=== PATIENT | female | born 1970 | race Caucasian/White ===

== ENCOUNTER → 2016-10-23 | Outpatient (CLI) | payer OTHER ==
[~2016-10-23] MED LIST: CALC-354 PO; EST5 PO; MELO15TA4 PO; METH-307 PO; MULT-506 PO
--- NOTE | 2016-10-23 08:08 | DIAGNOSTIC IMAGING REPORT ---
MRI OF THE CERVICAL SPINE WITHOUT CONTRAST CLINICAL HISTORY: Cervical radiculopathy. Neck pain radiating into right upper extremity. COMPARISON: None. TECHNIQUE: Utilizing a 1.5 Stephanie magnet and dedicated coil, multiplanar, multiecho imaging of the cervical spine was performed without IV contrast. FINDINGS: Alignment of the cervical spine is anatomic. Vertebral body heights are maintained. There is no marrow replacement. There is no intracanalicular mass or fluid collection. Cervical cord signal and caliber are normal. Visualized portions of the posterior fossa are unremarkable. Paravertebral soft tissues are unremarkable. C2-C3: The central canal and neural foramen are patent. C3-C4: There is minimal disc bulge. Central canal and left neural foramen are patent. There is mild narrowing of the right neural foramen due to facet arthrosis and uncovertebral hypertrophy. C4-C5: There is mild disc bulge with a tiny central disc protrusion. There is no significant central canal stenosis. The left neural foramen is patent. Severe right neural foraminal stenosis is noted due to uncovertebral hypertrophy and facet arthrosis. C5-C6: There is minimal disc bulge. Central canal is patent as is the left neural foramen. There is minimal narrowing of the right neural foramen. C6-C7: There is disc space narrowing with disc bulge and right paracentral disc protrusion. This contacts the ventral aspect of the cord. There is mild to moderate narrowing of the central canal. Left neural foramen is patent. Moderate narrowing of the right neural foramen is noted predominantly due to uncovertebral hypertrophy. C7-T1: Central canal and neural foramen are patent. IMPRESSION: 1. Moderate multilevel degenerative disc disease and facet arthrosis of the cervical spine. Disc bulge with right paracentral disc protrusion at C6-C7 that results in mild to moderate narrowing of the central canal. Normal cervical cord signal and caliber. 2. Multilevel neural foraminal narrowing, including severe narrowing of the right C4-C5 neural foramen and moderate narrowing of the right C6-C7 neural foramen. Electronically signed by: Lazaro Joyce M.D. 10/23/2016 8:07 AM Dictated Date/Time: 10/23/2016 7:58 AM
== END | disposition home or self-care (01) ==
LOC: C.MRI 06:18
PROVIDERS: ATTEND Family Medicine
DX: M50.122 Cervical disc disorder at C5-C6 level with radiculopathy (principal); M50.123 Cervical disc disorder at C6-C7 level with radiculopathy

== ENCOUNTER 2022-12-23 06:57 | Observation (INO) ==
--- NOTE | 2022-11-26 10:32 | PAT Medication Instructions ---
Medication Instructions Date of Service November 26, 2022 Home Medications Medication Instructions Recorded estradiol 0.5 mg tablet 0.5 mg PO DAILY #90 tabs 01/08/22 apixaban 5 mg (74 tabs) tablets in See Rx Instructions .Route 07/09/22 a dose pack (Eliquis) .COMPLEX #74 ea calcium carbonate 600 mg-vitamin D3 5 mcg (200 unit) capsule (Calcium 600 + D(3)) 2 cap PO QAM calcium polycarbophil 625 mg tablet (FiberCon) 1,250 mg PO QAM famotidine 20 mg tablet (Pepcid) 20 mg PO HS PRN reflux methocarbamol 750 mg tablet (Robaxin-750) 750 mg PO BID PRN Pain pediatric multivitamin no.76 (Flintstones Complete chewable tablet) 1 tab PO QAM estradiol 0.5 mg tablet 0.5 mg PO DAILY apixaban 5 mg (74 tabs) tablets in a dose pack (Eliquis) See Rx Instructions .Route .COMPLEX acetaminophen 650 mg tablet,extended release 1,300 mg PO Q12H ASK your prescriber and surgeon estradiol 0.5 mg tablet 0.5 mg PO DAILY apixaban 5 mg (74 tabs) tablets in a dose pack (Eliquis) See Rx Instructions .Route .COMPLEX (From anesthesia perspective, Apixaban/Eliquis needs to be stopped 72 hours before surgery. Please check if okay with doctor that prescribes this to you) DO NOT take the morning of surgery calcium carbonate 600 mg-vitamin D3 5 mcg (200 unit) capsule (Calcium 600 + D(3)) 2 cap PO QAM calcium polycarbophil 625 mg tablet (FiberCon) 1,250 mg PO QAM pediatric multivitamin no.76 (Flintstones Complete chewable tablet) 1 tab PO QAM Take morning of surgery With a small sip of water, OTHERWISE NOTHING TO EAT OR DRINK AFTER MIDNIGHT: methocarbamol 750 mg tablet (Robaxin-750) 750 mg PO BID PRN Pain (if needed) acetaminophen 650 mg tablet,extended release 1,300 mg PO Q12H Take evening before surgery famotidine 20 mg tablet (Pepcid) 20 mg PO HS PRN reflux (if needed) methocarbamol 750 mg tablet (Robaxin-750) 750 mg PO BID PRN Pain (if needed) acetaminophen 650 mg tablet,extended release 1,300 mg PO Q12H Other Notes If you have any questions please call us at [phone] or [phone] or [phone] or [phone]
--- NOTE | 2022-11-28 15:43 | Anesthesiology Consultation ---
Date of Service November 28, 2022 Assessment & Plan (1) Encounter for pre-operative examination: - Infectious disease screening: Per assessment on 11/28/22: No known infectious disease contacts or current infectious disease symptoms. No noted Covid positive test result in past 90 days. - Outpatient joint assessment: Pt currently scheduled for inpatient pathway. If surgeon requests review for outpatient joint pathway, patient is not recommended candidate for outpatient joint program from anesthesia standpoint. - DVT 06/2022: DVT 07/09/22 ([facility] Right knee felt r/t related to estradiol or Covid infection per pt > recent scan "still shows is present" per pt. * Surgeon aware. Per ortho/surgeon office visit note (11/20/22): "Of note, the patient does have a history of DVT this year in June while on COVID. No PEs. She has had several ultrasounds. She actually has an ultrasound scheduled for tomorrow at [facility]." * LE venous duplex performed 11/21/22 showed Chronic DVT in RLE in the segments as noted above due to the chronic changes visualized by duplex. * PCP note 11/21/22: "Please inform patient chronic clot noted in the right.. no acute DVT noted." * PCP note 11/28/22: PCP made aware of upcoming TKA/recent ultrasound findings. "Yes" ok to proceed with surgery. PCP noted surgeon likely wanting patient to hold Eliquis 2 days before surgery. * Patient subsequently seen at [facility] and advised that in order for neuraxial anesthesia, Eliquis would need to be stopped 72 hours prior to surgery (Chronic DVT noted in RLE on recent duplex- if per upcoming discussion between PCP + patient, decision for patient not to hold Eliquis 72 hours prior to surgery, patient made aware that plan would be for general anesthesia). Patient has arranged visit with PCP to discuss doppler findings + Eliquis instructions- Awaiting PCP office visit ([facility], appt 12/09). Chart Review Chart Review: Patient seen in Pre Admission Testing Teaching & Discussion Pre-Anesthesia Teaching/Discussion Notes: Instructed NPO after midnight before surgery,except medications with 15 cc of water. Medication instructions provided according to the [facility] guidelines. History Surgery Operation Date: 12/23/22 08:50 Proposed Procedures p Left Total Knee Arthroplasty - Ming Ceballos MD Height/Weight Height: 5 ft 6.5 in Weight: 76.2 kg Allergies Allergy/AdvReac Type Severity Reaction Status Date / Time nickel Allergy Mild Skin Verified 11/28/22 14:43 redness oxycodone AdvReac Unknown N/V Verified 11/28/22 14:43 Medications Home Medications Medication Instructions Recorded Confirmed Last Taken calcium carbonate 600 mg-vitamin 2 cap PO QAM 10/12/18 11/24/22 03/08/19 03:45 D3 5 mcg (200 unit) capsule (Calcium 600 + D(3)) calcium polycarbophil 625 mg 1,250 mg PO QAM 10/12/18 11/24/22 03/08/19 03:45 tablet (FiberCon) famotidine 20 mg tablet (Pepcid) 20 mg PO HS PRN reflux 10/12/18 11/24/22 03/08/19 03:45 methocarbamol 750 mg tablet 750 mg PO BID PRN Pain 10/12/18 11/24/22 03/08/19 20:00 (Robaxin-750) pediatric multivitamin no.76 1 tab PO QAM 10/12/18 11/24/22 03/08/19 03:45 (Flintstones Complete chewable tablet) estradiol 0.5 mg tablet 0.5 mg PO DAILY #90 tabs 01/08/22 11/24/22 Unknown apixaban 5 mg (74 tabs) tablets in See Rx Instructions .Route 07/09/22 11/24/22 Unknown a dose pack (EliquSlide) .COMPLEX #74 ea acetaminophen 650 mg 1,300 mg PO Q12H 11/24/22 11/24/22 Unknown tablet,extended release Past Medical History Medical History Anemia Hx Degenerative disc disease DVT (deep venous thrombosis) 07/09/22 ([facility]), Right knee felt r/t related to estradiol or Covid infection per pt > recent scan "still shows is present" per pt GERD (gastroesophageal reflux disease) History of asthma Exercise induced, no inhaler History of COVID-19 03/2022- cough, chest congestion, fatigue > resolved Hx of irritable bowel syndrome Hx of phlebitis LLE, felt r/t Covid, "resolved"- Xarelto x 6 weeks Left knee DJD Osteoarthritis Temporomandibular joint disorder Left side, rare locking Exercise / Class Metabolic Activity II 4-5 Yardwork/Stairs/Walk up hill (one FS (no CP, no SOB)) Past Family History Family History Mother Family history of diabetes mellitus Father Family hx of colon cancer Breast cancer Brother Family hx of colon cancer Denies family history of Ovarian cancer Prostate cancer Myocardial infarction Past Surgical History Surgical History H/O hand surgery Right index finger fracture repair 5th metacarpal fracture repair H/O total hysterectomy History of arthroplasty of left knee History of arthroscopy of left knee 02/2019 [facility] History of arthroscopy of right knee 10/2018 [facility] History of colonoscopy History of esophagogastroduodenoscopy (EGD) History of laparoscopy Exploratory History of tooth extraction Nausea and vomiting after administration of anesthetic agent Past Anesthesia History No Hx of Anesthesia Complications and No Family Hx of Anesthesia Complications History of PONV No Hx of Motion Sickness and History of PONV Social History Smoking Status: Never smoker Do You Dip or Chew Tobacco: No Hx Alcohol Use: Yes Alcohol type: wine alcohol intake frequency: holidays/special occasions only Hx Substance Use: No substance use type: does not use Review of Systems Patient denies chest pain, shortness of breath, dyspnea on exertion, fever, chills, cough, wheezing, palpitations. Physical Exam PHYSICAL Full cervical extension range of motion. Full TMJ range of motion. TMD 3 finger breaths Mallampati Score 1 Dentition: lower front right "partial cap" (has "popped off" in the past) Lungs: clear throughout to auscultation Cardiac: regular rate and rhythm, no murmurs noted Spine: normal Carotid arteries: negative bruit Extremities: no LE edema Lab Results Anesthesia Preop Results Results Anesthesia Widget: WBC 7.71 K/ul (4.8-10.8) 11/28/22 Hgb 12.8 g/dl (12.0-16.0) 11/28/22 Hct 38.0 % (37.0-47.0) 11/28/22 Plt 255 K/uL (130-400) 11/28/22 Na 137 mmol/L (136-145) 11/28/22 K 3.8 mmol/L (3.5-5.1) 11/28/22 Cl 102 mmol/L (98-107) 11/28/22 CO2 27 mmol/L (21-32) 11/28/22 BUN 24 mg/dl (6-23) H 11/28/22 Creat 0.75 mg/dl (0.6-1.2) 11/28/22 Glucose Level 82 mg/dl (70-99(Fasting)) 11/28/22 PT 10.8 Seconds (9.0-12.0) 11/28/22 PTT 28.0 Seconds (21.0-31.0) 11/28/22 INR 1.0 (0.9-1.1) 11/28/22 Blood Type A Positive 11/28/22 Antibody Screen NEGATIVE 11/28/22 Testing Electrocardiogram Date: 11/28/22 Findings: + NSR @ (70) Chest X-Ray Date: 12/01/22 FINDINGS: Cardiomediastinal and hilar silhouettes are within normal limits. No pneumothorax, pleural effusion or airspace consolidation. Bones appear grossly intact. IMPRESSION: No acute process. Other Testing LE venous duplex Date: 11/21/22 RIGHT LOWER EXTREMITY On duplex examination the right common femoral vein, the sapheno-femoral junction and the femoral vein in the thigh are all free of internal echoes and demonstrate normal transducer compressibility during acrdenas scale imaging and normal respiratory and augmentation response during Doppler interrogation. The posterior tibial veins demonstrate no evidence of thrombosis. Right popliteal vein has phasic flow, is partly compressible and echogenic. LEFT LOWER EXTREMITY On duplex examination the left common femoral vein, the sapheno-femoral junction, the femoral vein in the thigh and popliteal vein are all free of internal echoes and demonstrate normal transducer compressibility during cardenas scale imaging and normal respiratory and augmentation response during Doppler interrogation. The posterior tibial veins and peroneal veins demonstrate no evidence of thrombosis. CONCLUSIONS: Chronic deep venous thrombosis in the right lower extremity in the segments as noted above due to the chronic changes visualized by duplex. Left lower extremity with no evidence of acute deep venous thrombosis.
--- NOTE | 2022-12-19 07:35 | History & Physical Report ---
Date of Service December 19, 2022 Assessment & Plan (1) Left knee DJD: 52-year-old female with history of bilateral knee DJD for many years and history of knee arthroscopy done 3 and half to 4 years ago both knees with increasing pain and discomfort and progressive arthritic changes left knee worse than the right. She has failed conservative measures. She like to have her knees fixed. Does have a history of a DVT while having COVID. She is on Eliquis. Plan: We will going to take her to the operating do left total knee replacement for the risks Mente this procedure explained the patient clued but not limited to DVT PE infection neurological and vascular bleeding palm pain limb range of motion test is fairly her symptoms incomplete relief of symptoms need for further surgery in future exceptor. The patient understands and desires to proceed. Informed consent is obtained. She is on Eliquis unsure if to stop that 3 days preop. We will start her on a 24 hours postoperative prophylactic dose and then a full dose 2 days postop. He is planned to be discharged home using home health. She plan on stay in the hospital overnight and hopefully discharge postop day 1 if doing okay. (2) Right knee DJD: History of Present Illness Chief Complaint: . Pain discomfort left side greater than right. Primary Care Provider: Paulie Santoyo MD . Patient is a 52-year-old female who has been a long-term patient of mine who presents for continued management of her knees. Got a long history of bilateral knee pain discomfort is gradually gotten worse over time. She did undergo a left knee arthroscopy 3 and half years ago and the right one about 4 years ago. She did pretty well until about 6 months ago when she started increasing pain discomfort swelling. She has been through extensive conservative treatment including injections and oral medicines which have become less successful over time. She is got pain in both knees. The left knee is worse than the right. Slight swelling. More she is up and out the more it hurts. She really like to have her left knee fixed. Of note, patient does have history of a DVT in June while having COVID. No PEs. She is on Eliquis. Allergies Allergy/AdvReac Type Severity Reaction Status Date / Time nickel Allergy Mild Skin Verified 11/28/22 14:43 redness oxycodone AdvReac Unknown N/V Verified 11/28/22 14:43 Home Medications Medication Instructions Recorded Confirmed Type calcium carbonate 600 mg-vitamin 2 cap PO QAM 10/12/18 11/24/22 History D3 5 mcg (200 unit) capsule (Calcium 600 + D(3)) calcium polycarbophil 625 mg 1,250 mg PO QAM 10/12/18 11/24/22 History tablet (FiberCon) famotidine 20 mg tablet (Pepcid) 20 mg PO HS PRN reflux 10/12/18 11/24/22 History methocarbamol 750 mg tablet 750 mg PO BID PRN Pain 10/12/18 11/24/22 History (Robaxin-750) pediatric multivitamin no.76 1 tab PO QAM 10/12/18 11/24/22 History (Flintstones Complete chewable tablet) estradiol 0.5 mg tablet 0.5 mg PO DAILY #90 tabs 01/08/22 11/24/22 Rx apixaban 5 mg (74 tabs) tablets in See Rx Instructions .Route 07/09/22 11/24/22 Rx a dose pack (Eliquis) .COMPLEX #74 ea acetaminophen 650 mg 1,300 mg PO Q12H 11/24/22 11/24/22 History tablet,extended release Past Med/Surg History Medical History Hx of irritable bowel syndrome History of COVID-19 03/2022- cough, chest congestion, fatigue > resolved Hx of phlebitis LLE, felt r/t Covid, "resolved"- Xarelto x 6 weeks DVT (deep venous thrombosis) 07/09/22 ([facility]), Right knee felt r/t related to estradiol or Covid infection per pt > recent scan "still shows is present" per pt Left knee DJD Degenerative disc disease Osteoarthritis GERD (gastroesophageal reflux disease) Anemia Hx Temporomandibular joint disorder Left side, rare locking History of asthma Exercise induced, no inhaler Surgical History History of arthroscopy of left knee 02/2019 [facility] [place] History of arthroplasty of left knee History of arthroscopy of right knee 10/2018 [facility] [place] Nausea and vomiting after administration of anesthetic agent H/O hand surgery Right index finger fracture repair 5th metacarpal fracture repair History of esophagogastroduodenoscopy (EGD) History of colonoscopy H/O total hysterectomy History of laparoscopy Exploratory History of tooth extraction Family History Mother Family history of diabetes mellitus Father Family hx of colon cancer Breast cancer Brother Family hx of colon cancer Denies family history of Ovarian cancer Prostate cancer Myocardial infarction Social History Smoking Status: Never smoker Second Hand Exposure: Yes (father smoked); Do You Dip or Chew Tobacco: No; Hx Alcohol Use: Yes Alcohol type: wine Hx Substance Use: No Preferred Language: Yi Communication Ability: Effective Sports Management Intern Required: No Beliefs That Will Affect Care: None Current Living Situation: Spouse Feels Safe at Home: Yes Assistive Devices: Glasses Review of Systems All systems reviewed & are unremarkable except as noted in HPI & below. Physical Exam . Physical examination of both knees reveal patient ambulates independently. She clearly limps on the left side. Is got slight varus alignment to her knee. Small knee effusion. She is tender over the medial joint line. Range of motion is 5-1 25. No instability. No pain with hip motion. Constitutional WD/WN, vitals as above ENMT external ear and nose normal, oropharynx normal Neck trachea midline, no thyromegaly Respiratory normal respiratory effort, lungs clear to auscultation Cardiovascular RRR, no murmur, no edema Gastrointestinal (Abdomen) normal bowel sounds, soft, nontender, no hepatosplenomegaly Results & Data Results & Data Laboratory Results . Diagnostic Findings . X-rays of both knees were reviewed. Shows advanced medial compartment arthritis in both knees. She is got complete loss of the medial joint space. She got some patellofemoral disease. This has progressed markedly over the past several years. MRI of the left knee was reviewed. Shows advanced medial compartment arthritis. Got bone marrow edema in the medial femoral condyle medial tibial plateau. PG Care Time/CCT Total # of Minutes Spent Total Time Spent with Patient: Total time spent is greater than 50% in coordination of care (as documented) at patient's floor/unit and/or counseling patient: Coding Level of Care Code None Diagnoses Left knee DJD M17.12 Right knee DJD M17.11
[~2022-12-23 06:57] MED LIST changes: +ACETAMINOPHEN 500 MG TAB PO SCH; +BUPIVACAINE LIPOSOME/PF 266 MG, BUPIVACAINE/EPINEPHRINE 50 ML, SODIUM CHLORIDE 0.9% PF ... INFIL SCH; -CALC-354 PO; +CeleBREX 200 MG CAP PO SCH; -EST5 PO; +FAMOTIDINE 20 MG TAB PO SCH; +LR 500ML BOLUS, THEN 15ML/HR IV SCH; +LR 60ML/HR IV SCH; -MELO15TA4 PO; -METH-307 PO; +METOCLOPRAMIDE HCL 10 MG TABLET PO SCH; -MULT-506 PO; +ROPIVACAINE 0.5% 5 MG/ML 30 ML VIAL ONE; +Scopolamine 1 MG TDSY TD SCH; +TRANEXAMIC ACID 1,000 MG **IV Intra-op IV SCH; +ceFAZolin 2000MG 2,000 MG/15 ML SYR IV SCH; +dexAMETHasone**PF** 10 MG/ML VIAL IV SCH
[2022-12-23] MEDS ORDERED: ePHEDrine sulfate 50 MG/ML AMP IV PRN (08:04)
[2022-12-23] MEDS ORDERED: ATROPINE SULFATE 0.1 MG/ML 10ML SYR IV PRN (08:04)
[2022-12-23] MEDS ORDERED: HYDROmorphone INJ 1 MG/ML SYRINGE IV PRN (08:04)
[2022-12-23] MEDS ORDERED: MIDAZOLAM HCL 1 MG/ML 2ML VIAL ONE ×2 (08:04→08:29)
[2022-12-23] MEDS ORDERED: KETOROLAC 30 MG/ML VIAL IV PRN (08:04)
[2022-12-23] MEDS ORDERED: ONDANSETRON INJ 2 MG/ML 2 ML VIAL IV PRN ×2 (08:04→12:29)
--- NOTE | 2022-12-23 08:41 | History & Physical Bridge Note ---
Date of Service December 23, 2022 History & Physical Bridge Note I have examined the patient, reviewed the History & Physical and in the interval since the performance of the History & Physical I have noted the following changes of clinical significance: no changes noted
[2022-12-23] MEDS ORDERED: SODIUM CHLORIDE 0.9% PF 50 ML VIAL ONE (08:48)
[2022-12-23] MEDS ORDERED: BUPIVACAINE/EPINEPHRINE 0.25% 1:200,000 30 ML VIAL ONE (08:48)
[2022-12-23] MEDS ORDERED: BUPIVACAINE LIPOSOME 1.3% 266 MG/20 ML VIAL ONE (08:48)
[2022-12-23] MEDS ORDERED: PROPOFOL IV EMULSION 10 MG/ML 20 ML VIAL IV ONE ×2 (09:35→10:36)
[2022-12-23] MEDS ORDERED: GLYCOPYRROLATE 0.2 MG/ML VIAL ONE (09:35)
[2022-12-23] MEDS ORDERED: ONDANSETRON INJ 2 MG/ML 2 ML VIAL ONE (10:17)
[2022-12-23] MEDS ORDERED: KETOROLAC 30 MG/ML VIAL ONE (10:18)
--- NOTE | 2022-12-23 11:08 | Operative Report ---
PG Post Operative Report Pre & Post Diagnosis Operation Date: 12/23/22 08:50 Pre-Op Diagnosis: Left Knee Advanced Degenerative Joint Disease Post-Op Diagnosis: Left Knee Advanced Degenerative Joint Disease I identified the patient and participated in the time-out.: Yes Procedure Operation Date: 12/23/22 08:50 Actual Procedures p Left Total Knee Arthroplasty(Left) - Ming Ceballos MD Surgeon Ming Ceballos MD Spinner Box Tomas Carranza PA-C Estimated Blood Loss 50 Findings Consistent with Post-Op Diagnosis Operative findings were advanced left knee medial compartment DJD. She had full-thickness cartilage loss within the medial femoral condyle as well as the proximal medial tibial plateau. Slight varus alignment to her knee. Moderate- sized joint effusion. Specimens Left knee sent for pathology. Anesthesia Type Spinal MAC Complications none Disposition Accompanied Patient To Recovery: No Indications Patient is a 52-year-old female who said a long history of bilateral knee pain discomfort is gradually gotten worse over time. She has been through extensive conservative treatment the past. She underwent bilateral knee arthroscopies about 4 years ago. She did pretty well for about 3 years but over the past year she has felt increased pain discomfort in both knees to the left knee is a bit worse than the right. X-rays show progressive left knee arthritis. She elected proceed with total knee arthroplasty. 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 Description of Procedure Operative implants consist of: 1 Rdidle [employer] Nephew journey 2 size 4 left posterior stabilized femoral component. 2. Riddle [employer] Nephew journey 2 size 4 left tibial tray. 3. 11 mm posterior stabilized polyethylene insert. 4. 29 x 9 all poly patella. The patient was taken the operating, identified, placed on the operating table supine position. All contact areas were appropriately padded. IV antibiotics tried by anesthesia team. Spinal anesthetic and abductor canal block had provided in the holding area. A left thigh turn was then placed. Left lower extremity was then prepped and draped in usual sterile fashion. The left leg was elevated exsanguinated with use of an Esmarch and the tourniquet was placed at 300 mmHg. An anterior approach the left knee was then performed to longitudinal incision centered over the patella. Sharp dissection scalp through subcutaneous tissue down the extensor mechanism. Medial parapatellar arthrotomy incision was made. Some subperiosteal dissection was carried out medially. The fat pad was resected from Neath patella tendon. Lateral patellofemoral ligament was released. Patella subluxated laterally and the knee was flexed. The osteophytes taken on distal femur. The ACL and PCL were then released from the distal femur and the tibia subluxated anteriorly. The external tibial alignment jig was then placed the anterior face of the tibia and adjusted 8 mm medially. Proximal tibial cut was made remove about 2 to 3 mm of bone from the medial side. Tibia was then sized to a size 4. Attention drawn the femur. The distal femur then with a sharp drill. Intramedullary canal was suction. A left 5 degree valgus cutting guide was placed. This femoral cutting block was pinned in place. Distal femoral cutting block was then adjusted to take an additional 2 mm bone off distal femur. The femur was then sized to a size 4. The AP cutting block was pinned parallel to the epicondylar axis which was 4 degrees of external rotation. The anterior cut, anterior cord, and cheered chamfer, posterior cut, posterior chamfer cuts were made. The knee was then flexed. The remnants of the medial lateral menisci were excised. The os teophytes taken off the posterior aspect of the femur. The femoral component was then placed. The notch cutting guide device was then placed in the distal femoral notch was then milled and punched. The trochlear component was placed. The tibia subluxated anteriorly. The tibial tray was then pinned in place. The drill and stem punch were used to create defect in proximal tibia for the tibial tray. The knee was then trialed and the leg millimeter insert fit most appropriately. Attention drawn the patella. The patella was cleaned of all soft tissues. Patella thickness measured 21 mm in thickness was cut down to 13. Was sized to a size 29 patella. The locals were drilled for the 29 patella. Lateral osteophytes removed. Patella button was placed. Knee was taken through range of motion patella tracked nicely with no thumbs test. Attention drawn to placing permanent components. All trial components were removed. Bone plug was placed in the distal femur limit blood loss. A double batch Palacos G cement was mixed. Riddle [employer] Nephew journey 2 size of the 4 left Po stabilized femoral component, a size 4 tibial tray, 11 mm pro stabilized polyethylene insert, and a 29 x 9 all Paller patella then cemented in place. Knee was brought out into full extension till cement hardened. Final cement check was then performed. Pericapsular tissues were injected with total of 100 cc combination of choice of Exparel, 30 cc normal saline, 50 cc of quarter percent Marcaine with epinephrine. Patient did receive 1 g tranexamic acid. The tourniquet was then let down for final tourniquet time of 65 minutes. Hemostasis surgeries electrocautery. Extensor mechanism then closed with combination 1 PDS suture #1 Vicryl suture in [id number] fashion. Extensor mechanism checked found to be intact with subcutaneous tissues then closed with 2 Dexon suture in a buried interrupted fashion skin was closed skin allen. Leg was then cleaned and dried and sterile dressing was Xeroform, 4 fours, sterile cast padding, Yuri bandage were applied. Patient then transferred to the recovery room in stable condition. Patient tolerated procedure well and there were no complications. Tomas Carranza, my physician certified registered dental assistant, was present for the entire procedure. His assistance was essential and required for appropriate patient positioning, prepping and draping, surgical exposure, performing the technical details of the operation, placement the implants, closure of the wound, and placement of the sterile bandage. I attest to the content of the Intraoperative Record and any orders documented therein. Any exceptions are noted below.
--- NOTE | 2022-12-23 12:07 | XRay Report ---
XR knee LT 1 or 2V routine CLINICAL HISTORY: Postoperative evaluation. COMPARISON: Left knee radiographs September 15, 2022. FINDINGS: Alignment of the total left knee arthroplasty is anatomic. There is no periprosthetic frac ture or unexpected radiopaque foreign body. There are skin allen. IMPRESSION: Expected findings following total left knee arthroplasty. ACT 112: Negative or not required by law. Electronically signed by: Lazaro Joyce M.D. 12/23/2022 12:06 PM
[2022-12-23] MEDS ORDERED: ALUMINUM/MAGNESIUM SUSP 30 ML UDC PO PRN (12:29)
[2022-12-23] MEDS ORDERED: METOCLOPRAMIDE HCL INJ 5 MG/ML 2 ML VIAL IV PRN (12:29)
[2022-12-23] MEDS ORDERED: diphenhydrAMINE Capsule 25 MG CAP PO PRN (12:29)
[2022-12-23] MEDS ORDERED: bisacodyL 10 MG SUPP PR PRN (12:29)
[2022-12-23] MEDS ORDERED: MAGNESIUM HYDROXIDE SUSP 30 ML UDC PO PRN (12:29)
[2022-12-23] MEDS ORDERED: FAMOTIDINE 20 MG TAB PO PRN (12:29)
[2022-12-23] MEDS ORDERED: NALOXONE HCL 0.4 MG/1 ML VIAL/CARP IV PRN (12:29)
[2022-12-23] MEDS ORDERED: HYDROmorphone INJ 0.5 MG/0.5 ML SYR IV PRN (12:29)
[2022-12-23] MEDS ORDERED: METHOCARBAMOL 750 MG TABLET PO PRN (12:29)
--- NOTE | 2022-12-23 12:37 | Anesthesiology Progress Note ---
Date of Service December 23, 2022 Anesthesia Post Procedure Vital Signs Vital Signs: Temp Pulse Pulse Resp BP Pulse Ox O2 Del Method 12/23/22 12:31 36.5 C 75 16 118/72 98 Room Air 12/23/22 12:10 36.4 C L 69 19 123/72 98 Room Air 12/23/22 12:00 73 18 129/67 99 Room Air 12/23/22 11:50 71 18 114/68 98 Room Air 12/23/22 11:40 36.5 C 69 18 129/72 99 Room Air 12/23/22 11:30 76 16 129/79 99 Room Air 12/23/22 11:20 70 16 125/67 100 Room Air 12/23/22 11:10 73 16 127/63 95 Room Air 12/23/22 11:03 36.7 C 85 18 144/67 H 97 Room Air 12/23/22 07:15 36.5 C 64 18 119/68 100 Room Air Transfer of Care Handoff Completed per policy Notes Mental Status: alert / awake / arousable Patient Amnestic to Procedure: Yes Nausea / Vomiting: adequately controlled Pain: adequately controlled Airway Patency, RR, SpO2: stable & adequate BP & HR: stable & adequate Hydration State: stable & adequate Neuraxial Anesthesia: was administered and sensory block is resolving Anesthetic Complications: no major complications apparent
[2022-12-23] MEDS: SODIUM CHLORIDE 0.9% 1,000 ML IV SCH ×2 (13:11→22:42)
[2022-12-23] MEDS: KETOROLAC 30 MG/ML VIAL IV SCH ×2 (13:55→20:42)
[2022-12-23] MEDS: ACETAMINOPHEN 500 MG TAB PO SCH ×2 (13:55→20:43)
[2022-12-23] MEDS: traMADol HCL 50 MG TABLET PO PRN ×2 (14:42→22:14)
[2022-12-23] MEDS: ceFAZolin 1000MG 1,000 MG/7.5 ML SYR IV SCH (16:15)
[2022-12-23] MEDS: Scopolamine CHECK PATCH PLACEMENT SCH (16:19)
[2022-12-23] MEDS: ASCORBIC ACID 500 MG TAB PO SCH (16:20)
[2022-12-23] MEDS ORDERED: TRANEXAMIC ACID / 0.7% NACL 1,000 MG/100 ML BAG IV SCH (17:15)
[2022-12-23] MEDS: DOCUSATE SODIUM 100 MG CAP PO SCH (20:42)
[2022-12-23] MEDS ORDERED: SENNA 8.6 MG TAB PO SCH ×2 (21:00)
[2022-12-24] MEDS: ceFAZolin 1000MG 1,000 MG/7.5 ML SYR IV SCH (00:52)
[2022-12-24] MEDS: Scopolamine CHECK PATCH PLACEMENT SCH ×2 (00:52→08:24)
[2022-12-24] MEDS: KETOROLAC 30 MG/ML VIAL IV SCH ×2 (00:52→08:23)
[2022-12-24 07:08] LABS: Hematocrit (blood only) 35.1 % (37.0-47.0); Hemoglobin 11.5 g/dl (12.0-16.0); Mean Corpuscular Hemoglobin 29.9 pg (25.0-34.0); Mean Corpuscular Hgb Conc 32.8 g/dL (32.0-36.0); Mean Corpuscular Volume 91.4 fL (80.0-100.0); Mean Platelet Volume 9.1 fL (9.4-12.4); Platelet Count 239 K/uL (130-400); RDW Coefficient of Variation 12.7 % (11.5-14.5); RDW Standard Deviation 42.2 fL (36.4-46.3); Red Blood Count 3.84 M/uL (4.20-5.40); White Blood Count 15.59 K/ul (4.8-10.8)
[2022-12-24] MEDS: traMADol HCL 50 MG TABLET PO PRN (07:54)
[2022-12-24] MEDS ORDERED: dexAMETHasone 10 MG in SYRINGE 0 ML IV SCH (08:00)
[2022-12-24] MEDS: ACETAMINOPHEN 500 MG TAB PO SCH (08:23)
[2022-12-24] MEDS: ASCORBIC ACID 500 MG TAB PO SCH (08:23)
[2022-12-24] MEDS: DOCUSATE SODIUM 100 MG CAP PO SCH (08:23)
--- NOTE | 2022-12-24 08:23 | Orthopedic Progress Note ---
Date of Service December 24, 2022 Assessment & Plan (1) Status post left knee replacement: Overall she is doing very well. She is not having much pain to the left knee. She will be seen by physical therapy today for ambulation and range of motion exercises. She was restarted back on her Eliquis for DVT prophylaxis. She can be discharged home later today. She will follow-up with Dr. Ceballos in 2 weeks for postoperative care. Francisco Abdullahi was seen and evaluated at bedside this morning. She is resting comfortably in her chair in no apparent distress. Overall she is doing very well with slight discomfort to the left knee but manageable. She has been up and ambulating to the bathroom overnight. She has no complaints today. Review of Systems All systems reviewed & are unremarkable except as noted in HPI & below. Physical Exam . On physical exam of the left knee, the dressings are clean, dry, intact. Her leg is out in full extension. She has active dorsiflexion and plantarflexion of her left ankle. Results & Data Results & Data Laboratory Results . Diagnostic Findings . Postoperative x-rays of the left knee show the prosthesis to be in anatomical alignment without any evidence of fracture complication or loosening. PG Care Time/CCT Total # of Minutes Spent Total Time Spent with Patient: Total time spent is greater than 50% in coordination of care (as documented) at patient's floor/unit and/or counseling patient: Coding Level of Care Code 16200 Post Operative Follow-Up Diagnoses Status post left knee replacement Z96.652
--- NOTE | 2022-12-24 08:34 | Discharge Summary ---
Date of Service December 24, 2022 Admission HPI Per Admitting Provider Patient is a 52-year-old female who has been a long-term patient of mine who presents for continued management of her knees. Got a long history of bilateral knee pain discomfort is gradually gotten worse over time. She did undergo a left knee arthroscopy 3 and half years ago and the right one about 4 years ago. She did pretty well until about 6 months ago when she started increasing pain discomfort swelling. She has been through extensive conservative treatment including injections and oral medicines which have become less successful over time. She is got pain in both knees. The left knee is worse than the right. Slight swelling. More she is up and out the more it hurts. She really like to have her left knee fixed. Of note, patient does have history of a DVT in June while having COVID. No PEs. She is on Eliquis. Admission Exam (Per Admitting) Musculoskeletal Physical examination of both knees reveal patient ambulates independently. She clearly limps on the left side. Is got slight varus alignment to her knee. Small knee effusion. She is tender over the medial joint line. Range of motion is 5-1 25. No instability. No pain with hip motion. Musculoskeletal On physical examination of the left knee, the dressings are clean, dry, and in place. Her leg is held in full extension. She has active dorsiflexion and plantarflexion of her left ankle. Discharge Data Procedures Performed Operation Date: 12/23/22 08:50 Actual Procedures p Left Total Knee Arthroplasty(Left) - Ming Ceballos MD Hospital Course (1) Status post left knee replacement: On December 23, 2022 Kaylen arrived at [facility] and underwent a left knee replacement without complications. She had a spinal anesthetic. Postoperatively she was started back on her Eliquis for DVT prophylaxis and transferred to the general orthopedic floors. Her hospital course was uneventful. On postoperative day #1, her vital signs were stable and her pain was well controlled. She was able to participate well with physical therapy doing ambulation and range of motion exercises. She was then discharged home she will follow-up with Dr. Ceballos in 2 weeks for postoperative care. Coding Level of Care Code 92350 IN/OBS DISCH 30 MIN/LESS Diagnoses Status post left knee replacement Z96.652 Principal Diagnosis Same as discharge diagnosis noted under discharge instructions.
[2022-12-24] MEDS ORDERED: MULTIVITAMIN TAB PO SCH (09:00)
[2022-12-24] MEDS ORDERED: CALCIUM POLYCARBOPHIL 625MG TAB PO SCH (09:00)
[2022-12-24] MEDS ORDERED: NON-FORMULARY MEDICATION (Amino Acids Powder) PO SCH (09:00)
[2022-12-24] MEDS ORDERED: MULTIVITAMIN CHEWABLE TAB PO SCH (09:00)
[2022-12-24] MEDS ORDERED: CALCIUM 600MG + VIT D 400 IU TAB PO SCH (09:00)
[2022-12-24 09:03] LABS: BUN Creatinine Ratio 20.9 (10-20); Calcium 9.1 mg/dl (8.6-10.3); Creatinine Clr Calc Pharmacy 73.9 ml/min; Est GFR (African American) 82.9 ml/min; Est GFR (Non-African American) 71.5 ml/min; Potassium 3.9 mmol/L (3.5-5.1)
[2022-12-24] MEDS ORDERED: APIXABAN 2.5 MG TAB PO SCH (12:00)
--- OUTSIDE RECORDS SUMMARY | 2022-12-25 01:23 | External Medical Summary | Summary of Care ---
Author Name Unknown Organization [facility] Address [address] [place] [address] Phone [phone] Care Team Providers Care Light Adjuster Name Role Phone Natanael GARDNER MD, Paulie Browne Primary Care Provider [phone] Reason for Visit * Reason Comments Acute Neck pain Encounter Details Date Type Department Care Team Description 10/27/2022 Office Visit Family Practice [facility] [place] [address] [facility] [place] [address] Wendy Iqbal PA-C [address] [facility] [place] [address] Viral URI*; Lymphadenopathy Allergies Active Allergy Reactions Severity Noted Date Comments Nickel Rash 10/04/2015 Oxycodone-Acetaminophen 08/13/2010 Nausea/vomiting documented as of this encounter (statuses as of 10/27/2022) Medications Medication Sig Dispensed Refills Start Date End Date Status MULTIVITAMIN PO CHEW None Entered 0 Ac tive CALCIUM + D 600-200 MG-UNIT PO TABS 0 Active Famotidine 20 MG Oral Tablet Take 1 Tablet by mouth in the morning and 1 Tablet before bedtime. 0 Active Methocarbamol 750 MG Oral TabletIndications:Degen eration of lumbosacral intervertebral disc Take 1 Tablet by mouth in the morning and 1 Tablet before bedtime. As needed for back pain. 60 Tablet 3 06/03/2022 Active Apixaban 5 MG Oral Tablet (Eliquis) Take 1 Tablet by mouth in the morning and 1 Tablet before bedtime. 60 Tablet 5 07/21/2022 Active documented as of this encounter (statuses as of 10/27/2022) Active Problems Problem Noted Date Acute deep vein thrombosis ( DVT) of popliteal vein of right lower extremity 07/12/2022 Arthritis of knee, degenerative 05/28/19 15 Family history of GI malignancy 08/14/19 11 Dermatitis due to plant 08/05/2010 ADVANCE DIRECTIVE INFORMATION 03/10/2006 Overview: Pt declines booklet. LUMB-LUMBOSAC DISC DEGEN 09/29/2002 Endometriosis of other specified sites 0 09/29/2002 documented as of this encounter (statuses as of 10/27/2022) Resolved Problems Problem Noted Date Resolved Date Irritable bowel syndrome 09/29/2002 015 documented as of this encounter (statuses as of 10/27/2022) Immunizations Name Administration Dates Next Due COVID-19 mRNA, LNP-s, No Pre serve, 2-Dose Series (Pfizer) 11/22/2020,02/17/2020,01/27/2020 Seasonal Influenza, Quadriva lent, No Preserve, IM 11/23/2020,11/14/2019,02/12/2017 Seasonal Influenza, Split, I IV3, With Preserve, Inj 11/10/2015,02/20/2012,01/23/2010 TDAP (age 11 and older)(Adacel) 08/09/2016,08/14 Zoster Vaccine Recombinant (Shingrix) 08/10/2020 ,05/09/2020 documented as of this encounter Social History Tobacco Use Types Packs/Day Years Used Date Smoking Tobacco: Never Smokeless Tobacco: Never Alcohol Use Standard Drinks/Week Comments Yes 0 (1 standard drink = 0.6 oz pur e alcohol) rare Food Insecurity Answer Date Recorded Within the past 12 months, y ou worried that your food would run out before you got money to buy more. Never true 08/10/2018 Within the past 12 months, t he food you bought just didn't last and you didn't have money to get more. Never true 08/10/2018 Sex Assigned at Date Recorded Not on file Job Start Date Occupation Industry Not on file Not on file Not on file documented as of this encounter Last Filed Vital Signs Vital Sign Reading Time Taken Comments Blood Pressure 104/68 10/27/2022 3:21 PM EDT Pulse 71 10/27/2022 3:21 PM EDT Temperature 36.2 C (97.1 F) 10/27/2022 3:21 PM ED T Respiratory Rate 16 10/27/2022 3:21 PM EDT Oxygen Saturation 98% 10/27/2022 3:21 PM EDT Inhaled Oxygen Concentration - - Weight 76.2 kg (168 lb 0.6 oz) 10/27/2022 3:21 P M EDT Height 168.9 cm (5' 6.5") 10/27/2022 3:21 PM EDT Body Mass Index 26.72 10/27/2022 3:21 PM EDT documented in this encounter Progress Notes * Wendy Iqbal PA-C - 10/27/2022 3:46 PM EDT Subjective Kaylen Arcos is a 52 year old female that presents for Acute (Neck pain ) 52 y/o female presents c/o pain with swallowing and pain on the right side of her neck. Pt states she has allergies and PND at baseline, has seemed ot be a little worse the last week. She is supposedto see the dentist tomorrow, and wants to make sure she is OK to get her teeth cleaned. No dental pain, no ear pain, no fevers, chills, chest pain, SOB, nausea, vomiting, diarrhea. Allergies and medications reviewed. Objective BP 104/68 (BP Site: Left Arm, BP Position: Sitting, BP Cuff Size: Regular) | Pulse 71 | Temp 36.2 C (97.1 F) (Tympanic) | Resp 16 | Ht 1.689 m (5' 6.5") | Wt 76.2 kg (168 lb 0.6 oz) | SpO2 98% | BMI 26.72 kg/m | BSA 1.89 m Body mass index is 26.72 kg/m. BP Readings from Last 3 Encounters: 10/27/22 104/68 10/01/22 124/70 07/12/22 128/78 Wt Readings from Last 3 Encounters: 10/27/22 76.2 kg (168 lb 0.6 oz) 10/01/22 75.6 kg (166 lb 12 oz) 07/12/22 76.5 kg (168 lb 11.2 oz) Physical Exam Vitals and nursing note reviewed. Constitutional: General: She is not in acute distress. Appearance: Normal appearance. HENT: Head: Normocephalic and atraumatic. Right Ear: Tympanic membrane, ear canal and external ear normal. Left Ear: Tympanic membrane, ear canal and external ear normal. Nose: Nose normal. Mouth/Throat: Mouth: Mucous membranes are moist. Pharynx: Posterior oropharyngeal erythema present. No oropharyngeal exudate. Eyes: General: No scleral icterus. Extraocular Movements: Extraocular movements intact. Conjunctiva/sclera: Conjunctivae normal. Pupils: Pupils are equal, round, and reactive to light. Cardiovascular: Rate and Rhythm: Normal rate and regular rhythm. Heart sounds: No murmur heard. No friction rub. No gallop. Pulmonary: Effort: Pulmonary effort is normal. Breath sounds: Normal breath sounds. No stridor. No wheezing, rhonchi or rales. Musculoskeletal: Cervical back: Neck supple. Tenderness present. Lymphadenopathy: Cervical: Cervical adenopathy (equal bilaterally) present. Skin: General: Skin is warm and dry. Findings: No rash. Neurological: General: No focal deficit present. Mental Status: She is alert and oriented to person, place, and time. Psychiatric: Mood and Affect: Mood normal. Behavior: Behavior normal. Assessment and plan 1. Viral URI 2. Lymphadenopathy -reactive lymphadenopathy, likely viral in nature -has been going on for 7 days -likely last for 7-10 days -pt would like to give it the rest of the week to see if it improves -if persistent can plan to do US of neck, CBC to make sure nothing else is going on -to ER with acute worsening symptoms Follow up Follow Up: Return if symptoms worsen or fail to improve. Total time today including reviewing chart before the visit, pertinent labs, imaging reports, face to face time, and documentation time was 20 minutes. The above was discussed and understanding was expressed. Wendy Iqbal PA-C documented in this encounter Nursing Notes * Deann Jasmine, MED ASSIST - 10/27/2022 3:21 PM EDT Kaylen Tate Troyan 52 year old female is here for right sided neck pain when swallowing. She describes it as a sharp pain that she rates at a 5 or 6 out of ten. Symptoms have been present for 7 days. No other symptoms. documented in this encounter Plan of Treatment Scheduled Procedures Name Priority Associated Diagnoses Date/Ti me COLONOSCOPY FLEXIBLE PROXIMA L DIAGNOSTIC Recall Family history of colon cancer Health Maintenance Due Date Last Done Comments Hepatitis B (1 of 3 - 3-dose series) 1970 Depression Screening 10/11/2020 10/12/2019 COVID-19 Vaccine (4 - Pfizer series) 01/17/2021 11/22/2020, 02/17/2020, 01/27/2020 Influenza Vaccine (FLU shot) (#1) 2022 11/23/2020, 11/14/2019, 02/12/2017, Additional history exists Mammogram 06/10/2023 06/09/2022, 05/11, 06/04/2020, Additional history exists Diabetes Screening 05/10/2024 05/10/2021, 1 02/25/2017, 06/03/2014, Additional history exists COLONOSCOPY-EVERY 5 YRS AGES 18-100 10/12/2025 10/12/2020, 10/12/2020, 10/19/2015, Additional history exists Lipid Panel 05/10/2026 05/10/2021, 12/10, 06/03/2014, Additional history exists DTaP,Tdap,and Td Vaccines (3 - Td or Tdap) 08/09/2026 08/09/2016, 08/14/2009 Zoster Vaccines Completed 08/10/2020, 05/09/2020 Hepatitis C Screening Completed 09/24/2021 , 09/24/2021, 09/24/2021 GARDASIL-HPV IMMUNIZATION SERIES Aged Out No longer eligible based on patient's age to complete this topic MENINGOCOCCAL (MENACTRA/MENVEO) Aged Out No longer eligible based on patient's age to complete this topic Pneumococcal Vaccine: Pediatrics (0 to 5 Years) and At-Risk Patients (6 to 64 Years) Aged Out No longer eligible based on patient's age to complete this topic documented as of this encounter Medical Devices Not on filedocumented as of this encounter Visit Diagnoses Diagnosis Viral URI- Primary Acute upper respiratory infections of unspecified site Lymphadenopathy Enlargement of lymph nodes documented in this encounter Care Teams Light Adjuster Relationship Specialty Start Date End Date Paulie Santoyo III, MD [address] [place] [address] PCP - General Family Medicine 09/13/21 documented as of this encounter
--- OUTSIDE RECORDS SUMMARY | 2022-12-25 01:23 | External Medical Summary | Summary of Care ---
Author Name Unknown Organization [facility] Address [address] [place] [address] Phone [phone] Care Team Providers Care Roll Tension Tester Name Role Phone Natanael GARDNER MD, Paulie Browne Primary Care Provider [phone] Encounter Details Date Type Department Care Team Description 10/01/2022 Office Visit Family Practice [facility] [place] [address] [facility] [place] [address] Pilar Mcneal PA-C [address] [facility] [place] [address] LUMB-LUMBOSAC DISC DEGEN*; Osteoarthritis of left knee, unspecified osteoarthritis type; Acute deep vein thrombosis (DVT) of popliteal vein of right lower extremity (HCC) Allergies Active Allergy Reactions Severity Noted Date Comments Nickel Rash 10/04/2015 Oxycodone-Acetaminophen 08/13/2010 Nausea/vomiting documented as of this encounter (statuses as of 10/01/2022) Medications Medication Sig Dispensed Refills Start Date End Date Status MULTIVITAMIN PO CHEW None Entered 0 Ac tive CALCIUM + D 600-200 MG-UNIT PO TABS 0 Active Famotidine 20 MG Oral Tablet Take 1 Tablet by mouth in the morning and 1 Tablet before bedtime. 0 Active Methocarbamol 750 MG Oral TabletIndications:De generation of lumbosacral intervertebral disc Take 1 Tablet by mouth in the morning and 1 Tablet before bedtime. As needed for back pain. 60 Tablet 3 06/03/2022 Active Apixaban 5 MG Oral Tablet (Eliquis) Take 1 Tablet by mouth in the morning and 1 Tablet before bedtime. 60 Tablet 5 07/21/2022 Active estradiol (ESTRACE) 0.5 MG Tablet 0 12/30/2018 10/01/2022 Discontinue d(Medicatio n List Clean Up) methylPREDNISolone 4 MG Oral Tablet Therapy Pack (Medrol Dosepack) 0 07/10/2022 10/01/2022 Discontinue d(Medicatio n List Clean Up) documented as of this encounter (statuses as of 10/01/2022) Active Problems Problem Noted Date Acute deep [...] as of this encounter (statuses as of 10/01/2022) Resolved Problems Problem Noted Date Resolved Date Irritable bowel syndrome 09/29/2002 015 documented as of this encounter (statuses as of 10/01/2022) Immunizations Name Administration Dates Next Due COVID-19 mRNA, LNP-s, No Pre serve, 2-Dose Series ([employer]) 11/22/2020,02/17/2020,01/27/2020 Seasonal Influenza, Quadriva lent, No Preserve, IM 11/23/2020,11/14/2019,02/12/2017 Seasonal Influenza, Split, I IV3, With Preserve, Inj 11/10/2015,02/20/2012,01/23/2010 TDAP (age 11 and older)(Adacel) 08/09/2016,08/14 Zoster Vaccine Recombinant (Shingrix) 08/10/2020 ,05/09/2020 documented as of this encounter Social History Tobacco Use Types Packs/Day Years Used Date Smoking Tobacco: Never Smokeless Tobacco: Never Tobacco Cessation:Counseling Given: Not Answered Alcohol Use Standard Drinks/Week Comments Yes 0 [...] Sign Reading Time Taken Comments Blood Pressure 124/70 10/01/2022 2:50 PM EDT Pulse 72 10/01/2022 2:50 PM EDT Temperature 37.1 C (98.7 F) 10/01/2022 2:50 PM ED T Respiratory Rate - - Oxygen Saturation - - Inhaled Oxygen Concentration - - Weight 75.6 kg (166 lb 12 oz) 10/01/2022 2:50 PM EDT Height - - Body Mass Index 26.51 05/24/2022 9:03 AM EDT documented in this encounter Progress Notes * Pilar Mcneal PA-C - 10/01/2022 2:54 PM EDT Images from the original note were not included. History of Present Illness Kaylen Arcos is a 52 year old female that presents for No chief complaint on file. Patient is a 52 year old female who presents for her annual renewal of her fmla for her back. No changes with her back. Seeing chiropracter monthly. Has also been having some problems with arthritis in the left knee. Is scheduled to have a surgicalconsult in November. Physical Exam Vitals: 10/01/22 1450 Temp: 37.1 C (98.7 F) Pulse: 72 BP: 124/70 BP Readings from Last 3 Encounters: 10/01/22 124/70 07/12/22 128/78 05/24/22 126/74 Wt Readings from Last 3 Encounters: 10/01/22 75.6 kg (166 lb 12 oz) 07/12/22 76.5 kg (168 lb 11.2 oz) 05/24/22 80.3 kg (177 lb 1.6 oz) General: alert, healthy, no distress, well nourished, well developed, comfortable, and cooperative Head: Normocephalic, No masses, lesions, tenderness or abnormalities Eye Exam: PERRLA, extraocular movements intact, conjunctiva are pink and non- injected, sclera clear Neck: supple, no adenopathy, no bruits, thyroid normal size, non-tender, without nodularity Back: back symmetric, no curvature, no costovertebral angle tenderness, range of motion is normal, no skin lesions, erythema or scars, no tenderness to percussion or palpation, Normal heel walk and toe walk, without evidence of muscle weakness Extremities: less than 2 second capillary refill, no joint deformities, effusion, or inflammation, no edema, no skin discoloration, no clubbing, no cyanosis I have reviewed the following results: None Assessment and Plan LUMB-LUMBOSAC DISC DEGEN (Primary) Osteoarthritis of left knee, unspecified osteoarthritis type Acute deep vein thrombosis (DVT) of popliteal vein of right lower extremity (HCC) - VASC DUPLEX VENOUS LE UNILAT; Future; Expected date: 11/01/2022 - VASC DUPLEX VENOUS LE UNILAT; Future; Expected date: 11/01/2022 Wrap-Up Time: I spent a total of 20-29 minutes (exact time 26 mins) on the date of service in preparation, delivery, and documentation of the care provided to Kaylen Arcos excluding any time spent in the performance of separately billed services. documented in this encounter Plan of Treatment Scheduled Orders Name Type Priority Associated Diagnoses Orde r Schedule VASC DUPLEX VENOUS LE UNILAT Medical Imaging Routine Acute deep vein thrombosis (DVT) of popliteal vein of right lower extremity (HCC) Expected: 11/01/2022, Expires: 11/02/2023 VASC DUPLEX VENOUS LE UNILAT Medical Imaging Routine Acute deep vein thrombosis (DVT) of popliteal vein of right lower extremity (HCC) Expected: 11/01/2022, Expires: 11/02/2023 Scheduled Procedures Name Priority Associated Diagnoses Date/Ti me COLONOSCOPY FLEXIBLE PROXIMA L DIAGNOSTIC Recall Family history of colon cancer Health Maintenance Due Date Last Done Comments Hepatitis B (1 of 3 - 3-dose series) 1970 Depression Screening, Annual for Pts 12 and Over 10/11/2020 10/12/2019 COVID-19 Vaccine (4 - Pfizer [...] as of this encounter Visit Diagnoses Diagnosis LUMB-LUMBOSAC DISC DEGEN- Primary Degeneration of lumbar or lumbosacral intervertebral disc Osteoarthritis of left knee, unspecified osteoarthritis type Acute deep vein thrombosis (DVT) of popliteal vein of right lower extremity (HCC) documented in this encounter Care Teams Roll Tension Tester Relationship Specialty Start Date End Date Paulie Santoyo III, MD [address] [place], [place] [address] PCP - General Family Medicine 09/13/21 documented as of this encounter
--- OUTSIDE RECORDS SUMMARY | 2022-12-25 01:23 | External Medical Summary | Summary of Care ---
Author Name Unknown Organization [facility] Address [address] [place] [address] Phone [phone] Care Team Providers Care Caramel Candy Maker Name Role Phone Natanael GARDNER MD, John E Primary Care Provider [phone] Reason for Visit * Reason Onset Date Comments Medication Refill 12/10/2022 Encounter Details Date Type Department Care Team (Late st Contact Info) Description 12/10/2022 Refill Family Practice [facility] [address] [facility] [place] [address] Talisha Bhat III, MD [address] [facility] [address] LUMB-LUMBOSAC DISC DEGEN Allergies Active Allergy Reactions Criticality Noted Date Comments Nickel Rash 10/04/2015 Oxycodone-Acetaminophen 08/13/2010 Nausea/vomiting documented as of this encounter (statuses as of 12/10/2022) Medications Medication Sig Dispensed Refills Start Date End Date Status MULTIVITAMIN PO CHEW None Entered 0 Ac tive CALCIUM + D 600-200 MG-UNIT PO TABS 0 Active Famotidine 20 MG Oral Tablet Take 1 Tablet by mouth in the morning and 1 Tablet before bedtime. 0 Active Apixaban 5 MG Oral Tablet (Eliquis) Take 1 Tablet by mouth in the morning and 1 Tablet before bedtime. 60 Tablet 5 07/21/2022 Active Methocarbamol 750 MG Oral TabletIndications:De generation of lumbosacral intervertebral disc Take 1 Tablet by mouth in the morning and 1 Tablet before bedtime. As needed for back pain. 60 Tablet 3 12/10/2022 Active Methocarbamol 750 MG Oral TabletIndications:De generation of lumbosacral intervertebral disc Take 1 Tablet by mouth in the morning and 1 Tablet before bedtime. As needed for back pain. 60 Tablet 3 06/03/2022 12/10/2022 Discontinue d(Refill) documented as of this encounter (statuses as of 12/10/2022) Active Problems Problem Noted Date Diagnosed Date Acute deep vein thrombosis ( DVT) of popliteal vein of right lower extremity 07/12/2022 Arthritis of knee, degenerative 05/27/2014 Family history of GI malignancy 08/13/2010 Dermatitis due to plant 08/05/2010 ADVANCE DIRECTIVE INFORMATION 03/10/2006 Overview: Pt declines booklet. LUMB-LUMBOSAC DISC DEGEN 09/29/2002 Endometriosis of other specified sites 3 documented as of this encounter (statuses as of 12/10/2022) Resolved Problems Problem Noted Date Diagnosed Date Resolved Date Irritable bowel syndrome 09/29/2002 documented as of this encounter (statuses as of 12/10/2022) Immunizations Name Administration Dates Next Due COVID-19 mRNA, LNP-s, No Pre serve, 2-Dose Series ([employer]) 11/22/2020,02/17/2020,01/27/2020 Seasonal Influenza, Quadriva lent, No Preserve, [...] = 0.6 oz pur e alcohol) rare PHQ-2 Answer Date Recorded PHQ Adult Total Score 0 10/27/2022 Hunger Vital Sign Answer Date Recorded Worried About Running Out of Food in the Last Ye ar Never true 08/10/2018 Ran Out of Food in the Last Year Never true 08/10/2018 Sex and Gender Information Value Date Recorded Sex Assigned at Not on file Gender Identity Not on file Sexual Orientation Not on file Job Start Date Occupation Industry Not on file Not on file Not on file documented as of this encounter Miscellaneous Notes * Telephone Encounter - Talisha Bhat III, MD - 12/10/2022 5:50 PM EDTSigned Prescriptions: Disp Refills Methocarbamol 750 MG Oral Tablet 60 Tab*3 Sig: Take 1 Tablet by mouth in the morning and 1 Tablet before bedtime. As needed for back pain.Authorizing Provider: TALISHA BHAT III * Telephone Encounter - Giovanna Cruz LPN - 12/10/2022 5:40 PM EDT Pending Prescriptions: Disp Refills Methocarbamol 750 MG Oral Tablet 60 Tab*3 Sig: Take 1 Tablet by mouth in the morning and 1 Tablet before bedtime. As needed for back pain. * Telephone Encounter - Tee Lorenz, yarn carrier - 12/10/2022 4:46 PM EDT Did you pend patient's preferred pharmacy and medication before forwarding?yes Pharmacy: [facility] [place] Pending Prescriptions: Disp Refills Methocarbamol 750 MG Oral Tablet 60 Tab*3 Sig: Take 1 Tablet by mouth in the morning and 1 Tablet before bedtime. As needed for back pain. Last Visit: 10/27/2022 (in office), 12/09/2022 (telemedicine) Next Visit: Visit date not found If no future appointments scheduled, and last appointment is greater than a year ago, please schedule patient for a follow-up appointment Last date the medication was ordered: 06/03/2022 Is this request for a controlled substance?No Urine Drug Screen:No results found for this or any previous visit. Patient Phone Numbers Labs: Lab Results Component Value Date/Time CREAT 0.9 06/03/2014 08:27 AM POTASSIUM 4.2 06/03/2014 08:27 AM LDLCALC 81 05/10/2021 07:07 AM LDLCALC 84 12/26/2017 08:19 AM ALT 16 06/03/2014 08:27 AM documented in this encounter Plan of Treatment Scheduled Procedures Name Priority Associated Diagnoses Date/Ti me COLONOSCOPY FLEXIBLE PROXIMA L DIAGNOSTIC Recall Family history of colon cancer Health Maintenance Due Date Last Done Comments Hepatitis B (1 of 3 - 3-dose series) 1970 COVID-19 Vaccine ( season) 2022 11/22/2020, 02/17/2020, 01/27/2020 Influenza Vaccine (FLU shot) (#1) 2022 11/23/2020, 11/14/2019, 02/12/2017, Additional history exists Mammogram 06/10/2023 06/09/2022, 05/11, 06/04/2020, Additional history exists Depression Screening 10/28/2023 10/27/2022 Diabetes Screening 05/10/2024 05/10/2021, 1 02/25/2017, 06/03/2014, Additional history exists COLONOSCOPY-EVERY 5 YRS AGES 18-100 10/12/2025 10/12/2020, 10/12/2020, 10/19/2015, Additional history exists Lipid Panel 05/10/2026 05/10/2021, 12/10, 06/03/2014, Additional history exists DTaP,Tdap,and Td Vaccines (3 - Td or Tdap) 08/09/2026 08/09/2016, 08/14/2009 Zoster Vaccines Completed 08/10/2020, 05/09/2020 GARDASIL-HPV IMMUNIZATION SERIES Aged Out No longer [...] this encounter Visit Diagnoses Diagnosis LUMB-LUMBOSAC DISC DEGEN Degeneration of lumbar or lumbosacral intervertebral disc documented in this encounter Care Teams Caramel Candy Maker Relationship Specialty Start Date End Date Talisha Bhat III, MD [address] [place] [address] PCP - General Family Medicine 09/13/21 documented as of this encounter
--- OUTSIDE RECORDS SUMMARY | 2022-12-25 01:23 | External Medical Summary | Summary of Care ---
Author Name Unknown Organization [facility] Address [address] [place] [address] Phone [phone] Care Team Providers Care Pillowcase Cleaner Name Role Phone Natanael GARDNER MD, Paulie Browne Primary Care Provider [phone] Encounter Details Date Type Department Care Team Description 07/24/2022 Result Scan Unspecified Department <No scans attached> Allergies Active Allergy Reactions Severity Noted Date Comments Nickel Rash 10/04/2015 Oxycodone-Acetaminophen 08/13/2010 Nausea/vomiting documented as of this encounter (statuses as of 10/03/2022) Medications Medication Sig Dispensed Refills Start Date [...] as of this encounter (statuses as of 10/03/2022) Active Problems Problem Noted Date Acute deep [...] as of this encounter (statuses as of 10/03/2022) Resolved Problems Problem Noted Date Resolved Date Irritable bowel syndrome 09/29/2002 015 documented as of this encounter (statuses as of 10/03/2022) Immunizations Name Administration Dates Next Due COVID-19 mRNA, LNP-s, No Pre serve, 2-Dose Series ([employer]) 11/22/2020,02/17/2020,01/27/2020 Seasonal Influenza, Quadriva lent, No Preserve, [...] on file documented as of this encounter Plan of Treatment Scheduled Procedures [...] Not on filedocumented as of this encounter Procedures Procedure Name Priority Date/Time Associated Diagnosis Comments RADIOLOGY SCANNED RESULT 07/24/2022 documented in this encounter Results * RADIOLOGY SCANNED RESULT (07/24/2022) 07/24/2022 No Physician Data Unknown DIAGNOSTIC RAD IOLOGY SERVICES documented in this encounter Care Teams Pillowcase Cleaner Relationship Specialty Start Date End Date Paulie Santoyo III, MD [address] [place] [address] PCP - General Family Medicine 09/13/21 documented as of this encounter
--- OUTSIDE RECORDS SUMMARY | 2022-12-25 01:23 | External Medical Summary | Summary of Care ---
Author Name Unknown Organization [facility] Address [address] [place] [address] Phone [phone] Care Team Providers Care Cement Sprayer Helper Name Role Phone Natanael GARDNER MD, Paulie Browne Primary Care Provider [phone] Reason for Visit * Reason Comments Follow Up Eliquis Question Encounter Details Date Type Department Care Team (Late st Contact Info) Description 12/09/2022 2:20 PM EDT Telemedicine Family Practice [facility] [address] [place] [address] Missy Hampton MD [address] [place] [address] Chronic deep vein thrombosis (DVT) of popliteal vein of right lower extremity (HCC)* Allergies Active Allergy Reactions Criticality Noted Date Comments Nickel Rash 10/04/2015 Oxycodone-Acetaminophen 08/13/2010 Nausea/vomiting documented as of this encounter (statuses as of 12/09/2022) Medications Medication Sig Dispensed Refills Start Date [...] as of this encounter (statuses as of 12/09/2022) Active Problems Problem Noted Date Diagnosed Date Acute deep vein thrombosis ( DVT) of popliteal vein of right lower extremity 07/12/2022 Arthritis of knee, degenerative 05/27/2014 Family history of GI malignancy 08/13/2010 Dermatitis due to plant 08/05/2010 ADVANCE DIRECTIVE INFORMATION 03/10/2006 Overview: Pt declines booklet. LUMB-LUMBOSAC DISC DEGEN 09/29/2002 Endometriosis of other specified sites 3 documented as of this encounter (statuses as of 12/09/2022) Resolved Problems Problem Noted Date Diagnosed Date Resolved Date Irritable bowel syndrome 09/29/2002 documented as of this encounter (statuses as of 12/09/2022) Immunizations Name Administration Dates Next Due COVID-19 mRNA, LNP-s, No Pre serve, 2-Dose Series ([employer]) 11/22/2020,02/17/2020,01/27/2020 Seasonal Influenza, Quadriva lent, No Preserve, [...] on file documented as of this encounter Progress Notes * Missy Hampton MD - 12/09/2022 2:29 PM EDT Appointment was initially scheduled as video visit. Patient was unable to connect to video. We completed visit via telephone. After connecting to the patient via telephone, the patient was identified by name and date of . Patient was then informed that this was a telephone call only visit. The patient agreed to participate. Total call duration was 9 minutes. Subjective Chief Complaint Patient presents with Follow Up Eliquis Question HPI: Kaylen Arcos is a 52 year old female. The following issues were addressed today: Developed phlebitis in left lower extremity in March after COVID infection. In June, experienced swelling in the right lower leg and went to the ER where she was diagnosed with acute DVT. Has been on Eliquis since then. Has total knee replacement scheduled with Dr. Ceballos on December 23. Was told by Dr. Santoyo that sheshould stop Eliquis 2 days before surgery, but she states on pre-admission testing they advised hershe would only be able to have spinal and nerve block if she stops Eliquis 3 days prior. Otherwise would need to have general anesthesia. Review of Systems: See HPI Objective There were no vitals taken for this visit. Wt Readings from Last 3 Encounters: 10/27/22 76.2 kg (168 lb 0.6 oz) 10/01/22 75.6 kg (166 lb 12 oz) 07/12/22 76.5 kg (168 lb 11.2 oz) BP Readings from Last 3 Encounters: 10/27/22 104/68 10/01/22 124/70 07/12/22 128/78 No physical examination performed. Assessment & Plan 1. Chronic deep vein thrombosis (DVT) of popliteal vein of right lower extremity (HCC) Okay to stop Eliquis 72 hours before surgery. Follow Up: Return if symptoms worsen or fail to improve. This note was electronically signed by Missy Hampton MD documented in this encounter Plan of Treatment Scheduled Procedures Name Priority Associated Diagnoses Date/Ti me COLONOSCOPY FLEXIBLE PROXIMA L DIAGNOSTIC Recall Family history of colon cancer Health Maintenance Due Date Last Done Comments Hepatitis B (1 of 3 - 3-dose series) 1970 COVID-19 Vaccine ( - 2022- season) 2022 11/22/2020, 02/17/2020, 01/27/2020 Influenza Vaccine [...] as of this encounter Visit Diagnoses Diagnosis Chronic deep vein thrombosis (DVT) of popliteal vein of right lower extremity (HCC)- Primary documented in this encounter Care Teams Cement Sprayer Helper Relationship Specialty Start Date End Date Paulie Santoyo III, MD [address] [place] [address] PCP - General Family Medicine 09/13/21 documented as of this encounter
--- OUTSIDE RECORDS SUMMARY | 2022-12-25 01:24 | External Medical Summary | Summary of Care ---
Author Name Unknown Organization [facility] Address [address] [place] [address] Phone [phone] Care Team Providers Care Electrotyper Name Role Phone Natanael GARDNER MD, Paulie Browne Primary Care Provider [phone] Encounter Details Date Type Department Care Team Description 07/09/2022 Result Scan Unspecified Department <No scans attached> Allergies Active Allergy Reactions Severity Noted Date Comments Nickel Rash 10/04/2015 Oxycodone-Acetaminophen 08/13/2010 Nausea/vomiting documented as of this encounter (statuses as of 08/27/2022) Medications Medication Sig Dispensed Refills Start Date End Date Status MULTIVITAMIN PO CHEW None Entered 0 Ac tive CALCIUM + D 600-200 MG-UNIT PO TABS 0 Active Famotidine 20 MG Oral Tablet Take 1 Tablet by mouth in the morning and 1 Tablet before bedtime. 0 Active estradiol (ESTRACE) 0.5 MG Tablet 0 12/30/2018 Active Methocarbamol 750 MG Oral TabletIndications:Degen eration of lumbosacral intervertebral disc Take 1 Tablet by mouth in the morning and 1 Tablet before bedtime. As needed for back pain. 60 Tablet 3 06/03/2022 Active documented as of this encounter (statuses as of 08/27/2022) Active Problems Problem Noted Date Acute deep [...] as of this encounter (statuses as of 08/27/2022) Resolved Problems Problem Noted Date Resolved Date Irritable bowel syndrome 09/29/2002 015 documented as of this encounter (statuses as of 08/27/2022) Immunizations Name Administration Dates Next Due COVID-19 [...] Date/Time Associated Diagnosis Comments RADIOLOGY SCANNED RESULT 07/09/2022 documented in this encounter Results * RADIOLOGY SCANNED RESULT (07/09/2022) 07/09/2022 No Physician Data Unknown DIAGNOSTIC RAD IOLOGY SERVICES documented in this encounter Care Teams Electrotyper Relationship Specialty Start Date End Date Natanael GARDNER, Paulie Brow[place] MD [address] [place] [address], [place] [address] PCP - General Family Medicine 09/13/21 documented as of this encounter
--- OUTSIDE RECORDS SUMMARY | 2022-12-25 01:24 | External Medical Summary | Summary of Care ---
Author Name Unknown Organization [facility] Address [address] [place] [address] Phone [phone] Care Team Providers Care Thumb Sewer Name Role Phone Natanael GARDNER MD, Paulie Browne Primary Care Provider [phone] Reason for Visit * Reason Onset Date Comments Order Request 07/15/2022 MUKUND Venous study order needed Encounter Details Date Type Department Care Team Description 07/15/2022 Telephone Access Center, Central Region [address] [facility] *DO NOT REMOVE THIS DEPARTMENT* [place] [address] Services, Scheduling [address] [place] [address] Order Request (MUKUND Venous study order needed) Allergies Active Allergy Reactions Severity Noted Date Comments Nickel Rash 10/04/2015 Oxycodone-Acetaminophen 08/13/2010 Nausea/vomiting documented as of this encounter (statuses as of 07/22/2022) Medications Medication Sig Dispensed Refills Start Date End Date Status MULTIVITAMIN PO CHEW None Entered 0 Ac tive CALCIUM + D 600-200 MG-UNIT PO TABS 0 Active Famotidine 20 MG Oral Tablet Take 1 Tablet by mouth in the morning and 1 Tablet before bedtime. 0 Active estradiol (ESTRACE) 0.5 MG Tablet 0 12/30/2018 Active Methocarbamol 750 MG Oral TabletIndications:De generation of lumbosacral intervertebral disc Take 1 Tablet by mouth in the morning and 1 Tablet before bedtime. As needed for back pain. 60 Tablet 3 06/03/2022 Active methylPREDNISolone 4 MG Oral Tablet Therapy Pack (Medrol Dosepack) 0 07/10/2022 Active Ibuprofen 200 MG Oral Tablet Take 1 Tablet by mouth every 4 hours as needed. 0 07/21/2022 Discontinue d(Medicatio n List Clean Up) documented as of this encounter (statuses as of 07/22/2022) Active Problems Problem Noted Date Acute deep [...] as of this encounter (statuses as of 07/22/2022) Resolved Problems Problem Noted Date Resolved Date Irritable bowel syndrome 09/29/2002 015 documented as of this encounter (statuses as of 07/22/2022) Immunizations Name Administration Dates Next Due COVID-19 mRNA, LNP-s, No Pre serve, 2-Dose Series ([employer]) 11/22/2020,02/17/2020,01/27/2020 Seasonal Influenza, Quadriva lent, No Preserve, [...] encounter Miscellaneous Notes * Telephone Encounter - Pilar Mcneal PA-C - 07/21/2022 7:17 PM EDT Order placed. Was out of office. * Telephone Encounter - BRANDON Remy - 07/15/2022 11:19 AM EDT Good afternoon, We have scheduled the patient for her DVT study, but the order you placed was only for one leg. Please place a corrected order for a Venous US MUKUND lower extremity so we may scan the patient when she comes in. documented in this encounter Plan of Treatment Upcoming Encounters Date Type Specialty Care Team Description 08/11/2022 Imaging Radiology Scheduled Orders Name Type Priority Associated Diagnoses Orde r Schedule VASC DUPLEX VENOUS LE BILAT Medical Imaging Routine Localized edema Expected: 07/21/2022, Expires: 08/21/2023 Scheduled Procedures Name Priority Associated Diagnoses Date/Ti me COLONOSCOPY FLEXIBLE PROXIMA L DIAGNOSTIC Recall Family history of colon cancer Health Maintenance Due Date Last Done Comments Hepatitis B (1 of 3 - 3-dose series) 1970 Depression Screening, Annual for Pts 12 and Over 10/11/2020 10/12/2019 COVID-19 Vaccine (4 - Pfizer series) 01/17/2021 11/22/2020, 02/17/2020, 01/27/2020 Influenza Vaccine (FLU shot) (Season Ended) 2022 11/23/2020, 11/14/2019, 02/12/2017, Additional history exists [...] as of this encounter Visit Diagnoses Diagnosis Localized edema- Primary Edema documented in this encounter Care Teams Thumb Sewer Relationship Specialty Start Date End Date Paulie Santoyo III, MD [address] [place] [address] PCP - General Family Medicine 09/13/21 documented as of this encounter
--- OUTSIDE RECORDS SUMMARY | 2022-12-25 01:24 | External Medical Summary | Summary of Care ---
Author Name Unknown Organization [facility] Address [address] [place] [address] Phone [phone] Care Team Providers Care Outer Diameter Grinder Tool Name Role Phone Natanael GARDNER MD, Paulie Browne Primary Care Provider [phone] Reason for Visit * Reason Onset Date Comments Hospital Follow-Up 07/09/2022 Encounter Details Date Type Department Care Team Description 07/09/2022 Telephone Family Practice [facility] [place] [address] [facility] [place] [address] Paulie Santoyo III, MD [address] [facility] [place] [address] Hospital Follow-Up Allergies Active Allergy Reactions Severity Noted Date Comments Nickel Rash 10/04/2015 Oxycodone-Acetaminophen 08/13/2010 Nausea/vomiting documented as of this encounter (statuses as of 07/09/2022) Medications Medication Sig Dispensed Refills Start Date End Date Status MULTIVITAMIN PO CHEW None Entered 0 Ac tive CALCIUM + D 600-200 MG-UNIT PO TABS 0 Active Famotidine 20 MG Oral Tablet Take 1 Tablet by mouth in the morning and 1 Tablet before bedtime. 0 Active estradiol (ESTRACE) 0.5 MG Tablet 0 12/30/2018 Active Ibuprofen 200 MG Oral Tablet Take 1 Tablet by mouth every 4 hours as needed. 0 Active Methocarbamol 750 MG Oral TabletIndications:Degen eration of lumbosacral intervertebral disc Take 1 Tablet by mouth in the morning and 1 Tablet before bedtime. As needed for back pain. 60 Tablet 3 06/03/2022 Active documented as of this encounter (statuses as of 07/09/2022) Active Problems Problem Noted Date Arthritis of knee, degenerative 05/28/19 15 Family history of GI malignancy 08/14/19 11 Dermatitis due to plant 08/05/2010 ADVANCE DIRECTIVE INFORMATION 03/10/2006 Overview: Pt declines booklet. LUMB-LUMBOSAC DISC DEGEN 09/29/2002 Endometriosis of other specified sites 0 09/29/2002 documented as of this encounter (statuses as of 07/09/2022) Resolved Problems Problem Noted Date Resolved Date Irritable bowel syndrome 09/29/2002 015 documented as of this encounter (statuses as of 07/09/2022) Immunizations Name Administration Dates Next Due COVID-19 mRNA, LNP-s, No Pre serve, 2-Dose Series ([employer]) 11/22/2020,02/17/2020,01/27/2020 Seasonal Influenza, Quadriva lent, No Preserve, [...] encounter Miscellaneous Notes * Telephone Encounter - BRANDON Haq - 07/09/2022 2:57 PM EDT Pt is scheduled and aware * Telephone Encounter - Aide Bojorquez LPN - 07/09/2022 1:[address] Santoyo is out of the office until Thursday. Patient can schedule next available ED follow up. Can be video if she refuses to come in to the office. * Telephone Encounter - BRANDON Swanson - 07/09/2022 9:42 AM EDT Patient called in, she was seen at [facility] ER today. She has a DVT in her right leg. They puther on a blood thinner. She is requesting to speak to Dr. Santoyo. Declined scheduling a ER follow up. They will be faxing over the report to the office. documented in this encounter Plan of Treatment Upcoming Encounters Date Type Specialty Care Team Description 07/12/2022 Office Visit Family Medicine Pilar Mcneal, PAMarthaC [address] [place] [address] Scheduled Procedures Name Priority Associated Diagnoses Date/Ti me COLONOSCOPY FLEXIBLE PROXIMA L DIAGNOSTIC Recall Family history of colon cancer Health Maintenance Due Date Last Done Comments Hepatitis B (1 of 3 - 3-dose series) 1970 Depression Screening, Annual for Pts 12 and Over 10/11/2020 10/12/2019 COVID-19 Vaccine (4 - Booster for Pfizer series) 01/17/2021 11/22/2020, 02/17/2020, 01/27/2020 Influenza [...] Not on filedocumented as of this encounter Care Teams Outer Diameter Grinder Tool Relationship Specialty Start Date End Date Paulie Santoyo III, MD [address] [place] [address], [place] [address] PCP - General Family Medicine 09/13/21 documented as of this encounter
--- OUTSIDE RECORDS SUMMARY | 2022-12-25 01:24 | External Medical Summary | Summary of Care ---
Author Name Unknown Organization [facility] Address [address] [place] [address] Phone [phone] Care Team Providers Care Director Of Corporate Real Estate Name Role Phone Natanael GARDNER MD, John E Primary Care Provider [phone] Reason for Visit * Reason Onset Date Comments Advice 09/01/2022 FYI 09/01/2022 Encounter Details Date Type Department Care Team Description 09/01/2022 Telephone Family Practice [facility] [place] [address] [facility] [place] [address] Paulie Santoyo III, MD [address] [facility] [place] [address] Advice; Allergies Active Allergy Reactions Severity Noted Date Comments Nickel Rash 10/04/2015 Oxycodone-Acetaminophen 08/13/2010 Nausea/vomiting documented as of this encounter (statuses as of 09/03/2022) Medications Medication Sig Dispensed Refills Start Date [...] Tablet Therapy Pack (Medrol Dosepack) 0 07/10/2022 Ac tive Apixaban 5 MG Oral Tablet (Eliquis) Take 1 Tablet by mouth in the morning and 1 Tablet before bedtime. 60 Tablet 5 07/21/2022 Active documented as of this encounter (statuses as of 09/03/2022) Active Problems Problem Noted Date Acute deep [...] as of this encounter (statuses as of 09/03/2022) Resolved Problems Problem Noted Date Resolved Date Irritable bowel syndrome 09/29/2002 015 documented as of this encounter (statuses as of 09/03/2022) Immunizations Name Administration Dates Next Due COVID-19 mRNA, LNP-s, No Pre serve, 2-Dose Series ([employer]) 11/22/2020,02/17/2020,01/27/2020 Seasonal Influenza, Quadriva lent, No Preserve, [...] Miscellaneous Notes * Telephone Encounter - BRANDON John - 09/03/2022 2:26 PM EDT Patient called and scheduled with Pilar Mcneal on 10-01-2022. * Telephone Encounter - BRANDON Haq - 09/02/2022 11:45 AM EDT My g sent 09/02 * Telephone Encounter - Aide Bojorquez LPN - 09/02/2022 11:36 AM EDT Provider to address: schedule next available return with Pilar Correa Reason for Call: Advice Contact: Telephone Call Contact Type: Other: appointment Outcome: forwarded to scheduling Total Time including non face to face (minutes): 5 * Telephone Encounter - Lavonne Jean CMA - 09/01/2022 1:09 PM EDT No Appointments Available Patient declined appointments?: No What Visit Type is needed? Return If Acute Visit Type is needed, were surrounding clinics offered to patient (Yes/No)? No, explain pcp provider Was patient offered appointments with other available providers (Yes/No)? No, explain only pcp See Call Details? (Yes or No): No documented in this encounter Plan of Treatment Upcoming Encounters Date Type Specialty Care Team Description 10/01/2022 Office Visit Family Medicine Pilar Mcneal PA-C [address] [place] [address] Scheduled Procedures Name Priority Associated Diagnoses Date/Ti [...] filedocumented as of this encounter Care Teams Director Of Corporate Real Estate Relationship Specialty Start Date End Date Paulie Santoyo III, MD [address] [place] [address], [place] [address] PCP - General Family Medicine 09/13/21 documented as of this encounter
--- OUTSIDE RECORDS SUMMARY | 2022-12-25 01:24 | External Medical Summary | Summary of Care ---
Author Name Unknown Organization [facility] Address [address] [place] [address] Phone [phone] Care Team Providers Care Janitor Supervisor Name Role Phone Natanael GARDNER MD, Paulie Browne Primary Care Provider [phone] Reason for Visit * Reason Comments Emergency Department Follow-Up [facility] ER Encounter Details Date Type Department Care Team Description 07/12/2022 Office Visit Family Medicine [facility] [address] [facility] [place] [address] Pilar Mcneal PA-C [address] [place] [address] Acute deep vein thrombosis (DVT) of popliteal vein of right lower extremity (HCC)* Allergies Active Allergy Reactions Severity Noted Date Comments Nickel Rash 10/04/2015 Oxycodone-Acetaminophen 08/13/2010 Nausea/vomiting documented as of this encounter (statuses as of 07/12/2022) Medications Medication Sig Dispensed Refills Start Date [...] Pack (Medrol Dosepack) 0 07/10/2022 Ac tive documented as of this encounter (statuses as of 07/12/2022) Active Problems Problem Noted Date Acute deep [...] as of this encounter (statuses as of 07/12/2022) Resolved Problems Problem Noted Date Resolved Date Irritable bowel syndrome 09/29/2002 015 documented as of this encounter (statuses as of 07/12/2022) Immunizations Name Administration Dates Next Due COVID-19 mRNA, LNP-s, No Pre serve, 2-Dose Series ([employer]) 11/22/2020,02/17/2020,01/27/2020 Seasonal Influenza, Quadriva lent, No Preserve, [...] Sign Reading Time Taken Comments Blood Pressure 128/78 07/12/2022 12:51 PM EDT Pulse 91 07/12/2022 12:51 PM EDT Temperature 36.6 C (97.9 F) 07/12/2022 1 2:51 PM EDT Respiratory Rate - - Oxygen Saturation 99% 07/12/2022 12: 51 PM EDT Inhaled Oxygen Concentration - - Weight 76.5 kg (168 lb 11.2 oz) 023 12:51 PM EDT Height - - Body Mass Index 26.82 05/24/2022 9:03 AM EDT documented in this encounter Progress Notes * Pilar Mcneal PA-C - 07/12/2022 1:06 PM EDT Images from the original note were not included. History of Present Illness Kaylen Arcos is a 52 year old female that presents for Emergency Department Follow-Up ([facility] ER 07/09/22) Patient is a 52 year old female who presents for a follow up after an ER visit on 07/09. Was diagnosed with a dvt in right politeal vein. Wearing support hosiery.using moist heat, using stretches Denies chest pain, sob, pain in other limbs. Doing activity as tolerated. No previous dvt. Physical Exam Vitals: 07/12/22 1251 Temp: 36.6 C (97.9 F) Pulse: 91 SpO2: 99% BP: 128/78 BP Readings from Last 3 Encounters: 07/12/22 128/78 05/24/22 126/74 04/01/22 124/70 Wt Readings from Last 3 Encounters: 07/12/22 76.5 kg (168 lb 11.2 oz) 05/24/22 80.3 kg (177 lb 1.6 oz) 04/01/22 80.7 kg (178 lb) General: alert, healthy, no distress, well nourished, well developed, comfortable and cooperative Head: Normocephalic, No masses, lesions, tenderness or abnormalities Eye Exam: PERRLA, extraocular movements intact, conjunctiva are pink and non- injected, sclera clear Neck: supple, no adenopathy, no bruits, thyroid normal size, non-tender, without nodularity Heart: regular rate & rhythm, no murmur and no gallops Lungs: chest symmetric with normal AP diameter, no chest deformities noted, normal respiratory rateand rhythm, no chest wall tenderness, diaphragmatic excursion normal, lungs clear to auscultation Extremities: less than 2 second capillary refill, no joint deformities, effusion, or inflammation, no edema, no skin discoloration, no clubbing, no cyanosis I have reviewed the following results: None Assessment and Plan Acute deep vein thrombosis (DVT) of popliteal vein of right lower extremity (HCC) (Primary) - VASC DUPLEX VENOUS LE UNILAT; Future; Expected date: 08/11/2022 Check-out note: Schedule US in 6-8 weeks Wrap-Up Time: I spent a total of 30-39 minutes (exact time 33 mins) on the date of service in preparation, delivery, and documentation of the care provided to Kaylen Arcos excluding any time spent in the performance of separately billed services. documented in this encounter Nursing Notes * Duyen Ferraro LPN - 07/12/2022 12:51 PM EDT Chief Complaint Patient presents with Emergency Department Follow-Up [facility] ER 07/09/22 documented in this encounter Plan of Treatment Scheduled Orders Name Type Priority Associated Diagnoses Orde r Schedule VASC DUPLEX VENOUS LE UNILAT Medical Imaging Routine Acute deep vein thrombosis (DVT) of popliteal vein of right lower extremity (HCC) Expected: 08/11/2022, Expires: 08/12/2023 Scheduled Procedures Name Priority Associated Diagnoses Date/Ti [...] as of this encounter Visit Diagnoses Diagnosis Acute deep vein thrombosis (DVT) of popliteal vein of right lower extremity (HCC)- Primary documented in this encounter Care Teams Janitor Supervisor Relationship Specialty Start Date End Date Paulie Santoyo III, MD [address] [place] [address], [place] [address] PCP - General Family Medicine 09/13/21 documented as of this encounter
--- OUTSIDE RECORDS SUMMARY | 2022-12-25 01:24 | External Medical Summary | Summary of Care ---
Author Name Unknown Organization [facility] Address [address] [place] [address] Phone [phone] Care Team Providers Care Solar Sales Rep Name Role Phone Natanael GARDNER MD, Paulie Browne Primary Care Provider [phone] Reason for Visit * Reason Onset Date Comments Med Request 07/21/2022 Encounter Details Date Type Department Care Team Description 07/21/2022 Telephone Family Practice [facility] [place] [address] [place] [address] Pilar Mcneal PA-C [address] [place] [address] Med Request (/) Allergies Active Allergy Reactions Severity Noted Date Comments Nickel Rash 10/04/2015 Oxycodone-Acetaminophen 08/13/2010 Nausea/vomiting documented as of this encounter (statuses as of 07/21/2022) Medications Medication Sig Dispensed Refills Start Date [...] Therapy Pack (Medrol Dosepack) 0 07/10/2022 Active Apixaban 5 MG Oral Tablet (Eliquis) Take 1 Tablet by mouth in the morning and 1 Tablet before bedtime. 60 Tablet 5 07/21/2022 Active Ibuprofen 200 MG Oral Tablet Take 1 Tablet by mouth every 4 hours as needed. 0 07/21/2022 Discontinue d(Medicatio n List Clean Up) documented as of this encounter (statuses as of 07/21/2022) Active Problems Problem Noted Date Acute deep [...] as of this encounter (statuses as of 07/21/2022) Resolved Problems Problem Noted Date Resolved Date Irritable bowel syndrome 09/29/2002 015 documented as of this encounter (statuses as of 07/21/2022) Immunizations Name Administration Dates Next Due COVID-19 mRNA, LNP-s, No Pre serve, 2-Dose Series ([employer]) 11/22/2020,02/17/2020,01/27/2020 Seasonal Influenza, Quadriva lent, No Preserve, [...] Encounter - Pilar Mcneal PA-C - 07/21/2022 7:37 PM EDT Script sent. * Telephone Encounter - Aide Bojorquez LPN - 07/21/2022 3:56 PM EDT Med pending for refill if appropriate. * Telephone Encounter - Karla Blake CPhT - 07/21/2022 2:55 PM EDT Patient calling requesting the following medication below that is listed as "Historical". The following information was provided: Medication Name: Eliquis Strength: 5 mg Directions: Twice a day Preferred Quantity:60 Previous Prescriber: Preferred Pharmacy: [facility] Please review and approve if appropriate. Thank you, Karla Blake CPhT [facility]formerly telepharmacy) 07/21/2022,2:55 PM documented in this encounter Plan of Treatment Upcoming Encounters Date Type Specialty Care Team Description 08/11/2022 Imaging Radiology Scheduled Procedures Name Priority Associated Diagnoses Date/Ti [...] filedocumented as of this encounter Care Teams Solar Sales Rep Relationship Specialty Start Date End Date Paulie Santoyo III, MD [address] [facility] [address] PCP - General Family Medicine 09/13/21 documented as of this encounter
--- OUTSIDE RECORDS SUMMARY | 2022-12-25 01:24 | External Medical Summary | Summary of Care ---
Author Name Unknown Organization [facility] Address [address] [place] [address] Phone [phone] Care Team Providers Care Language And Literature Division Chair Name Role Phone Natanael GARDNER MD, John E Primary Care Provider [phone] Reason for Visit * Reason Onset Date Comments Advice 09/01/2022 Encounter Details Date Type Department Care Team Description 09/01/2022 Telephone Family Practice [facility] [address] [place] [address] Paulie Santoyo III, MD [address] [place] [address] Advice Allergies Active Allergy Reactions Severity Noted Date Comments Nickel Rash 10/04/2015 Oxycodone-Acetaminophen 08/13/2010 Nausea/vomiting documented as of this encounter (statuses as of 09/02/2022) Medications Medication Sig Dispensed Refills Start Date [...] as of this encounter (statuses as of 09/02/2022) Active Problems Problem Noted Date Acute deep [...] as of this encounter (statuses as of 09/02/2022) Resolved Problems Problem Noted Date Resolved Date Irritable bowel syndrome 09/29/2002 015 documented as of this encounter (statuses as of 09/02/2022) Immunizations Name Administration Dates Next Due COVID-19 mRNA, LNP-s, No Pre serve, 2-Dose Series ([employer]) 11/22/2020,02/17/2020,01/27/2020 Seasonal Influenza, Quadriva lent, No Preserve, [...] schedule next available return with Pilar Correa or Wendy Reason for Call: Advice Contact: Telephone Call [...] filedocumented as of this encounter Care Teams Language And Literature Division Chair Relationship Specialty Start Date End Date Paulie Santoyo III, MD [address] [place] [address], [place] [address] PCP - General Family Medicine 09/13/21 documented as of this encounter
== END 2022-12-24 12:25 | disposition home health service (06) ==
LOC: 3E 06:57 → ASU 06:57

== ENCOUNTER 2022-12-27 20:20 | Inpatient (IN) ==
[2022-12-27] MEDS ORDERED: KETOROLAC 30 MG/ML VIAL ONE (20:25)
[2022-12-27] MEDS ORDERED: ONDANSETRON INJ 2 MG/ML 2 ML VIAL ONE (20:25)
[2022-12-27] MEDS ORDERED: SODIUM CHLORIDE 0.9% 1,000 ML IV ONE (20:33)
[2022-12-27] MEDS ORDERED: ONDANSETRON INJ 2 MG/ML 2 ML VIAL IV STA (20:33)
[2022-12-27] MEDS ORDERED: MoRPHine SULFATE 4 MG/ML 1 ML CARP\\VIAL IV STA ×2 (20:33→22:00)
--- NOTE | 2022-12-27 20:35 | Emergency Department Note ---
Impression & Plan SBO (small bowel obstruction), Abdominal pain ED Provider Note NAME: LOUIS ANN AGE: 52 SEX: F : 1970 ARRIVES VIA: Ambulance INFORMANT: Patient ED PROVIDER(S): Clive Kimbrough DO CHIEF COMPLAINT: abdominal pain HPI: Patient is a 52-year-old female status post left knee replacement performed this past Thursday and was discharged home Thursday. She has not had a bowel movement since Thursday. She notes that she is having severe pain periumbilically rating to the left lower quadrant and a lot of pressure in her rectum. She admits to nausea and vomiting. Previous history of a hysterectomy. Denies any dysuria, urgency, or frequency. No headache or change in vision. No chest pain or shortness of breath. No other exacerbating or remitting factors. ADDITIONAL HISTORY OBTAINED: Per HPI Chronic Medical/Social Conditions Affecting Care: Per HPI PAST MEDICAL HISTORY:See Below PAST SURGICAL HISTORY:See Below FAMILY HISTORY:See Below SOCIAL HISTORY:See Below HOME MEDICATIONS:See Below ALLERGIES:See Below VITALS:See Below PHYSICAL EXAMINATION: GENERAL: Sitting up in bed, alert, moderate distress holding her left mid abdomen EYE EXAM: normal conjunctiva. OROPHARYNX: no exudate, no erythema, lips, buccal mucosa, and tongue normal and mucous membranes are moist NECK: supple, no nuchal rigidity, no adenopathy, non-tender LUNGS: Clear to auscultation. Normal chest wall mechanics HEART: no murmurs, S1 normal and S2 normal ABDOMEN: abdomen soft, tender to palpation periumbilically, normo-active bowel sounds, no masses, no rebound or guarding. UPPER EXTREMITIES: upper extremities are grossly normal. LOWER EXTREMITIES: No pitting edema. NEURO EXAM: Normal sensorium, cranial nerves II-XII grossly intact, normal speech, no gross weakness of arms, no gross weakness of legs. MEDICAL DECISION MAKING: Patient is a 52-year-old female who presents ER for severe abdominal pain. Recently diagnosed with DVT on Eliquis. IV was established blood work was obtained. Labs showed mild leukocytosis of 12,000. No significant anemia. VBG with a pH of 7.42. BMP with mild hypokalemia 2.8. Creatinine was appropriate at 0.7. Magnesium was mildly low at 1.6. LFTs bilirubin was unremarkable. Pro-Steven and lipase were unremarkable. UA was clean. CT abdomen pelvis shows small bowel obstruction with concern for ischemia. Lactate was added on. Patient was already given IV fluids. I did discuss the case with Dr. Staton who recommended admission to the hospitalist. Discussed with Dr. Rubin. Dr. Staton to evaluate at bedside. Please see their notes for further evaluation. She was ordered IV morphine. She did drop her pulse ox initially upon arrival and consequently CT was obtained which was unremarkable. Patient was updated at bedside. She remained on nasal cannula 2 L while in the ER as she dropped her pulse ox to 80 just after arrival. The drop in pulse ox was not secondary to any narcotics that she did not receive any then. External Records Reviewed: 12/23 left knee surgery performed by Dr. Ceballos Consults/Care Managements Discussions: Per [facility] Triage Nursing notes reviewed. Limited review of prior medical records performed Vital Signs: reviewed and remarkable for no significant abnormalities Differential diagnosis: Differential diagnoses includes but is not limited to gastritis, peptic ulcer disease, GERD, gallbladder disease, pancreatitis, small bowel obstruction, appendicitis, diverticulitis, hernia, urinary tract infection, torsion, perforation, trauma, infectious. ER treatment provided: See below Diagnostics interpreted by me include EKG and cardiac monitoring as listed below: -Cardiac Monitoring: An order was placed for continuous cardiac monitoring. The monitor shows a rate of 110 with sinus rhythm. -ECG: none -Laboratory studies:Interpreted by me as stated above in MDM and shown below. Imaging studies: Xrays: As interpreted by me:none CTs show: CT of the head per my interpretation shows no obvious large mass CT head, chest, abdomen pelvis shows no PE and a small bowel obstruction with concern for internal hernia Procedures:none Critical Care: I have personally spent 32 minutes of critical care time in the direct management of this patient. This includes bedside care, interpretation of diagnostic studies, and testing, discussion with consultants, patient, and family members, and other required patient management activities. This 32 minutes is in excess of all separately billable procedures. Past Med/Surg History Medical History (Updated 12/28/22 @ 00:18 by Clive Kimbrough DO) Hx of irritable bowel syndrome History of COVID-19 03/2022- cough, chest congestion, fatigue > resolved Hx of phlebitis LLE, felt r/t Covid, "resolved"- Xarelto x 6 weeks DVT (deep venous thrombosis) 07/09/22 ([facility]), Right knee felt r/t related to estradiol or Covid infection per pt > recent scan "still shows is present" per pt Left knee DJD Degenerative disc disease SI joint dysfunction Osteoarthritis GERD (gastroesophageal reflux disease) Anemia Hx Temporomandibular joint disorder Left side, rare locking History of asthma Exercise induced, no inhaler Surgical History (Updated 12/24/22 @ 08:22 by Fidencio Marquez PA-C) [place] of [place] of [place] [facility] [place] of arthroplasty of left knee History of arthroscopy of right knee 10[place] [facility] [place]ausea and vomiting after administration of anesthetic agent H/O hand surgery Right index finger fracture repair 5th metacarpal fracture repair History of esophagogastroduodenoscopy (EGD) History of colonoscopy H/O total hysterectomy History of laparoscopy Exploratory History of tooth extraction Family History Mother Family history of diabetes mellitus Father Family hx of colon cancer Breast cancer Brother Family hx of colon cancer Denies family history of Ovarian cancer Prostate cancer Myocardial infarction Social History Smoking Status: Never smoker Second Hand Exposure: Yes (father smoked); Do You Dip or Chew Tobacco: No; Hx Alcohol Use: Yes Alcohol type: wine Hx Substance Use: No Preferred Language: Czech Communication Ability: Effective Sticker Operator Required: No Beliefs That Will Affect Care: None Current Living Situation: Spouse Feels Safe at Home: Yes Assistive Devices: Walker Allergies Allergies Allergy/AdvReac Type Severity Reaction Status Date / Time nickel Allergy Mild Skin Verified 12/27/22 22:18 redness oxycodone AdvReac Unknown N/V Verified 12/27/22 22:18 Home Meds Home Medications Medication Instructions Recorded Confirmed calcium carbonate 600 mg-vitamin 2 cap PO QAM 10/12/18 12/27/22 D3 5 mcg (200 unit) capsule (Calcium 600 + D(3)) famotidine 20 mg tablet (Pepcid) 20 mg PO AMHS reflux 10/12/18 12/27/22 pediatric multivitamin no.76 1 tab PO QAM 10/12/18 12/27/22 (Flintstones Complete chewable tablet) amino acids 1 ea PO DAILY 12/23/22 12/27/22 apixaban 5 mg tablet (Eliquis) 5 mg PO AMHS 12/27/22 12/27/22 methocarbamol 750 mg tablet 750 mg PO BID PRN Back Pain 12/27/22 12/27/22 Previous Rx's Medication Instructions Recorded acetaminophen 500 mg tablet 1,000 mg (2 x 500 mg) PO TID pain 12/21/22 (Tylenol Extra Strength) 30 days #180 tabs ondansetron 4 mg disintegrating 4 mg PO Q8 PRN nausea #20 tabs 12/21/22 tablet sennosides 8.6 mg tablet (Senokot) 8.6 mg PO BID prevent constipation 12/21/22 14 days #28 tabs tramadol 50 mg tablet 50 - 100 mg (1 - 2 x 50 mg) PO Q6 12/21/22 PRN pain #40 tabs Results & Data (ED) Vital Signs Vital Signs - 24 hr 12/27/22 20:27 12/27/22 20:27 12/27/22 20:28 Temperature 36.6 C Temperature Source Oral Pulse Rate 108 H 105 H Pulse Rate from SpO2 Sensor Respiratory Rate 24 Respiratory Depth Normal Respiratory Pattern Regular Blood Pressure 136/84 136/84 Blood Pressure Mean 101 120 Pulse Oximetry 97 Oxygen Delivery Method Room Air Oxygen Flow Rate Sepsis Recent Fever Within 48 Hours No Sepsis New/Unexplained Change in Mental Status N/A Sepsis Action Taken by Nursing Physician Notified 12/27/22 20:28 12/27/22 20:30 12/27/22 20:30 Temperature Temperature Source Pulse Rate 105 H 96 H Pulse Rate from SpO2 Sensor 96 H Respiratory Rate 29 H 33 H Respiratory Depth Respiratory Pattern Blood Pressure 137/76 Blood Pressure Mean 92 Pulse Oximetry 98 Oxygen Delivery Method Room Air Oxygen Flow Rate Sepsis Recent Fever Within 48 Hours Sepsis New/Unexplained Change in Mental Status Sepsis Action Taken by Nursing 12/27/22 20:38 12/27/22 20:40 12/27/22 20:50 Temperature Temperature Source Pulse Rate 99 H 78 Pulse Rate from SpO2 Sensor 99 H 78 Respiratory Rate 26 H 18 Respiratory Depth Respiratory Pattern Blood Pressure Blood Pressure Mean Pulse Oximetry 97 62 L 99 Oxygen Delivery Method Room Air Room Air Nasal Cannula Oxygen Flow Rate 3 Sepsis Recent Fever Within 48 Hours Sepsis New/Unexplained Change in Mental Status Sepsis Action Taken by Nursing 12/27/22 21:00 12/27/22 21:00 12/27/22 21:20 Temperature Temperature Source Pulse Rate 77 82 Pulse Rate from SpO2 Sensor 76 82 Respiratory Rate 19 18 Respiratory Depth Respiratory Pattern Blood Pressure 133/76 Blood Pressure Mean 104 Pulse Oximetry 98 99 Oxygen Delivery Method Oxygen Flow Rate Sepsis Recent Fever Within 48 Hours Sepsis New/Unexplained Change in Mental Status Sepsis Action Taken by Nursing 12/27/22 21:20 12/27/22 21:30 12/27/22 21:30 Temperature Temperature Source Pulse Rate 78 Pulse Rate from SpO2 Sensor 77 Respiratory Rate 18 Respiratory Depth Respiratory Pattern Blood Pressure 135/76 136/78 Blood Pressure Mean 109 108 Pulse Oximetry 99 Oxygen Delivery Method Oxygen Flow Rate Sepsis Recent Fever Within 48 Hours Sepsis New/Unexplained Change in Mental Status Sepsis Action Taken by Nursing 12/27/22 21:40 12/27/22 21:50 12/27/22 22:00 Temperature Temperature Source Pulse Rate 78 84 Pulse Rate from SpO2 Sensor 78 84 Respiratory Rate 18 18 Respiratory Depth Respiratory Pattern Blood Pressure 138/72 Blood Pressure Mean 103 Pulse Oximetry 99 100 Oxygen Delivery Method Oxygen Flow Rate Sepsis Recent Fever Within 48 Hours Sepsis New/Unexplained Change in Mental Status Sepsis Action Taken by Nursing 12/27/22 22:00 12/27/22 22:10 12/27/22 22:20 Temperature Temperature Source Pulse Rate 81 87 81 Pulse Rate from SpO2 Sensor 81 85 80 Respiratory Rate 17 17 23 Respiratory Depth Respiratory Pattern Blood Pressure Blood Pressure Mean Pulse Oximetry 99 99 99 Oxygen Delivery Method Oxygen Flow Rate Sepsis Recent Fever Within 48 Hours Sepsis New/Unexplained Change in Mental Status Sepsis Action Taken by Nursing 12/27/22 22:30 12/27/22 22:30 12/27/22 22:40 Temperature Temperature Source Pulse Rate 79 82 Pulse Rate from SpO2 Sensor 79 82 Respiratory Rate 20 18 Respiratory Depth Respiratory Pattern Blood Pressure 138/74 Blood Pressure Mean 111 Pulse Oximetry 94 94 Oxygen Delivery Method Oxygen Flow Rate Sepsis Recent Fever Within 48 Hours Sepsis New/Unexplained Change in Mental Status Sepsis Action Taken by Nursing 12/27/22 22:50 12/27/22 23:00 12/27/22 23:01 Temperature Temperature Source Pulse Rate 82 87 Pulse Rate from SpO2 Sensor 83 87 Respiratory Rate 17 22 Respiratory Depth Respiratory Pattern Blood Pressure 128/82 Blood Pressure Mean 94 Pulse Oximetry 96 93 Oxygen Delivery Method Room Air Oxygen Flow Rate Sepsis Recent Fever Within 48 Hours Sepsis New/Unexplained Change in Mental Status Sepsis Action Taken by Nursing 12/27/22 23:01 12/27/22 23:10 12/27/22 23:20 Temperature Temperature Source Pulse Rate 91 H 84 82 Pulse Rate from SpO2 Sensor 91 H 84 83 Respiratory Rate 18 17 24 Respiratory Depth Respiratory Pattern Blood Pressure Blood Pressure Mean Pulse Oximetry 94 93 90 Oxygen Delivery Method Oxygen Flow Rate Sepsis Recent Fever Within 48 Hours Sepsis New/Unexplained Change in Mental Status Sepsis Action Taken by Nursing 12/27/22 23:30 12/27/22 23:30 12/27/22 23:40 Temperature Temperature Source Pulse Rate 87 80 Pulse Rate from SpO2 Sensor 85 82 Respiratory Rate 16 16 Respiratory Depth Respiratory Pattern Blood Pressure 141/73 H Blood Pressure Mean 93 Pulse Oximetry 92 94 Oxygen Delivery Method Oxygen Flow Rate Sepsis Recent Fever Within 48 Hours Sepsis New/Unexplained Change in Mental Status Sepsis Action Taken by Nursing Laboratory Data 12/27/22 20:33 12/27/22 20:33 Lab Results 12/27/22 12/27/22 12/27/22 Range/Units 20:33 20:53 21:24 WBC 12.43 H (4.8-10.8) K/ul RBC 3.99 L (4.20-5.40) M/uL Hgb 12.0 (12.0-16.0) g/dl POC Hgb 10.9 L (12.0-16.0) g/dl Hct 34.9 L (37.0-47.0) % POC Hct 32 L (37-47) % MCV 87.5 (80.0-100.0) fL MCH 30.1 (25.0-34.0) pg MCHC 34.4 (32.0-36.0) g/dL RDW Std Deviation 39.5 (36.4-46.3) fL RDW Coeff of Yenni 12.2 (11.5-14.5) % Plt Count 312 (130-400) K/uL MPV 9.7 (9.4-12.4) fL Immature Gran % (Auto) 0.6 % Neut % (Auto) 67.9 % Lymph % (Auto) 23.0 % [place] % (Auto) 8.1 % Eos % (Auto) 0.1 % Baso % (Auto) 0.3 % Neut # (Auto) 8.44 H (1.40-6.50) K/uL Lymph # (Auto) 2.86 (1.20-3.40) K/uL [place] # (Auto) 1.01 H (0.11-0.59) K/uL Eos # (Auto) 0.01 (0.00-0.50) K/uL Baso # (Auto) 0.04 (0.00-0.20) K/uL Immature Gran # (Auto) 0.07 (0.01-0.20) K/uL APTT 26.1 (21.0-31.0) Seconds PTT Ratio 0.9 VBG pH 7.42 H (7.36-7.41) VBG pCO2 41 (38-50) mmHg VBG pO2 72 mmHg VBG HCO3 27 mmol/L VBG O2 Saturation 95.9 % VBG Base Excess 1.9 mEq/L POC Sodium 138 (135-144) mmol/L Sodium 138 (136-145) mmol/L POC Potassium 3.2 L (3.3-5.0) mmol/L Potassium 2.8 L (3.5-5.1) mmol/L POC Chloride 102 (101-112) mmol/L Chloride 101 (98-107) mmol/L Carbon Dioxide 20 L (21-32) mmol/L POC Total CO2 22 L (24-31) mmol/L Anion Gap 17 H (3-11) POC Anion Gap 18.0 (16-25) mmol/L POC BUN 18 (7-18) mg/dl BUN 17 (6-23) mg/dl Creatinine 0.77 (0.6-1.2) mg/dl POC Creatinine 0.7 (0.6-1.3) mg/dl Est Cr Clr Drug Dosing 88.6 ml/min Est GFR ( Amer) 101.5 ml/min Est GFR (Non-Af Amer) 87.5 ml/min BUN/Creatinine Ratio 22.1 H (10-20) Glucose 148 H (70-99(Fasting)) mg/dl POC Glucose (other) 168 H (70-99) mg/dl Lactate (0.4-2.0) mmol/L Calcium 9.4 (8.6-10.3) mg/dl POC Ioniz Calcium Jabier 1.05 L (1.12-1.32) mmol/l Magnesium 1.6 L (1.7-2.4) mg/dl Total Bilirubin 0.7 (0.2-1.0) mg/dl AST 21 (13-39) U/L ALT 23 (7-52) U/L Alkaline Phosphatase 62 (34-104) U/L Total Protein 6.9 (6.0-8.3) gm/dl Albumin 3.9 (3.4-5.0) gm/dl Globulin 3.0 (2.5-4.0) gm/dl Albumin/Globulin Ratio 1.3 (0.9-2) Lipase 20 (11-82) U/L Procalcitonin < 0.05 (0-0.5) ng/ml Urine Color Urine Appearance (Clear) Urine pH (4.5-7.5) Ur Specific Ozan (1.000-1.030) Urine Protein (Negative) Urine Glucose (UA) (Negative) Urine Ketones (Negative) Urine Blood (Negative) Urine Nitrite (Negative) Urine Bilirubin (Negative) Urine Urobilinogen (Negative) Ur Leukocyte Esterase (Negative) 12/27/22 12/27/22 Range/Units 22:20 22:58 WBC (4.8-10.8) K/ul RBC (4.20-5.40) M/uL Hgb (12.0-16.0) g/dl POC Hgb (12.0-16.0) g/dl Hct (37.0-47.0) % POC Hct (37-47) % MCV (80.0-100.0) fL MCH (25.0-34.0) pg MCHC (32.0-36.0) g/dL RDW Std Deviation (36.4-46.3) fL RDW Coeff of Yenni (11.5-14.5) % Plt Count (130-400) K/uL MPV (9.4-12.4) fL Immature Gran % (Auto) % Neut % (Auto) % Lymph % (Auto) % [place] % (Auto) % Eos % (Auto) % Baso % (Auto) % Neut # (Auto) (1.40-6.50) K/uL Lymph # (Auto) (1.20-3.40) K/uL [place] # (Auto) (0.11-0.59) K/uL Eos # (Auto) (0.00-0.50) K/uL Baso # (Auto) (0.00-0.20) K/uL Immature Gran # (Auto) (0.01-0.20) K/uL APTT (21.0-31.0) Seconds PTT Ratio VBG pH (7.36-7.41) VBG pCO2 (38-50) mmHg VBG pO2 mmHg VBG HCO3 mmol/L VBG O2 Saturation % VBG Base Excess mEq/L POC Sodium (135-144) mmol/L Sodium (136-145) mmol/L POC Potassium (3.3-5.0) mmol/L Potassium (3.5-5.1) mmol/L POC Chloride (101-112) mmol/L Chloride (98-107) mmol/L Carbon Dioxide (21-32) mmol/L POC Total CO2 (24-31) mmol/L Anion Gap (3-11) POC Anion Gap (16-25) mmol/L POC BUN (7-18) mg/dl BUN (6-23) mg/dl Creatinine (0.6-1.2) mg/dl POC Creatinine (0.6-1.3) mg/dl Est Cr Clr Drug Dosing ml/min Est GFR ( Amer) ml/min Est GFR (Non-Af Amer) ml/min BUN/Creatinine Ratio (10-20) Glucose (70-99(Fasting)) mg/dl POC Glucose (other) (70-99) mg/dl Lactate 0.9 (0.4-2.0) mmol/L Calcium (8.6-10.3) mg/dl POC Ioniz Calcium Jabier (1.12-1.32) mmol/l Magnesium (1.7-2.4) mg/dl Total Bilirubin (0.2-1.0) mg/dl AST (13-39) U/L ALT (7-52) U/L Alkaline Phosphatase (34-104) U/L Total Protein (6.0-8.3) gm/dl Albumin (3.4-5.0) gm/dl Globulin (2.5-4.0) gm/dl Albumin/Globulin Ratio (0.9-2) Lipase (11-82) U/L Procalcitonin (0-0.5) ng/ml Urine Color Yellow Urine Appearance Clear (Clear) Urine pH 8.5 H (4.5-7.5) Ur Specific Ozan > 1.045 H (1.000-1.030) Urine Protein Negative (Negative) Urine Glucose (UA) Negative (Negative) Urine Ketones 2+ H (Negative) Urine Blood Negative (Negative) Urine Nitrite Negative (Negative) Urine Bilirubin Negative (Negative) Urine Urobilinogen Negative (Negative) Ur Leukocyte Esterase Negative (Negative) Administered Medications Potassium Chloride (K Fabian / Wtr) 10 meq in 100 mls @ 100 mls/hr IV Q1H MARCOS Stop: 12/28/22 02:14 Last Admin: 12/27/22 23:10 Dose: 100 mls/hr Documented By: MARKO Lactated Ringer's (Lr) 1,000 mls @ 200 mls/hr IV .Q5H STA Stop: 12/28/22 03:05 Last Admin: 12/27/22 23:06 Dose: 200 mls/hr Documented By: MARKO Magnesium Sulfate/Dextrose (Magnesium Sulfate / D5w) 1 gm in 100 mls @ 50 mls/hr IV Q2H MARCOS Stop: 12/28/22 02:59 Last Admin: 12/27/22 23:12 Dose: 50 mls/hr Documented By: MARKO Discontinued Medications Bisacodyl (Bisacodyl 10 Mg Supp) 10 mg AK NOW STA Stop: 12/27/22 23:09 Last Admin: 12/28/22 00:12 Dose: 10 mg Documented By: MARKO Sodium Chloride (Nss) 1,000 mls @ 999 mls/hr IV .Q1H1M ONE Stop: 12/27/22 21:33 Last Infusion: 12/27/22 22:46 Dose: Infused Documented By: Admin: 12/27/22 21:28 Dose: 999 mls/hr Documented By: MARKO Ioversol (Optiray 320 125ml) 115 ml IV ONCE ONE Stop: 12/27/22 21:13 Last Admin: 12/27/22 21:12 Dose: 115 ml Documented By: LUIS Morphine Sulfate (Morphine Sulfate 4 Mg/Ml 1 Ml Carp\\Vial) 4 mg IV NOW STA Stop: 12/27/22 20:34 Last Admin: 12/27/22 21:28 Dose: Not Given Documented By: MARKO Morphine Sulfate (Morphine Sulfate 4 Mg/Ml 1 Ml Carp\\Vial) 4 mg IV NOW STA Stop: 12/27/22 22:01 Last Admin: 12/27/22 23:08 Dose: 4 mg Documented By: MARKO Ondansetron HCl (Ondansetron Inj 2 Mg/Ml 2 Ml Vial) 4 mg IV NOW STA Stop: 12/27/22 20:34 Last Admin: 12/27/22 21:28 Dose: 4 mg Documented By: MARKO Imaging Data Radiologist's Impression: Abdomen/Pelvis CT 12/27/22 20:33 CT ANGIOGRAM OF THE CHEST; CT SCAN OF THE ABDOMEN AND PELVIS WITH IV CONTRAST CLINICAL HISTORY: Change in mental status. Left-sided abdominal pain. COMPARISON STUDY: Chest x-ray dated 11/28/2022. Abdominal CT dated 05/27/2007. Lumbar spine radiographs dated 05/03/2010. TECHNIQUE: Following the IV administration of 115 of Optiray 320, CT angiogram of the chest is performed from the upper abdomen to the thoracic inlet utilizing the pulmonary embolus protocol. Images are reviewed in the axial, sagittal, coronal planes. 3-D MIPS images are created and assessed. Subsequently, CT scan of the abdomen and pelvis was performed from the lung bases to the proximal femora. Images are reviewed in the axial, sagittal, and coronal planes. IV contrast was administered without complication. A dose lowering technique was utilized adhering to the principles of ALARA. CT DOSE: 2178.98 mGy.cm FINDINGS: CHEST: Thyroid: Imaged portions of the thyroid gland are normal in size and attenuation. Thoracic aorta: The thoracic aorta is normal in caliber and demonstrates bovine variant arch anatomy. No dissection is seen. Pulmonary vasculature: The pulmonary trunk is normal in caliber. There are no filling defects identified in the main, lobar, or segmental pulmonary arteries to indicate pulmonary embolus. Heart: The heart is normal in size and without pericardial effusion. Lungs and pleural spaces: There is no airspace consolidation or pleural effusion. Dependent atelectasis is seen bilaterally. There are scattered calcified granulomas. The trachea and central airways are clear. Mediastinum: There is no mediastinal lymphadenopathy. Lora: Clear. Axillae: There is no axillary lymphadenopathy. Bony thorax: No lytic or blastic lesions are identified. ABDOMEN AND PELVIS: Liver: The contrast-enhanced liver is normal in size, contour, and attenuation. There is no intrahepatic biliary ductal dilatation. The hepatic veins and portal veins are patent. Gallbladder: Unremarkable. Spleen: Normal in size and attenuation. Pancreas: Unremarkable. Adrenal glands: Unremarkable. Kidneys: The contrast enhanced kidneys are normal in size and without hydronephrosis. The kidneys enhance symmetrically. Abdominal vasculature: The abdominal aorta is normal in course and caliber. Stomach and bowel: There is a small hiatal hernia. The proximal small bowel loops in the left abdomen are dilated and fluid-filled, measuring up to 3.2 cm in diameter. There is a focal transition point identified in the left lower quadrant on image #20 and 65. The distal small bowel loops are decompressed, and findings consistent with a small bowel obstruction. There are mildly thick- walled loops of small bowel in the pelvis with associated mesenteric venous engorgement. Venous engorgement is best seen on image #279. The distal small bowel is completely decompressed. There is trace interloop fluid. No pneumatosis intestinalis or portal venous gas is seen. There is mild to moderate colonic fecal retention. The appendix is well-visualized and normal. Peritoneum: There is no intraperitoneal free air or abdominal ascites. There is a fat-containing umbilical hernia. Lymphadenopathy: None. Pelvic viscera: The bladder is normal as visualized. The uterus is surgically absent. No adnexal lesion is seen. There is a small volume of free fluid in the cul-de-sac. Skeletal structures: No lytic or blastic lesions are seen. IMPRESSION: 1. There is no evidence of pulmonary embolus in the main, lobar, or segmental pulmonary arteries. 2. There is no airspace consolidation or pleural effusion. 3. There is evidence of a small bowel obstruction, with a transition point seen in the left lower quadrant. This is likely on the basis of adhesions. 4. Mildly thick-walled loops of small bowel are seen in the deep pelvis with associated venous engorgement. These loops may be at risk for ischemia. Surgical assessment is advised. 5. There is no intraperitoneal free air. No pneumatosis intestinalis or portal venous gas is seen. 6. Small volume of free fluid in the pelvis. 7. Additional findings as above. ACT 112: Negative or not required by law. Electronically signed by: Kel Ferreira M.D. 12/27/2022 9:49 PM Chest CTA 12/27/22 20:47 CT ANGIOGRAM OF THE CHEST; CT SCAN OF THE ABDOMEN AND PELVIS WITH IV CONTRAST CLINICAL HISTORY: Change in mental status. Left-sided abdominal pain. COMPARISON STUDY: Chest x-ray dated 11/28/2022. Abdominal CT dated 05/27/2007. Lumbar spine radiographs dated 05/03/2010. TECHNIQUE: Following the IV administration of 115 of Optiray 320, CT angiogram of the chest is performed from the upper abdomen to the thoracic inlet utilizing the pulmonary embolus protocol. Images are reviewed in the axial, sagittal, coronal planes. 3-D MIPS images are created and assessed. Subsequently, CT scan of the abdomen and pelvis was performed from the lung bases to the proximal femora. Images are reviewed in the axial, sagittal, and coronal planes. IV contrast was administered without complication. A dose lowering technique was utilized adhering to the principles of ALARA. CT DOSE: 2178.98 mGy.cm FINDINGS: CHEST: Thyroid: Imaged portions of the thyroid gland are normal in size and attenuation. Thoracic aorta: The thoracic aorta is normal in caliber and demonstrates bovine variant arch anatomy. No dissection is seen. Pulmonary vasculature: The pulmonary trunk is normal in caliber. There are no filling defects identified in the main, lobar, or segmental pulmonary arteries to indicate pulmonary embolus. Heart: The heart is normal in size and without pericardial effusion. Lungs and pleural spaces: There is no airspace consolidation or pleural effusion. Dependent atelectasis is seen bilaterally. There are scattered calcified granulomas. The trachea and central airways are clear. Mediastinum: There is no mediastinal lymphadenopathy. Lora: Clear. Axillae: There is no axillary lymphadenopathy. Bony thorax: No lytic or blastic lesions are identified. ABDOMEN AND PELVIS: Liver: The contrast-enhanced liver is normal in size, contour, and attenuation. There is no intrahepatic biliary ductal dilatation. The hepatic veins and portal veins are patent. Gallbladder: Unremarkable. Spleen: Normal in size and attenuation. Pancreas: Unremarkable. Adrenal glands: Unremarkable. Kidneys: The contrast enhanced kidneys are normal in size and without hydronephrosis. The kidneys enhance symmetrically. Abdominal vasculature: The abdominal aorta is normal in course and caliber. Stomach and bowel: There is a small hiatal hernia. The proximal small bowel loops in the left abdomen are dilated and fluid-filled, measuring up to 3.2 cm in diameter. There is a focal transition point identified in the left lower quadrant on image #20 and 65. The distal small bowel loops are decompressed, and findings consistent with a small bowel obstruction. There are mildly thick- walled loops of small bowel in the pelvis with associated mesenteric venous engorgement. Venous engorgement is best seen on image #279. The distal small bowel is completely decompressed. There is trace interloop fluid. No pneumatosis intestinalis or portal venous gas is seen. There is mild to moderate colonic fecal retention. The appendix is well-visualized and normal. Peritoneum: There is no intraperitoneal free air or abdominal ascites. There is a fat-containing umbilical hernia. Lymphadenopathy: None. Pelvic viscera: The bladder is normal as visualized. The uterus is surgically absent. No adnexal lesion is seen. There is a small volume of free fluid in the cul-de-sac. Skeletal structures: No lytic or blastic lesions are seen. IMPRESSION: 1. There is no evidence of pulmonary embolus in the main, lobar, or segmental pulmonary arteries. 2. There is no airspace consolidation or pleural effusion. 3. There is evidence of a small bowel obstruction, with a transition point seen in the left lower quadrant. This is likely on the basis of adhesions. 4. Mildly thick-walled loops of small bowel are seen in the deep pelvis with associated venous engorgement. These loops may be at risk for ischemia. Surgical assessment is advised. 5. There is no intraperitoneal free air. No pneumatosis intestinalis or portal venous gas is seen. 6. Small volume of free fluid in the pelvis. 7. Additional findings as above. ACT 112: Negative or not required by law. Electronically signed by: Kel Ferreira M.D. 12/27/2022 9:[address] 12/27/22 20:47 CT SCAN OF THE BRAIN WITHOUT IV CONTRAST CLINICAL HISTORY: Change in mental status. COMPARISON STUDY: No priors. TECHNIQUE: Unenhanced axial CT scan of the brain is performed from the vertex to the skull base. A dose lowering technique was utilized adhering to the principles of ALARA. FINDINGS: Brain parenchyma: The brain parenchyma is normal in appearance. There is no hemorrhage, mass effect, or evidence of acute territorial ischemia by CT criteria. Salmeron-white matter differentiation is preserved. No extra-axial fluid collection is seen. Ventricles, sulci, cisterns: Normal in configuration. Intracranial vasculature: The visualized intracranial vasculature at the skull base is normal in appearance. Calvarium: Unremarkable. Sinuses and mastoids: The visualized paranasal sinuses are clear. The mastoid air cells are well pneumatized. Orbits: The bony orbits are grossly intact. IMPRESSION: There is no hemorrhage, mass effect, or evidence of acute territorial ischemia by CT criteria. ACT 112: Negative or not required by law. Electronically signed by: Kel Ferreira M.D. 12/27/2022 9:35 PM Discharge Plan Visit Data Chief Complaint: Abdominal Pain Stated Complaint: Abdominal Pain, Constipation ED Provider: Clive Kimbrough Discharge Problem: SBO (small bowel obstruction), Abdominal pain Forms Stand Alone Forms: [facility] [place] [employer] Prescriptions Prescriptions: No Action tramadol 50 mg tablet 50 - 100 mg PO Q6 PRN (Reason: pain) Qty: 40 0RF Rx Instructions: Take as needed for pain ondansetron 4 mg tablet,disintegrating 4 mg PO Q8 PRN (Reason: nausea) Qty: 20 1RF Rx Instructions: Take as needed for nausea sennosides [Senokot] 8.6 mg tablet 8.6 mg PO BID 14 Days Qty: 28 0RF Rx Instructions: Take two times a day to prevent/treat constipation acetaminophen [Tylenol Extra Strength] 500 mg tablet 1,000 mg PO TID 30 Days Qty: 180 0RF Rx Instructions: Take 3 times per day to lessen pain. Calcium 600 + D(3) 600 mg calcium- 200 unit Capsule 2 cap PO QAM Flintstones Complete Tablet,Chewable 1 tab PO QAM famotidine [Pepcid] 20 mg Tablet 20 mg PO AMHS amino acids Powder 1 ea PO DAILY Rx Instructions: 1 scoop daily methocarbamol 750 mg tablet 750 mg PO BID PRN (Reason: Back Pain) Eliquis 5 mg tablet 5 mg PO AMHS Referrals Referrals: Paulie Santoyo MD [Primary Care Provider] - Discharge Problem: Abdominal pain Qualifiers: Abdominal location: unspecified location Qualified Code(s): R10.9 - Unspecified abdominal pain
[2022-12-27 21:07] LABS: Albumin Globulin Ratio 1.3 (0.9-2); Albumin Level 3.9 gm/dl (3.4-5.0); BUN Creatinine Ratio 22.1 (10-20); Bilirubin,Total 0.7 mg/dl (0.2-1.0); Calcium 9.4 mg/dl (8.6-10.3); Creatinine Clr Calc Pharmacy 88.6 ml/min; Est GFR (African American) 101.5 ml/min; Est GFR (Non-African American) 87.5 ml/min; Potassium 2.8 mmol/L (3.5-5.1); Total Protein 6.9 gm/dl (6.0-8.3)
[2022-12-27 21:07] LABS: iSTAT Creatinine 0.7 mg/dl (0.6-1.3); iSTAT Hemoglobin 10.9 g/dl (12.0-16.0); iSTAT Ionized Calcium 1.05 mmol/l (1.12-1.32); iSTAT Potassium 3.2 mmol/L (3.3-5.0)
[2022-12-27] MEDS ORDERED: OPTIRAY 320 125ml IV ONE (21:12)
[2022-12-27 21:36] LABS: Basophils # (auto) 0.04 K/uL (0.00-0.20); Basophils % (auto) 0.3 %; Eosinophils # (auto) 0.01 K/uL (0.00-0.50); Eosinophils % (auto) 0.1 %; Hematocrit (blood only) 34.9 % (37.0-47.0); Immature Granulocytes # (auto) 0.07 K/uL (0.01-0.20); Immature Granulocytes % (auto) 0.6 %; Lymphocytes # (auto) 2.86 K/uL (1.20-3.40); Mean Corpuscular Hemoglobin 30.1 pg (25.0-34.0); Mean Corpuscular Hgb Conc 34.4 g/dL (32.0-36.0); Mean Corpuscular Volume 87.5 fL (80.0-100.0); Mean Platelet Volume 9.7 fL (9.4-12.4); Monocytes # (auto) 1.01 K/uL (0.11-0.59); Monocytes % (auto) 8.1 %; Neutrophils # (auto) 8.44 K/uL (1.40-6.50); Neutrophils % (auto) 67.9 %; Platelet Count 312 K/uL (130-400); RDW Coefficient of Variation 12.2 % (11.5-14.5); RDW Standard Deviation 39.5 fL (36.4-46.3); Red Blood Count 3.99 M/uL (4.20-5.40); White Blood Count 12.43 K/ul (4.8-10.8)
--- NOTE | 2022-12-27 21:36 | CT Scan Report ---
CT SCAN OF THE BRAIN WITHOUT IV CONTRAST CLINICAL HISTORY: Change in mental status. COMPARISON STUDY: No priors. TECHNIQUE: Unenhanced axial CT scan of the brain is performed from the vertex to the skull base. A d ose lowering technique was utilized adhering to the principles of ALARA. FINDINGS: Brain parenchyma: The brain parenchyma is normal in appearance. There is no hemorrhage, mass effect, or evidence of acute territorial ischemia by CT criteria. Salmeron-white matter differentiation is preser leilani. No extra-axial fluid collection is seen. Ventricles, sulci, cisterns: Normal in configuration. Intracranial vasculature: The visualized intracranial vasculature at the skull base is normal in appe arance. Calvarium: Unremarkable. Sinuses and mastoids: The visualized paranasal sinuses are clear. The mastoid air cells are well pneu matized. Orbits: The bony orbits are grossly intact. IMPRESSION: There is no hemorrhage, mass effect, or evidence of acute territorial ischemia by CT bibi sanford. ACT 112: Negative or not required by law. Electronically signed by: Kel Ferreira M.D. 12/27/2022 9:35 PM
[2022-12-27 21:37] LABS: Base Excess VBG 1.9 mEq/L; HCO3 VBG 27 mmol/L; Oxygen Saturation VBG 95.9 %; PCO2 VBG 41 mmHg (38-50); PO2 VBG 72 mmHg; pH VBG 7.42 (7.36-7.41)
--- NOTE | 2022-12-27 21:51 | CT Scan Report ---
CT ANGIOGRAM OF THE CHEST; CT SCAN OF THE ABDOMEN AND PELVIS WITH IV CONTRAST CLINICAL HISTORY: Change in mental status. Left-sided abdominal pain. COMPARISON STUDY: Chest x-ray dated 11/28/2022. Abdominal CT dated 05/27/2007. Lumbar spine radiograp hs dated 05/03/2010. TECHNIQUE: Following the IV administration of 115 of Optiray 320, CT angiogram of the chest is perfor med from the upper abdomen to the thoracic inlet utilizing the pulmonary embolus protocol. Images are reviewed in the axial, sagittal, coronal planes. 3-D MIPS images are created and assessed. Subsequen tly, CT scan of the abdomen and pelvis was performed from the lung bases to the proximal femora. Imag es are reviewed in the axial, sagittal, and coronal planes. IV contrast was administered without comp lication. A dose lowering technique was utilized adhering to the principles of ALARA. CT DOSE: 2178.98 mGy.cm FINDINGS: CHEST: Thyroid: Imaged portions of the thyroid gland are normal in size and attenuation. Thoracic aorta: The thoracic aorta is normal in caliber and demonstrates bovine variant arch anatomy. No dissection is seen. Pulmonary vasculature: The pulmonary trunk is normal in caliber. There are no filling defects identif ied in the main, lobar, or segmental pulmonary arteries to indicate pulmonary embolus. Heart: The heart is normal in size and without pericardial effusion. Lungs and pleural spaces: There is no airspace consolidation or pleural effusion. Dependent atelectas is is seen bilaterally. There are scattered calcified granulomas. The trachea and central airways are clear. Mediastinum: There is no mediastinal lymphadenopathy. Lora: Clear. Axillae: There is no axillary lymphadenopathy. Bony thorax: No lytic or blastic lesions are identified. ABDOMEN AND PELVIS: Liver: The contrast-enhanced liver is normal in size, contour, and attenuation. There is no intrahepa tic biliary ductal dilatation. The hepatic veins and portal veins are patent. Gallbladder: Unremarkable. Spleen: Normal in size and attenuation. Pancreas: Unremarkable. Adrenal glands: Unremarkable. Kidneys: The contrast enhanced kidneys are normal in size and without hydronephrosis. The kidneys enh ance symmetrically. Abdominal vasculature: The abdominal aorta is normal in course and caliber. Stomach and bowel: There is a small hiatal hernia. The proximal small bowel loops in the left abdomen are dilated and fluid-filled, measuring up to 3.2 cm in diameter. There is a focal transition point identified in the left lower quadrant on image #20 and 65. The distal small bowel loops are decompres sed, and findings consistent with a small bowel obstruction. There are mildly thick-walled loops of s mall bowel in the pelvis with associated mesenteric venous engorgement. Venous engorgement is best se en on image #279. The distal small bowel is completely decompressed. There is trace interloop fluid. No pneumatosis intestinalis or portal venous gas is seen. There is mild to moderate colonic fecal ret ention. The appendix is well-visualized and normal. Peritoneum: There is no intraperitoneal free air or abdominal ascites. There is a fat-containing umbi lical hernia. Lymphadenopathy: None. Pelvic viscera: The bladder is normal as visualized. The uterus is surgically absent. No adnexal lesi on is seen. There is a small volume of free fluid in the cul-de-sac. Skeletal structures: No lytic or blastic lesions are seen. IMPRESSION: 1. There is no evidence of pulmonary embolus in the main, lobar, or segmental pulmonary arteries. 2. There is no airspace consolidation or pleural effusion. 3. There is evidence of a small bowel obstruction, with a transition point seen in the left lower derrick drant. This is likely on the basis of adhesions. 4. Mildly thick-walled loops of small bowel are seen in the deep pelvis with associated venous engorg ement. These loops may be at risk for ischemia. Surgical assessment is advised. 5. There is no intraperitoneal free air. No pneumatosis intestinalis or portal venous gas is seen. 6. Small volume of free fluid in the pelvis. 7. Additional findings as above. ACT 112: Negative or not required by law. Electronically signed by: Kel Ferreira M.D. 12/27/2022 9:49 PM
[2022-12-27] MEDS ORDERED: LACTATED RINGER'S 1,000 ML IV STA (22:06)
[2022-12-27 22:19] LABS: Magnesium 1.6 mg/dl (1.7-2.4)
--- NOTE | 2022-12-27 22:21 | Surgery Consultation ---
Date of Consultation December 27, 2022 Assessment & Plan (1) SBO (small bowel obstruction): Patient is a 52 years old female who presented to ED with a 1 day history of periumbilical pain with some nausea and vomiting. Patient is a status post left knee replacement 4 days ago. Patient had a CT scan diagnosis small bowel obstruction. Plan: Hospitalist will admit the patient to hospital. Conservative treatment. N.p.o., IV flow, IV antibiotic, control pain, repeat the lab in the morning, KUB in the morning, fleet the enema. May need a NG tube insertion if patient has a vomiting again. I also discussed dripped patient was submitted to exploratory laparotomy bowel resection if patient condition getting worse, patient understood. she agreed with the plan. I answered all questions. We will follow- up.D/W ER attending. History of Present Illness Reason for Consultation: SBO Requesting Physician: Clive Kimbrough MD History of Present Illness CC: abdominal pain HPI: Patient is a 52 years old female with a past medical history of DVT, patient on Eliquis, patient is a status post left knee replacement 4 days ago. Patient presented to ED with 1 day history of periumbilical pain with some nausea and vomiting. Last bowel movement about 4 days ago. Patient denies fever, no chills, no chest pain. 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 Patient had a CT scan diagnosis of small bowel obstruction. Allergies Allergy/AdvReac Type Severity Reaction Status Date / Time nickel Allergy Mild Skin Verified 12/27/22 22:18 redness oxycodone AdvReac Unknown N/V Verified 12/27/22 22:18 Home Medications Medication Instructions Recorded Confirmed Type calcium carbonate 600 mg-vitamin 2 cap PO QAM 10/12/18 12/27/22 History D3 5 mcg (200 unit) capsule (Calcium 600 + D(3)) famotidine 20 mg tablet (Pepcid) 20 mg PO AMHS reflux 10/12/18 12/27/22 History pediatric multivitamin no.76 1 tab PO QAM 10/12/18 12/27/22 History (Flintstones Complete chewable tablet) acetaminophen 500 mg tablet 1,000 mg (2 x 500 mg) PO TID pain 12/21/22 12/27/22 Rx (Tylenol Extra Strength) 30 days #180 tabs ondansetron 4 mg disintegrating 4 mg PO Q8 PRN nausea #20 tabs 12/21/22 12/27/22 Rx tablet sennosides 8.6 mg tablet (Senokot) 8.6 mg PO BID prevent constipation 12/21/22 12/27/22 Rx 14 days #28 tabs tramadol 50 mg tablet 50 - 100 mg (1 - 2 x 50 mg) PO Q6 12/21/22 12/27/22 Rx PRN pain #40 tabs amino acids 1 ea PO DAILY 12/23/22 12/27/22 History apixaban 5 mg tablet (Eliquis) 5 mg PO AMHS 12/27/22 12/27/22 History methocarbamol 750 mg tablet 750 mg PO BID PRN Back Pain 12/27/22 12/27/22 History Patient History Medical History (Updated 12/27/22 @ 22:32 by Larry Staton MD) Hx of irritable bowel syndrome History of COVID-19 03/2022- cough, chest congestion, fatigue > resolved Hx of phlebitis LLE, felt r/t Covid, "resolved"- Xarelto x 6 weeks DVT (deep venous thrombosis) 07/09/22 ([facility]), Right knee felt r/t related to estradiol or Covid infection per pt > recent scan "still shows is present" per pt Left knee DJD Degenerative disc disease SI joint dysfunction Osteoarthritis GERD (gastroesophageal reflux disease) Anemia Hx Temporomandibular joint disorder Left side, rare locking History of asthma Exercise induced, no inhaler Surgical History (Updated 12/24/22 @ 08:22 by iFdencio Marquez PA-C) History of arthroscopy of left knee [place] [facility] [place] of arthroplasty of left knee History of arthroscopy of right knee 10/2018 [facility] [place]ausea and vomiting after administration of anesthetic agent H/O hand surgery Right index finger fracture repair 5th metacarpal fracture repair History of esophagogastroduodenoscopy (EGD) History of colonoscopy H/O total hysterectomy History of laparoscopy Exploratory History of tooth extraction Family History Mother Family history of diabetes mellitus Father Family hx of colon cancer Breast cancer Brother Family hx of colon cancer Denies family history of Ovarian cancer Prostate cancer Myocardial infarction Social History Smoking Status: Never smoker Second Hand Exposure: Yes (father smoked); Do You Dip or Chew Tobacco: No; Hx Alcohol Use: Yes Alcohol type: wine Hx Substance Use: No Preferred Language: Turkmen Communication Ability: Effective Machine Heel Sprayer Required: No Beliefs That Will Affect Care: None Current Living Situation: Spouse Feels Safe at Home: Yes Assistive Devices: Walker Review of Systems Constitutional: as per Subjective / HPI Eyes: as per Subjective / HPI Respiratory: as per Subjective / HPI Cardiovascular: as per Subjective / HPI Gastrointestinal: as per Subjective / HPI Genitourinary: Hysterectomy, 2 laparoscopy for [employer]IOR 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 Musculoskeletal: Status post left knee replacement. Incision is intact, no redness. Neurologic: patellar DTR's 2+ bilat, sensation intact Psychiatric: A+Ox3, euthymic affect Results & Data Vital Signs (Past 12 Hours) Vital Signs Temp Pulse Resp BP Pulse Ox O2 Del Method 12/27/22 20:38 97 Room Air 12/27/22 20:27 105 H 12/27/22 20:27 36.6 C 108 H 24 136/84 97 Room Air Laboratory Results Lab Results 12/27/22 12/27/22 12/27/22 Range/Units 20:33 20:53 21:24 WBC 12.43 H (4.8-10.8) K/ul RBC 3.99 L (4.20-5.40) M/uL Hgb 12.0 (12.0-16.0) g/dl POC Hgb 10.9 L (12.0-16.0) g/dl Hct 34.9 L (37.0-47.0) % POC Hct 32 L (37-47) % MCV 87.5 (80.0-100.0) fL MCH 30.1 (25.0-34.0) pg MCHC 34.4 (32.0-36.0) g/dL RDW Std Deviation 39.5 (36.4-46.3) fL RDW Coeff of Yenni 12.2 (11.5-14.5) % Plt Count 312 (130-400) K/uL MPV 9.7 (9.4-12.4) fL Immature Gran % (Auto) 0.6 % Neut % (Auto) 67.9 % Lymph % (Auto) 23.0 % Emmons % (Auto) 8.1 % Eos % (Auto) 0.1 % Baso % (Auto) 0.3 % Neut # (Auto) 8.44 H (1.40-6.50) K/uL Lymph # (Auto) 2.86 (1.20-3.40) K/uL Emmons # (Auto) 1.01 H (0.11-0.59) K/uL Eos # (Auto) 0.01 (0.00-0.50) K/uL Baso # (Auto) 0.04 (0.00-0.20) K/uL Immature Gran # (Auto) 0.07 (0.01-0.20) K/uL APTT 26.1 (21.0-31.0) Seconds PTT Ratio 0.9 VBG pH 7.42 H (7.36-7.41) VBG pCO2 41 (38-50) mmHg VBG pO2 72 mmHg VBG HCO3 27 mmol/L VBG O2 Saturation 95.9 % VBG Base Excess 1.9 mEq/L POC Sodium 138 (135-144) mmol/L Sodium 138 (136-145) mmol/L POC Potassium 3.2 L (3.3-5.0) mmol/L Potassium 2.8 L (3.5-5.1) mmol/L POC Chloride 102 (101-112) mmol/L Chloride 101 (98-107) mmol/L Carbon Dioxide 20 L (21-32) mmol/L POC Total CO2 22 L (24-31) mmol/L Anion Gap 17 H (3-11) POC Anion Gap 18.0 (16-25) mmol/L POC BUN 18 (7-18) mg/dl BUN 17 (6-23) mg/dl Creatinine 0.77 (0.6-1.2) mg/dl POC Creatinine 0.7 (0.6-1.3) mg/dl Est Cr Clr Drug Dosing 88.6 ml/min Est GFR ( Amer) 101.5 ml/min Est GFR (Non-Af Amer) 87.5 ml/min BUN/Creatinine Ratio 22.1 H (10-20) Glucose 148 H (70-99(Fasting)) mg/dl POC Glucose (other) 168 H (70-99) mg/dl Calcium 9.4 (8.6-10.3) mg/dl POC Ioniz Calcium Jabier 1.05 L (1.12-1.32) mmol/l Magnesium 1.6 L (1.7-2.4) mg/dl Total Bilirubin 0.7 (0.2-1.0) mg/dl AST 21 (13-39) U/L ALT 23 (7-52) U/L Alkaline Phosphatase 62 (34-104) U/L Total Protein 6.9 (6.0-8.3) gm/dl Albumin 3.9 (3.4-5.0) gm/dl Globulin 3.0 (2.5-4.0) gm/dl Albumin/Globulin Ratio 1.3 (0.9-2) Lipase 20 (11-82) U/L Diagnostic Findings CT ANGIOGRAM OF THE CHEST; CT SCAN OF THE ABDOMEN AND PELVIS WITH IV CONTRAST CLINICAL HISTORY: Change in mental status. Left-sided abdominal pain. COMPARISON STUDY: Chest x-ray dated 11/28/2022. Abdominal CT dated 05/27/2007. Lumbar spine radiographs dated 05/03/2010. TECHNIQUE: Following the IV administration of 115 of Optiray 320, CT angiogram of the chest is performed from the upper abdomen to the thoracic inlet utilizing the pulmonary embolus protocol. Images are reviewed in the axial, sagittal, coronal planes. 3-D MIPS images are created and assessed. Subsequently, CT scan of the abdomen and pelvis was performed from the lung bases to the proximal femora. Images are reviewed in the axial, sagittal, and coronal planes. IV contrast was administered without complication. A dose lowering technique was utilized adhering to the principles of ALARA. CT DOSE: 2178.98 mGy.cm FINDINGS: CHEST: Thyroid: Imaged portions of the thyroid gland are normal in size and attenuation. Thoracic aorta: The thoracic aorta is normal in caliber and demonstrates bovine variant arch anatomy. No dissection is seen. Pulmonary vasculature: The pulmonary trunk is normal in caliber. There are no filling defects identified in the main, lobar, or segmental pulmonary arteries to indicate pulmonary embolus. Heart: The heart is normal in size and without pericardial effusion. Lungs and pleural spaces: There is no airspace consolidation or pleural effusion. Dependent atelectasis is seen bilaterally. There are scattered calcified granulomas. The trachea and central airways are clear. Mediastinum: There is no mediastinal lymphadenopathy. Lora: Clear. Axillae: There is no axillary lymphadenopathy. Bony thorax: No lytic or blastic lesions are identified. ABDOMEN AND PELVIS: Liver: The contrast-enhanced liver is normal in size, contour, and attenuation. There is no intrahepatic biliary ductal dilatation. The hepatic veins and portal veins are patent. Gallbladder: Unremarkable. Spleen: Normal in size and attenuation. Pancreas: Unremarkable. Adrenal glands: Unremarkable. Kidneys: The contrast enhanced kidneys are normal in size and without hydronephrosis. The kidneys enhance symmetrically. Abdominal vasculature: The abdominal aorta is normal in course and caliber. Stomach and bowel: There is a small hiatal hernia. The proximal small bowel loops in the left abdomen are dilated and fluid-filled, measuring up to 3.2 cm in diameter. There is a focal transition point identified in the left lower quadrant on image #20 and 65. The distal small bowel loops are decompressed, and findings consistent with a small bowel obstruction. There are mildly thick- walled loops of small bowel in the pelvis with associated mesenteric venous engorgement. Venous engorgement is best seen on image #279. The distal small bowel is completely decompressed. There is trace interloop fluid. No pneumatosis intestinalis or portal venous gas is seen. There is mild to moderate colonic fecal retention. The appendix is well-visualized and normal. Peritoneum: There is no intraperitoneal free air or abdominal ascites. There is a fat-containing umbilical hernia. Lymphadenopathy: None. Pelvic viscera: The bladder is normal as visualized. The uterus is surgically absent. No adnexal lesion is seen. There is a small volume of free fluid in the cul-de-sac. Skeletal structures: No lytic or blastic lesions are seen. IMPRESSION: 1. There is no evidence of pulmonary embolus in the main, lobar, or segmental pulmonary arteries. 2. There is no airspace consolidation or pleural effusion. 3. There is evidence of a small bowel obstruction, with a transition point seen in the left lower quadrant. This is likely on the basis of adhesions. 4. Mildly thick-walled loops of small bowel are seen in the deep pelvis with associated venous engorgement. These loops may be at risk for ischemia. Surgical assessment is advised. 5. There is no intraperitoneal free air. No pneumatosis intestinalis or portal venous gas is seen. 6. Small volume of free fluid in the pelvis. 7. Additional findings as above. ACT 112: Negative or not required by law. Electronically signed by: Kel Ferreira M.D. 12/27/2022 9:49 PM
[2022-12-27 22:22] LABS: Partial Thromboplastin Ratio 0.9; Partial Thromboplastin Time 26.1 Seconds (21.0-31.0)
[2022-12-27 22:32] LABS: Appearance Urine Clear (Clear); Bilirubin Urine Negative (Negative); Blood Urine Negative (Negative); Color Urine Yellow; Glucose Urine UA Negative (Negative); Ketones Urine 2+ (Negative); Leukocyte Esterase Urine Negative (Negative); Nitrite Urine Negative (Negative); Protein Urine Negative (Negative); Specific Gravity Urine > 1.045 (1.000-1.030); Urobilinogen Urine Negative (Negative); pH Urine 8.5 (4.5-7.5)
[2022-12-27] MEDS ORDERED: bisacodyL 10 MG SUPP PR STA (23:08)
--- NOTE | 2022-12-27 23:08 | History & Physical Report ---
Date of Service December 27, 2022 Assessment & Plan (1) Hypokalemia: Plan: Secondary to bowel obstruction likely secondary to adhesions from previous abdominal surgery History IBS constipation predominant LE thrombophlebitis followed by acute DVT on Eliquis Hyperglycemia rule out DM Medical telemetry Replace electrolytes Bowel rest NGT insertion to facilitate decompression if with further emesis General Surgery consult Re: SBO (Patient already evaluated by Dr. Staton at the ER.) Appropriate to hold Eliquis for now given potential need for surgery. Low-dose IV heparin 12 hours after last dose of Eliquis for thromboembolic prophylaxis while Eliquis on hold. (Dr. Staton agreeable.) Check hemoglobin A1c DVT prophylaxis. IV heparin while Eliquis on hold Full code Text document was generated using [employer] voice recognition software. It may contain grammatical or spelling errors. Kindly contact undersigned for clarification of any documentation item in question. History of Present Illness Chief Complaint: Abdominal pain, emesis Primary Care Provider: Paulie Santoyo MD History obtained from patient, family, and records. Medical history significant for history of LE thrombophlebitis followed by acute DVT on Eliquis, IBS constipation predominant. Overnight confinement December 23 to 2022 under orthopedic service for elective left total knee arthroplasty. Unremarkable postop course. Patient Eliquis resumed on discharge. Patient has not had bowel movement in the last 3 days. Not unusual for her given history of constipation predominant IBS as per patient. Today she noted achy periumbilical pain going to the left side followed by nausea, emesis. No headache, no hematemesis. No fever, no chills. Patient brought to the ER for evaluation by . 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 Allergy/AdvReac Type Severity Reaction Status Date / Time nickel Allergy Mild Skin Verified 12/27/22 22:18 redness oxycodone AdvReac Unknown N/V Verified 12/27/22 22:18 Home Medications Medication Instructions Recorded Confirmed Type calcium carbonate 600 mg-vitamin 2 cap PO QAM 10/12/18 12/27/22 History D3 5 mcg (200 unit) capsule (Calcium 600 + D(3)) famotidine 20 mg tablet (Pepcid) 20 mg PO AMHS reflux 10/12/18 12/27/22 History pediatric multivitamin no.76 1 tab PO QAM 10/12/18 12/27/22 History (Flintstones Complete chewable tablet) acetaminophen 500 mg tablet 1,000 mg (2 x 500 mg) PO TID pain 12/21/22 12/27/22 Rx (Tylenol Extra Strength) 30 days #180 tabs ondansetron 4 mg disintegrating 4 mg PO Q8 PRN nausea #20 tabs 12/21/22 12/27/22 Rx tablet sennosides 8.6 mg tablet (Senokot) 8.6 mg PO BID prevent constipation 12/21/22 12/27/22 Rx 14 days #28 tabs tramadol 50 mg tablet 50 - 100 mg (1 - 2 x 50 mg) PO Q6 12/21/22 12/27/22 Rx PRN pain #40 tabs amino acids 1 ea PO DAILY 12/23/22 12/27/22 History apixaban 5 mg tablet (Eliquis) 5 mg PO AMHS 12/27/22 12/27/22 History methocarbamol 750 mg tablet 750 mg PO BID PRN Back Pain 12/27/22 12/27/22 History Past Med/Surg History Medical History (Updated 12/28/22 @ 03:25 by Jassi Evans MD) Hx of irritable bowel syndrome History of COVID-19 03/2022- cough, chest congestion, fatigue > resolved Hx of phlebitis LLE, felt r/t Covid, "resolved"- Xarelto x 6 weeks DVT (deep venous thrombosis) 07/09/22 ([facility]), Right knee felt r/t related to estradiol or Covid infection per pt > recent scan "still shows is present" per pt Left knee DJD Degenerative disc disease SI joint dysfunction Osteoarthritis GERD (gastroesophageal reflux disease) Anemia Hx Temporomandibular joint disorder Left side, rare locking History of asthma Exercise induced, no inhaler Surgical History (Updated 12/24/22 @ 08:22 by Fidencio Marquez PA-C) History of arthroscopy of left knee 02/2019 [facility] [place] History of arthroplasty of left knee History of arthroscopy of right knee 10/2018 [facility] Nausea and vomiting after administration of anesthetic agent H/O hand surgery Right index finger fracture repair 5th metacarpal fracture repair History of esophagogastroduodenoscopy (EGD) History of colonoscopy H/O total hysterectomy History of laparoscopy Exploratory History of tooth extraction Family History Mother Family history of diabetes mellitus Father Family hx of colon cancer Breast cancer Brother Family hx of colon cancer Denies family history of Ovarian cancer Prostate cancer Myocardial infarction Social History Smoking Status: Never smoker Second Hand Exposure: Yes (father smoked); Do You Dip or Chew Tobacco: No; Hx Alcohol Use: Yes Alcohol type: wine Hx Substance Use: No Preferred Language: Malawian Communication Ability: Effective Passenger Screener Required: No Beliefs That Will Affect Care: None Current Living Situation: Spouse Feels Safe at Home: Yes Assistive Devices: Walker Review of Systems Review of Systems: As per HPI, all other systems reviewed and negative Physical Exam Physical Exam: GENERAL: Comfortable, pleasant, no respiratory distress SKIN: Normal color, warm HEENT: Bespectacled, [place] palpebral conjunctivae, no ptosis, dry buccal mucosa NECK : Supple, no tenderness CHEST : CTA, no tenderness HEART : Tachycardic, no obvious murmurs ABDOMEN: Some distention, central abdominal tenderness EXTREMITIES : Minimal LE swelling, no LE tenderness, no other conspicuous deformities noted NEUROLOGIC : Coherent, no facial asymmetry, no other gross focality Results & Data Results & Data Vital Signs (Past 12 Hours) Vital Signs Temp Pulse Resp BP Pulse Ox O2 Del Method 12/27/22 20:38 97 Room Air 12/27/22 20:27 105 H 12/27/22 20:27 36.6 C 108 H 24 136/84 97 Room Air Laboratory Results Laboratory Results WBC 12.43 K/ul (4.8-10.8) H 12/27/22 20:33 RBC 3.99 M/uL (4.20-5.40) L 12/27/22 20:33 Hgb 12.0 g/dl (12.0-16.0) 12/27/22 20:33 POC Hgb 10.9 g/dl (12.0-16.0) L 12/27/22 20:53 Hct 34.9 % (37.0-47.0) L 12/27/22 20:33 POC Hct 32 % (37-47) L 12/27/22 20:53 MCV 87.5 fL (80.0-100.0) 12/27/22 20: MCH 30.1 pg (25.0-34.0) 12/27/22 20: MCHC 34.4 g/dL (32.0-36.0) 12/27/22 20: RDW Std Deviation 39.5 fL (36.4-46.3) 12/27/22 20: RDW Coeff of Yenni 12.2 % (11.5-14.5) 12/27/22 20: Plt Count 312 K/uL (130-400) 12/27/22 20: MPV 9.7 fL (9.4-12.4) 12/27/22 20: Immature Gran % (Auto) 0.6 % 12/27/22 20: Neut % (Auto) 67.9 % 12/27/22 20: Lymph % (Auto) 23.0 % 12/27/22 20: [place] % (Auto) 8.1 % 12/27/22 20: Eos % (Auto) 0.1 % 12/27/22 20: Baso % (Auto) 0.3 % 12/27/22 20: Neut # (Auto) 8.44 K/uL (1.40-6.50) H 12/27/22 20: Lymph # (Auto) 2.86 K/uL (1.20-3.40) 12/27/22 20: [place] # (Auto) 1.01 K/uL (0.11-0.59) H 12/27/22 20: Eos # (Auto) 0.01 K/uL (0.00-0.50) 12/27/22 20: Baso # (Auto) 0.04 K/uL (0.00-0.20) 12/27/22 20: Immature Gran # (Auto) 0.07 K/uL (0.01-0.20) 12/27/22 20: APTT 26.1 Seconds (21.0-31.0) 12/27/22 20:33 PTT Ratio 0.9 12/27/22 20:33 VBG pH 7.42 (7.36-7.41) H 12/27/22 21:24 VBG pCO2 41 mmHg (38-50) 12/27/22 21:24 VBG pO2 72 mmHg 12/27/22 21:24 VBG HCO3 27 mmol/L 12/27/22 21:24 VBG O2 Saturation 95.9 % 12/27/22 21:24 VBG Base Excess 1.9 mEq/L 12/27/22 21:24 POC Sodium 138 mmol/L (135-144) 12/27/22 20:53 Sodium 138 mmol/L (136-145) 12/27/22 20:33 POC Potassium 3.2 mmol/L (3.3-5.0) L 12/27/22 20:53 Potassium 2.8 mmol/L (3.5-5.1) L 12/27/22 20:33 POC Chloride 102 mmol/L (101-112) 12/27/22 20:53 Chloride 101 mmol/L (98-107) 12/27/22 20:33 Carbon Dioxide 20 mmol/L (21-32) L 12/27/22 20:33 POC Total CO2 22 mmol/L (24-31) L 12/27/22 20:53 Anion Gap 17 (3-11) H 12/27/22 20:33 POC Anion Gap 18.0 mmol/L (16-25) 12/27/22 20:53 POC BUN 18 mg/dl (7-18) 12/27/22 20:53 BUN 17 mg/dl (6-23) 12/27/22 20:33 Creatinine 0.77 mg/dl (0.6-1.2) 12/27/22 20:33 POC Creatinine 0.7 mg/dl (0.6-1.3) 12/27/22 20:53 Est Cr Clr Drug Dosing 88.6 ml/min 12/27/22 20:33 Est GFR ( Amer) 101.5 ml/min 12/27/22 20:33 Est GFR (Non-Af Amer) 87.5 ml/min 12/27/22 20:33 BUN/Creatinine Ratio 22.1 (10-20) H 12/27/22 20:33 Glucose 148 mg/dl (70-99(Fasting)) H 12/27/22 20:33 POC Glucose (other) 168 mg/dl (70-99) H 12/27/22 20:53 Calcium 9.4 mg/dl (8.6-10.3) 12/27/22 20:33 POC Ioniz Calcium Jabier 1.05 mmol/l (1.12-1.32) L 12/27/22 20:53 Magnesium 1.6 mg/dl (1.7-2.4) L 12/27/22 20:33 Total Bilirubin 0.7 mg/dl (0.2-1.0) 12/27/22 20:33 AST 21 U/L (13-39) 12/27/22 20:33 ALT 23 U/L (7-52) 12/27/22 20:33 Alkaline Phosphatase 62 U/L (34-104) 12/27/22 20:33 Total Protein 6.9 gm/dl (6.0-8.3) 12/27/22 20:33 Albumin 3.9 gm/dl (3.4-5.0) 12/27/22 20:33 Globulin 3.0 gm/dl (2.5-4.0) 12/27/22 20:33 Albumin/Globulin Ratio 1.3 (0.9-2) 12/27/22 20:33 Lipase 20 U/L (11-82) 12/27/22 20:33 Procalcitonin < 0.05 ng/ml (0-0.5) 12/27/22 20:33 Urine Color Yellow 12/27/22 22:20 Urine Appearance Clear (Clear) 12/27/22 22:20 Urine pH 8.5 (4.5-7.5) H 12/27/22 22:20 Ur Specific Wheeler > 1.045 (1.000-1.030) H 12/27/22 22:20 Urine Protein Negative (Negative) 12/27/22 22:20 Urine Glucose (UA) Negative (Negative) 12/27/22 22:20 Urine Ketones 2+ (Negative) H 12/27/22 22:20 Urine Blood Negative (Negative) 12/27/22 22:20 Urine Nitrite Negative (Negative) 12/27/22 22:20 Urine Bilirubin Negative (Negative) 12/27/22 22:20 Urine Urobilinogen Negative (Negative) 12/27/22 22:20 Ur Leukocyte Esterase Negative (Negative) 12/27/22 22:20 Impressions Abdomen/Pelvis CT 12/27/22 20:33 CT ANGIOGRAM OF THE CHEST; CT SCAN OF THE ABDOMEN AND PELVIS WITH IV CONTRAST CLINICAL HISTORY: Change in mental status. Left-sided abdominal pain. COMPARISON STUDY: Chest x-ray dated 11/28/2022. Abdominal CT dated 05/27/2007. Lumbar spine radiographs dated 05/03/2010. TECHNIQUE: Following the IV administration of 115 of Optiray 320, CT angiogram of the chest is performed from the upper abdomen to the thoracic inlet utilizing the pulmonary embolus protocol. Images are reviewed in the axial, sagittal, coronal planes. 3-D MIPS images are created and assessed. Subsequently, CT scan of the abdomen and pelvis was performed from the lung bases to the proximal femora. Images are reviewed in the axial, sagittal, and coronal planes. IV contrast was administered without complication. A dose lowering technique was utilized adhering to the principles of ALARA. CT DOSE: 2178.98 mGy.cm FINDINGS: CHEST: Thyroid: Imaged portions of the thyroid gland are normal in size and attenuation. Thoracic aorta: The thoracic aorta is normal in caliber and demonstrates bovine variant arch anatomy. No dissection is seen. Pulmonary vasculature: The pulmonary trunk is normal in caliber. There are no filling defects identified in the main, lobar, or segmental pulmonary arteries to indicate pulmonary embolus. Heart: The heart is normal in size and without pericardial effusion. Lungs and pleural spaces: There is no airspace consolidation or pleural effusion. Dependent atelectasis is seen bilaterally. There are scattered calcified granulomas. The trachea and central airways are clear. Mediastinum: There is no mediastinal lymphadenopathy. Lora: Clear. Axillae: There is no axillary lymphadenopathy. Bony thorax: No lytic or blastic lesions are identified. ABDOMEN AND PELVIS: Liver: The contrast-enhanced liver is normal in size, contour, and attenuation. There is no intrahepatic biliary ductal dilatation. The hepatic veins and portal veins are patent. Gallbladder: Unremarkable. Spleen: Normal in size and attenuation. Pancreas: Unremarkable. Adrenal glands: Unremarkable. Kidneys: The contrast enhanced kidneys are normal in size and without hydronephrosis. The kidneys enhance symmetrically. Abdominal vasculature: The abdominal aorta is normal in course and caliber. Stomach and bowel: There is a small hiatal hernia. The proximal small bowel loops in the left abdomen are dilated and fluid-filled, measuring up to 3.2 cm in diameter. There is a focal transition point identified in the left lower quadrant on image #20 and 65. The distal small bowel loops are decompressed, and findings consistent with a small bowel obstruction. There are mildly thick- walled loops of small bowel in the pelvis with associated mesenteric venous engorgement. Venous engorgement is best seen on image #279. The distal small bowel is completely decompressed. There is trace interloop fluid. No pneumatosis intestinalis or portal venous gas is seen. There is mild to moderate colonic fecal retention. The appendix is well-visualized and normal. Peritoneum: There is no intraperitoneal free air or abdominal ascites. There is a fat-containing umbilical hernia. Lymphadenopathy: None. Pelvic viscera: The bladder is normal as visualized. The uterus is surgically absent. No adnexal lesion is seen. There is a small volume of free fluid in the cul-de-sac. Skeletal structures: No lytic or blastic lesions are seen. IMPRESSION: 1. There is no evidence of pulmonary embolus in the main, lobar, or segmental pulmonary arteries. 2. There is no airspace consolidation or pleural effusion. 3. There is evidence of a small bowel obstruction, with a transition point seen in the left lower quadrant. This is likely on the basis of adhesions. 4. Mildly thick-walled loops of small bowel are seen in the deep pelvis with associated venous engorgement. These loops may be at risk for ischemia. Surgical assessment is advised. 5. There is no intraperitoneal free air. No pneumatosis intestinalis or portal venous gas is seen. 6. Small volume of free fluid in the pelvis. 7. Additional findings as above. ACT 112: Negative or not required by law. Electronically signed by: Kel Ferreira M.D. 12/27/2022 9:49 PM Chest CTA 12/27/22 20:47 CT ANGIOGRAM OF THE CHEST; CT SCAN OF THE ABDOMEN AND PELVIS WITH IV CONTRAST CLINICAL HISTORY: Change in mental status. Left-sided abdominal pain. COMPARISON STUDY: Chest x-ray dated 11/28/2022. Abdominal CT dated 05/27/2007. Lumbar spine radiographs dated 05/03/2010. TECHNIQUE: Following the IV administration of 115 of Optiray 320, CT angiogram of the chest is performed from the upper abdomen to the thoracic inlet utilizing the pulmonary embolus protocol. Images are reviewed in the axial, sagittal, c oronal planes. 3-D MIPS images are created and assessed. Subsequently, CT scan of the abdomen and pelvis was performed from the lung bases to the proximal femora. Images are reviewed in the axial, sagittal, and coronal planes. IV contrast was administered without complication. A dose lowering technique was utilized adhering to the principles of ALARA. CT DOSE: 2178.98 mGy.cm FINDINGS: CHEST: Thyroid: Imaged portions of the thyroid gland are normal in size and attenuation. Thoracic aorta: The thoracic aorta is normal in caliber and demonstrates bovine variant arch anatomy. No dissection is seen. Pulmonary vasculature: The pulmonary trunk is normal in caliber. There are no filling defects identified in the main, lobar, or segmental pulmonary arteries to indicate pulmonary embolus. Heart: The heart is normal in size and without pericardial effusion. Lungs and pleural spaces: There is no airspace consolidation or pleural effusion. Dependent atelectasis is seen bilaterally. There are scattered calcified granulomas. The trachea and central airways are clear. Mediastinum: There is no mediastinal lymphadenopathy. Lora: Clear. Axillae: There is no axillary lymphadenopathy. Bony thorax: No lytic or blastic lesions are identified. ABDOMEN AND PELVIS: Liver: The contrast-enhanced liver is normal in size, contour, and attenuation. There is no intrahepatic biliary ductal dilatation. The hepatic veins and portal veins are patent. Gallbladder: Unremarkable. Spleen: Normal in size and attenuation. Pancreas: Unremarkable. Adrenal glands: Unremarkable. Kidneys: The contrast enhanced kidneys are normal in size and without hydronephrosis. The kidneys enhance symmetrically. Abdominal vasculature: The abdominal aorta is normal in course and caliber. Stomach and bowel: There is a small hiatal hernia. The proximal small bowel loops in the left abdomen are dilated and fluid-filled, measuring up to 3.2 cm in diameter. There is a focal transition point identified in the left lower quadrant on image #20 and 65. The distal small bowel loops are decompressed, and findings consistent with a small bowel obstruction. There are mildly thick- walled loops of small bowel in the pelvis with associated mesenteric venous engorgement. Venous engorgement is best seen on image #279. The distal small bowel is completely decompressed. There is trace interloop fluid. No pneumatosis intestinalis or portal venous gas is seen. There is mild to moderate colonic fecal retention. The appendix is well-visualized and normal. Peritoneum: There is no intraperitoneal free air or abdominal ascites. There is a fat-containing umbilical hernia. Lymphadenopathy: None. Pelvic viscera: The bladder is normal as visualized. The uterus is surgically absent. No adnexal lesion is seen. There is a small volume of free fluid in the cul-de-sac. Skeletal structures: No lytic or blastic lesions are seen. IMPRESSION: 1. There is no evidence of pulmonary embolus in the main, lobar, or segmental pulmonary arteries. 2. There is no airspace consolidation or pleural effusion. 3. There is evidence of a small bowel obstruction, with a transition point seen in the left lower quadrant. This is likely on the basis of adhesions. 4. Mildly thick-walled loops of small bowel are seen in the deep pelvis with associated venous engorgement. These loops may be at risk for ischemia. Surgical assessment is advised. 5. There is no intraperitoneal free air. No pneumatosis intestinalis or portal venous gas is seen. 6. Small volume of free fluid in the pelvis. 7. Additional findings as above. ACT 112: Negative or not required by law. Electronically signed by: Kel Ferreira M.D. 12/27/2022 9:[address] 12/27/22 20:47 CT SCAN OF THE BRAIN WITHOUT IV CONTRAST CLINICAL HISTORY: Change in mental status. COMPARISON STUDY: No priors. TECHNIQUE: Unenhanced axial CT scan of the brain is performed from the vertex to the skull base. A dose lowering technique was utilized adhering to the principles of ALARA. FINDINGS: Brain parenchyma: The brain parenchyma is normal in appearance. There is no hemorrhage, mass effect, or evidence of acute territorial ischemia by CT criteria. [place]-white matter differentiation is preserved. No extra-axial fluid collection is seen. Ventricles, sulci, cisterns: Normal in configuration. Intracranial vasculature: The visualized intracranial vasculature at the skull base is normal in appearance. Calvarium: Unremarkable. Sinuses and mastoids: The visualized paranasal sinuses are clear. The mastoid air cells are well pneumatized. Orbits: The bony orbits are grossly intact. IMPRESSION: There is no hemorrhage, mass effect, or evidence of acute territorial ischemia by CT criteria. ACT 112: Negative or not required by law. Electronically signed by: Kel Ferreira M.D. 12/27/2022 9:35 PM
[2022-12-27] MEDS: POTASSIUM CHLORIDE / WTR 10 MEQ/100 ML PLCT IV SCH (23:10)
[2022-12-27] MEDS ORDERED: LORazepam 0.5 MG TAB PO PRN (23:11)
[2022-12-27] MEDS: MAGNESIUM SULFATE / D5W 1 GM/100 ML BAG IV SCH (23:12)
[2022-12-28] MEDS: POTASSIUM CHLORIDE / WTR 10 MEQ/100 ML PLCT IV SCH ×3 (00:20→02:26)
[2022-12-28] MEDS: MAGNESIUM SULFATE / D5W 1 GM/100 ML BAG IV SCH (01:13)
[2022-12-28] MEDS: PROMETHAZINE HCL 12.5 MG in SODIUM CHLORIDE 0.9% 50 ML IV PRN ×3 (02:39→20:34)
[2022-12-28 04:08] LABS: Basophils # (auto) 0.04 K/uL (0.00-0.20); Basophils % (auto) 0.4 %; Eosinophils # (auto) 0.02 K/uL (0.00-0.50); Eosinophils % (auto) 0.2 %; Hematocrit (blood only) 32.6 % (37.0-47.0); Hemoglobin 10.9 g/dl (12.0-16.0); Immature Granulocytes # (auto) 0.06 K/uL (0.01-0.20); Immature Granulocytes % (auto) 0.5 %; Lymphocytes # (auto) 2.04 K/uL (1.20-3.40); Lymphocytes % (auto) 18.3 %; Mean Corpuscular Hemoglobin 29.9 pg (25.0-34.0); Mean Corpuscular Hgb Conc 33.4 g/dL (32.0-36.0); Mean Corpuscular Volume 89.6 fL (80.0-100.0); Mean Platelet Volume 9.1 fL (9.4-12.4); Monocytes # (auto) 1.17 K/uL (0.11-0.59); Monocytes % (auto) 10.5 %; Neutrophils # (auto) 7.84 K/uL (1.40-6.50); Neutrophils % (auto) 70.1 %; Platelet Count 272 K/uL (130-400); RDW Coefficient of Variation 12.5 % (11.5-14.5); RDW Standard Deviation 41.2 fL (36.4-46.3); Red Blood Count 3.64 M/uL (4.20-5.40); White Blood Count 11.17 K/ul (4.8-10.8)
[2022-12-28] MEDS: LACTATED RINGER'S 1,000 ML IV SCH ×2 (04:09→22:49)
[2022-12-28 04:23] LABS: BUN Creatinine Ratio 17.9 (10-20); Calcium 8.6 mg/dl (8.6-10.3); Creatinine Clr Calc Pharmacy 101.8 ml/min; Est GFR (African American) 115.5 ml/min; Est GFR (Non-African American) 99.7 ml/min
[2022-12-28 04:50] LABS: Partial Thromboplastin Time 27.6 Seconds (21.0-31.0)
[2022-12-28] MEDS ORDERED: Heparin IV Adult Wt-Based Low-Dose *NO* Bolus Protocol IV ONE (05:00)
[2022-12-28] MEDS ORDERED: HEPARIN SODIUM/DEXTROSE 25,000 UNITS/500 ML BAG IV SCH (05:00)
[2022-12-28 07:54] LABS: Estimated Average Glucose 117 mg/dl; Hemoglobin A1C 5.7 % (4.5-5.6)
[2022-12-28] MEDS ORDERED: ONDANSETRON INJ 2 MG/ML 2 ML VIAL IV ONE (08:02)
[2022-12-28] MEDS ORDERED: ONDANSETRON INJ 2 MG/ML 2 ML VIAL ONE (08:03)
[2022-12-28] MEDS ORDERED: MULTIVITAMIN CHEWABLE TAB PO SCH (09:00)
[2022-12-28] MEDS ORDERED: FAMOTIDINE 20 MG TAB PO SCH (09:00)
[2022-12-28] MEDS ORDERED: PROMETHAZINE 12.5 MG/50.5 ML NSS IV ONE (09:07)
--- OUTSIDE RECORDS SUMMARY | 2022-12-28 09:35 | External Medical Summary | Summary of Care ---
Author Name Unknown Organization [facility] Address [address] [place] [address] Phone [phone] Care Team Providers Care Block Breaker Name Role Phone Natanael GARDNER MD, Paulie Browne Primary Care Provider [phone] Reason for Visit * Reason Onset Date Comments Hospital Follow-Up 12/25/2022 No IMANI needed Encounter Details Date Type Department Care Team (Late st Contact Info) Description 12/25/2022 Telephone Ancillary [facility] [address] [place] [address] Shaunna Larson, RN Hospital Follow-Up (No IMANI needed) Allergies Active Allergy Reactions Criticality Noted Date Comments Nickel Rash 10/04/2015 Oxycodone-Acetaminophen 08/13/2010 Nausea/vomiting documented as of this encounter (statuses as of 12/25/2022) Medications Medication Sig Dispensed Refills Start Date [...] 5 07/21/2022 Active Methocarbamol 750 MG Oral TabletIndications:Degen eration of lumbosacral intervertebral disc Take 1 Tablet by mouth in the morning and 1 Tablet before bedtime. As needed for back pain. 60 Tablet 3 12/10/2022 Active documented as of this encounter (statuses as of 12/25/2022) Active Problems Problem Noted Date Diagnosed Date Acute deep vein thrombosis ( DVT) of popliteal vein of right lower extremity 07/12/2022 Arthritis of knee, degenerative 05/27/2014 Family history of GI malignancy 08/13/2010 Dermatitis due to plant 08/05/2010 ADVANCE DIRECTIVE INFORMATION 03/10/2006 Overview: Pt declines booklet. LUMB-LUMBOSAC DISC DEGEN 09/29/2002 Endometriosis of other specified sites 3 documented as of this encounter (statuses as of 12/25/2022) Resolved Problems Problem Noted Date Diagnosed Date Resolved Date Irritable bowel syndrome 09/29/2002 documented as of this encounter (statuses as of 12/25/2022) Immunizations Name Administration Dates Next Due COVID-19 [...] encounter Miscellaneous Notes * Telephone Encounter - Shaunna Larson RN - 12/25/2022 8:22 AM EST Transitions of Care Note Reason for Referral:Recent Admission Phone visit for follow up: Inpatient Hospitalization Admitted to: [facility], Date: 12/23 Discharged to: home, Date: 12/24 IMANI call not indicated due to planned surgery. Shaunna Larson RN documented in this encounter Plan of Treatment [...] filedocumented as of this encounter Care Teams Block Breaker Relationship Specialty Start Date End Date Paulie Santoyo III, MD [address] [facility] [place] [address] PCP - General Family Medicine 09/13/21 documented as of this encounter
[2022-12-28 11:54] LABS: Partial Thromboplastin Ratio 1.1; Partial Thromboplastin Time 31.7 Seconds (21.0-31.0)
[2022-12-28] MEDS ORDERED: HEPARIN SOD (PORCINE) 1000 UNIT/ML ONE (14:30)
[2022-12-28] MEDS ORDERED: HEPARIN SOD (PORCINE) 1000 UNIT/ML IV ONE (14:32)
--- NOTE | 2022-12-28 15:21 | Surgery Progress Note ---
Date of Service December 28, 2022 Assessment & Plan (1) SBO (small bowel obstruction): Plan: Patient is a 52 years old female who presented to ED with a 1 day history of periumbilical pain with some nausea and vomiting. Patient is a status post left knee replacement 4 days ago. Patient had a CT scan diagnosis small bowel obstruction. Plan: Hospitalist will admit the patient to hospital. Conservative treatment. N.p.o., IV flow, IV antibiotic, control pain, repeat the lab in the morning, KUB in the morning, fleet the enema. May need a NG tube insertion if patient has a vomiting again. I also discussed dripped patient was submitted to exploratory laparotomy bowel resection if patient condition getting worse, patient understood. she agreed with the plan. I answered all questions. We will follow- up.D/W ER attending. 12/28/2022 3:22 PM F/U SBO, lactate normal. will F/U still have some epigastric pain with nausea, and vomiting, NG tube insertion KUB, continue treatment, control pain, Admission and Anticipated Discharge Date Admission Date: December 27, 2022 Subjective F/u SBO, passed some flatus, but some epigastric pain with nausea and vomiting, no vomiting blood. pt denies fever, Physical Exam Constitutional: WD/WN, vitals as above Eyes: PERRL, conjunctivae normal, anicteric sclerae Neck: trachea midline, no thyromegaly Respiratory: normal respiratory effort, lungs clear to auscultation Cardiovascular: RRR, no murmur, no edema Gastrointestinal (Abdomen): soft, tenderness at epigastric area, no rebound pain, no distend, BS +. Musculoskeletal: left knee incision intact, no redness, Neurologic: patellar DTR's 2+ bilat, sensation intact Psychiatric: A+Ox3, euthymic affect Results & Data Vital Signs (Past 12 Hours) Vital Signs Pulse Pulse Resp BP BP Pulse Ox O2 Del Method 12/28/22 14:00 81 18 12/28/22 12:00 90 21 93 12/28/22 12:00 157/92 H 12/28/22 10:00 88 20 97 12/28/22 10:00 148/87 H 12/28/22 09:29 92 H 18 143/87 H 95 Room Air 12/28/22 08:00 96 H 20 93 12/28/22 08:00 143/87 H 12/28/22 07:18 90 18 134/85 94 Room Air 12/28/22 06:59 89 14 97 12/28/22 06:59 134/85 12/28/22 06:00 89 20 95 12/28/22 04:00 104 H 24 97 12/28/22 03:26 100 H 17 96 12/28/22 03:26 134/95 12/28/22 03:26 91 H 17 134/95 97 Room Air Laboratory Results Lab Results 12/27/22 12/27/22 12/27/22 Range/Units 20:33 20:53 21:24 WBC 12.43 H (4.8-10.8) K/ul RBC 3.99 L (4.20-5.40) M/uL Hgb 12.0 (12.0-16.0) g/dl POC Hgb 10.9 L (12.0-16.0) g/dl Hct 34.9 L (37.0-47.0) % POC Hct 32 L (37-47) % MCV 87.5 (80.0-100.0) fL MCH 30.1 (25.0-34.0) pg MCHC 34.4 (32.0-36.0) g/dL RDW Std Deviation 39.5 (36.4-46.3) fL RDW Coeff of Yenni 12.2 (11.5-14.5) % Plt Count 312 (130-400) K/uL MPV 9.7 (9.4-12.4) fL Immature Gran % (Auto) 0.6 % Neut % (Auto) 67.9 % Lymph % (Auto) 23.0 % [place] % (Auto) 8.1 % Eos % (Auto) 0.1 % Baso % (Auto) 0.3 % Neut # (Auto) 8.44 H (1.40-6.50) K/uL Lymph # (Auto) 2.86 (1.20-3.40) K/uL [place] # (Auto) 1.01 H (0.11-0.59) K/uL Eos # (Auto) 0.01 (0.00-0.50) K/uL Baso # (Auto) 0.04 (0.00-0.20) K/uL Immature Gran # (Auto) 0.07 (0.01-0.20) K/uL APTT 26.1 (21.0-31.0) Seconds PTT Ratio 0.9 VBG pH 7.42 H (7.36-7.41) VBG pCO2 41 (38-50) mmHg VBG pO2 72 mmHg VBG HCO3 27 mmol/L VBG O2 Saturation 95.9 % VBG Base Excess 1.9 mEq/L POC Sodium 138 (135-144) mmol/L Sodium 138 (136-145) mmol/L POC Potassium 3.2 L (3.3-5.0) mmol/L Potassium 2.8 L (3.5-5.1) mmol/L POC Chloride 102 (101-112) mmol/L Chloride 101 (98-107) mmol/L Carbon Dioxide 20 L (21-32) mmol/L POC Total CO2 22 L (24-31) mmol/L Anion Gap 17 H (3-11) POC Anion Gap 18.0 (16-25) mmol/L POC BUN 18 (7-18) mg/dl BUN 17 (6-23) mg/dl Creatinine 0.77 (0.6-1.2) mg/dl POC Creatinine 0.7 (0.6-1.3) mg/dl Est Cr Clr Drug Dosing 88.6 ml/min Est GFR ( Amer) 101.5 ml/min Est GFR (Non-Af Amer) 87.5 ml/min BUN/Creatinine Ratio 22.1 H (10-20) Glucose 148 H (70-99(Fasting)) mg/dl POC Glucose (other) 168 H (70-99) mg/dl Estimat Average Glucose mg/dl Hemoglobin A1c (4.5-5.6) % Lactate (0.4-2.0) mmol/L Calcium 9.4 (8.6-10.3) mg/dl POC Ioniz Calcium Jabier 1.05 L (1.12-1.32) mmol/l Magnesium 1.6 L (1.7-2.4) mg/dl Total Bilirubin 0.7 (0.2-1.0) mg/dl AST 21 (13-39) U/L ALT 23 (7-52) U/L Alkaline Phosphatase 62 (34-104) U/L Total Protein 6.9 (6.0-8.3) gm/dl Albumin 3.9 (3.4-5.0) gm/dl Globulin 3.0 (2.5-4.0) gm/dl Albumin/Globulin Ratio 1.3 (0.9-2) Lipase 20 (11-82) U/L Procalcitonin < 0.05 (0-0.5) ng/ml Urine Color Urine Appearance (Clear) Urine pH (4.5-7.5) Ur Specific [place] (1.000-1.030) Urine Protein (Negative) Urine Glucose (UA) (Negative) Urine Ketones (Negative) Urine Blood (Negative) Urine Nitrite (Negative) Urine Bilirubin (Negative) Urine Urobilinogen (Negative) Ur Leukocyte Esterase (Negative) 12/27/22 12/27/22 12/27/22 Range/Units 22:20 22:47 22:58 WBC (4.8-10.8) K/ul RBC (4.20-5.40) M/uL Hgb (12.0-16.0) g/dl POC Hgb (12.0-16.0) g/dl Hct (37.0-47.0) % POC Hct (37-47) % MCV (80.0-100.0) fL MCH (25.0-34.0) pg MCHC (32.0-36.0) g/dL RDW Std Deviation (36.4-46.3) fL RDW Coeff of Yenni (11.5-14.5) % Plt Count (130-400) K/uL MPV (9.4-12.4) fL Immature Gran % (Auto) % Neut % (Auto) % Lymph % (Auto) % [place] % (Auto) % Eos % (Auto) % Baso % (Auto) % Neut # (Auto) (1.40-6.50) K/uL Lymph # (Auto) (1.20-3.40) K/uL [place] # (Auto) (0.11-0.59) K/uL Eos # (Auto) (0.00-0.50) K/uL Baso # (Auto) (0.00-0.20) K/uL Immature Gran # (Auto) (0.01-0.20) K/uL APTT (21.0-31.0) Seconds PTT Ratio VBG pH (7.36-7.41) VBG pCO2 (38-50) mmHg VBG pO2 mmHg VBG HCO3 mmol/L VBG O2 Saturation % VBG Base Excess mEq/L POC Sodium (135-144) mmol/L Sodium (136-145) mmol/L POC Potassium (3.3-5.0) mmol/L Potassium (3.5-5.1) mmol/L POC Chloride (101-112) mmol/L Chloride (98-107) mmol/L Carbon Dioxide (21-32) mmol/L POC Total CO2 (24-31) mmol/L Anion Gap (3-11) POC Anion Gap (16-25) mmol/L POC BUN (7-18) mg/dl BUN (6-23) mg/dl Creatinine (0.6-1.2) mg/dl POC Creatinine (0.6-1.3) mg/dl Est Cr Clr Drug Dosing ml/min Est GFR ( Amer) ml/min Est GFR (Non-Af Amer) ml/min BUN/Creatinine Ratio (10-20) Glucose (70-99(Fasting)) mg/dl POC Glucose (other) (70-99) mg/dl Estimat Average Glucose 117 mg/dl Hemoglobin A1c 5.7 H (4.5-5.6) % Lactate 0.9 (0.4-2.0) mmol/L Calcium (8.6-10.3) mg/dl POC Ioniz Calcium Jabier (1.12-1.32) mmol/l Magnesium (1.7-2.4) mg/dl Total Bilirubin (0.2-1.0) mg/dl AST (13-39) U/L ALT (7-52) U/L Alkaline Phosphatase (34-104) U/L Total Protein (6.0-8.3) gm/dl Albumin (3.4-5.0) gm/dl Globulin (2.5-4.0) gm/dl Albumin/Globulin Ratio (0.9-2) Lipase (11-82) U/L Procalcitonin (0-0.5) ng/ml Urine Color Yellow Urine Appearance Clear (Clear) Urine pH 8.5 H (4.5-7.5) Ur Specific [place] > 1.045 H (1.000-1.030) Urine Protein Negative (Negative) Urine Glucose (UA) Negative (Negative) Urine Ketones 2+ H (Negative) Urine Blood Negative (Negative) Urine Nitrite Negative (Negative) Urine Bilirubin Negative (Negative) Urine Urobilinogen Negative (Negative) Ur Leukocyte Esterase Negative (Negative) 12/28/22 12/28/22 Range/Units 03:46 11:02 WBC 11.17 H (4.8-10.8) K/ul RBC 3.64 L (4.20-5.40) M/uL Hgb 10.9 L (12.0-16.0) g/dl POC Hgb (12.0-16.0) g/dl Hct 32.6 L (37.0-47.0) % POC Hct (37-47) % MCV 89.6 (80.0-100.0) fL MCH 29.9 (25.0-34.0) pg MCHC 33.4 (32.0-36.0) g/dL RDW Std Deviation 41.2 (36.4-46.3) fL RDW Coeff of Yenni 12.5 (11.5-14.5) % Plt Count 272 (130-400) K/uL MPV 9.1 L (9.4-12.4) fL Immature Gran % (Auto) 0.5 % Neut % (Auto) 70.1 % Lymph % (Auto) 18.3 % [place] % (Auto) 10.5 % Eos % (Auto) 0.2 % Baso % (Auto) 0.4 % Neut # (Auto) 7.84 H (1.40-6.50) K/uL Lymph # (Auto) 2.04 (1.20-3.40) K/uL [place] # (Auto) 1.17 H (0.11-0.59) K/uL Eos # (Auto) 0.02 (0.00-0.50) K/uL Baso # (Auto) 0.04 (0.00-0.20) K/uL Immature Gran # (Auto) 0.06 (0.01-0.20) K/uL APTT 27.6 31.7 H (21.0-31.0) Seconds PTT Ratio 1.0 1.1 VBG pH (7.36-7.41) VBG pCO2 (38-50) mmHg VBG pO2 mmHg VBG HCO3 mmol/L VBG O2 Saturation % VBG Base Excess mEq/L POC Sodium (135-144) mmol/L Sodium 139 (136-145) mmol/L POC Potassium (3.3-5.0) mmol/L Potassium 4.0 D (3.5-5.1) mmol/L POC Chloride (101-112) mmol/L Chloride 105 (98-107) mmol/L Carbon Dioxide 28 (21-32) mmol/L POC Total CO2 (24-31) mmol/L Anion Gap 6 (3-11) POC Anion Gap (16-25) mmol/L POC BUN (7-18) mg/dl BUN 12 (6-23) mg/dl Creatinine 0.67 (0.6-1.2) mg/dl POC Creatinine (0.6-1.3) mg/dl Est Cr Clr Drug Dosing 101.8 ml/min Est GFR ( Amer) 115.5 ml/min Est GFR (Non-Af Amer) 99.7 ml/min BUN/Creatinine Ratio 17.9 (10-20) Glucose 120 H (70-99(Fasting)) mg/dl POC Glucose (other) (70-99) mg/dl Estimat Average Glucose mg/dl Hemoglobin A1c (4.5-5.6) % Lactate (0.4-2.0) mmol/L Calcium 8.6 (8.6-10.3) mg/dl POC Ioniz Calcium Jabier (1.12-1.32) mmol/l Magnesium (1.7-2.4) mg/dl Total Bilirubin (0.2-1.0) mg/dl AST (13-39) U/L ALT (7-52) U/L Alkaline Phosphatase (34-104) U/L Total Protein (6.0-8.3) gm/dl Albumin (3.4-5.0) gm/dl Globulin (2.5-4.0) gm/dl Albumin/Globulin Ratio (0.9-2) Lipase (11-82) U/L Procalcitonin (0-0.5) ng/ml Urine Color Urine Appearance (Clear) Urine pH (4.5-7.5) Ur Specific [place] (1.000-1.030) Urine Protein (Negative) Urine Glucose (UA) (Negative) Urine Ketones (Negative) Urine Blood (Negative) Urine Nitrite (Negative) Urine Bilirubin (Negative) Urine Urobilinogen (Negative) Ur Leukocyte Esterase (Negative)
--- NOTE | 2022-12-28 15:37 | Hospitalist Progress Note ---
Date of Service December 28, 2022 Assessment & Plan (1) Hypokalemia: Plan: Small bowel obstruction Likely due to adhesions H/O hysterectomy, laparoscopy for endometriosis H/O IBS constipation predominant --CT ABD:There is no evidence of pulmonary embolus in the main, lobar, or segmental pulmonary arteries. There is no airspace consolidation or pleural effusion. There is evidence of a small bowel obstruction, with a transition point seen in the left lower quadrant. This is likely on the basis of adhesions. Mildly thick-walled loops of small bowel are seen in the deep pelvis with associated venous engorgement. These loops may be at risk for ischemia. Surgical assessment is advised. There is no intraperitoneal free air. No pneumatosis intestinalis or portal venous gas is seen. Small volume of free fluid in the pelvis. -- KUB pending --Continue NG tube, bowel rest, IV fluids Minimize IV pain medications as able Appreciate surgery input Leukocytosis Likely reactive No obvious source of infection Blood cultures pending Monitor Hypokalemia Hypomagnesemia Replete electrolytes as needed Monitor Prediabetes HbA1c 5.7 H/O LE thrombophlebitis/DVT Hold Eliquis for now Continue IV heparin for now GERD continue Pepcid DVT Px: IV heparin Code Status Full code Admission and Anticipated Discharge Date Admission Date: December 27, 2022 Subjective Patient is seen and examined at bedside States having nausea, vomiting, abdominal pain Had some flatus, small BM this morning per patient Denies any chest pain, dyspnea No other complaints Review of Systems Review of Systems: All systems reviewed & are unremarkable except as noted in Subjective Physical Exam Physical Exam: Physical Exam: Vitals signs as noted above General Appearance:Moderately built and nourished, no apparent distress Head: normocephalic, Atraumatic Eyes: normal inspection, EOMI Neck: supple, Trachea midline Respiratory/Chest: Normal breath sounds, CTA, No accessory muscle use Cardiovascular: S1, S2, No murmur Abdomen/GI:Soft, Epigastric/Umbilical tender, Bowel sounds decreased Extremities/Musculoskeletal:normal inspection, Trace pedal edema Neurologic/Psych:AAOX3, grossly no focal neurological deficits Skin: normal color, warm Results & Data Results & Data Vital Signs (Past 12 Hours) Vital Signs Pulse Pulse Resp BP BP Pulse Ox O2 Del Method 12/28/22 14:00 81 18 12/28/22 12:00 90 21 93 12/28/22 12:00 157/92 H 12/28/22 10:00 88 20 97 12/28/22 10:00 148/87 H 12/28/22 09:29 92 H 18 143/87 H 95 Room Air 12/28/22 08:00 96 H 20 93 12/28/22 08:00 143/87 H 12/28/22 07:18 90 18 134/85 94 Room Air 12/28/22 06:59 89 14 97 12/28/22 06:59 134/85 12/28/22 06:00 89 20 95 12/28/22 04:00 104 H 24 97 Laboratory Results Short CBC 12/27/22 12/28/22 Range/Units 20:33 03:46 WBC 12.43 H 11.17 H (4.8-10.8) K/ul Hgb 12.0 10.9 L (12.0-16.0) g/dl Hct 34.9 L 32.6 L (37.0-47.0) % Plt Count 312 272 (130-400) K/uL BMP 12/27/22 12/28/22 20:33 03:46 Sodium 138 139 Potassium 2.8 L 4.0 D Chloride 101 105 Carbon Dioxide 20 L 28 BUN 17 12 Creatinine 0.77 0.67 Glucose 148 H 120 H Calcium 9.4 8.6 Liver Function 12/27/22 Range/Units 20:33 Total Bilirubin 0.7 (0.2-1.0) mg/dl AST 21 (13-39) U/L ALT 23 (7-52) U/L Alkaline Phosphatase 62 (34-104) U/L Albumin 3.9 (3.4-5.0) gm/dl Urine 12/27/22 Range/Units 22:20 Urine Color Yellow Urine Appearance Clear (Clear) Urine pH 8.5 H (4.5-7.5) Ur Specific [place] > 1.045 H (1.000-1.030) Urine Protein Negative (Negative) Urine Glucose (UA) Negative (Negative)
--- NOTE | 2022-12-28 16:08 | XRay Report ---
KUB CLINICAL HISTORY: Small bowel obstruction. COMPARISON STUDY: CT of the abdomen and pelvis December 27, 2022. FINDINGS: Several loops of mildly dilated small bowel are again noted. The findings suggest a persist ent small bowel obstruction. No radiographic evidence for free air on supine exam. Amount of stool is within normal limits. IMPRESSION: Findings suggestive of a persistent small bowel obstruction. ACT 112: Negative or not required by law. Electronically signed by: Lazaro Joyce M.D. 12/28/2022 4:07 PM
[2022-12-28] MEDS: ACETAMINOPHEN 1,000 MG/100 ML VIAL IV PRN (20:09)
[2022-12-28] MEDS ORDERED: MoRPHine SULFATE 2 MG/ML CARP IV PRN (20:25)
--- NOTE | 2022-12-28 20:33 | Surgery Progress Note ---
Date of Service December 28, 2022 Assessment & Plan (1) SBO (small bowel obstruction): Plan: Patient is a 52 years old female who presented to ED with a 1 day history of periumbilical pain with some nausea and vomiting. Patient is a status post left knee replacement 4 days ago. Patient had a CT scan diagnosis small bowel obstruction. Plan: Hospitalist will admit the patient to hospital. Conservative treatment. N.p.o., IV flow, IV antibiotic, control pain, repeat the lab in the morning, KUB in the morning, fleet the enema. May need a NG tube insertion if patient has a vomiting again. I also discussed dripped patient was submitted to exploratory laparotomy bowel resection if patient condition getting worse, patient understood. she agreed with the plan. I answered all questions. We will follow- up.D/W ER attending. 12/28/2022 3:22 PM F/U SBO, lactate normal. will F/U still have some epigastric pain with nausea, and vomiting, NG tube insertion KUB, continue treatment, control pain, 12/28/2022 8:29 PM still have abdominal pain. only iv tylenol for pain. order dilaudid 1 mg IV q4 h prn for pain, morphine 2 mg IV q3 h prn for pain, repeat labs and KUB tomorrow. NG tube insertion after hold heparin for 6 hours. I also indicated , pt may need surgery in pt develops severe abdominal pain, fever, high WBC, pt and her understood, she agreed with the plan. will F/U. Admission and Anticipated Discharge Date Admission Date: December 27, 2022 Subjective pt is still have periumbilical pain, with nausea and vomiting, no fever, I reviewed KUB- SBO. Physical Exam Constitutional: WD/WN, vitals as above Eyes: PERRL, conjunctivae normal, anicteric sclerae Neck: trachea midline, no thyromegaly Respiratory: normal respiratory effort, lungs clear to auscultation Cardiovascular: RRR, no murmur, no edema Gastrointestinal (Abdomen): tenderness at periumbilical area, no rebound pain, no distend, BS+. Musculoskeletal: no cyanosis or clubbing, extremities motor strength 5/5 Neurologic: patellar DTR's 2+ bilat, sensation intact Psychiatric: A+Ox3, euthymic affect Results & Data Vital Signs (Past 12 Hours) Vital Signs Pulse Pulse Resp BP BP Pulse Ox O2 Del Method 12/28/22 19:00 86 18 100 Room Air 12/28/22 18:44 92 H 26 H 99 12/28/22 18:44 151/80 H 12/28/22 18:00 90 19 12/28/22 17:00 94 H 17 12/28/22 16:00 88 23 12/28/22 15:00 87 22 12/28/22 14:00 81 18 12/28/22 12:00 90 21 93 12/28/22 12:00 157/92 H 12/28/22 10:00 88 20 97 12/28/22 10:00 148/87 H 12/28/22 09:29 92 H 18 143/87 H 95 Room Air Laboratory Results Lab Results 12/27/22 12/27/22 12/27/22 Range/Units 20:33 20:53 21:24 WBC 12.43 H (4.8-10.8) K/ul RBC 3.99 L (4.20-5.40) M/uL Hgb 12.0 (12.0-16.0) g/dl POC Hgb 10.9 L (12.0-16.0) g/dl Hct 34.9 L (37.0-47.0) % POC Hct 32 L (37-47) % MCV 87.5 (80.0-100.0) fL MCH 30.1 (25.0-34.0) pg MCHC 34.4 (32.0-36.0) g/dL RDW Std Deviation 39.5 (36.4-46.3) fL RDW Coeff of Yenni 12.2 (11.5-14.5) % Plt Count 312 (130-400) K/uL MPV 9.7 (9.4-12.4) fL Immature Gran % (Auto) 0.6 % Neut % (Auto) 67.9 % Lymph % (Auto) 23.0 % [place] % (Auto) 8.1 % Eos % (Auto) 0.1 % Baso % (Auto) 0.3 % Neut # (Auto) 8.44 H (1.40-6.50) K/uL Lymph # (Auto) 2.86 (1.20-3.40) K/uL [place] # (Auto) 1.01 H (0.11-0.59) K/uL Eos # (Auto) 0.01 (0.00-0.50) K/uL Baso # (Auto) 0.04 (0.00-0.20) K/uL Immature Gran # (Auto) 0.07 (0.01-0.20) K/uL APTT 26.1 (21.0-31.0) Seconds PTT Ratio 0.9 VBG pH 7.42 H (7.36-7.41) VBG pCO2 41 (38-50) mmHg VBG pO2 72 mmHg VBG HCO3 27 mmol/L VBG O2 Saturation 95.9 % VBG Base Excess 1.9 mEq/L POC Sodium 138 (135-144) mmol/L Sodium 138 (136-145) mmol/L POC Potassium 3.2 L (3.3-5.0) mmol/L Potassium 2.8 L (3.5-5.1) mmol/L POC Chloride 102 (101-112) mmol/L Chloride 101 (98-107) mmol/L Carbon Dioxide 20 L (21-32) mmol/L POC Total CO2 22 L (24-31) mmol/L Anion Gap 17 H (3-11) POC Anion Gap 18.0 (16-25) mmol/L POC BUN 18 (7-18) mg/dl BUN 17 (6-23) mg/dl Creatinine 0.77 (0.6-1.2) mg/dl POC Creatinine 0.7 (0.6-1.3) mg/dl Est Cr Clr Drug Dosing 88.6 ml/min Est GFR ( Amer) 101.5 ml/min Est GFR (Non-Af Amer) 87.5 ml/min BUN/Creatinine Ratio 22.1 H (10-20) Glucose 148 H (70-99(Fasting)) mg/dl POC Glucose (other) 168 H (70-99) mg/dl Estimat Average Glucose mg/dl Hemoglobin A1c (4.5-5.6) % Lactate (0.4-2.0) mmol/L Calcium 9.4 (8.6-10.3) mg/dl POC Ioniz Calcium Jabier 1.05 L (1.12-1.32) mmol/l Magnesium 1.6 L (1.7-2.4) mg/dl Total Bilirubin 0.7 (0.2-1.0) mg/dl AST 21 (13-39) U/L ALT 23 (7-52) U/L Alkaline Phosphatase 62 (34-104) U/L Total Protein 6.9 (6.0-8.3) gm/dl Albumin 3.9 (3.4-5.0) gm/dl Globulin 3.0 (2.5-4.0) gm/dl Albumin/Globulin Ratio 1.3 (0.9-2) Lipase 20 (11-82) U/L Procalcitonin < 0.05 (0-0.5) ng/ml Urine Color Urine Appearance (Clear) Urine pH (4.5-7.5) Ur Specific [place] (1.000-1.030) Urine Protein (Negative) Urine Glucose (UA) (Negative) Urine Ketones (Negative) Urine Blood (Negative) Urine Nitrite (Negative) Urine Bilirubin (Negative) Urine Urobilinogen (Negative) Ur Leukocyte Esterase (Negative) 12/27/22 12/27/22 12/27/22 Range/Units 22:20 22:47 22:58 WBC (4.8-10.8) K/ul RBC (4.20-5.40) M/uL Hgb (12.0-16.0) g/dl POC Hgb (12.0-16.0) g/dl Hct (37.0-47.0) % POC Hct (37-47) % MCV (80.0-100.0) fL MCH (25.0-34.0) pg MCHC (32.0-36.0) g/dL RDW Std Deviation (36.4-46.3) fL RDW Coeff of Yenni (11.5-14.5) % Plt Count (130-400) K/uL MPV (9.4-12.4) fL Immature Gran % (Auto) % Neut % (Auto) % Lymph % (Auto) % [place] % (Auto) % Eos % (Auto) % Baso % (Auto) % Neut # (Auto) (1.40-6.50) K/uL Lymph # (Auto) (1.20-3.40) K/uL [place] # (Auto) (0.11-0.59) K/uL Eos # (Auto) (0.00-0.50) K/uL Baso # (Auto) (0.00-0.20) K/uL Immature Gran # (Auto) (0.01-0.20) K/uL APTT (21.0-31.0) Seconds PTT Ratio VBG pH (7.36-7.41) VBG pCO2 (38-50) mmHg VBG pO2 mmHg VBG HCO3 mmol/L VBG O2 Saturation % VBG Base Excess mEq/L POC Sodium (135-144) mmol/L Sodium (136-145) mmol/L POC Potassium (3.3-5.0) mmol/L Potassium (3.5-5.1) mmol/L POC Chloride (101-112) mmol/L Chloride (98-107) mmol/L Carbon Dioxide (21-32) mmol/L POC Total CO2 (24-31) mmol/L Anion Gap (3-11) POC Anion Gap (16-25) mmol/L POC BUN (7-18) mg/dl BUN (6-23) mg/dl Creatinine (0.6-1.2) mg/dl POC Creatinine (0.6-1.3) mg/dl Est Cr Clr Drug Dosing ml/min Est GFR ( Amer) ml/min Est GFR (Non-Af Amer) ml/min BUN/Creatinine Ratio (10-20) Glucose (70-99(Fasting)) mg/dl POC Glucose (other) (70-99) mg/dl Estimat Average Glucose 117 mg/dl Hemoglobin A1c 5.7 H (4.5-5.6) % Lactate 0.9 (0.4-2.0) mmol/L Calcium (8.6-10.3) mg/dl POC Ioniz Calcium Jabier (1.12-1.32) mmol/l Magnesium (1.7-2.4) mg/dl Total Bilirubin (0.2-1.0) mg/dl AST (13-39) U/L ALT (7-52) U/L Alkaline Phosphatase (34-104) U/L Total Protein (6.0-8.3) gm/dl Albumin (3.4-5.0) gm/dl Globulin (2.5-4.0) gm/dl Albumin/Globulin Ratio (0.9-2) Lipase (11-82) U/L Procalcitonin (0-0.5) ng/ml Urine Color Yellow Urine Appearance Clear (Clear) Urine pH 8.5 H (4.5-7.5) Ur Specific [place] > 1.045 H (1.000-1.030) Urine Protein Negative (Negative) Urine Glucose (UA) Negative (Negative) Urine Ketones 2+ H (Negative) Urine Blood Negative (Negative) Urine Nitrite Negative (Negative) Urine Bilirubin Negative (Negative) Urine Urobilinogen Negative (Negative) Ur Leukocyte Esterase Negative (Negative) 12/28/22 12/28/22 Range/Units 03:46 11:02 WBC 11.17 H (4.8-10.8) K/ul RBC 3.64 L (4.20-5.40) M/uL Hgb 10.9 L (12.0-16.0) g/dl POC Hgb (12.0-16.0) g/dl Hct 32.6 L (37.0-47.0) % POC Hct (37-47) % MCV 89.6 (80.0-100.0) fL MCH 29.9 (25.0-34.0) pg MCHC 33.4 (32.0-36.0) g/dL RDW Std Deviation 41.2 (36.4-46.3) fL RDW Coeff of Yenni 12.5 (11.5-14.5) % Plt Count 272 (130-400) K/uL MPV 9.1 L (9.4-12.4) fL Immature Gran % (Auto) 0.5 % Neut % (Auto) 70.1 % Lymph % (Auto) 18.3 % Grady % (Auto) 10.5 % Eos % (Auto) 0.2 % Baso % (Auto) 0.4 % Neut # (Auto) 7.84 H (1.40-6.50) K/uL Lymph # (Auto) 2.04 (1.20-3.40) K/uL Grady # (Auto) 1.17 H (0.11-0.59) K/uL Eos # (Auto) 0.02 (0.00-0.50) K/uL Baso # (Auto) 0.04 (0.00-0.20) K/uL Immature Gran # (Auto) 0.06 (0.01-0.20) K/uL APTT 27.6 31.7 H (21.0-31.0) Seconds PTT Ratio 1.0 1.1 VBG pH (7.36-7.41) VBG pCO2 (38-50) mmHg VBG pO2 mmHg VBG HCO3 mmol/L VBG O2 Saturation % VBG Base Excess mEq/L POC Sodium (135-144) mmol/L Sodium 139 (136-145) mmol/L POC Potassium (3.3-5.0) mmol/L Potassium 4.0 D (3.5-5.1) mmol/L POC Chloride (101-112) mmol/L Chloride 105 (98-107) mmol/L Carbon Dioxide 28 (21-32) mmol/L POC Total CO2 (24-31) mmol/L Anion Gap 6 (3-11) POC Anion Gap (16-25) mmol/L POC BUN (7-18) mg/dl BUN 12 (6-23) mg/dl Creatinine 0.67 (0.6-1.2) mg/dl POC Creatinine (0.6-1.3) mg/dl Est Cr Clr Drug Dosing 101.8 ml/min Est GFR ( Amer) 115.5 ml/min Est GFR (Non-Af Amer) 99.7 ml/min BUN/Creatinine Ratio 17.9 (10-20) Glucose 120 H (70-99(Fasting)) mg/dl POC Glucose (other) (70-99) mg/dl Estimat Average Glucose mg/dl Hemoglobin A1c (4.5-5.6) % Lactate (0.4-2.0) mmol/L Calcium 8.6 (8.6-10.3) mg/dl POC Ioniz Calcium Jabier (1.12-1.32) mmol/l Magnesium (1.7-2.4) mg/dl Total Bilirubin (0.2-1.0) mg/dl AST (13-39) U/L ALT (7-52) U/L Alkaline Phosphatase (34-104) U/L Total Protein (6.0-8.3) gm/dl Albumin (3.4-5.0) gm/dl Globulin (2.5-4.0) gm/dl Albumin/Globulin Ratio (0.9-2) Lipase (11-82) U/L Procalcitonin (0-0.5) ng/ml Urine Color Urine Appearance (Clear) Urine pH (4.5-7.5) Ur Specific [place] (1.000-1.030) Urine Protein (Negative) Urine Glucose (UA) (Negative) Urine Ketones (Negative) Urine Blood (Negative) Urine Nitrite (Negative) Urine Bilirubin (Negative) Urine Urobilinogen (Negative) Ur Leukocyte Esterase (Negative)
[2022-12-28] MEDS: HYDROmorphone INJ 1 MG/ML SYRINGE IV PRN (20:36)
[2022-12-28] MEDS: FAMOTIDINE 20 MG in SYRINGE 3 ML IV SCH (22:49)
--- NOTE | 2022-12-28 23:44 | Surgery Progress Note ---
Date of Service December 28, 2022 Assessment & Plan (1) SBO (small bowel obstruction): Plan: Patient is a 52 years old female who presented to ED with a 1 day history of periumbilical pain with some nausea and vomiting. Patient is a status post left knee replacement 4 days ago. Patient had a CT scan diagnosis small bowel obstruction. Plan: Hospitalist will admit the patient to hospital. Conservative treatment. N.p.o., IV flow, IV antibiotic, control pain, repeat the lab in the morning, KUB in the morning, fleet the enema. May need a NG tube insertion if patient has a vomiting again. I also discussed dripped patient was submitted to exploratory laparotomy bowel resection if patient condition getting worse, patient understood. she agreed with the plan. I answered all questions. We will follow- up.D/W ER attending. 12/28/2022 3:22 PM F/U SBO, lactate normal. will F/U still have some epigastric pain with nausea, and vomiting, NG tube insertion KUB, continue treatment, control pain, 12/28/2022 8:29 PM still have abdominal pain. only iv tylenol for pain. order dilaudid 1 mg IV q4 h prn for pain, morphine 2 mg IV q3 h prn for pain, repeat labs and KUB tomorrow. NG tube insertion after hold heparin for 6 hours. I also indicated , pt may need surgery in pt develops severe abdominal pain, fever, high WBC, pt and her understood, she agreed with the plan. will F/U. 12/28/2022 11:40PM recheck pt, pt feels better, less abdominal pain, NG tube in I reviewed CXR tip of NG tube in stomach. low intermittent suction stop iv heparin drip, incase pt needs emergent surgery, pt agreed with stop heparin, change to lovenex 40 mg SQ once a day, will F/U. Admission and Anticipated Discharge Date Admission Date: December 27, 2022 Subjective pt is still have periumbilical pain, with nausea and vomiting, no fever, I reviewed KUB- SBO. 12/28/2022 11:[address] Staton recheck pt, pt feels better, less abdominal pain, no nausea, no vomiting, NG tube inserted. Physical Exam Constitutional: WD/WN, vitals as above Eyes: PERRL, conjunctivae normal, anicteric sclerae Neck: trachea midline, no thyromegaly Respiratory: normal respiratory effort, lungs clear to auscultation Cardiovascular: RRR, no murmur, no edema Gastrointestinal (Abdomen): soft. mild tenderness at periumbilical area, no rebound pain, no distend, BS +. Musculoskeletal: no cyanosis or clubbing, extremities motor strength 5/5 Neurologic: patellar DTR's 2+ bilat, sensation intact Psychiatric: A+Ox3, euthymic affect Results & Data Vital Signs (Past 12 Hours) Vital Signs Pulse Resp BP Pulse Ox O2 Del Method 12/28/22 19:00 86 18 100 Room Air 12/28/22 18:44 92 H 26 H 99 12/28/22 18:44 151/80 H 12/28/22 18:00 90 19 12/28/22 17:00 94 H 17 12/28/22 16:00 88 23 12/28/22 15:00 87 22 12/28/22 14:00 81 18 12/28/22 12:00 90 21 93 12/28/22 12:00 157/92 H
[2022-12-29] MEDS: HYDROmorphone INJ 1 MG/ML SYRINGE IV PRN ×3 (00:53→12:18)
[2022-12-29] MEDS: PROMETHAZINE HCL 12.5 MG in SODIUM CHLORIDE 0.9% 50 ML IV PRN ×4 (01:11→20:52)
--- NOTE | 2022-12-29 07:26 | XRay Report ---
KUB HISTORY: Small bowel obstruction. NG tube placement. COMPARISON: Abdomen and pelvis CT 12/27/2022. FINDINGS: Nasogastric tube terminates in the mid stomach with the fenestrated line at the proximal st omach. The lung bases are clear. Mildly dilated gas-filled loops of small bowel have improved. No re nal calculi. No ureteral calculi. No pneumoperitoneum or pneumatosis. IMPRESSION: Nasogastric tube terminates in the stomach. ACT 112: Negative or not required by law. Electronically signed by: Helio Shore M.D. 12/29/2022 7:25 AM
--- NOTE | 2022-12-29 07:27 | XRay Report ---
KUB HISTORY: Small bowel obstruction. Follow-up. COMPARISON: KUB 12/28/2022. FINDINGS: Nasogastric tube terminates in the stomach. Mildly dilated gas-filled loops of small bowel again noted consistent with the patient's known small bowel obstruction. These measure up to 3.3 cm i n diameter. Adbf-xy-tifewanz fecal retention. No renal calculi. No ureteral calculi. No pneumoperito neum or pneumatosis. IMPRESSION: 1. Persistent small bowel obstruction pattern. 2. Nasogastric tube terminates in the stomach. ACT 112: Negative or not required by law. Electronically signed by: Helio Shore M.D. 12/29/2022 7:26 AM
[2022-12-29 07:36] LABS: Hematocrit (blood only) 36.6 % (37.0-47.0); Hemoglobin 12.7 g/dl (12.0-16.0); Mean Corpuscular Hgb Conc 34.7 g/dL (32.0-36.0); Mean Corpuscular Volume 86.3 fL (80.0-100.0); Mean Platelet Volume 8.8 fL (9.4-12.4); Platelet Count 369 K/uL (130-400); RDW Coefficient of Variation 12.4 % (11.5-14.5); RDW Standard Deviation 39.4 fL (36.4-46.3); Red Blood Count 4.24 M/uL (4.20-5.40); White Blood Count 16.84 K/ul (4.8-10.8)
[2022-12-29] MEDS: ENOXAPARIN INJ 40 MG/0.4 ML SYR SQ SCH (08:16)
[2022-12-29 08:18] LABS: Calcium 8.9 mg/dl (8.6-10.3); Potassium 3.9 mmol/L (3.5-5.1)
[2022-12-29] MEDS: FAMOTIDINE 20 MG in SYRINGE 3 ML IV SCH ×2 (08:20→21:20)
[2022-12-29 08:24] LABS: Creatinine Clr Calc Pharmacy 127.1 ml/min
[2022-12-29] MEDS: LACTATED RINGER'S 1,000 ML IV SCH (10:23)
--- NOTE | 2022-12-29 12:09 | Surgery Progress Note ---
Date of Service December 29, 2022 Assessment & Plan (1) SBO (small bowel obstruction): Plan: Patient is a 52 years old female who presented to ED with a 1 day history of periumbilical pain with some nausea and vomiting. Patient is a status post left knee replacement 4 days ago. Patient had a CT scan diagnosis small bowel obstruction. avss KUB with persistent SBO , moderate fecal retention in right colon with gas in colon minimal NGT output since placement but objectively feeling better no return of bowel function yet Plan: Continue NGT to LIS Miralax via NGT one time Encourage ambulating to increase GI motility follow cbc continue medical management Dr. Staton has seen and examined patient, agrees with above. Admission and Anticipated Discharge Date Admission Date: December 27, 2022 Subjective feeling better since NGT placed not having as sharp severe pains nausea being controlled no flatus has not ambulated hallway urinating without difficulty no vomiting Physical Exam Constitutional: WD/WN, vitals as above cooperative and comfortable; no acute distress and not ill appearing Respiratory: normal respiratory effort; no respiratory distress Gastrointestinal (Abdomen): Inspection/Auscultation: abdomen normal to inspection and + hypoactive bowel sounds; abdomen not distended and + abnormal bowel sounds Percussion/Palpation: + abdomen tender (mid abdomen, LLQ) and abdomen soft; no guarding, abdomen not rigid and abdomen not firm Skin: no rashes, warm and dry Psychiatric: Orientation: alert and oriented x 3 Results & Data Vital Signs (Past 12 Hours) Vital Signs Temp Pulse Pulse Pulse Resp BP Pulse Ox 12/29/22 11:25 37.1 C 98 H 20 117/87 96 12/29/22 07:36 37.0 C 94 H 18 155/88 H 96 12/29/22 07:22 88 12/29/22 07:01 12/29/22 05:12 12/29/22 04:42 37.2 C 97 H 18 152/87 H 96 O2 Del Method 12/29/22 11:25 Room Air 12/29/22 07:36 Room Air 12/29/22 07:22 12/29/22 07:01 Room Air 12/29/22 05:12 Room Air 12/29/22 04:42 Room Air Laboratory Results 12/29/22 Range/Units 07:17 WBC 16.84 H (4.8-10.8) K/ul RBC 4.24 (4.20-5.40) M/uL Hgb 12.7 (12.0-16.0) g/dl Hct 36.6 L (37.0-47.0) % MCV 86.3 (80.0-100.0) fL MCH 30.0 (25.0-34.0) pg MCHC 34.7 (32.0-36.0) g/dL RDW Std Deviation 39.4 (36.4-46.3) fL RDW Coeff of Yenni 12.4 (11.5-14.5) % Plt Count 369 (130-400) K/uL MPV 8.8 L (9.4-12.4) fL Sodium 137 (136-145) mmol/L Potassium 3.9 (3.5-5.1) mmol/L Chloride 102 (98-107) mmol/L Carbon Dioxide 27 (21-32) mmol/L Anion Gap 8 (3-11) BUN 20 (6-23) mg/dl Creatinine 0.54 L (0.6-1.2) mg/dl Est Cr Clr Drug Dosing 127.1 ml/min Est GFR ( Amer) 124.0 ml/min Est GFR (Non-Af Amer) 107.0 ml/min BUN/Creatinine Ratio 37.0 H (10-20) Glucose 123 H (70-99(Fasting)) mg/dl Calcium 8.9 (8.6-10.3) mg/dl Magnesium 2.0 (1.7-2.4) mg/dl Diagnostic Findings KUB HISTORY: Small bowel obstruction. Follow-up. COMPARISON: KUB 12/28/2022. FINDINGS: Nasogastric tube terminates in the stomach. Mildly dilated gas-filled loops of small bowel again noted consistent with the patient's known small bowel obstruction. These measure up to 3.3 cm in diameter. Nduc-fo-jsohnzzd fecal retention. No renal calculi. No ureteral calculi. No pneumoperitoneum or pneumatosis. IMPRESSION: 1. Persistent small bowel obstruction pattern. 2. Nasogastric tube terminates in the stomach
[2022-12-29] MEDS ORDERED: PIPER/TAZO 4.5g in D5W MINI-B 100 ML IV ONE (14:30)
[2022-12-29] MEDS ORDERED: POLYETHYLENE (MIRALAX) 17 GM PACK NG ONE (14:39)
[2022-12-29] MEDS ORDERED: POLYETHYLENE (MIRALAX) 17 GM PACK ONE (14:49)
--- NOTE | 2022-12-29 15:17 | Hospitalist Progress Note ---
Date of Service December 29, 2022 Assessment & Plan (1) Hypokalemia: Plan: Small bowel obstruction Likely due to adhesions H/O hysterectomy, laparoscopy for endometriosis H/O IBS constipation predominant --CT ABD:There is no evidence of pulmonary embolus in the main, lobar, or segmental pulmonary arteries. There is no airspace consolidation or pleural effusion. There is evidence of a small bowel obstruction, with a transition point seen in the left lower quadrant. This is likely on the basis of adhesions. Mildly thick-walled loops of small bowel are seen in the deep pelvis with associated venous engorgement. These loops may be at risk for ischemia. Surgical assessment is advised. There is no intraperitoneal free air. No pneumatosis intestinalis or portal venous gas is seen. Small volume of free fluid in the pelvis. --Continue NG tube, bowel rest, IV fluids Minimize IV pain medications as able Appreciate surgery input KUB today showed persistent small bowel obstruction Conservative management as per surgery Encouraged to ambulate Leukocytosis Likely reactive No obvious source of infection Blood cultures: No growth to date Monitor Hypokalemia Hypomagnesemia Replete electrolytes as needed Monitor Prediabetes HbA1c 5.7 H/O LE thrombophlebitis/DVT Chronic DVT Lower extremity Hold Eliquis for now Was started on IV heparin--Surgery help as patient may need surgery Currently on Lovenox SQ for phylaxis GERD continue Pepcid DVT Px: Lovenox SQ Code Status Full code Admission and Anticipated Discharge Date Admission Date: December 27, 2022 Subjective Patient is seen and examined at bedside Nausea, vomiting improved with NG tube placement Intermittent abdominal pain No flatus, bowel movement today Denies any chest pain, dyspnea, dizziness Family at bedside No other complaints Review of Systems Review of Systems: All systems reviewed & are unremarkable except as noted in Subjective Physical Exam Physical Exam: Physical Exam: Vitals signs as noted above General Appearance:Moderately built and nourished, no apparent distress Head: normocephalic, Atraumatic Eyes: normal inspection, EOMI Neck: supple, Trachea midline Respiratory/Chest: Normal breath sounds, CTA, No accessory muscle use Cardiovascular: S1, S2, No murmur Abdomen/GI:Soft, Epigastric/Umbilical tender, no audible Bowel sounds Extremities/Musculoskeletal:normal inspection, Trace pedal edema Neurologic/Psych:AAOX3, grossly no focal neurological deficits Skin: normal color, warm Results & Data Results & Data Vital Signs (Past 12 Hours) Vital Signs Temp Pulse Pulse Pulse Resp BP Pulse Ox 12/29/22 11:25 37.1 C 98 H 20 117/87 96 12/29/22 07:36 37.0 C 94 H 18 155/88 H 96 12/29/22 07:22 88 12/29/22 07:01 12/29/22 05:12 12/29/22 04:42 37.2 C 97 H 18 152/87 H 96 O2 Del Method 12/29/22 11:25 Room Air 12/29/22 07:36 Room Air 12/29/22 07:22 12/29/22 07:01 Room Air 12/29/22 05:12 Room Air 12/29/22 04:42 Room Air Laboratory Results Short CBC 12/29/22 Range/Units 07:17 WBC 16.84 H (4.8-10.8) K/ul Hgb 12.7 (12.0-16.0) g/dl Hct 36.6 L (37.0-47.0) % Plt Count 369 (130-400) K/uL BMP 12/29/22 07:17 Sodium 137 Potassium 3.9 Chloride 102 Carbon Dioxide 27 BUN 20 Creatinine 0.54 L Glucose 123 H Calcium 8.9
[2022-12-29] MEDS: PIPERACILLIN/TAZOBACTAM 4.5 GM in DEXTROSE 5% MINI-B 100 ML IV SCH (21:21)
[2022-12-29] MEDS: ACETAMINOPHEN 1,000 MG/100 ML VIAL IV PRN (21:32)
[2022-12-30] MEDS: LACTATED RINGER'S 1,000 ML IV SCH ×2 (01:43→15:21)
[2022-12-30] MEDS: HYDROmorphone INJ 1 MG/ML SYRINGE IV PRN (01:45)
[2022-12-30] MEDS: PIPERACILLIN/TAZOBACTAM 4.5 GM in DEXTROSE 5% MINI-B 100 ML IV SCH ×3 (05:24→21:50)
[2022-12-30 06:42] LABS: Hematocrit (blood only) 36.8 % (37.0-47.0); Hemoglobin 12.2 g/dl (12.0-16.0); Mean Corpuscular Hemoglobin 29.5 pg (25.0-34.0); Mean Corpuscular Hgb Conc 33.2 g/dL (32.0-36.0); Mean Corpuscular Volume 89.1 fL (80.0-100.0); Mean Platelet Volume 8.6 fL (9.4-12.4); Platelet Count 395 K/uL (130-400); RDW Coefficient of Variation 12.3 % (11.5-14.5); RDW Standard Deviation 39.8 fL (36.4-46.3); Red Blood Count 4.13 M/uL (4.20-5.40); White Blood Count 14.49 K/ul (4.8-10.8)
[2022-12-30 07:20] LABS: Calcium 8.7 mg/dl (8.6-10.3); Magnesium 2.1 mg/dl (1.7-2.4); Potassium 3.7 mmol/L (3.5-5.1)
[2022-12-30 07:25] LABS: BUN Creatinine Ratio 31.1 (10-20); Creatinine Clr Calc Pharmacy 112.5 ml/min; Est GFR (African American) 119.1 ml/min; Est GFR (Non-African American) 102.8 ml/min
[2022-12-30] MEDS: PROMETHAZINE HCL 12.5 MG in SODIUM CHLORIDE 0.9% 50 ML IV PRN ×2 (07:55→15:57)
[2022-12-30] MEDS: FAMOTIDINE 20 MG in SYRINGE 3 ML IV SCH ×2 (07:56→21:50)
[2022-12-30] MEDS: ENOXAPARIN INJ 40 MG/0.4 ML SYR SQ SCH (07:57)
--- NOTE | 2022-12-30 11:27 | Surgery Progress Note ---
Date of Service December 30, 2022 Assessment & Plan (1) SBO (small bowel obstruction): Plan: Patient is a 52 years old female who presented to ED with a 1 day history of periumbilical pain with some nausea and vomiting. Patient is a status post left knee replacement 7 days ago Patient had a CT scan diagnosis small bowel obstruction. avss KUB 12/29/2022 with persistent SBO , moderate fecal retention in right colon with gas in colon NGT with 150 cc last shift no return of bowel function yet Plan: Continue NGT to LIS Encourage ambulating to increase GI motility follow cbc continue medical management may need SBFT if no improvement by tomorrow Dr. Carranza has seen and examined pt, agrees with above. Admission and Anticipated Discharge Date Admission Date: December 27, 2022 Subjective feeling slightly better today, nausea and pain better today, not as frequent or severe no flatus yet did not ambulate hallway yesterday, slept a lot yesterday urinating without difficulty Physical Exam Constitutional: WD/WN, vitals as above cooperative and comfortable; no acute distress and not ill appearing Gastrointestinal (Abdomen): Inspection/Auscultation: abdomen normal to inspection and + hypoactive bowel sounds; abdomen not distended and + abnormal bowel sounds Percussion/Palpation: + abdomen tender (mid low abdomen) and abdomen soft; no guarding, abdomen not rigid and abdomen not firm Skin: no rashes, warm and dry Psychiatric: Orientation: alert and oriented x 3 Results & Data Vital Signs (Past 12 Hours) Vital Signs Temp Pulse Pulse Resp BP Pulse Ox O2 Del Method 12/30/22 07:56 36.6 C 87 20 136/81 94 Room Air 12/30/22 05:58 79 12/30/22 03:44 36.8 C 81 20 134/85 96 Room Air 12/30/22 03:09 Room Air 12/29/22 23:34 37.2 C 77 20 150/88 H 96 Room Air Laboratory Results 12/30/22 Range/Units 05:39 WBC 14.49 H (4.8-10.8) K/ul RBC 4.13 L (4.20-5.40) M/uL Hgb 12.2 (12.0-16.0) g/dl Hct 36.8 L (37.0-47.0) % MCV 89.1 (80.0-100.0) fL MCH 29.5 (25.0-34.0) pg MCHC 33.2 (32.0-36.0) g/dL RDW Std Deviation 39.8 (36.4-46.3) fL RDW Coeff of Yenni 12.3 (11.5-14.5) % Plt Count 395 (130-400) K/uL MPV 8.6 L (9.4-12.4) fL Sodium 137 (136-145) mmol/L Potassium 3.7 (3.5-5.1) mmol/L Chloride 100 (98-107) mmol/L Carbon Dioxide 30 (21-32) mmol/L Anion Gap 7 (3-11) BUN 19 (6-23) mg/dl Creatinine 0.61 (0.6-1.2) mg/dl Est Cr Clr Drug Dosing 112.5 ml/min Est GFR ( Amer) 119.1 ml/min Est GFR (Non-Af Amer) 102.8 ml/min BUN/Creatinine Ratio 31.1 H (10-20) Glucose 109 H (70-99(Fasting)) mg/dl Calcium 8.7 (8.6-10.3) mg/dl Magnesium 2.1 (1.7-2.4) mg/dl
[2022-12-30] MEDS: ACETAMINOPHEN 1,000 MG/100 ML VIAL IV PRN ×2 (11:36→21:10)
--- NOTE | 2022-12-30 13:01 | Hospitalist Progress Note ---
Date of Service December 30, 2022 Assessment & Plan (1) Hypokalemia: Plan: Small bowel obstruction Likely due to adhesions H/O hysterectomy, laparoscopy for endometriosis H/O IBS constipation predominant Patient presented with abdominal pain, nausea and vomiting. --CT ABD on admission:There is no evidence of pulmonary embolus in the main, lobar, or segmental pulmonary arteries. There is no airspace consolidation or pleural effusion. There is evidence of a small bowel obstruction, with a transition point seen in the left lower quadrant. This is likely on the basis of adhesions. Mildly thick-walled loops of small bowel are seen in the deep pelvis with associated venous engorgement. These loops may be at risk for ischemia. Surgical assessment is advised. There is no intraperitoneal free air. No pneumatosis intestinalis or portal venous gas is seen. Small volume of free fluid in the pelvis. --Continue NG tube, bowel rest, IV fluids Minimize IV pain medications as able. On IV Tylenol every 8 as needed Appreciate surgery input KUB today showed persistent small bowel obstruction Conservative management as per surgery Encouraged to ambulate Leukocytosis Likely reactive No obvious source of infection Blood cultures: No growth to date Monitor CBC daily Hypokalemia Hypomagnesemia Replete electrolytes as needed Monitor Prediabetes HbA1c 5.7 H/O LE thrombophlebitis/DVT Chronic DVT Lower extremity Hold Eliquis for now Was started on IV heparin--Surgery help as patient may need surgery Currently on Lovenox SQ for phylaxis GERD continue Pepcid DVT Px: Lovenox SQ Code Status Full code Disposition; continues to be hospitalized due to small bowel obstruction needing NG tube placement with low intermittent suction. Please note the above document was generated using voice recognition software. It may contain grammatical, syntax or spelling errors. Any formal questions or concerns about the content, text or information contained within the body of this dictation should be directly addressed to the provider for clarification Admission and Anticipated Discharge Date Admission Date: December 27, 2022 Subjective Patient seen and examined at bedside. She reports that her nausea and abdominal discomfort is better. However, she has not passed flatus yet. NG tube continues to be at low intermittent suction Review of Systems Review of Systems: All systems reviewed & are unremarkable except as noted in Subjective Physical Exam Physical Exam: Physical Exam: General Appearance:Moderately built and nourished, no apparent distress Head: normocephalic, Atraumatic Eyes: normal inspection, EOMI Neck: supple, Trachea midline Respiratory/Chest: Normal breath sounds, CTA, No accessory muscle use Cardiovascular: S1, S2, No murmur Abdomen/GI: Soft, nondistended. Bowel sound present Extremities/Musculoskeletal:normal inspection, Trace pedal edema Neurologic/Psych:AAOX3, grossly no focal neurological deficits Skin: normal color, warm Results & Data Results & Data Vital Signs (Past 12 Hours) Vital Signs Temp Pulse Pulse Resp BP Pulse Ox O2 Del Method 12/30/22 11:46 36.7 C 94 H 20 139/77 96 Room Air 12/30/22 07:56 36.6 C 87 20 136/81 94 Room Air 12/30/22 05:58 79 12/30/22 03:44 36.8 C 81 20 134/85 96 Room Air 12/30/22 03:09 Room Air Laboratory Results Laboratory Results WBC 14.49 K/ul (4.8-10.8) H 12/30/22 05:39 RBC 4.13 M/uL (4.20-5.40) L 12/30/22 05:39 Hgb 12.2 g/dl (12.0-16.0) 12/30/22 05:39 POC Hgb 10.9 g/dl (12.0-16.0) L 12/27/22 20:53 Hct 36.8 % (37.0-47.0) L 12/30/22 05:39 POC Hct 32 % (37-47) L 12/27/22 20:53 MCV 89.1 fL (80.0-100.0) 12/30/22 05:39 MCH 29.5 pg (25.0-34.0) 12/30/22 05:39 MCHC 33.2 g/dL (32.0-36.0) 12/30/22 05:39 RDW Std Deviation 39.8 fL (36.4-46.3) 12/30/22 05:39 RDW Coeff of Yenni 12.3 % (11.5-14.5) 12/30/22 05:39 Plt Count 395 K/uL (130-400) 12/30/22 05:39 MPV 8.6 fL (9.4-12.4) L 12/30/22 05:39 Immature Gran % (Auto) 0.5 % 12/28/22 03:46 Neut % (Auto) 70.1 % 12/28/22 03:46 Lymph % (Auto) 18.3 % 12/28/22 03:46 [place] % (Auto) 10.5 % 12/28/22 03:46 Eos % (Auto) 0.2 % 12/28/22 03:46 Baso % (Auto) 0.4 % 12/28/22 03:46 Neut # (Auto) 7.84 K/uL (1.40-6.50) H 12/28/22 03:46 Lymph # (Auto) 2.04 K/uL (1.20-3.40) 12/28/22 03:46 [place] # (Auto) 1.17 K/uL (0.11-0.59) H 12/28/22 03:46 Eos # (Auto) 0.02 K/uL (0.00-0.50) 12/28/22 03:46 Baso # (Auto) 0.04 K/uL (0.00-0.20) 12/28/22 03:46 Immature Gran # (Auto) 0.06 K/uL (0.01-0.20) 12/28/22 03:46 APTT 31.7 Seconds (21.0-31.0) H 12/28/22 11:02 PTT Ratio 1.1 12/28/22 11:02 VBG pH 7.42 (7.36-7.41) H 12/27/22 21:24 VBG pCO2 41 mmHg (38-50) 12/27/22 21:24 VBG pO2 72 mmHg 12/27/22 21:24 VBG HCO3 27 mmol/L 12/27/22 21:24 VBG O2 Saturation 95.9 % 12/27/22 21:24 VBG Base Excess 1.9 mEq/L 12/27/22 21:24 POC Sodium 138 mmol/L (135-144) 12/27/22 20:53 Sodium 137 mmol/L (136-145) 12/30/22 05:39 POC Potassium 3.2 mmol/L (3.3-5.0) L 12/27/22 20:53 Potassium 3.7 mmol/L (3.5-5.1) 12/30/22 05:39 POC Chloride 102 mmol/L (101-112) 12/27/22 20:53 Chloride 100 mmol/L (98-107) 12/30/22 05:39 Carbon Dioxide 30 mmol/L (21-32) 12/30/22 05:39 POC Total CO2 22 mmol/L (24-31) L 12/27/22 20:53 Anion Gap 7 (3-11) 12/30/22 05:39 POC Anion Gap 18.0 mmol/L (16-25) 12/27/22 20:53 POC BUN 18 mg/dl (7-18) 12/27/22 20:53 BUN 19 mg/dl (6-23) 12/30/22 05:39 Creatinine 0.61 mg/dl (0.6-1.2) 12/30/22 05:39 POC Creatinine 0.7 mg/dl (0.6-1.3) 12/27/22 20:53 Est Cr Clr Drug Dosing 112.5 ml/min 12/30/22 05:39 Est GFR ( Amer) 119.1 ml/min 12/30/22 05:39 Est GFR (Non-Af Amer) 102.8 ml/min 12/30/22 05:39 BUN/Creatinine Ratio 31.1 (10-20) H 12/30/22 05:39 Glucose 109 mg/dl (70-99(Fasting)) H 12/30/22 05:39 POC Glucose (other) 168 mg/dl (70-99) H 12/27/22 20:53 Estimat Average Glucose 117 mg/dl 12/27/22 22:47 Hemoglobin A1c 5.7 % (4.5-5.6) H 12/27/22 22:47 Lactate 0.9 mmol/L (0.4-2.0) 12/27/22 22:58 Calcium 8.7 mg/dl (8.6-10.3) 12/30/22 05:39 POC Ioniz Calcium Jabier 1.05 mmol/l (1.12-1.32) L 12/27/22 20:53 Magnesium 2.1 mg/dl (1.7-2.4) 12/30/22 05:39 Total Bilirubin 0.7 mg/dl (0.2-1.0) 12/27/22 20:33 AST 21 U/L (13-39) 12/27/22 20:33 ALT 23 U/L (7-52) 12/27/22 20:33 Alkaline Phosphatase 62 U/L (34-104) 12/27/22 20:33 Total Protein 6.9 gm/dl (6.0-8.3) 12/27/22 20:33 Albumin 3.9 gm/dl (3.4-5.0) 12/27/22 20:33 Globulin 3.0 gm/dl (2.5-4.0) 12/27/22 20:33 Albumin/Globulin Ratio 1.3 (0.9-2) 12/27/22 20:33 Lipase 20 U/L (11-82) 12/27/22 20:33 Procalcitonin < 0.05 ng/ml (0-0.5) 12/27/22 20:33 Urine Color Yellow 12/27/22 22:20 Urine Appearance Clear (Clear) 12/27/22 22:20 Urine pH 8.5 (4.5-7.5) H 12/27/22 22:20 Ur Specific [place] > 1.045 (1.000-1.030) H 12/27/22 22:20 Urine Protein Negative (Negative) 12/27/22 22:20 Urine Glucose (UA) Negative (Negative) 12/27/22 22:20 Urine Ketones 2+ (Negative) H 12/27/22 22:20 Urine Blood Negative (Negative) 12/27/22 22:20 Urine Nitrite Negative (Negative) 12/27/22 22:20 Urine Bilirubin Negative (Negative) 12/27/22 22:20 Urine Urobilinogen Negative (Negative) 12/27/22 22:20 Ur Leukocyte Esterase Negative (Negative) 12/27/22 22:20 Impressions Abdomen/Pelvis CT 12/27/22 20:33 CT ANGIOGRAM OF THE CHEST; CT SCAN OF THE ABDOMEN AND PELVIS WITH IV CONTRAST CLINICAL HISTORY: Change in mental status. Left-sided abdominal pain. COMPARISON STUDY: Chest x-ray dated 11/28/2022. Abdominal CT dated 05/27/2007. Lumbar spine radiographs dated 05/03/2010. TECHNIQUE: Following the IV administration of 115 of Optiray 320, CT angiogram of the chest is performed from the upper abdomen to the thoracic inlet utilizing the pulmonary embolus protocol. Images are reviewed in the axial, sagittal, coronal planes. 3-D MIPS images are created and assessed. Subsequently, CT scan of the abdomen and pelvis was performed from the lung bases to the proximal femora. Images are reviewed in the axial, sagittal, and coronal planes. IV contrast was administered without complication. A dose lowering technique was utilized adhering to the principles of ALARA. CT DOSE: 2178.98 mGy.cm FINDINGS: CHEST: Thyroid: Imaged portions of the thyroid gland are normal in size and atte nuation. Thoracic aorta: The thoracic aorta is normal in caliber and demonstrates bovine variant arch anatomy. No dissection is seen. Pulmonary vasculature: The pulmonary trunk is normal in caliber. There are no filling defects identified in the main, lobar, or segmental pulmonary arteries to indicate pulmonary embolus. Heart: The heart is normal in size and without pericardial effusion. Lungs and pleural spaces: There is no airspace consolidation or pleural effusion. Dependent atelectasis is seen bilaterally. There are scattered calcified granulomas. The trachea and central airways are clear. Mediastinum: There is no mediastinal lymphadenopathy. Lora: Clear. Axillae: There is no axillary lymphadenopathy. Bony thorax: No lytic or blastic lesions are identified. ABDOMEN AND PELVIS: Liver: The contrast-enhanced liver is normal in size, contour, and attenuation. There is no intrahepatic biliary ductal dilatation. The hepatic veins and portal veins are patent. Gallbladder: Unremarkable. Spleen: Normal in size and attenuation. Pancreas: Unremarkable. Adrenal glands: Unremarkable. Kidneys: The contrast enhanced kidneys are normal in size and without hydron ephrosis. The kidneys enhance symmetrically. Abdominal vasculature: The abdominal aorta is normal in course and caliber. Stomach and bowel: There is a small hiatal hernia. The proximal small bowel loops in the left abdomen are dilated and fluid-filled, measuring up to 3.2 cm in diameter. There is a focal transition point identified in the left lower quadrant on image #20 and 65. The distal small bowel loops are decompressed, and findings consistent with a small bowel obstruction. There are mildly thick- walled loops of small bowel in the pelvis with associated mesenteric venous engorgement. Venous engorgement is best seen on image #279. The distal small bowel is completely decompressed. There is trace interloop fluid. No pneumatosis intestinalis or portal venous gas is seen. There is mild to moderate colonic fecal retention. The appendix is well-visualized and normal. Peritoneum: There is no intraperitoneal free air or abdominal ascites. There is a fat-containing umbilical hernia. Lymphadenopathy: None. Pelvic viscera: The bladder is normal as visualized. The uterus is surgically absent. No adnexal lesion is seen. There is a small volume of free fluid in the cul-de-sac. Skeletal structures: No lytic or blastic lesions are seen. IMPRESSION: 1. There is no evidence of pulmonary embolus in the main, lobar, or segmental pulmonary arteries. 2. There is no airspace consolidation or pleural effusion. 3. There is evidence of a small bowel obstruction, with a transition point seen in the left lower quadrant. This is likely on the basis of adhesions. 4. Mildly thick-walled loops of small bowel are seen in the deep pelvis with associated venous engorgement. These loops may be at risk for ischemia. Surgical assessment is advised. 5. There is no intraperitoneal free air. No pneumatosis intestinalis or portal venous gas is seen. 6. Small volume of free fluid in the pelvis. 7. Additional findings as above. ACT 112: Negative or not required by law. Electronically signed by: Kle Ferreira M.D. 12/27/2022 9:49 PM Chest CTA 12/27/22 20:47 CT ANGIOGRAM OF THE CHEST; CT SCAN OF THE ABDOMEN AND PELVIS WITH IV CONTRAST CLINICAL HISTORY: Change in mental status. Left-sided abdominal pain. COMPARISON STUDY: Chest x-ray dated 11/28/2022. Abdominal CT dated 05/27/2007. Lumbar spine radiographs dated 05/03/2010. TECHNIQUE: Following the IV administration of 115 of Optiray 320, CT angiogram of the chest is performed from the upper abdomen to the thoracic inlet utilizing the pulmonary embolus protocol. Images are reviewed in the axial, sagittal, coronal planes. 3-D MIPS images are created and assessed. Subsequently, CT scan of the abdomen and pelvis was performed from the lung bases to the proximal femo ra. Images are reviewed in the axial, sagittal, and coronal planes. IV contrast was administered without complication. A dose lowering technique was utilized adhering to the principles of ALARA. CT DOSE: 2178.98 mGy.cm FINDINGS: CHEST: Thyroid: Imaged portions of the thyroid gland are normal in size and attenuation. Thoracic aorta: The thoracic aorta is normal in caliber and demonstrates bovine variant arch anatomy. No dissection is seen. Pulmonary vasculature: The pulmonary trunk is normal in caliber. There are no filling defects identified in the main, lobar, or segmental pulmonary arteries to indicate pulmonary embolus. Heart: The heart is normal in size and without pericardial effusion. Lungs and pleural spaces: There is no airspace consolidation or pleural effusion. Dependent atelectasis is seen bilaterally. There are scattered calcified granulomas. The trachea and central airways are clear. Mediastinum: There is no mediastinal lymphadenopathy. Lora: Clear. Axillae: There is no axillary lymphadenopathy. Bony thorax: No lytic or blastic lesions are identified. ABDOMEN AND PELVIS: Liver: The contrast-enhanced liver is normal in size, contour, and attenuation. There is no intrahepatic biliary ductal dilatation. The hepatic veins and portal veins are patent. Gallbladder: Unremarkable. Spleen: Normal in size and attenuation. Pancreas: Unremarkable. Adrenal glands: Unremarkable. Kidneys: The contrast enhanced kidneys are normal in size and without hydronephrosis. The kidneys enhance symmetrically. Abdominal vasculature: The abdominal aorta is normal in course and caliber. Stomach and bowel: There is a small hiatal hernia. The proximal small bowel loops in the left abdomen are dilated and fluid-filled, measuring up to 3.2 cm in diameter. There is a focal transition point identified in the left lower quadrant on image #20 and 65. The distal small bowel loops are decompressed, and findings consistent with a small bowel obstruction. There are mildly thick- walled loops of small bowel in the pelvis with associated mesenteric venous engorgement. Venous engorgement is best seen on image #279. The distal small bowel is completely decompressed. There is trace interloop fluid. No pneumatosis intestinalis or portal venous gas is seen. There is mild to moderate colonic fecal retention. The appendix is well-visualized and normal. Peritoneum: There is no intraperitoneal free air or abdominal ascites. There is a fat-containing umbilical hernia. Lymphadenopathy: None. Pelvic viscera: The bladder is normal as visualized. The uterus is surgically absent. No adnexal lesion is seen. There is a small volume of free fluid in the cul-de-sac. Skeletal structures: No lytic or blastic lesions are seen. IMPRESSION: 1. There is no evidence of pulmonary embolus in the main, lobar, or segmental pulmonary arteries. 2. There is no airspace consolidation or pleural effusion. 3. There is evidence of a small bowel obstruction, with a transition point seen in the left lower quadrant. This is likely on the basis of adhesions. 4. Mildly thick-walled loops of small bowel are seen in the deep pelvis with associated venous engorgement. These loops may be at risk for ischemia. Surgical assessment is advised. 5. There is no intraperitoneal free air. No pneumatosis intestinalis or portal venous gas is seen. 6. Small volume of free fluid in the pelvis. 7. Additional findings as above. ACT 112: Negative or not required by law. Electronically signed by: Kel Ferreira M.D. 12/27/2022 9:[address] 12/27/22 20:47 CT SCAN OF THE BRAIN WITHOUT IV CONTRAST CLINICAL HISTORY: Change in mental status. COMPARISON STUDY: No priors. TECHNIQUE: Unenhanced axial CT scan of the brain is performed from the vertex to the skull base. A dose lowering technique was utilized adhering to the principles of ALARA. FINDINGS: Brain parenchyma: The brain parenchyma is normal in appearance. There is no hemorrhage, mass effect, or evidence of acute territorial ischemia by CT criteria. [place]-white matter differentiation is preserved. No extra-axial fluid collection is seen. Ventricles, sulci, cisterns: Normal in configuration. Intracranial vasculature: The visualized intracranial vasculature at the skull base is normal in appearance. Calvarium: Unremarkable. Sinuses and mastoids: The visualized paranasal sinuses are clear. The mastoid air cells are well pneumatized. Orbits: The bony orbits are grossly intact. IMPRESSION: There is no hemorrhage, mass effect, or evidence of acute territorial ischemia by CT criteria. ACT 112: Negative or not required by law. Electronically signed by: Kel Ferreira M.D. 12/27/2022 9:35 PM KUB X-Ray 12/29/22 07:00 KUB HISTORY: Small bowel obstruction. Follow-up. COMPARISON: KUB 12/28/2022. FINDINGS: Nasogastric tube terminates in the stomach. Mildly dilated gas-filled loops of small bowel again noted consistent with the patient's known small bowel obstruction. These measure up to 3.3 cm in diameter. [id number] fecal retention. No renal calculi. No ureteral calculi. No pneumoperitoneum or pneumatosis. IMPRESSION: 1. Persistent small bowel obstruction pattern. 2. Nasogastric tube terminates in the stomach. ACT 112: Negative or not required by law. Electronically signed by: Helio Shore M.D. 12/29/2022 7:26 AM
[2022-12-30] MEDS: HYDROmorphone INJ 0.5 MG/0.5 ML SYR IV PRN (15:20)
[2022-12-30] MEDS ORDERED: CHLORASEPTIC 1.4% SOLN 180 ML BTL MT PRN (21:20)
[2022-12-30] MEDS ORDERED: KETOROLAC TROMETHAMINE 15 MG/ML VIAL IV ONE (21:20)
[2022-12-31] MEDS: PIPERACILLIN/TAZOBACTAM 4.5 GM in DEXTROSE 5% MINI-B 100 ML IV SCH (04:19)
[2022-12-31 08:05] LABS: Calcium 8.6 mg/dl (8.6-10.3); Creatinine Clr Calc Pharmacy 104.7 ml/min; Est GFR (African American) 117.9 ml/min; Est GFR (Non-African American) 101.7 ml/min; Potassium 3.2 mmol/L (3.5-5.1)
[2022-12-31 08:09] LABS: Basophils # (auto) 0.06 K/uL (0.00-0.20); Basophils % (auto) 0.5 %; Eosinophils # (auto) 0.16 K/uL (0.00-0.50); Eosinophils % (auto) 1.4 %; Hematocrit (blood only) 34.4 % (37.0-47.0); Hemoglobin 11.6 g/dl (12.0-16.0); Immature Granulocytes # (auto) 0.22 K/uL (0.01-0.20); Immature Granulocytes % (auto) 1.9 %; Lymphocytes # (auto) 1.87 K/uL (1.20-3.40); Lymphocytes % (auto) 16.5 %; Mean Corpuscular Hemoglobin 29.3 pg (25.0-34.0); Mean Corpuscular Hgb Conc 33.7 g/dL (32.0-36.0); Mean Corpuscular Volume 86.9 fL (80.0-100.0); Mean Platelet Volume 8.4 fL (9.4-12.4); Monocytes # (auto) 1.12 K/uL (0.11-0.59); Monocytes % (auto) 9.9 %; Neutrophils # (auto) 7.88 K/uL (1.40-6.50); Neutrophils % (auto) 69.8 %; Platelet Count 371 K/uL (130-400); RDW Coefficient of Variation 12.1 % (11.5-14.5); RDW Standard Deviation 38.9 fL (36.4-46.3); Red Blood Count 3.96 M/uL (4.20-5.40); White Blood Count 11.31 K/ul (4.8-10.8)
[2022-12-31] MEDS: LACTATED RINGER'S 1,000 ML IV SCH (08:43)
[2022-12-31] MEDS: FAMOTIDINE 20 MG in SYRINGE 3 ML IV SCH ×2 (08:43→21:12)
[2022-12-31] MEDS: ENOXAPARIN INJ 40 MG/0.4 ML SYR SQ SCH (08:43)
[2022-12-31] MEDS ORDERED: POLYETHYLENE (MIRALAX) 17 GM PACK NG STA (12:40)
--- NOTE | 2022-12-31 12:51 | Surgery Progress Note ---
Date of Service December 31, 2022 Assessment & Plan (1) SBO (small bowel obstruction): Plan: Patient is a 52 years old female who presented to ED with a 1 day history of periumbilical pain with some nausea and vomiting. Patient is a status post left knee replacement 8 days ago Patient had a CT scan diagnosis small bowel obstruction. avss KUB 12/29/2022 with persistent SBO , moderate fecal retention in right colon with gas in colon NGT with 50 cc last shift + flatus this am Plan: will clamp NGT but keep for today likely remove tomorrow Miralax via NGT again today Encourage ambulating to increase GI motility POtassium replacement per medicine continue medical management Dr. Staton has seen patient and agrees with above. Admission and Anticipated Discharge Date Admission Date: December 27, 2022 Subjective passed gas 6 times this morning, no bowel movement pain/abdominal cramping stable no distention no nausea or vomiting worked with PT yesterday Physical Exam Constitutional: WD/WN, vitals as above cooperative and comfortable; no acute distress, not ill appearing and not in distress Respiratory: normal respiratory effort; no respiratory distress, no labored breathing and no retractions Gastrointestinal (Abdomen): Inspection/Auscultation: abdomen normal to inspection and + hypoactive bowel sounds; abdomen not distended and + abnormal bowel sounds Percussion/Palpation: + abdomen tender (mild in lower abdomen) and abdomen soft; no guarding, abdomen not rigid and abdomen not firm Skin: no rashes, warm and dry Results & Data Vital Signs (Past 12 Hours) Vital Signs Temp Pulse Pulse Resp BP Pulse Ox O2 Del Method 12/31/22 11:25 36.9 C 81 18 123/71 96 Room Air 12/31/22 10:04 75 12/31/22 08:01 36.9 C 94 H 18 149/81 H 93 Room Air 12/31/22 04:40 36.9 C 83 20 135/75 95 Room Air 12/31/22 02:57 Room Air Laboratory Results 12/31/22 Range/Units 07:26 WBC 11.31 H (4.8-10.8) K/ul RBC 3.96 L (4.20-5.40) M/uL Hgb 11.6 L (12.0-16.0) g/dl Hct 34.4 L (37.0-47.0) % MCV 86.9 (80.0-100.0) fL MCH 29.3 (25.0-34.0) pg MCHC 33.7 (32.0-36.0) g/dL RDW Std Deviation 38.9 (36.4-46.3) fL RDW Coeff of Yenni 12.1 (11.5-14.5) % Plt Count 371 (130-400) K/uL MPV 8.4 L (9.4-12.4) fL Immature Gran % (Auto) 1.9 % Neut % (Auto) 69.8 % Lymph % (Auto) 16.5 % [place] % (Auto) 9.9 % Eos % (Auto) 1.4 % Baso % (Auto) 0.5 % Neut # (Auto) 7.88 H (1.40-6.50) K/uL Lymph # (Auto) 1.87 (1.20-3.40) K/uL [place] # (Auto) 1.12 H (0.11-0.59) K/uL Eos # (Auto) 0.16 (0.00-0.50) K/uL Baso # (Auto) 0.06 (0.00-0.20) K/uL Immature Gran # (Auto) 0.22 H (0.01-0.20) K/uL Sodium 138 (136-145) mmol/L Potassium 3.2 L (3.5-5.1) mmol/L Chloride 102 (98-107) mmol/L Carbon Dioxide 28 (21-32) mmol/L Anion Gap 8 (3-11) BUN 17 (6-23) mg/dl Creatinine 0.63 (0.6-1.2) mg/dl Est Cr Clr Drug Dosing 104.7 ml/min Est GFR ( Amer) 117.9 ml/min Est GFR (Non-Af Amer) 101.7 ml/min BUN/Creatinine Ratio 27.0 H (10-20) Glucose 95 (70-99(Fasting)) mg/dl Calcium 8.6 (8.6-10.3) mg/dl
[2022-12-31] MEDS ORDERED: ENOXAPARIN 1 MG/KG SQ SCH (14:00)
--- NOTE | 2022-12-31 14:02 | Hospitalist Progress Note ---
Date of Service December 31, 2022 Assessment & Plan (1) Hypokalemia: Plan: Small bowel obstruction Likely due to adhesions H/O hysterectomy, laparoscopy for endometriosis H/O IBS constipation predominant Patient presented with abdominal pain, nausea and vomiting. --CT ABD on admission:There is no evidence of pulmonary embolus in the main, lobar, or segmental pulmonary arteries. There is no airspace consolidation or pleural effusion. There is evidence of a small bowel obstruction, with a transition point seen in the left lower quadrant. This is likely on the basis of adhesions. Mildly thick-walled loops of small bowel are seen in the deep pelvis with associated venous engorgement. These loops may be at risk for ischemia. Surgical assessment is advised. There is no intraperitoneal free air. No pneumatosis intestinalis or portal venous gas is seen. Small volume of free fluid in the pelvis. For NG tube clamp trial today. Continue IV fluids. Minimize IV pain medications as able. On IV Tylenol every 8 as needed Appreciate surgery input Conservative management as per surgery Encouraged to ambulate Leukocytosis Likely reactive No obvious source of infection Blood cultures: No growth to date Monitor CBC daily Discontinue IV antibiotics. Hypokalemia Hypomagnesemia Replete electrolytes as needed Monitor 40 mEq ordered Prediabetes HbA1c 5.7 H/O LE thrombophlebitis/DVT Chronic DVT Lower extremity Hold Eliquis for now Was started on IV heparin--Surgery help as patient may need surgery Started on Lovenox therapeutic dose GERD continue Pepcid DVT Px: Lovenox SQ Code Status Full code Disposition; continues to be hospitalized due to small bowel obstruction needing NG tube placement. Patient to undergo NG tube clamp trial today. Please note the above document was generated using voice recognition software. It may contain grammatical, syntax or spelling errors. Any formal questions or concerns about the content, text or information contained within the body of this dictation should be directly addressed to the provider for clarification Admission and Anticipated Discharge Date Admission Date: December 27, 2022 Subjective Patient is passing gas today. No longer feeling nauseous. Reports some abdominal discomfort; no significant pain. Review of Systems Review of Systems: All systems reviewed & are unremarkable except as noted in Subjective Physical Exam Physical Exam: Physical Exam: General Appearance:Moderately built and nourished, no apparent distress Head: normocephalic, Atraumatic Eyes: normal inspection, EOMI Neck: supple, Trachea midline Respiratory/Chest: Normal breath sounds, CTA, No accessory muscle use Cardiovascular: S1, S2, No murmur Abdomen/GI: Soft, nondistended. Bowel sound present Extremities/Musculoskeletal:normal inspection, Trace pedal edema Neurologic/Psych:AAOX3, grossly no focal neurological deficits Skin: normal color, warm Results & Data Results & Data Vital Signs (Past 12 Hours) Vital Signs Temp Pulse Pulse Resp BP Pulse Ox O2 Del Method 12/31/22 11:25 36.9 C 81 18 123/71 96 Room Air 12/31/22 10:04 75 12/31/22 08:01 36.9 C 94 H 18 149/81 H 93 Room Air 12/31/22 04:40 36.9 C 83 20 135/75 95 Room Air 12/31/22 02:57 Room Air Laboratory Results Laboratory Results WBC 11.31 K/ul (4.8-10.8) H 12/31/22 07:26 RBC 3.96 M/uL (4.20-5.40) L 12/31/22 07:26 Hgb 11.6 g/dl (12.0-16.0) L 12/31/22 07:26 POC Hgb 10.9 g/dl (12.0-16.0) L 12/27/22 20:53 Hct 34.4 % (37.0-47.0) L 12/31/22 07:26 POC Hct 32 % (37-47) L 12/27/22 20:53 MCV 86.9 fL (80.0-100.0) 12/31/22 07:26 MCH 29.3 pg (25.0-34.0) 12/31/22 07:26 MCHC 33.7 g/dL (32.0-36.0) 12/31/22 07:26 RDW Std Deviation 38.9 fL (36.4-46.3) 12/31/22 07:26 RDW Coeff of Yenni 12.1 % (11.5-14.5) 12/31/22 07:26 Plt Count 371 K/uL (130-400) 12/31/22 07:26 MPV 8.4 fL (9.4-12.4) L 12/31/22 07:26 Immature Gran % (Auto) 1.9 % 12/31/22 07:26 Neut % (Auto) 69.8 % 12/31/22 07:26 Lymph % (Auto) 16.5 % 12/31/22 07:26 [place] % (Auto) 9.9 % 12/31/22 07:26 Eos % (Auto) 1.4 % 12/31/22 07:26 Baso % (Auto) 0.5 % 12/31/22 07:26 Neut # (Auto) 7.88 K/uL (1.40-6.50) H 12/31/22 07:26 Lymph # (Auto) 1.87 K/uL (1.20-3.40) 12/31/22 07:26 [place] # (Auto) 1.12 K/uL (0.11-0.59) H 12/31/22 07:26 Eos # (Auto) 0.16 K/uL (0.00-0.50) 12/31/22 07:26 Baso # (Auto) 0.06 K/uL (0.00-0.20) 12/31/22 07:26 Immature Gran # (Auto) 0.22 K/uL (0.01-0.20) H 12/31/22 07:26 APTT 31.7 Seconds (21.0-31.0) H 12/28/22 11:02 PTT Ratio 1.1 12/28/22 11:02 VBG pH 7.42 (7.36-7.41) H 12/27/22 21:24 VBG pCO2 41 mmHg (38-50) 12/27/22 21:24 VBG pO2 72 mmHg 12/27/22 21:24 VBG HCO3 27 mmol/L 12/27/22 21:24 VBG O2 Saturation 95.9 % 12/27/22 21:24 VBG Base Excess 1.9 mEq/L 12/27/22 21:24 POC Sodium 138 mmol/L (135-144) 12/27/22 20:53 Sodium 138 mmol/L (136-145) 12/31/22 07:26 POC Potassium 3.2 mmol/L (3.3-5.0) L 12/27/22 20:53 Potassium 3.2 mmol/L (3.5-5.1) L 12/31/22 07:26 POC Chloride 102 mmol/L (101-112) 12/27/22 20:53 Chloride 102 mmol/L (98-107) 12/31/22 07:26 Carbon Dioxide 28 mmol/L (21-32) 12/31/22 07:26 POC Total CO2 22 mmol/L (24-31) L 12/27/22 20:53 Anion Gap 8 (3-11) 12/31/22 07:26 POC Anion Gap 18.0 mmol/L (16-25) 12/27/22 20:53 POC BUN 18 mg/dl (7-18) 12/27/22 20:53 BUN 17 mg/dl (6-23) 12/31/22 07:26 Creatinine 0.63 mg/dl (0.6-1.2) 12/31/22 07:26 POC Creatinine 0.7 mg/dl (0.6-1.3) 12/27/22 20:53 Est Cr Clr Drug Dosing 104.7 ml/min 12/31/22 07:26 Est GFR ( Amer) 117.9 ml/min 12/31/22 07:26 Est GFR (Non-Af Amer) 101.7 ml/min 12/31/22 07:26 BUN/Creatinine Ratio 27.0 (10-20) H 12/31/22 07:26 Glucose 95 mg/dl (70-99(Fasting)) 12/31/22 07:26 POC Glucose (other) 168 mg/dl (70-99) H 12/27/22 20:53 Estimat Average Glucose 117 mg/dl 12/27/22 22:47 Hemoglobin A1c 5.7 % (4.5-5.6) H 12/27/22 22:47 Lactate 0.9 mmol/L (0.4-2.0) 12/27/22 22:58 Calcium 8.6 mg/dl (8.6-10.3) 12/31/22 07:26 POC Ioniz Calcium Jabier 1.05 mmol/l (1.12-1.32) L 12/27/22 20:53 Magnesium 2.1 mg/dl (1.7-2.4) 12/30/22 05:39 Total Bilirubin 0.7 mg/dl (0.2-1.0) 12/27/22 20:33 AST 21 U/L (13-39) 12/27/22 20:33 ALT 23 U/L (7-52) 12/27/22 20:33 Alkaline Phosphatase 62 U/L (34-104) 12/27/22 20:33 Total Protein 6.9 gm/dl (6.0-8.3) 12/27/22 20:33 Albumin 3.9 gm/dl (3.4-5.0) 12/27/22 20:33 Globulin 3.0 gm/dl (2.5-4.0) 12/27/22 20: Albumin/Globulin Ratio 1.3 (0.9-2) 12/27/22 20:33 Lipase 20 U/L (11-82) 12/27/22 20:33 Procalcitonin < 0.05 ng/ml (0-0.5) 12/27/22 20:33 Urine Color Yellow 12/27/22 22:20 Urine Appearance Clear (Clear) 12/27/22 22:20 Urine pH 8.5 (4.5-7.5) H 12/27/22 22:20 Ur Specific [place] > 1.045 (1.000-1.030) H 12/27/22 22:20 Urine Protein Negative (Negative) 12/27/22 22:20 Urine Glucose (UA) Negative (Negative) 12/27/22 22:20 Urine Ketones 2+ (Negative) H 12/27/22 22:20 Urine Blood Negative (Negative) 12/27/22 22:20 Urine Nitrite Negative (Negative) 12/27/22 22:20 Urine Bilirubin Negative (Negative) 12/27/22 22:20 Urine Urobilinogen Negative (Negative) 12/27/22 22:20 Ur Leukocyte Esterase Negative (Negative) 12/27/22 22:20 Impressions Abdomen/Pelvis CT 12/27/22 20:33 CT ANGIOGRAM OF THE CHEST; CT SCAN OF THE ABDOMEN AND PELVIS WITH IV CONTRAST CLINICAL HISTORY: Change in mental status. Left-sided abdominal pain. COMPARISON STUDY: Chest x-ray dated 11/28/2022. Abdominal CT dated 05/27/2007. Lumbar spine radiographs dated 05/03/2010. TECHNIQUE: Following the IV administration of 115 of Optiray 320, CT angiogram of the chest is performed from the upper abdomen to the thoracic inlet utilizing the pulmonary embolus protocol. Images are reviewed in the axial, sagittal, coronal planes. 3-D MIPS images are created and assessed. Subsequently, CT scan of the abdomen and pelvis was performed from the lung bases to the proximal femora. Images are reviewed in the axial, sagittal, and coronal planes. IV contrast was administered without complication. A dose lowering technique was utilized adhering to the principles of ALARA. CT DOSE: 2178.98 mGy.cm FINDINGS: CHEST: Thyroid: Imaged portions of the thyroid gland are normal in size and attenuation. Thoracic aorta: The thoracic aorta is normal in caliber and demonstrates bovine variant arch anatomy. No dissection is seen. Pulmonary vasculature: The pulmonary trunk is normal in caliber. There are no filling defects identified in the main, lobar, or segmental pulmonary arteries to indicate pulmonary embolus. Heart: The heart is normal in size and without pericardial effusion. Lungs and pleural spaces: There is no airspace consolidation or pleural effusion. Dependent atelectasis is seen bilaterally. There are scattered calcified granulomas. The trachea and central airways are clear. Mediastinum: There is no mediastinal lymphadenopathy. Lora: Clear. Axillae: There is no axillary lymphadenopathy. Bony thorax: No lytic or blastic lesions are identified. ABDOMEN AND PELVIS: Liver: The contrast-enhanced liver is normal in size, contour, and attenuation. There is no intrahepatic biliary ductal dilatation. The hepatic veins and portal veins are patent. Gallbladder: Unremarkable. Spleen: Normal in size and attenuation. Pancreas: Unremarkable. Adrenal glands: Unremarkable. Kidneys: The contrast enhanced kidneys are normal in size and without hydronephrosis. The kidneys enhance symmetrically. Abdominal vasculature: The abdominal aorta is normal in course and caliber. Stomach and bowel: There is a small hiatal hernia. The proximal small bowel loops in the left abdomen are dilated and fluid-filled, measuring up to 3.2 cm in diameter. There is a focal transition point identified in the left lower quadrant on image #20 and 65. The distal small bowel loops are decompressed, and findings consistent with a small bowel obstruction. There are mildly thick- walled loops of small bowel in the pelvis with associated mesenteric venous engorgement. Venous engorgement is best seen on image #279. The distal small bowel is completely decompressed. There is trace interloop fluid. No pneumatosis intestinalis or portal venous gas is seen. There is mild to moderate colonic fecal retention. The appendix is well-visualized and normal. Peritoneum: There is no intraperitoneal free air or abdominal ascites. There is a fat-containing umbilical hernia. Lymphadenopathy: None. Pelvic viscera: The bladder is normal as visualized. The uterus is surgically absent. No adnexal lesion is seen. There is a small volume of free fluid in the cul-de-sac. Skeletal structures: No lytic or blastic lesions are seen. IMPRESSION: 1. There is no evidence of pulmonary embolus in the main, lobar, or segmental pulmonary arteries. 2. There is no airspace consolidation or pleural effusion. 3. There is evidence of a small bowel obstruction, with a transition point seen in the left lower quadrant. This is likely on the basis of adhesions. 4. Mildly thick-walled loops of small bowel are seen in the deep pelvis with associated venous engorgement. These loops may be at risk for ischemia. Surgical assessment is advised. 5. There is no intraperitoneal free air. No pneumatosis intestinalis or portal venous gas is seen. 6. Small volume of free fluid in the pelvis. 7. Additional findings as above. ACT 112: Negative or not required by law. Electronically signed by: Kel Ferreira M.D. 12/27/2022 9:49 PM Chest CTA 12/27/22 20:47 CT ANGIOGRAM OF THE CHEST; CT SCAN OF THE ABDOMEN AND PELVIS WITH IV CONTRAST CLINICAL HISTORY: Change in mental status. Left-sided abdominal pain. COMPARISON STUDY: Chest x-ray dated 11/28/2022. Abdominal CT dated 05/27/2007. Lumbar spine radiographs dated 05/03/2010. TECHNIQUE: Following the IV administration of 115 of Optiray 320, CT angiogram of the chest is performed from the upper abdomen to the thoracic inlet utilizing the pulmonary embolus protocol. Images are reviewed in the axial, sagittal, coronal planes. 3-D MIPS images are created and assessed. Subsequently, CT scan of the abdomen and pelvis was performed from the lung bases to the proximal femora. Images are reviewed in the axial, sagittal, and coronal planes. IV contrast was administered without complication. A dose lowering technique was utilized adhering to the principles of ALARA. CT DOSE: 2178.98 mGy.cm FINDINGS: CHEST: Thyroid: Imaged portions of the thyroid gland are normal in size and attenuation. Thoracic aorta: The thoracic aorta is normal in caliber and demonstrates bovine variant arch anatomy. No dissection is seen. Pulmonary vasculature: The pulmonary trunk is normal in caliber. There are no filling defects identified in the main, lobar, or segmental pulmonary arteries to indicate pulmonary embolus. Heart: The heart is normal in size and without pericardial effusion. Lungs and pleural spaces: There is no airspace consolidation or pleural effusion. Dependent atelectasis is seen bilaterally. There are scattered c alcified granulomas. The trachea and central airways are clear. Mediastinum: There is no mediastinal lymphadenopathy. Lora: Clear. Axillae: There is no axillary lymphadenopathy. Bony thorax: No lytic or blastic lesions are identified. ABDOMEN AND PELVIS: Liver: The contrast-enhanced liver is normal in size, contour, and attenuation. There is no intrahepatic biliary ductal dilatation. The hepatic veins and portal veins are patent. Gallbladder: Unremarkable. Spleen: Normal in size and attenuation. Pancreas: Unremarkable. Adrenal glands: Unremarkable. Kidneys: The contrast enhanced kidneys are normal in size and without hydronephrosis. The kidneys enhance symmetrically. Abdominal vasculature: The abdominal aorta is normal in course and caliber. Stomach and bowel: There is a small hiatal hernia. The proximal small bowel loops in the left abdomen are dilated and fluid-filled, measuring up to 3.2 cm in diameter. There is a focal transition point identified in the left lower quadrant on image #20 and 65. The distal small bowel loops are decompressed, and findings consistent with a small bowel obstruction. There are mildly thick- walled loops of small bowel in the pelvis with associated mesenteric venous engorgement. Venous engorgement is best seen on image #279. The distal small bowel is completely decompressed. There is trace interloop fluid. No pneumatosis intestinalis or portal venous gas is seen. There is mild to moderate colonic fecal retention. The appendix is well-visualized and normal. Peritoneum: There is no intraperitoneal free air or abdominal ascites. There is a fat-containing umbilical hernia. Lymphadenopathy: None. Pelvic viscera: The bladder is normal as visualized. The uterus is surgically absent. No adnexal lesion is seen. There is a small volume of free fluid in the cul-de-sac. Skeletal structures: No lytic or blastic lesions are seen. IMPRESSION: 1. There is no evidence of pulmonary embolus in the main, lobar, or segmental pulmonary arteries. 2. There is no airspace consolidation or pleural effusion. 3. There is evidence of a small bowel obstruction, with a transition point seen in the left lower quadrant. This is likely on the basis of adhesions. 4. Mildly thick-walled loops of small bowel are seen in the deep pelvis with associated venous engorgement. These loops may be at risk for ischemia. Surgical assessment is advised. 5. There is no intraperitoneal free air. No pneumatosis intestinalis or portal venous gas is seen. 6. Small volume of free fluid in the pelvis. 7. Additional findings as above. ACT 112: Negative or not required by law. Electronically signed by: Kel Ferreira M.D. 12/27/2022 9:[address] 12/27/22 20:47 CT SCAN OF THE BRAIN WITHOUT IV CONTRAST CLINICAL HISTORY: Change in mental status. COMPARISON STUDY: No priors. TECHNIQUE: Unenhanced axial CT scan of the brain is performed from the vertex to the skull base. A dose lowering technique was utilized adhering to the principles of ALARA. FINDINGS: Brain parenchyma: The brain parenchyma is normal in appearance. There is no hemorrhage, mass effect, or evidence of acute territorial ischemia by CT criteria. [place]-white matter differentiation is preserved. No extra-axial fluid collection is seen. Ventricles, sulci, cisterns: Normal in configuration. Intracranial vasculature: The visualized intracranial vasculature at the skull base is normal in appearance. Calvarium: Unremarkable. Sinuses and mastoids: The visualized paranasal sinuses are clear. The mastoid air cells are well pneumatized. Orbits: The bony orbits are grossly intact. IMPRESSION: There is no hemorrhage, mass effect, or evidence of acute territorial ischemia by CT criteria. ACT 112: Negative or not required by law. Electronically signed by: Kel Ferreira M.D. 12/27/2022 9:35 PM KUB X-Ray 12/29/22 07:00 KUB HISTORY: Small bowel obstruction. Follow-up. COMPARISON: KUB 12/28/2022. FINDINGS: Nasogastric tube terminates in the stomach. Mildly dilated gas-filled loops of small bowel again noted consistent with the patient's known small bowel obstruction. These measure up to 3.3 cm in diameter. [id number] fecal retention. No renal calculi. No ureteral calculi. No pneumoperitoneum or pneumatosis. IMPRESSION: 1. Persistent small bowel obstruction pattern. 2. Nasogastric tube terminates in the stomach. ACT 112: Negative or not required by law. Electronically signed by: Helio Shore M.D. 12/29/2022 7:26 AM
[2022-12-31] MEDS: POTASSIUM CHLORIDE / WTR 10 MEQ/100 ML PLCT IV SCH ×4 (14:37→17:30)
[2022-12-31] MEDS: ENOXAPARIN 80 MG/0.8 ML SYR SQ SCH (16:13)
[2022-12-31] MEDS: PROMETHAZINE HCL 12.5 MG in SODIUM CHLORIDE 0.9% 50 ML IV PRN (22:26)
[2023-01-01] MEDS: HYDROmorphone INJ 0.5 MG/0.5 ML SYR IV PRN (01:31)
[2023-01-01] MEDS: ENOXAPARIN 80 MG/0.8 ML SYR SQ SCH (01:32)
--- NOTE | 2023-01-01 06:17 | Surgery Progress Note ---
Date of Service January 01, 2023 Assessment & Plan (1) SBO (small bowel obstruction): Plan: Patient has been admitted on the hospital service. We recommend proceeding as follows: Consideration be given to removing NG tube as she has had return of bowel function. Once NG tube is removed diet can be advanced beginning with sips of clear liquids Increase activity as able Maintain IV fluids until oral intake is reliable Check a.m. labs when available Lovenox is in place for DVT prevention Admission and Anticipated Discharge Date Admission Date: December 27, 2022 Supervising Physician Co-Signing Physician Notes Patient seen and examined, labs and imaging reviewed, agree with above. Admitted with partial small bowel obstruction, had NG clamped yesterday as she was passing gas and had small bowel movement. She was given MiraLAX, and afterwards she developed reflux and some bloating and nausea. She was placed back on suction but is now back on being clamped. She is continue to pass flatus and is feeling better. On exam she is afebrile stable vitals, her abdomen is soft, minimally tender to palpation, mildly distended. KUB personally reviewed and interpreted and agree with the assessment of a persistently dilated loop of bowel. She is currently tolerating the NG tube clamped trial, we will continue with this. If she has significant improvement may be removed this afternoon, she has recurrence of symptoms we will go back up to suction. Hold off on any more MiraLAX for now. Subjective Patient is resting comfortably in bed. Patient notes that her NG tube was clamped yesterday and she developed what she describes as uncomfortable reflux. She notes that this improved when her NG tube was placed back to suction. She does report having a small bowel movement over the past shift. She denies any fevers, shakes, or chills. No nausea or vomiting has been reported. Physical Exam Gastrointestinal (Abdomen): Abdomen is soft and nondistended. There is minimal pain with palpation. NG tube is in place and is only drained approximately 50 cc over the past 24 hours. Results & Data Vital Signs (Past 12 Hours) Vital Signs Temp Pulse Pulse Resp BP Pulse Ox O2 Del Method 01/01/23 03:34 37.1 C 82 18 129/77 95 Room Air 12/31/22 23:30 36.9 C 96 H 18 160/72 H 94 Room Air 12/31/22 22:53 88 12/31/22 19:27 37.3 C 91 H 18 129/76 97 Room Air PG Care Time/CCT Total # of Minutes Spent Total Time Spent with Patient: Total time spent is greater than 50% in coordination of care (as documented) at patient's floor/unit and/or counseling patient: Coding Level of Care Code 04654 SUB INP/OBS CARE 03/05MIN Diagnoses SBO (small bowel obstruction) K56.609
[2023-01-01 08:18] LABS: Basophils # (auto) 0.04 K/uL (0.00-0.20); Basophils % (auto) 0.3 %; Eosinophils # (auto) 0.08 K/uL (0.00-0.50); Eosinophils % (auto) 0.7 %; Hemoglobin 11.6 g/dl (12.0-16.0); Immature Granulocytes # (auto) 0.13 K/uL (0.01-0.20); Immature Granulocytes % (auto) 1.1 %; Lymphocytes # (auto) 1.61 K/uL (1.20-3.40); Mean Corpuscular Hemoglobin 29.2 pg (25.0-34.0); Mean Corpuscular Hgb Conc 33.1 g/dL (32.0-36.0); Mean Corpuscular Volume 88.2 fL (80.0-100.0); Mean Platelet Volume 8.3 fL (9.4-12.4); Monocytes # (auto) 1.18 K/uL (0.11-0.59); Monocytes % (auto) 10.3 %; Neutrophils # (auto) 8.47 K/uL (1.40-6.50); Neutrophils % (auto) 73.6 %; Platelet Count 383 K/uL (130-400); RDW Standard Deviation 38.9 fL (36.4-46.3); Red Blood Count 3.97 M/uL (4.20-5.40); White Blood Count 11.51 K/ul (4.8-10.8)
[2023-01-01 08:38] LABS: BUN Creatinine Ratio 38.3 (10-20); Calcium 8.7 mg/dl (8.6-10.3); Creatinine Clr Calc Pharmacy 140.6 ml/min; Est GFR (African American) 129.8 ml/min; Potassium 3.4 mmol/L (3.5-5.1)
--- NOTE | 2023-01-01 09:02 | XRay Report ---
XR KUB/Abdomen 1 view CLINICAL HISTORY: SBO TECHNIQUE: 1 view of the abdomen was obtained. Comparison: Comparison is made to abdomen radiograph 12/29/2022 FINDINGS: Stable position of the enteric tube. The osseous structures are grossly unremarkable. Gas distended l oop of bowel measures 33 mm, similar to prior exam. Small stool burden is seen. IMPRESSION: Redemonstration of a gas distended loop of bowel compatible with small bowel obstruction. ACT 112: Negative or not required by law. Electronically signed by: Neto Sprague M.D. 01/01/2023 9:01 AM
[2023-01-01] MEDS: PROMETHAZINE HCL 12.5 MG in SODIUM CHLORIDE 0.9% 50 ML IV PRN ×2 (10:11→19:41)
[2023-01-01] MEDS: FAMOTIDINE 20 MG in SYRINGE 3 ML IV SCH (10:18)
[2023-01-01] MEDS: PANTOprazole 40 MG in SYRINGE 0 ML IV SCH ×2 (11:54→20:46)
--- NOTE | 2023-01-01 12:39 | Hospitalist Progress Note ---
Date of Service January 01, 2023 Assessment & Plan (1) Hypokalemia: Plan: Small bowel obstruction Likely due to adhesions H/O hysterectomy, laparoscopy for endometriosis H/O IBS constipation predominant Patient presented with abdominal pain, nausea and vomiting. --CT ABD on admission:There is no evidence of pulmonary embolus in the main, lobar, or segmental pulmonary arteries. There is no airspace consolidation or pleural effusion. There is evidence of a small bowel obstruction, with a transition point seen in the left lower quadrant. This is likely on the basis of adhesions. Mildly thick-walled loops of small bowel are seen in the deep pelvis with associated venous engorgement. These loops may be at risk for ischemia. Surgical assessment is advised. There is no intraperitoneal free air. No pneumatosis intestinalis or portal venous gas is seen. Small volume of free fluid in the pelvis. Plan for NG tube clamped today again. Continue IV fluids. Minimize IV pain medications as able. On IV Tylenol every 8 as needed Appreciate surgery input Conservative management as per surgery Encouraged to ambulate Leukocytosis Likely reactive No obvious source of infection Blood cultures: No growth to date Monitor CBC daily Discontinue IV antibiotics. Hypokalemia Hypomagnesemia Replete electrolytes as needed Monitor Prediabetes HbA1c 5.7 H/O LE thrombophlebitis/DVT Chronic DVT Lower extremity Hold Eliquis for now Was started on IV heparin--Surgery help as patient may need surgery Placed on prophylactic dose of Lovenox. GERD continue Pepcid DVT Px: Lovenox SQ Code Status Full code Disposition; continues to be hospitalized due to small bowel obstruction needing NG tube placement. Patient to undergo NG tube clamp trial again today. Please note the above document was generated using voice recognition software. It may contain grammatical, syntax or spelling errors. Any formal questions or concerns about the content, text or information contained within the body of this dictation should be directly addressed to the provider for clarification Admission and Anticipated Discharge Date Admission Date: December 27, 2022 Subjective Patient seen and examined at bedside. Patient had a small bowel movement yesterday and today. Still reports abdominal discomfort. Review of Systems Review of Systems: All systems reviewed & are unremarkable except as noted in Subjective Physical Exam Physical Exam: Physical Exam: General Appearance:Moderately built and nourished, no apparent distress Head: normocephalic, Atraumatic ENT; NG tube in place. Eyes: normal inspection, EOMI Neck: supple, Trachea midline Respiratory/Chest: Normal breath sounds, CTA, No accessory muscle use Cardiovascular: S1, S2, No murmur Abdomen/GI: Soft, nondistended. Bowel sound present Extremities/Musculoskeletal:normal inspection, Trace pedal edema Neurologic/Psych:AAOX3, grossly no focal neurological deficits Skin: normal color, warm Results & Data Results & Data Vital Signs (Past 12 Hours) Vital Signs Temp Pulse Pulse Resp BP Pulse Ox O2 Del Method 01/01/23 11:47 37.1 C 93 H 16 154/84 H 97 Room Air 01/01/23 07:49 36.8 C 80 16 145/81 H 98 Room Air 01/01/23 07:25 78 01/01/23 03:34 37.1 C 82 18 129/77 95 Room Air Laboratory Results Laboratory Results WBC 11.51 K/ul (4.8-10.8) H 01/01/23 07:38 RBC 3.97 M/uL (4.20-5.40) L 01/01/23 07:38 Hgb 11.6 g/dl (12.0-16.0) L 01/01/23 07:38 POC Hgb 10.9 g/dl (12.0-16.0) L 12/27/22 20:53 Hct 35.0 % (37.0-47.0) L 01/01/23 07:38 POC Hct 32 % (37-47) L 12/27/22 20:53 MCV 88.2 fL (80.0-100.0) 01/01/23 07:38 MCH 29.2 pg (25.0-34.0) 01/01/23 07:38 MCHC 33.1 g/dL (32.0-36.0) 01/01/23 07:38 RDW Std Deviation 38.9 fL (36.4-46.3) 01/01/23 07:38 RDW Coeff of Yenni 12.0 % (11.5-14.5) 01/01/23 07:38 Plt Count 383 K/uL (130-400) 01/01/23 07:38 MPV 8.3 fL (9.4-12.4) L 01/01/23 07:38 Immature Gran % (Auto) 1.1 % 01/01/23 07:38 Neut % (Auto) 73.6 % 01/01/23 07:38 Lymph % (Auto) 14.0 % 01/01/23 07:38 [place] % (Auto) 10.3 % 01/01/23 07:38 Eos % (Auto) 0.7 % 01/01/23 07:38 Baso % (Auto) 0.3 % 01/01/23 07:38 Neut # (Auto) 8.47 K/uL (1.40-6.50) H 01/01/23 07:38 Lymph # (Auto) 1.61 K/uL (1.20-3.40) 01/01/23 07:38 [place] # (Auto) 1.18 K/uL (0.11-0.59) H 01/01/23 07:38 Eos # (Auto) 0.08 K/uL (0.00-0.50) 01/01/23 07:38 Baso # (Auto) 0.04 K/uL (0.00-0.20) 01/01/23 07:38 Immature Gran # (Auto) 0.13 K/uL (0.01-0.20) 01/01/23 07:38 APTT 31.7 Seconds (21.0-31.0) H 12/28/22 11:02 PTT Ratio 1.1 12/28/22 11:02 VBG pH 7.42 (7.36-7.41) H 12/27/22 21:24 VBG pCO2 41 mmHg (38-50) 12/27/22 21:24 VBG pO2 72 mmHg 12/27/22 21:24 VBG HCO3 27 mmol/L 12/27/22 21:24 VBG O2 Saturation 95.9 % 12/27/22 21:24 VBG Base Excess 1.9 mEq/L 12/27/22 21:24 POC Sodium 138 mmol/L (135-144) 12/27/22 20:53 Sodium 137 mmol/L (136-145) 01/01/23 07:38 POC Potassium 3.2 mmol/L (3.3-5.0) L 12/27/22 20:53 Potassium 3.4 mmol/L (3.5-5.1) L 01/01/23 07:38 POC Chloride 102 mmol/L (101-112) 12/27/22 20:53 Chloride 102 mmol/L (98-107) 01/01/23 07:38 Carbon Dioxide 24 mmol/L (21-32) 01/01/23 07:38 POC Total CO2 22 mmol/L (24-31) L 12/27/22 20:53 Anion Gap 11 (3-11) 01/01/23 07:38 POC Anion Gap 18.0 mmol/L (16-25) 12/27/22 20:53 POC BUN 18 mg/dl (7-18) 12/27/22 20:53 BUN 18 mg/dl (6-23) 01/01/23 07:38 Creatinine 0.47 mg/dl (0.6-1.2) L 01/01/23 07:38 POC Creatinine 0.7 mg/dl (0.6-1.3) 12/27/22 20:53 Est Cr Clr Drug Dosing 140.6 ml/min 01/01/23 07:38 Est GFR ( Amer) 129.8 ml/min 01/01/23 07:38 Est GFR (Non-Af Amer) 112.0 ml/min 01/01/23 07:38 BUN/Creatinine Ratio 38.3 (10-20) H 01/01/23 07:38 Glucose 83 mg/dl (70-99(Fasting)) 01/01/23 07:38 POC Glucose (other) 168 mg/dl (70-99) H 12/27/22 20:53 Estimat Average Glucose 117 mg/dl 12/27/22 22:47 Hemoglobin A1c 5.7 % (4.5-5.6) H 12/27/22 22:47 Lactate 0.9 mmol/L (0.4-2.0) 12/27/22 22:58 Calcium 8.7 mg/dl (8.6-10.3) 01/01/23 07:38 POC Ioniz Calcium [place] 1.05 mmol/l (1.12-1.32) L 12/27/22 20:53 Magnesium 2.1 mg/dl (1.7-2.4) 12/30/22 05:39 Total Bilirubin 0.7 mg/dl (0.2-1.0) 12/27/22 20:33 AST 21 U/L (13-39) 12/27/22 20:33 ALT 23 U/L (7-52) 12/27/22 20:33 Alkaline Phosphatase 62 U/L (34-104) 12/27/22 20:33 Total Protein 6.9 gm/dl (6.0-8.3) 12/27/22 20:33 Albumin 3.9 gm/dl (3.4-5.0) 12/27/22 20:33 Globulin 3.0 gm/dl (2.5-4.0) 12/27/22 20:33 Albumin/Globulin Ratio 1.3 (0.9-2) 12/27/22 20:33 Lipase 20 U/L (11-82) 12/27/22 20:33 Procalcitonin < 0.05 ng/ml (0-0.5) 12/27/22 20:33 Urine Color Yellow 12/27/22 22:20 Urine Appearance Clear (Clear) 12/27/22 22:20 Urine pH 8.5 (4.5-7.5) H 12/27/22 22:20 Ur Specific [place] > 1.045 (1.000-1.030) H 12/27/22 22:20 Urine Protein Negative (Negative) 12/27/22 22:20 Urine Glucose (UA) Negative (Negative) 12/27/22 22:20 Urine Ketones 2+ (Negative) H 12/27/22 22:20 Urine Blood Negative (Negative) 12/27/22 22:20 Urine Nitrite Negative (Negative) 12/27/22 22:20 Urine Bilirubin Negative (Negative) 12/27/22 22:20 Urine Urobilinogen Negative (Negative) 12/27/22 22:20 Ur Leukocyte Esterase Negative (Negative) 12/27/22 22:20 Impressions Abdomen/Pelvis CT 12/27/22 20:33 CT ANGIOGRAM OF THE CHEST; CT SCAN OF THE ABDOMEN AND PELVIS WITH IV CONTRAST CLINICAL HISTORY: Change in mental status. Left-sided abdominal pain. COMPARISON STUDY: Chest x-ray dated 11/28/2022. Abdominal CT dated 05/27/2007. Lumbar spine radiographs dated 05/03/2010. TECHNIQUE: Following the IV administration of 115 of Optiray 320, CT angiogram of the chest is performed from the upper abdomen to the thoracic inlet utilizing the pulmonary embolus protocol. Images are reviewed in the axial, sagittal, coronal planes. 3-D MIPS images are created and assessed. Subsequently, CT scan of the abdomen and pelvis was performed from the lung bases to the proximal femora. Images are reviewed in the axial, sagittal, and coronal planes. IV contrast was administered without complication. A dose lowering technique was utilized adhering to the principles of ALARA. CT DOSE: 2178.98 mGy.cm FINDINGS: CHEST: Thyroid: Imaged portions of the thyroid gland are normal in size and attenuation. Thoracic aorta: The thoracic aorta is normal in caliber and demonstrates bovine variant arch anatomy. No dissection is seen. Pulmonary vasculature: The pulmonary trunk is normal in caliber. There are no filling defects identified in the main, lobar, or segmental pulmonary arteries to indicate pulmonary embolus. Heart: The heart is normal in size and without pericardial effusion. Lungs and pleural spaces: There is no airspace consolidation or pleural effusion. Dependent atelectasis is seen bilaterally. There are scattered calcified granulomas. The trachea and central airways are clear. Mediastinum: There is no mediastinal lymphadenopathy. Lora: Clear. Axillae: There is no axillary lymphadenopathy. Bony thorax: No lytic or blastic lesions are identified. ABDOMEN AND PELVIS: Liver: The contrast-enhanced liver is normal in size, contour, and attenuation. There is no intrahepatic biliary ductal dilatation. The hepatic veins and portal veins are patent. Gallbladder: Unremarkable. Spleen: Normal in size and attenuation. Pancreas: Unremarkable. Adrenal glands: Unremarkable. Kidneys: The contrast enhanced kidneys are normal in size and without hydronephrosis. The kidneys enhance symmetrically. Abdominal vasculature: The abdominal aorta is normal in course and caliber. Stomach and bowel: There is a small hiatal hernia. The proximal small bowel loops in the left abdomen are dilated and fluid-filled, measuring up to 3.2 cm in diameter. There is a focal transition point identified in the left lower quadrant on image #20 and 65. The distal small bowel loops are decompressed, and findings consistent with a small bowel obstruction. There are mildly thick- walled loops of small bowel in the pelvis with associated mesenteric venous engorgement. Venous engorgement is best seen on image #279. The distal small bowel is completely decompressed. There is trace interloop fluid. No pneumatosis intestinalis or portal venous gas is seen. There is mild to moderate colonic fecal retention. The appendix is well-visualized and normal. Peritoneum: There is no intraperitoneal free air or abdominal ascites. There is a fat-containing umbilical hernia. Lymphadenopathy: None. Pelvic viscera: The bladder is normal as visualized. The uterus is surgically absent. No adnexal lesion is seen. There is a small volume of free fluid in the cul-de-sac. Skeletal structures: No lytic or blastic lesions are seen. IMPRESSION: 1. There is no evidence of pulmonary embolus in the main, lobar, or segmental pulmonary arteries. 2. There is no airspace consolidation or pleural effusion. 3. There is evidence of a small bowel obstruction, with a transition point seen in the left lower quadrant. This is likely on the basis of adhesions. 4. Mildly thick-walled loops of small bowel are seen in the deep pelvis with associated venous engorgement. These loops may be at risk for ischemia. Surgical assessment is advised. 5. There is no intraperitoneal free air. No pneumatosis intestinalis or portal venous gas is seen. 6. Small volume of free fluid in the pelvis. 7. Additional findings as above. ACT 112: Negative or not required by law. Electronically signed by: Kel Ferreira M.D. 12/27/2022 9:49 PM Chest CTA 12/27/22 20:47 CT ANGIOGRAM OF THE CHEST; CT SCAN OF THE ABDOMEN AND PELVIS WITH IV CONTRAST CLINICAL HISTORY: Change in mental status. Left-sided abdominal pain. COMPARISON STUDY: Chest x-ray dated 11/28/2022. Abdominal CT dated 05/27/2007. Lumbar spine radiographs dated 05/03/2010. TECHNIQUE: Following the IV administration of 115 of Optiray 320, CT angiogram of the chest is performed from the upper abdomen to the thoracic inlet utilizing the pulmonary embolus protocol. Images are reviewed in the axial, sagittal, coronal planes. 3-D MIPS images are created and assessed. Subsequently, CT scan of the abdomen and pelvis was performed from the lung bases to the proximal femora. Images are reviewed in the axial, sagittal, and coronal planes. IV contrast was administered without complication. A dose lowering technique was utilized adhering to the principles of ALARA. CT DOSE: 2178.98 mGy.cm FINDINGS: CHEST: Thyroid: Imaged portions of the thyroid gland are normal in size and attenuation. Thoracic aorta: The thoracic aorta is normal in caliber and demonstrates bovine variant arch anatomy. No dissection is seen. Pulmonary vasculature: The pulmonary trunk is normal in caliber. There are no filling defects identified in the main, lobar, or segmental pulmonary arteries to indicate pulmonary embolus. Heart: The heart is normal in size and without pericardial effusion. Lungs and pleural spaces: There is no airspace consolidation or pleural effusion. Dependent atelectasis is seen bilaterally. There are scattered calcified granulomas. The trachea and central airways are clear. Mediastinum: There is no mediastinal lymphadenopathy. Lora: Clear. Axillae: There is no axillary lymphadenopathy. Bony thorax: No lytic or blastic lesions are identified. ABDOMEN AND PELVIS: Liver: The contrast-enhanced liver is normal in size, contour, and attenuation. There is no intrahepatic biliary ductal dilatation. The hepatic veins and portal veins are patent. Gallbladder: Unremarkable. Spleen: Normal in size and attenuation. Pancreas: Unremarkable. Adrenal glands: Unremarkable. Kidneys: The contrast enhanced kidneys are normal in size and without hydronephrosis. The kidneys enhance symmetrically. Abdominal vasculature: The abdominal aorta is normal in course and caliber. Stomach and bowel: There is a small hiatal hernia. The proximal small bowel loops in the left abdomen are dilated and fluid-filled, measuring up to 3.2 cm in diameter. There is a focal transition point identified in the left lower quadrant on image #20 and 65. The distal small bowel loops are decompressed, and findings consistent with a small bowel obstruction. There are mildly thick- walled loops of small bowel in the pelvis with associated mesenteric venous engorgement. Venous engorgement is best seen on image #279. The distal small bowel is completely decompressed. There is trace interloop fluid. No pneumatosis intestinalis or portal venous gas is seen. There is mild to moderate colonic fecal retention. The appendix is well-visualized and normal. Peritoneum: There is no intraperitoneal free air or abdominal ascites. There is a fat-containing umbilical hernia. Lymphadenopathy: None. Pelvic viscera: The bladder is normal as visualized. The uterus is surgically absent. No adnexal lesion is seen. There is a small volume of free fluid in the cul-de-sac. Skeletal structures: No lytic or blastic lesions are seen. IMPRESSION: 1. There is no evidence of pulmonary embolus in the main, lobar, or segmental pulmonary arteries. 2. There is no airspace consolidation or pleural effusion. 3. There is evidence of a small bowel obstruction, with a transition point seen in the left lower quadrant. This is likely on the basis of adhesions. 4. Mildly thick-walled loops of small bowel are seen in the deep pelvis with associated venous engorgement. These loops may be at risk for ischemia. Surgical assessment is advised. 5. There is no intraperitoneal free air. No pneumatosis intestinalis or portal venous gas is seen. 6. Small volume of free fluid in the pelvis. 7. Additional findings as above. ACT 112: Negative or not required by law. Electronically signed by: Kel Ferreira M.D. 12/27/2022 9:[address] 12/27/22 20:47 CT SCAN OF THE BRAIN WITHOUT IV CONTRAST CLINICAL HISTORY: Change in mental status. COMPARISON STUDY: No priors. TECHNIQUE: Unenhanced axial CT scan of the brain is performed from the vertex to the skull base. A dose lowering technique was utilized adhering to the principles of ALARA. FINDINGS: Brain parenchyma: The brain parenchyma is normal in appearance. There is no hemorrhage, mass effect, or evidence of acute territorial ischemia by CT criteria. [place]-white matter differentiation is preserved. No extra-axial fluid collection is seen. Ventricles, sulci, cisterns: Normal in configuration. Intracranial vasculature: The visualized intracranial vasculature at the skull base is normal in appearance. Calvarium: Unremarkable. Sinuses and mastoids: The visualized paranasal sinuses are clear. The mastoid air cells are well pneumatized. Orbits: The bony orbits are grossly intact. IMPRESSION: There is no hemorrhage, mass effect, or evidence of acute territorial ischemia by CT criteria. ACT 112: Negative or not required by law. Electronically signed by: Kel Ferreira M.D. 12/27/2022 9:35 PM KUB X-Ray 01/01/23 07:21 XR KUB/Abdomen 1 view CLINICAL HISTORY: SBO TECHNIQUE: 1 view of the abdomen was obtained. Comparison: Comparison is made to abdomen radiograph 12/29/2022 FINDINGS: Stable position of the enteric tube. The osseous structures are grossly unremarkable. Gas distended loop of bowel measures 33 mm, similar to prior exam. Small stool burden is seen. IMPRESSION: Redemonstration of a gas distended loop of bowel compatible with small bowel obstruction. ACT 112: Negative or not required by law. Electronically signed by: Neto Sprague M.D. 01/01/2023 9:01 AM
[2023-01-01] MEDS: POTASSIUM CHLORIDE / WTR 10 MEQ/100 ML PLCT IV SCH ×4 (13:12→16:36)
[2023-01-01] MEDS: D5W AND 1/2NSS + 20MEQ KCL 20 MEQ/1,000 ML BAG IV SCH (16:01)
[2023-01-01] MEDS: LACTATED RINGER'S 1,000 ML IV SCH (16:04)
[2023-01-01] MEDS: ACETAMINOPHEN 1,000 MG/100 ML VIAL IV PRN (18:55)
[2023-01-02] MEDS: D5W AND 1/2NSS + 20MEQ KCL 20 MEQ/1,000 ML BAG IV SCH ×2 (04:46→19:38)
[2023-01-02 06:05] LABS: Basophils # (auto) 0.03 K/uL (0.00-0.20); Basophils % (auto) 0.3 %; Eosinophils # (auto) 0.24 K/uL (0.00-0.50); Eosinophils % (auto) 2.3 %; Hematocrit (blood only) 31.4 % (37.0-47.0); Hemoglobin 10.6 g/dl (12.0-16.0); Immature Granulocytes # (auto) 0.07 K/uL (0.01-0.20); Immature Granulocytes % (auto) 0.7 %; Lymphocytes # (auto) 1.75 K/uL (1.20-3.40); Mean Corpuscular Hemoglobin 29.7 pg (25.0-34.0); Mean Corpuscular Hgb Conc 33.8 g/dL (32.0-36.0); Mean Platelet Volume 8.4 fL (9.4-12.4); Monocytes # (auto) 1.05 K/uL (0.11-0.59); Monocytes % (auto) 10.2 %; Neutrophils # (auto) 7.17 K/uL (1.40-6.50); Neutrophils % (auto) 69.5 %; Platelet Count 350 K/uL (130-400); RDW Coefficient of Variation 11.9 % (11.5-14.5); RDW Standard Deviation 38.7 fL (36.4-46.3); Red Blood Count 3.57 M/uL (4.20-5.40); White Blood Count 10.31 K/ul (4.8-10.8)
[2023-01-02 06:21] LABS: BUN Creatinine Ratio 23.4 (10-20); Calcium 8.4 mg/dl (8.6-10.3); Creatinine Clr Calc Pharmacy 140.6 ml/min; Est GFR (African American) 129.8 ml/min; Potassium 3.9 mmol/L (3.5-5.1)
[2023-01-02] MEDS: PANTOprazole 40 MG in SYRINGE 0 ML IV SCH ×2 (09:19→19:40)
[2023-01-02] MEDS: ENOXAPARIN INJ 40 MG/0.4 ML SYR SQ SCH (09:19)
--- NOTE | 2023-01-02 10:38 | XRay Report ---
KUB CLINICAL HISTORY: Small bowel obstruction. FINDINGS: 2 AP, portable, supine abdominal radiographs are compared to study dated 01/01/2023 and cor related with abdominal CT dated 12/27/2022. An enteric tube is in place. The tip projects just below the diaphragm, with the sideholes above the diaphragm. This should likely be advanced. Again seen are distended and gas-filled loops of small bowel which measure up to 2.5 cm diameter. This indicates pe rsistent obstruction. No evidence of intraperitoneal free air is seen on these supine images. There a re no abnormal abdominal calcifications. The bony structures appear intact. The lung bases are clear as imaged. IMPRESSION: 1. Persistent small bowel obstruction. 2. The enteric tube should likely be advanced. See above. Electronically signed by: Kel Ferreira M.D. 01/02/2023 10:37 AM
[2023-01-02] MEDS: ACETAMINOPHEN 1,000 MG/100 ML VIAL IV PRN ×2 (10:50→19:38)
--- NOTE | 2023-01-02 13:46 | Hospitalist Progress Note ---
Date of Service January 02, 2023 Assessment & Plan (1) Hypokalemia: Plan: Small bowel obstruction Likely due to adhesions H/O hysterectomy, laparoscopy for endometriosis H/O IBS constipation predominant Patient presented with abdominal pain, nausea and vomiting. --CT ABD on admission:There is no evidence of pulmonary embolus in the main, lobar, or segmental pulmonary arteries. There is no airspace consolidation or pleural effusion. There is evidence of a small bowel obstruction, with a transition point seen in the left lower quadrant. This is likely on the basis of adhesions. Mildly thick-walled loops of small bowel are seen in the deep pelvis with associated venous engorgement. These loops may be at risk for ischemia. Surgical assessment is advised. There is no intraperitoneal free air. No pneumatosis intestinalis or portal venous gas is seen. Small volume of free fluid in the pelvis. Patient failed clear liquid diet yesterday. Plan for clamping the NG tube again. Remove NG tube if no longer nausea/vomiting. Start clear liquid diet. Will appreciate surgery's input. Continue IV fluids. Minimize IV pain medications as able. On IV Tylenol every 8 as needed Conservative management as per surgery Encouraged to ambulate Leukocytosis Likely reactive No obvious source of infection Blood cultures: No growth to date Monitor CBC daily Discontinue IV antibiotics. Hypokalemia Hypomagnesemia Replete electrolytes as needed Monitor Prediabetes HbA1c 5.7 H/O LE thrombophlebitis/DVT Chronic DVT Lower extremity Hold Eliquis for now Was started on IV heparin--Surgery help as patient may need surgery Placed on prophylactic dose of Lovenox. GERD continue Pepcid DVT Px: Lovenox SQ Code Status Full code Disposition; continues to be hospitalized due to small bowel obstruction needing NG tube placement. Patient failed NG tube clamp trial yesterday. Plan for trial again and possible removal of NG tube and clear liquid diet. Please note the above document was generated using voice recognition software. It may contain grammatical, syntax or spelling errors. Any formal questions or concerns about the content, text or information contained within the body of this dictation should be directly addressed to the provider for clarification Admission and Anticipated Discharge Date Admission Date: December 27, 2022 Subjective Patient seen and examined at bedside. She reports that she is feeling much better. No longer nauseous or vomiting. She also had bowel movement. Review of Systems Review of Systems: All systems reviewed & are unremarkable except as noted in Subjective Physical Exam Physical Exam: Physical Exam: General Appearance:Moderately built and nourished, no apparent distress Head: normocephalic, Atraumatic ENT; NG tube in place. Eyes: normal inspection, EOMI Neck: supple, Trachea midline Respiratory/Chest: Normal breath sounds, CTA, No accessory muscle use Cardiovascular: S1, S2, No murmur Abdomen/GI: Soft, nondistended. Bowel sound present Extremities/Musculoskeletal:normal inspection, Trace pedal edema Neurologic/Psych:AAOX3, grossly no focal neurological deficits Skin: normal color, warm Results & Data Results & Data Vital Signs (Past 12 Hours) Vital Signs Temp Pulse Pulse Resp BP Pulse Ox O2 Del Method 01/02/23 11:26 36.7 C 72 14 116/75 98 Room Air 01/02/23 07:51 37.2 C 86 15 131/83 98 Room Air 01/02/23 07:15 74 01/02/23 04:26 36.6 C 83 16 146/74 H 96 Room Air 01/02/23 01:57 85 Laboratory Results Laboratory Results WBC 10.31 K/ul (4.8-10.8) 01/02/23 05:39 RBC 3.57 M/uL (4.20-5.40) L 01/02/23 05:39 Hgb 10.6 g/dl (12.0-16.0) L 01/02/23 05:39 POC Hgb 10.9 g/dl (12.0-16.0) L 12/27/22 20:53 Hct 31.4 % (37.0-47.0) L 01/02/23 05:39 POC Hct 32 % (37-47) L 12/27/22 20:53 MCV 88.0 fL (80.0-100.0) 01/02/23 05:39 MCH 29.7 pg (25.0-34.0) 01/02/23 05:39 MCHC 33.8 g/dL (32.0-36.0) 01/02/23 05:39 RDW Std Deviation 38.7 fL (36.4-46.3) 01/02/23 05:39 RDW Coeff of Yenni 11.9 % (11.5-14.5) 01/02/23 05:39 Plt Count 350 K/uL (130-400) 01/02/23 05:39 MPV 8.4 fL (9.4-12.4) L 01/02/23 05:39 Immature Gran % (Auto) 0.7 % 01/02/23 05:39 Neut % (Auto) 69.5 % 01/02/23 05:39 Lymph % (Auto) 17.0 % 01/02/23 05:39 [place] % (Auto) 10.2 % 01/02/23 05:39 Eos % (Auto) 2.3 % 01/02/23 05:39 Baso % (Auto) 0.3 % 01/02/23 05:39 Neut # (Auto) 7.17 K/uL (1.40-6.50) H 01/02/23 05:39 Lymph # (Auto) 1.75 K/uL (1.20-3.40) 01/02/23 05:39 [place] # (Auto) 1.05 K/uL (0.11-0.59) H 01/02/23 05:39 Eos # (Auto) 0.24 K/uL (0.00-0.50) 01/02/23 05:39 Baso # (Auto) 0.03 K/uL (0.00-0.20) 01/02/23 05:39 Immature Gran # (Auto) 0.07 K/uL (0.01-0.20) 01/02/23 05:39 APTT 31.7 Seconds (21.0-31.0) H 12/28/22 11:02 PTT Ratio 1.1 12/28/22 11:02 VBG pH 7.42 (7.36-7.41) H 12/27/22 21:24 VBG pCO2 41 mmHg (38-50) 12/27/22 21:24 VBG pO2 72 mmHg 12/27/22 21:24 VBG HCO3 27 mmol/L 12/27/22 21:24 VBG O2 Saturation 95.9 % 12/27/22 21:24 VBG Base Excess 1.9 mEq/L 12/27/22 21:24 POC Sodium 138 mmol/L (135-144) 12/27/22 20:53 Sodium 139 mmol/L (136-145) 01/02/23 05:39 POC Potassium 3.2 mmol/L (3.3-5.0) L 12/27/22 20:53 Potassium 3.9 mmol/L (3.5-5.1) 01/02/23 05:39 POC Chloride 102 mmol/L (101-112) 12/27/22 20:53 Chloride 106 mmol/L (98-107) 01/02/23 05:39 Carbon Dioxide 27 mmol/L (21-32) 01/02/23 05:39 POC Total CO2 22 mmol/L (24-31) L 12/27/22 20:53 Anion Gap 6 (3-11) 01/02/23 05:39 POC Anion Gap 18.0 mmol/L (16-25) 12/27/22 20:53 POC BUN 18 mg/dl (7-18) 12/27/22 20:53 BUN 11 mg/dl (6-23) 01/02/23 05:39 Creatinine 0.47 mg/dl (0.6-1.2) L 01/02/23 05:39 POC Creatinine 0.7 mg/dl (0.6-1.3) 12/27/22 20:53 Est Cr Clr Drug Dosing 140.6 ml/min 01/02/23 05:39 Est GFR ( Amer) 129.8 ml/min 01/02/23 05:39 Est GFR (Non-Af Amer) 112.0 ml/min 01/02/23 05:39 BUN/Creatinine Ratio 23.4 (10-20) H 01/02/23 05:39 Glucose 112 mg/dl (70-99(Fasting)) H 01/02/23 05:39 POC Glucose (other) 168 mg/dl (70-99) H 12/27/22 20:53 Estimat Average Glucose 117 mg/dl 12/27/22 22:47 Hemoglobin A1c 5.7 % (4.5-5.6) H 12/27/22 22:47 Lactate 0.9 mmol/L (0.4-2.0) 12/27/22 22:58 Calcium 8.4 mg/dl (8.6-10.3) L 01/02/23 05:39 POC Ioniz Calcium [place] 1.05 mmol/l (1.12-1.32) L 12/27/22 20:53 Magnesium 2.1 mg/dl (1.7-2.4) 12/30/22 05:39 Total Bilirubin 0.7 mg/dl (0.2-1.0) 12/27/22 20:33 AST 21 U/L (13-39) 12/27/22 20:33 ALT 23 U/L (7-52) 12/27/22 20:33 Alkaline Phosphatase 62 U/L (34-104) 12/27/22 20:33 Total Protein 6.9 gm/dl (6.0-8.3) 12/27/22 20:33 Albumin 3.9 gm/dl (3.4-5.0) 12/27/22 20:33 Globulin 3.0 gm/dl (2.5-4.0) 12/27/22 20:33 Albumin/Globulin Ratio 1.3 (0.9-2) 12/27/22 20:33 Lipase 20 U/L (11-82) 12/27/22 20:33 Procalcitonin < 0.05 ng/ml (0-0.5) 12/27/22 20:33 Urine Color Yellow 12/27/22 22:20 Urine Appearance Clear (Clear) 12/27/22 22:20 Urine pH 8.5 (4.5-7.5) H 12/27/22 22:20 Ur Specific [place] > 1.045 (1.000-1.030) H 12/27/22 22:20 Urine Protein Negative (Negative) 12/27/22 22:20 Urine Glucose (UA) Negative (Negative) 12/27/22 22:20 Urine Ketones 2+ (Negative) H 12/27/22 22:20 Urine Blood Negative (Negative) 12/27/22 22:20 Urine Nitrite Negative (Negative) 12/27/22 22:20 Urine Bilirubin Negative (Negative) 12/27/22 22:20 Urine Urobilinogen Negative (Negative) 12/27/22 22:20 Ur Leukocyte Esterase Negative (Negative) 12/27/22 22:20 Impressions Abdomen/Pelvis CT 12/27/22 20:33 CT ANGIOGRAM OF THE CHEST; CT SCAN OF THE ABDOMEN AND PELVIS WITH IV CONTRAST CLINICAL HISTORY: Change in mental status. Left-sided abdominal pain. COMPARISON STUDY: Chest x-ray dated 11/28/2022. Abdominal CT dated 05/27/2007. Lumbar spine radiographs dated 05/03/2010. TECHNIQUE: Following the IV administration of 115 of Optiray 320, CT angiogram of the chest is performed from the upper abdomen to the thoracic inlet utilizing the pulmonary embolus protocol. Images are reviewed in the axial, sagittal, coronal planes. 3-D MIPS images are created and assessed. Subsequently, CT scan of the abdomen and pelvis was performed from the lung bases to the proximal femora. Images are reviewed in the axial, sagittal, and coronal planes. IV contrast was administered without complication. A dose lowering technique was utilized adhering to the principles of ALARA. CT DOSE: 2178.98 mGy.cm FINDINGS: CHEST: Thyroid: Imaged portions of the thyroid gland are normal in size and attenuation. Thoracic aorta: The thoracic aorta is normal in caliber and demonstrates bovine variant arch anatomy. No dissection is seen. Pulmonary vasculature: The pulmonary trunk is normal in caliber. There are no f illing defects identified in the main, lobar, or segmental pulmonary arteries to indicate pulmonary embolus. Heart: The heart is normal in size and without pericardial effusion. Lungs and pleural spaces: There is no airspace consolidation or pleural effusion. Dependent atelectasis is seen bilaterally. There are scattered calcified granulomas. The trachea and central airways are clear. Mediastinum: There is no mediastinal lymphadenopathy. Lora: Clear. Axillae: There is no axillary lymphadenopathy. Bony thorax: No lytic or blastic lesions are identified. ABDOMEN AND PELVIS: Liver: The contrast-enhanced liver is normal in size, contour, and attenuation. There is no intrahepatic biliary ductal dilatation. The hepatic veins and portal veins are patent. Gallbladder: Unremarkable. Spleen: Normal in size and attenuation. Pancreas: Unremarkable. Adrenal glands: Unremarkable. Kidneys: The contrast enhanced kidneys are normal in size and without hydronephrosis. The kidneys enhance symmetrically. Abdominal vasculature: The abdominal aorta is normal in course and caliber. Stomach and bowel: There is a small hiatal hernia. The proximal small bowel loops in the left abdomen are dilated and fluid-filled, measuring up to 3.2 cm in diameter. There is a focal transition point identified in the left lower quadrant on image #20 and 65. The distal small bowel loops are decompressed, and findings consistent with a small bowel obstruction. There are mildly thick- walled loops of small bowel in the pelvis with associated mesenteric venous engorgement. Venous engorgement is best seen on image #279. The distal small bowel is completely decompressed. There is trace interloop fluid. No pneumatosis intestinalis or portal venous gas is seen. There is mild to moderate colonic fecal retention. The appendix is well-visualized and normal. Peritoneum: There is no intraperitoneal free air or abdominal ascites. There is a fat-containing umbilical hernia. Lymphadenopathy: None. Pelvic viscera: The bladder is normal as visualized. The uterus is surgically absent. No adnexal lesion is seen. There is a small volume of free fluid in the cul-de-sac. Skeletal structures: No lytic or blastic lesions are seen. IMPRESSION: 1. There is no evidence of pulmonary embolus in the main, lobar, or segmental pulmonary arteries. 2. There is no airspace consolidation or pleural effusion. 3. There is evidence of a small bowel obstruction, with a transition point seen in the left lower quadrant. This is likely on the basis of adhesions. 4. Mildly thick-walled loops of small bowel are seen in the deep pelvis with associated venous engorgement. These loops may be at risk for ischemia. Surgical assessment is advised. 5. There is no intraperitoneal free air. No pneumatosis intestinalis or portal venous gas is seen. 6. Small volume of free fluid in the pelvis. 7. Additional findings as above. ACT 112: Negative or not required by law. Electronically signed by: Kel Ferreira M.D. 12/27/2022 9:49 PM Chest CTA 12/27/22 20:47 CT ANGIOGRAM OF THE CHEST; CT SCAN OF THE ABDOMEN AND PELVIS WITH IV CONTRAST CLINICAL HISTORY: Change in mental status. Left-sided abdominal pain. COMPARISON STUDY: Chest x-ray dated 11/28/2022. Abdominal CT dated 05/27/2007. Lumbar spine radiographs dated 05/03/2010. TECHNIQUE: Following the IV administration of 115 of Optiray 320, CT angiogram of the chest is performed from the upper abdomen to the thoracic inlet utilizing the pulmonary embolus protocol. Images are reviewed in the axial, sagittal, coronal planes. 3-D MIPS images are created and assessed. Subsequently, CT scan of the abdomen and pelvis was performed from the lung bases to the proximal femora. Images are reviewed in the axial, sagittal, and coronal planes. IV contrast was administered without complication. A dose lowering technique was utilized adhering to the principles of ALARA. CT DOSE: 2178.98 mGy.cm FINDINGS: CHEST: Thyroid: Imaged portions of the thyroid gland are normal in size and attenuation. Thoracic aorta: The thoracic aorta is normal in caliber and demonstrates bovine variant arch anatomy. No dissection is seen. Pulmonary vasculature: The pulmonary trunk is normal in caliber. There are no filling defects identified in the main, lobar, or segmental pulmonary arteries to indicate pulmonary embolus. Heart: The heart is normal in size and without pericardial effusion. Lungs and pleural spaces: There is no airspace consolidation or pleural effusion. Dependent atelectasis is seen bilaterally. There are scattered calcified granulomas. The trachea and central airways are clear. Mediastinum: There is no mediastinal lymphadenopathy. Lora: Clear. Axillae: There is no axillary lymphadenopathy. Bony thorax: No lytic or blastic lesions are identified. ABDOMEN AND PELVIS: Liver: The contrast-enhanced liver is normal in size, contour, and attenuation. There is no intrahepatic biliary ductal dilatation. The hepatic veins and portal veins are patent. Gallbladder: Unremarkable. Spleen: Normal in size and attenuation. Pancreas: Unremarkable. Adrenal glands: Unremarkable. Kidneys: The contrast enhanced kidneys are normal in size and without hydronephrosis. The kidneys enhance symmetrically. Abdominal vasculature: The abdominal aorta is normal in course and caliber. Stomach and bowel: There is a small hiatal hernia. The proximal small bowel loops in the left abdomen are dilated and fluid-filled, measuring up to 3.2 cm in diameter. There is a focal transition point identified in the left lower quadrant on image #20 and 65. The distal small bowel loops are decompressed, and findings consistent with a small bowel obstruction. There are mildly thick- walled loops of small bowel in the pelvis with associated mesenteric venous engorgement. Venous engorgement is best seen on image #279. The distal small bowel is completely decompressed. There is trace interloop fluid. No pneumatosis intestinalis or portal venous gas is seen. There is mild to moderate colonic fecal retention. The appendix is well-visualized and normal. Peritoneum: There is no intraperitoneal free air or abdominal ascites. There is a fat-containing umbilical hernia. Lymphadenopathy: None. Pelvic viscera: The bladder is normal as visualized. The uterus is surgically absent. No adnexal lesion is seen. There is a small volume of free fluid in the cul-de-sac. Skeletal structures: No lytic or blastic lesions are seen. IMPRESSION: 1. There is no evidence of pulmonary embolus in the main, lobar, or segmental pulmonary arteries. 2. There is no airspace consolidation or pleural effusion. 3. There is evidence of a small bowel obstruction, with a transition point seen in the left lower quadrant. This is likely on the basis of adhesions. 4. Mildly thick-walled loops of small bowel are seen in the deep pelvis with associated venous engorgement. These loops may be at risk for ischemia. Surgical assessment is advised. 5. There is no intraperitoneal free air. No pneumatosis intestinalis or portal venous gas is seen. 6. Small volume of free fluid in the pelvis. 7. Additional findings as above. ACT 112: Negative or not required by law. Electronically signed by: Kel Ferreira M.D. 12/27/2022 9:[address] 12/27/22 20:47 CT SCAN OF THE BRAIN WITHOUT IV CONTRAST CLINICAL HISTORY: Change in mental status. COMPARISON STUDY: No priors. TECHNIQUE: Unenhanced axial CT scan of the brain is performed from the vertex to the skull base. A dose lowering technique was utilized adhering to the principles of ALARA. FINDINGS: Brain parenchyma: The brain parenchyma is normal in appearance. There is no hemorrhage, mass effect, or evidence of acute territorial ischemia by CT criteria. [place]-white matter differentiation is preserved. No extra-axial fluid collection is seen. Ventricles, sulci, cisterns: Normal in configuration. Intracranial vasculature: The visualized intracranial vasculature at the skull base is normal in appearance. Calvarium: Unremarkable. Sinuses and mastoids: The visualized paranasal sinuses are clear. The mastoid air cells are well pneumatized. Orbits: The bony orbits are grossly intact. IMPRESSION: There is no hemorrhage, mass effect, or evidence of acute territorial ischemia by CT criteria. ACT 112: Negative or not required by law. Electronically signed by: Kel Ferreira M.D. 12/27/2022 9:35 PM KUB X-Ray 01/02/23 10:10 KUB CLINICAL HISTORY: Small bowel obstruction. FINDINGS: 2 AP, portable, supine abdominal radiographs are compared to study dated 01/01/2023 and correlated with abdominal CT dated 12/27/2022. An enteric tube is in place. The tip projects just below the diaphragm, with the sideholes above the diaphragm. This should likely be advanced. Again seen are distended and gas-filled loops of small bowel which measure up to 2.5 cm diameter. This indicates persistent obstruction. No evidence of intraperitoneal free air is seen on these supine images. There are no abnormal abdominal calcifications. The bony structures appear intact. The lung bases are clear as imaged. IMPRESSION: 1. Persistent small bowel obstruction. 2. The enteric tube should likely be advanced. See above. Electronically signed by: Kel Ferreira M.D. 01/02/2023 10:37 AM
--- NOTE | 2023-01-02 15:57 | Surgery Progress Note ---
Date of Service January 02, 2023 Assessment & Plan (1) SBO (small bowel obstruction): Plan: Patient is a 52 years old female who presented to ED with a 1 day history of periumbilical pain with some nausea and vomiting. Patient is a status post left knee replacement 8 days ago Patient had a CT scan diagnosis small bowel obstruction. avss KUB 12/29/2022 with persistent SBO , moderate fecal retention in right colon with gas in colon NGT with 50 cc last shift + flatus this am Plan: will clamp NGT but keep for today likely remove tomorrow Miralax via NGT again today Encourage ambulating to increase GI motility POtassium replacement per medicine continue medical management Dr. Staton has seen patient and agrees with above. 01/02/2023 3:[address] 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 Admission and Anticipated Discharge Date Admission Date: December 27, 2022 Subjective pt doing better, passed BM x 3, NG - 300ml . no abdominal pain, Physical Exam Constitutional: WD/WN, vitals as above Eyes: PERRL, conjunctivae normal, anicteric sclerae Neck: trachea midline, no thyromegaly Respiratory: normal respiratory effort, lungs clear to auscultation Cardiovascular: RRR, no murmur, no edema Gastrointestinal (Abdomen): soft, NT, ND, BS +, Musculoskeletal: no cyanosis or clubbing, extremities motor strength 5/5 Neurologic: patellar DTR's 2+ bilat, sensation intact Psychiatric: A+Ox3, euthymic affect Results & Data Vital Signs (Past 12 Hours) Vital Signs Temp Pulse Pulse Resp BP Pulse Ox O2 Del Method 01/02/23 15:39 37.3 C 86 15 118/77 97 Room Air 01/02/23 11:26 36.7 C 72 14 116/75 98 Room Air 01/02/23 07:51 37.2 C 86 15 131/83 98 Room Air 01/02/23 07:15 74 01/02/23 04:26 36.6 C 83 16 146/74 H 96 Room Air Laboratory Results Abnormal lab results 01/02/23 Range/Units 05:39 RBC 3.57 L (4.20-5.40) M/uL Hgb 10.6 L (12.0-16.0) g/dl Hct 31.4 L (37.0-47.0) % MPV 8.4 L (9.4-12.4) fL Neut # (Auto) 7.17 H (1.40-6.50) K/uL [place] # (Auto) 1.05 H (0.11-0.59) K/uL Creatinine 0.47 L (0.6-1.2) mg/dl BUN/Creatinine Ratio 23.4 H (10-20) Glucose 112 H (70-99(Fasting)) mg/dl Calcium 8.4 L (8.6-10.3) mg/dl Diagnostic Findings KUB CLINICAL HISTORY: Small bowel obstruction. FINDINGS: 2 AP, portable, supine abdominal radiographs are compared to study dated 01/01/2023 and correlated with abdominal CT dated 12/27/2022. An enteric tube is in place. The tip projects just below the diaphragm, with the sideholes above the diaphragm. This should likely be advanced. Again seen are distended and gas-filled loops of small bowel which measure up to 2.5 cm diameter. This indicates persistent obstruction. No evidence of intraperitoneal free air is seen on these supine images. There are no abnormal abdominal calcifications. The bony structures appear intact. The lung bases are clear as imaged. IMPRESSION: 1. Persistent small bowel obstruction. 2. The enteric tube should likely be advanced. See above.
[2023-01-02] MEDS ORDERED: POLYETHYLENE (MIRALAX) 17 GM PACK PO PRN (16:00)
--- NOTE | 2023-01-03 06:05 | Surgery Progress Note ---
Date of Service January 03, 2023 Assessment & Plan (1) SBO (small bowel obstruction): Plan: Patient has been admitted on the hospital service. We recommend proceeding as follows: As patient is tolerating clear liquids consideration may be given to further advancing her diet Continue IV fluids until certain oral intake is adequate Continue ambulation efforts Lovenox is in place for DVT prevention Admission and Anticipated Discharge Date Admission Date: December 27, 2022 Supervising Physician Co-Signing Physician Notes Patient seen and examined, agree with above. Resolving SBO, tolerating clears, having bowel movements. Abdomen soft, nondistended, nontender. Advance to full liquids and then later to low fiber diet. Potential discharge this afternoon or tomorrow. Subjective Patient is resting comfortably in bed and she reports an uneventful night. She has had a diet advanced to clear liquids which she has tolerated. She denies any nausea or vomiting. No worsening abdominal pain noted. Patient notes that she is passing flatus. She notes that she has been ambulating in the hallway. Physical Exam Gastrointestinal (Abdomen): Bowel sounds are present. Abdomen is soft and nondistended. There is no pain with palpation. Results & Data Vital Signs (Past 12 Hours) Vital Signs Temp Pulse Pulse Resp BP Pulse Ox O2 Del Method 01/03/23 03:08 36.8 C 77 16 124/77 97 Room Air 01/02/23 23:21 37.0 C 78 18 123/74 97 Room Air 01/02/23 23:07 83 01/02/23 20:24 36.8 C 84 18 133/84 97 Room Air PG Care Time/CCT Total # of Minutes Spent Total Time Spent with Patient: Total time spent is greater than 50% in coordination of care (as documented) at patient's floor/unit and/or counseling patient: Coding Level of Care Code 99804 SUB INP/OBS CARE 03/05MIN Diagnoses SBO (small bowel obstruction) K56.609
[2023-01-03] MEDS: D5W AND 1/2NSS + 20MEQ KCL 20 MEQ/1,000 ML BAG IV SCH (09:21)
[2023-01-03] MEDS: ENOXAPARIN INJ 40 MG/0.4 ML SYR SQ SCH (09:22)
[2023-01-03] MEDS: ACETAMINOPHEN 1,000 MG/100 ML VIAL IV PRN (09:22)
[2023-01-03] MEDS: PANTOprazole 40 MG in SYRINGE 0 ML IV SCH ×2 (09:23→20:59)
[2023-01-03] MEDS: MAGNESIUM HYDROXIDE SUSP 30 ML UDC PO SCH ×2 (10:00→20:59)
--- NOTE | 2023-01-03 11:28 | Hospitalist Progress Note ---
Date of Service January 03, 2023 Assessment & Plan (1) Hypokalemia: Plan: Small bowel obstruction Likely due to adhesions H/O hysterectomy, laparoscopy for endometriosis H/O IBS constipation predominant Patient presented with abdominal pain, nausea and vomiting. --CT ABD on admission:There is no evidence of pulmonary embolus in the main, lobar, or segmental pulmonary arteries. There is no airspace consolidation or pleural effusion. There is evidence of a small bowel obstruction, with a transition point seen in the left lower quadrant. This is likely on the basis of adhesions. Mildly thick-walled loops of small bowel are seen in the deep pelvis with associated venous engorgement. These loops may be at risk for ischemia. Surgical assessment is advised. There is no intraperitoneal free air. No pneumatosis intestinalis or portal venous gas is seen. Small volume of free fluid in the pelvis. NG tube was removed on January 02, 2023. Patient tolerating clear liquid diet and having bowel movements; advance to full liquid Will appreciate surgery's input. Continue IV fluids. Minimize IV pain medications as able. On IV Tylenol every 8 as needed Conservative management as per surgery Encouraged to ambulate Leukocytosis Likely reactive No obvious source of infection Blood cultures: No growth to date Monitor CBC daily Discontinue IV antibiotics. Hypokalemia Hypomagnesemia Replete electrolytes as needed Monitor Prediabetes HbA1c 5.7 H/O LE thrombophlebitis/DVT Chronic DVT Lower extremity Hold Eliquis for now Was started on IV heparin--Surgery help as patient may need surgery Placed on prophylactic dose of Lovenox. GERD continue Pepcid DVT Px: Lovenox SQ Code Status Full code Disposition; continues to be hospitalized due to small bowel obstruction needing NG tube placement. Patient had NG tube taken out yesterday. She is on clear liquid diet; will need to advance further. She requires closer monitoring for recurrence of SBO. Please note the above document was generated using voice recognition software. It may contain grammatical, syntax or spelling errors. Any formal questions or concerns about the content, text or information contained within the body of this dictation should be directly addressed to the provider for clarification Admission and Anticipated Discharge Date Admission Date: December 27, 2022 Subjective Patient seen and examined at bedside. She reports that she is tolerating clear liquids well. Passing flatus and even had a bowel movement today. Would like to try full liquid today. Review of Systems Review of Systems: All systems reviewed & are unremarkable except as noted in Subjective Physical Exam Physical Exam: Physical Exam: General Appearance:Moderately built and nourished, no apparent distress Head: normocephalic, Atraumatic ENT; NG tube in place. Eyes: normal inspection, EOMI Neck: supple, Trachea midline Respiratory/Chest: Normal breath sounds, CTA, No accessory muscle use Cardiovascular: S1, S2, No murmur Abdomen/GI: Soft, nondistended. Bowel sound present Extremities/Musculoskeletal:normal inspection, Trace pedal edema Neurologic/Psych:AAOX3, grossly no focal neurological deficits Skin: normal color, warm Results & Data Results & Data Vital Signs (Past 12 Hours) Vital Signs Temp Pulse Pulse Resp BP Pulse Ox O2 Del Method 01/03/23 09:26 Room Air 01/03/23 07:44 36.9 C 93 H 16 120/76 99 Room Air 01/03/23 07:00 77 01/03/23 03:08 36.8 C 77 16 124/77 97 Room Air Laboratory Results Laboratory Results WBC 10.31 K/ul (4.8-10.8) 01/02/23 05:39 RBC 3.57 M/uL (4.20-5.40) L 01/02/23 05:39 Hgb 10.6 g/dl (12.0-16.0) L 01/02/23 05:39 POC Hgb 10.9 g/dl (12.0-16.0) L 12/27/22 20:53 Hct 31.4 % (37.0-47.0) L 01/02/23 05:39 POC Hct 32 % (37-47) L 12/27/22 20:53 MCV 88.0 fL (80.0-100.0) 01/02/23 05:39 MCH 29.7 pg (25.0-34.0) 01/02/23 05:39 MCHC 33.8 g/dL (32.0-36.0) 01/02/23 05:39 RDW Std Deviation 38.7 fL (36.4-46.3) 01/02/23 05:39 RDW Coeff of Yenni 11.9 % (11.5-14.5) 01/02/23 05:39 Plt Count 350 K/uL (130-400) 01/02/23 05:39 MPV 8.4 fL (9.4-12.4) L 01/02/23 05:39 Immature Gran % (Auto) 0.7 % 01/02/23 05:39 Neut % (Auto) 69.5 % 01/02/23 05:39 Lymph % (Auto) 17.0 % 01/02/23 05:39 [place] % (Auto) 10.2 % 01/02/23 05:39 Eos % (Auto) 2.3 % 01/02/23 05:39 Baso % (Auto) 0.3 % 01/02/23 05:39 Neut # (Auto) 7.17 K/uL (1.40-6.50) H 01/02/23 05:39 Lymph # (Auto) 1.75 K/uL (1.20-3.40) 01/02/23 05:39 [place] # (Auto) 1.05 K/uL (0.11-0.59) H 01/02/23 05:39 Eos # (Auto) 0.24 K/uL (0.00-0.50) 01/02/23 05:39 Baso # (Auto) 0.03 K/uL (0.00-0.20) 01/02/23 05:39 Immature Gran # (Auto) 0.07 K/uL (0.01-0.20) 01/02/23 05:39 APTT 31.7 Seconds (21.0-31.0) H 12/28/22 11:02 PTT Ratio 1.1 12/28/22 11:02 VBG pH 7.42 (7.36-7.41) H 12/27/22 21:24 VBG pCO2 41 mmHg (38-50) 12/27/22 21:24 VBG pO2 72 mmHg 12/27/22 21:24 VBG HCO3 27 mmol/L 12/27/22 21:24 VBG O2 Saturation 95.9 % 12/27/22 21:24 VBG Base Excess 1.9 mEq/L 12/27/22 21:24 POC Sodium 138 mmol/L (135-144) 12/27/22 20:53 Sodium 139 mmol/L (136-145) 01/02/23 05:39 POC Potassium 3.2 mmol/L (3.3-5.0) L 12/27/22 20:53 Potassium 3.9 mmol/L (3.5-5.1) 01/02/23 05:39 POC Chloride 102 mmol/L (101-112) 12/27/22 20:53 Chloride 106 mmol/L (98-107) 01/02/23 05:39 Carbon Dioxide 27 mmol/L (21-32) 01/02/23 05:39 POC Total CO2 22 mmol/L (24-31) L 12/27/22 20:53 Anion Gap 6 (3-11) 01/02/23 05:39 POC Anion Gap 18.0 mmol/L (16-25) 12/27/22 20:53 POC BUN 18 mg/dl (7-18) 12/27/22 20:53 BUN 11 mg/dl (6-23) 01/02/23 05:39 Creatinine 0.47 mg/dl (0.6-1.2) L 01/02/23 05:39 POC Creatinine 0.7 mg/dl (0.6-1.3) 12/27/22 20:53 Est Cr Clr Drug Dosing 140.6 ml/min 01/02/23 05:39 Est GFR ( Amer) 129.8 ml/min 01/02/23 05:39 Est GFR (Non-Af Amer) 112.0 ml/min 01/02/23 05:39 BUN/Creatinine Ratio 23.4 (10-20) H 01/02/23 05:39 Glucose 112 mg/dl (70-99(Fasting)) H 01/02/23 05:39 POC Glucose (other) 168 mg/dl (70-99) H 12/27/22 20:53 Estimat Average Glucose 117 mg/dl 12/27/22 22:47 Hemoglobin A1c 5.7 % (4.5-5.6) H 12/27/22 22:47 Lactate 0.9 mmol/L (0.4-2.0) 12/27/22 22:58 Calcium 8.4 mg/dl (8.6-10.3) L 01/02/23 05:39 POC Ioniz Calcium [place] 1.05 mmol/l (1.12-1.32) L 12/27/22 20:53 Magnesium 2.1 mg/dl (1.7-2.4) 12/30/22 05:39 Total Bilirubin 0.7 mg/dl (0.2-1.0) 12/27/22 20:33 AST 21 U/L (13-39) 12/27/22 20:33 ALT 23 U/L (7-52) 12/27/22 20:33 Alkaline Phosphatase 62 U/L (34-104) 12/27/22 20:33 Total Protein 6.9 gm/dl (6.0-8.3) 12/27/22 20:33 Albumin 3.9 gm/dl (3.4-5.0) 12/27/22 20:33 Globulin 3.0 gm/dl (2.5-4.0) 12/27/22 20:33 Albumin/Globulin Ratio 1.3 (0.9-2) 12/27/22 20:33 Lipase 20 U/L (11-82) 12/27/22 20:33 Procalcitonin < 0.05 ng/ml (0-0.5) 12/27/22 20:33 Urine Color Yellow 12/27/22 22:20 Urine Appearance Clear (Clear) 12/27/22 22:20 Urine pH 8.5 (4.5-7.5) H 12/27/22 22:20 Ur Specific [place] > 1.045 (1.000-1.030) H 12/27/22 22:20 Urine Protein Negative (Negative) 12/27/22 22:20 Urine Glucose (UA) Negative (Negative) 12/27/22 22:20 Urine Ketones 2+ (Negative) H 12/27/22 22:20 Urine Blood Negative (Negative) 12/27/22 22:20 Urine Nitrite Negative (Negative) 12/27/22 22:20 Urine Bilirubin Negative (Negative) 12/27/22 22:20 Urine Urobilinogen Negative (Negative) 12/27/22 22:20 Ur Leukocyte Esterase Negative (Negative) 12/27/22 22:20 Impressions Abdomen/Pelvis CT 12/27/22 20:33 CT ANGIOGRAM OF THE CHEST; CT SCAN OF THE ABDOMEN AND PELVIS WITH IV CONTRAST CLINICAL HISTORY: Change in mental status. Left-sided abdominal pain. COMPARISON STUDY: Chest x-ray dated 11/28/2022. Abdominal CT dated 05/27/2007. Lumbar spine radiographs dated 05/03/2010. TECHNIQUE: Following the IV administration of 115 of Optiray 320, CT angiogram of the chest is performed from the upper abdomen to the thoracic inlet utilizing the pulmonary embolus protocol. Images are reviewed in the axial, sagittal, coronal planes. 3-D MIPS images are created and assessed. Subsequently, CT scan of the abdomen and pelvis was performed from the lung bases to the proximal femora. Images are reviewed in the axial, sagittal, and coronal planes. IV contrast was administered without complication. A dose lowering technique was utilized adhering to the principles of ALARA. CT DOSE: 2178.98 mGy.cm FINDINGS: CHEST: Thyroid: Imaged portions of the thyroid gland are normal in size and attenuation. Thoracic aorta: The thoracic aorta is normal in caliber and demonstrates bovine variant arch anatomy. No dissection is seen. Pulmonary vasculature: The pulmonary trunk is normal in caliber. There are no fi lling defects identified in the main, lobar, or segmental pulmonary arteries to indicate pulmonary embolus. Heart: The heart is normal in size and without pericardial effusion. Lungs and pleural spaces: There is no airspace consolidation or pleural effusion. Dependent atelectasis is seen bilaterally. There are scattered calcified granulomas. The trachea and central airways are clear. Mediastinum: There is no mediastinal lymphadenopathy. Lora: Clear. Axillae: There is no axillary lymphadenopathy. Bony thorax: No lytic or blastic lesions are identified. ABDOMEN AND PELVIS: Liver: The contrast-enhanced liver is normal in size, contour, and attenuation. There is no intrahepatic biliary ductal dilatation. The hepatic veins and portal veins are patent. Gallbladder: Unremarkable. Spleen: Normal in size and attenuation. Pancreas: Unremarkable. Adrenal glands: Unremarkable. Kidneys: The contrast enhanced kidneys are normal in size and without hydronephrosis. The kidneys enhance symmetrically. Abdominal vasculature: The abdominal aorta is normal in course and caliber. Stomach and bowel: There is a small hiatal hernia. The proximal small bowel loops in the left abdomen are dilated and fluid-filled, measuring up to 3.2 cm in diameter. There is a focal transition point identified in the left lower quadrant on image #20 and 65. The distal small bowel loops are decompressed, and findings consistent with a small bowel obstruction. There are mildly thick- walled loops of small bowel in the pelvis with associated mesenteric venous engorgement. Venous engorgement is best seen on image #279. The distal small bowel is completely decompressed. There is trace interloop fluid. No pneumatosis intestinalis or portal venous gas is seen. There is mild to moderate colonic fecal retention. The appendix is well-visualized and normal. Peritoneum: There is no intraperitoneal free air or abdominal ascites. There is a fat-containing umbilical hernia. Lymphadenopathy: None. Pelvic viscera: The bladder is normal as visualized. The uterus is surgically absent. No adnexal lesion is seen. There is a small volume of free fluid in the cul-de-sac. Skeletal structures: No lytic or blastic lesions are seen. IMPRESSION: 1. There is no evidence of pulmonary embolus in the main, lobar, or segmental pulmonary arteries. 2. There is no airspace consolidation or pleural effusion. 3. There is evidence of a small bowel obstruction, with a transition point seen in the left lower quadrant. This is likely on the basis of adhesions. 4. Mildly thick-walled loops of small bowel are seen in the deep pelvis with associated venous engorgement. These loops may be at risk for ischemia. Surgical assessment is advised. 5. There is no intraperitoneal free air. No pneumatosis intestinalis or portal venous gas is seen. 6. Small volume of free fluid in the pelvis. 7. Additional findings as above. ACT 112: Negative or not required by law. Electronically signed by: Kel Ferreira M.D. 12/27/2022 9:49 PM Chest CTA 12/27/22 20:47 CT ANGIOGRAM OF THE CHEST; CT SCAN OF THE ABDOMEN AND PELVIS WITH IV CONTRAST CLINICAL HISTORY: Change in mental status. Left-sided abdominal pain. COMPARISON STUDY: Chest x-ray dated 11/28/2022. Abdominal CT dated 05/27/2007. Lumbar spine radiographs dated 05/03/2010. TECHNIQUE: Following the IV administration of 115 of Optiray 320, CT angiogram of the chest is performed from the upper abdomen to the thoracic inlet utilizing the pulmonary embolus protocol. Images are reviewed in the axial, sagittal, coronal planes. 3-D MIPS images are created and assessed. Subsequently, CT scan of the abdomen and pelvis was performed from the lung bases to the proximal femora. Images are reviewed in the axial, sagittal, and coronal planes. IV contrast was administered without complication. A dose lowering technique was utilized adhering to the principles of ALARA. CT DOSE: 2178.98 mGy.cm FINDINGS: CHEST: Thyroid: Imaged portions of the thyroid gland are normal in size and attenuation. Thoracic aorta: The thoracic aorta is normal in caliber and demonstrates bovine variant arch anatomy. No dissection is seen. Pulmonary vasculature: The pulmonary trunk is normal in caliber. There are no filling defects identified in the main, lobar, or segmental pulmonary arteries to indicate pulmonary embolus. Heart: The heart is normal in size and without pericardial effusion. Lungs and pleural spaces: There is no airspace consolidation or pleural effusion. Dependent atelectasis is seen bilaterally. There are scattered calcified granulomas. The trachea and central airways are clear. Mediastinum: There is no mediastinal lymphadenopathy. Lora: Clear. Axillae: There is no axillary lymphadenopathy. Bony thorax: No lytic or blastic lesions are identified. ABDOMEN AND PELVIS: Liver: The contrast-enhanced liver is normal in size, contour, and attenuation. There is no intrahepatic biliary ductal dilatation. The hepatic veins and portal veins are patent. Gallbladder: Unremarkable. Spleen: Normal in size and attenuation. Pancreas: Unremarkable. Adrenal glands: Unremarkable. Kidneys: The contrast enhanced kidneys are normal in size and without hydronephrosis. The kidneys enhance symmetrically. Abdominal vasculature: The abdominal aorta is normal in course and caliber. Stomach and bowel: There is a small hiatal hernia. The proximal small bowel loops in the left abdomen are dilated and fluid-filled, measuring up to 3.2 cm in diameter. There is a focal transition point identified in the left lower quadrant on image #20 and 65. The distal small bowel loops are decompressed, and findings consistent with a small bowel obstruction. There are mildly thick- walled loops of small bowel in the pelvis with associated mesenteric venous engorgement. Venous engorgement is best seen on image #279. The distal small bowel is completely decompressed. There is trace interloop fluid. No pneumatosis intestinalis or portal venous gas is seen. There is mild to moderate colonic fecal retention. The appendix is well-visualized and normal. Peritoneum: There is no intraperitoneal free air or abdominal ascites. There is a fat-containing umbilical hernia. Lymphadenopathy: None. Pelvic viscera: The bladder is normal as visualized. The uterus is surgically absent. No adnexal lesion is seen. There is a small volume of free fluid in the cul-de-sac. Skeletal structures: No lytic or blastic lesions are seen. IMPRESSION: 1. There is no evidence of pulmonary embolus in the main, lobar, or segmental pulmonary arteries. 2. There is no airspace consolidation or pleural effusion. 3. There is evidence of a small bowel obstruction, with a transition point seen in the left lower quadrant. This is likely on the basis of adhesions. 4. Mildly thick-walled loops of small bowel are seen in the deep pelvis with associated venous engorgement. These loops may be at risk for ischemia. Surgical assessment is advised. 5. There is no intraperitoneal free air. No pneumatosis intestinalis or portal venous gas is seen. 6. Small volume of free fluid in the pelvis. 7. Additional findings as above. ACT 112: Negative or not required by law. Electronically signed by: Kel Ferreira M.D. 12/27/2022 9:[address] 12/27/22 20:47 CT SCAN OF THE BRAIN WITHOUT IV CONTRAST CLINICAL HISTORY: Change in mental status. COMPARISON STUDY: No priors. TECHNIQUE: Unenhanced axial CT scan of the brain is performed from the vertex to the skull base. A dose lowering technique was utilized adhering to the principles of ALARA. FINDINGS: Brain parenchyma: The brain parenchyma is normal in appearance. There is no hemorrhage, mass effect, or evidence of acute territorial ischemia by CT criteria. [place]-white matter differentiation is preserved. No extra-axial fluid collection is seen. Ventricles, sulci, cisterns: Normal in configuration. Intracranial vasculature: The visualized intracranial vasculature at the skull base is normal in appearance. Calvarium: Unremarkable. Sinuses and mastoids: The visualized paranasal sinuses are clear. The mastoid air cells are well pneumatized. Orbits: The bony orbits are grossly intact. IMPRESSION: There is no hemorrhage, mass effect, or evidence of acute territorial ischemia by CT criteria. ACT 112: Negative or not required by law. Electronically signed by: Kel Ferreira M.D. 12/27/2022 9:35 PM KUB X-Ray 01/02/23 10:10 KUB CLINICAL HISTORY: Small bowel obstruction. FINDINGS: 2 AP, portable, supine abdominal radiographs are compared to study dated 01/01/2023 and correlated with abdominal CT dated 12/27/2022. An enteric tube is in place. The tip projects just below the diaphragm, with the sideholes above the diaphragm. This should likely be advanced. Again seen are distended and gas-filled loops of small bowel which measure up to 2.5 cm diameter. This indicates persistent obstruction. No evidence of intraperitoneal free air is seen on these supine images. There are no abnormal abdominal calcifications. The bony structures appear intact. The lung bases are clear as imaged. IMPRESSION: 1. Persistent small bowel obstruction. 2. The enteric tube should likely be advanced. See above. Electronically signed by: Kel Ferreira M.D. 01/02/2023 10:37 AM
[2023-01-03] MEDS: ACETAMINOPHEN 325 MG TAB PO PRN (20:59)
[2023-01-04] MEDS: D5W AND 1/2NSS + 20MEQ KCL 20 MEQ/1,000 ML BAG IV SCH (04:36)
--- NOTE | 2023-01-04 05:32 | Surgery Progress Note ---
Date of Service January 04, 2023 Assessment & Plan (1) SBO (small bowel obstruction): Plan: Patient has been admitted on the hospital service. We recommend proceeding as follows: Continue to advance diet to solid food as patient has thus tolerated diet advancement Continue ambulation efforts Lovenox is in place for DVT prevention Likely discharge if patient continues to tolerate diet advancement Admission and Anticipated Discharge Date Admission Date: December 27, 2022 Supervising Physician Co-Signing Physician Notes Patient seen and examined, agree with above. Resolving SBO, tolerating full liquid, having bowel movements. Abdomen soft, nondistended, nontender. Advance to low fiber. Potential discharge this afternoon or tomorrow. Subjective Patient notes an uneventful night. She has tolerated advancement of her diet to full liquids and she has been having bowel movements. She denies any abdominal pain at this time. Physical Exam Gastrointestinal (Abdomen): Abdomen is soft and nondistended. There is minimal to no pain with palpation. Results & Data Vital Signs (Past 12 Hours) Vital Signs Temp Pulse Pulse Resp BP Pulse Ox O2 Del Method 01/04/23 03:18 36.9 C 81 16 121/73 96 Room Air 01/03/23 23:14 37.2 C 93 H 16 118/73 96 Room Air 01/03/23 23:05 86 01/03/23 19:27 37.3 C 96 H 16 112/70 98 Room Air PG Care Time/CCT Total # of Minutes Spent Total Time Spent with Patient: Total time spent is greater than 50% in coordination of care (as documented) at patient's floor/unit and/or counseling patient: Coding Level of Care Code 93906 SUB INP/OBS CARE 03/05MIN Diagnoses SBO (small bowel obstruction) K56.609
[2023-01-04 06:58] LABS: Basophils # (auto) 0.03 K/uL (0.00-0.20); Basophils % (auto) 0.4 %; Eosinophils # (auto) 0.17 K/uL (0.00-0.50); Hematocrit (blood only) 33.6 % (37.0-47.0); Hemoglobin 11.1 g/dl (12.0-16.0); Immature Granulocytes # (auto) 0.07 K/uL (0.01-0.20); Immature Granulocytes % (auto) 0.8 %; Lymphocytes # (auto) 2.26 K/uL (1.20-3.40); Lymphocytes % (auto) 26.7 %; Mean Corpuscular Hemoglobin 29.7 pg (25.0-34.0); Mean Corpuscular Volume 89.8 fL (80.0-100.0); Mean Platelet Volume 8.2 fL (9.4-12.4); Monocytes # (auto) 0.76 K/uL (0.11-0.59); Neutrophils # (auto) 5.19 K/uL (1.40-6.50); Neutrophils % (auto) 61.1 %; Platelet Count 389 K/uL (130-400); RDW Coefficient of Variation 12.3 % (11.5-14.5); Red Blood Count 3.74 M/uL (4.20-5.40); White Blood Count 8.48 K/ul (4.8-10.8)
[2023-01-04 07:14] LABS: BUN Creatinine Ratio 10.3 (10-20); Calcium 9.1 mg/dl (8.6-10.3); Creatinine Clr Calc Pharmacy 112.1 ml/min; Est GFR (African American) 121.1 ml/min; Est GFR (Non-African American) 104.5 ml/min; Potassium 3.8 mmol/L (3.5-5.1)
[2023-01-04] MEDS: ACETAMINOPHEN 325 MG TAB PO PRN (08:22)
[2023-01-04] MEDS: MAGNESIUM HYDROXIDE SUSP 30 ML UDC PO SCH (09:07)
[2023-01-04] MEDS: PANTOprazole 40 MG in SYRINGE 0 ML IV SCH (09:08)
[2023-01-04] MEDS: ENOXAPARIN INJ 40 MG/0.4 ML SYR SQ SCH (09:08)
--- NOTE | 2023-01-04 13:29 | Discharge Summary ---
Date of Service January 04, 2023 Admission HPI Per Admitting Provider History obtained from patient, family, and records. Medical history significant for history of LE thrombophlebitis followed by acute DVT on Eliquis, IBS constipation predominant. Overnight confinement December [id number] under orthopedic service for elective left total knee arthroplasty. Unremarkable postop course. Patient Eliquis resumed on discharge. Patient has not had bowel movement in the last 3 days. Not unusual for her given history of constipation predominant IBS as per patient. Today she noted achy periumbilical pain going to the left side followed by nausea, emesis. No headache, no hematemesis. No fever, no chills. Patient brought to the ER for evaluation by . 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 Exam Per Admitting Provider GENERAL: Comfortable, pleasant, no respiratory distress SKIN: Normal color, warm HEENT: Bespectacled, Enhaut palpebral conjunctivae, no ptosis, dry buccal mucosa NECK : Supple, no tenderness CHEST : CTA, no tenderness HEART : Tachycardic, no obvious murmurs ABDOMEN: Some distention, central abdominal tenderness EXTREMITIES : Minimal LE swelling, no LE tenderness, no other conspicuous deformities noted NEUROLOGIC : Coherent, no facial asymmetry, no other gross focality Principal Diagnosis Small bowel obstruction Discharge Exam Physical Exam: General Appearance:Moderately built and nourished, no apparent distress Head: normocephalic, Atraumatic Eyes: normal inspection, EOMI Neck: supple, Trachea midline Respiratory/Chest: Normal breath sounds, CTA, No accessory muscle use Cardiovascular: S1, S2, No murmur Abdomen/GI: Soft, nondistended. Bowel sound present Extremities/Musculoskeletal:normal inspection, Trace pedal edema Neurologic/Psych:AAOX3, grossly no focal neurological deficits Skin: normal color, warm Discharge Data Allergies Allergy/AdvReac Type Severity Reaction Status Date / Time nickel Allergy Mild Skin Verified 12/27/22 22:18 redness oxycodone AdvReac Unknown N/V Verified 12/27/22 22:18 Consultations 12/27/22 22:01 Consult General Surgery Stat ED Decision to Admit Stat Ordered Studies 12/27/22 20:33 CT Abd and Pelvis [CT abd pelvis IV con only] Stat 12/27/22 20:47 CT angio chest PE protocol Stat CT head/brain wo con Stat Hospital Course (1) Hypokalemia: Patient presented with abdominal pain, nausea and vomiting. CT abdomen on admission showed small bowel obstruction with transition point on left lower quadrant Patient was admitted to telemetry floor. Surgery was consulted for comanagement. Patient was placed on NG tube and underwent decompression with NG tube for several days. Over the course of the hospitalization, patient bowel function regimen gradually. Diet was advanced from clear liquid diet to low fiber diet gradually. At discharge, patient was tolerating low fiber diet without any difficulty. Patient was also found to have leukocytosis for which she was placed on empiric antibiotic initially. It was stopped later. Patient was discharged home on a low fiber diet with instruction to follow-up with PCP. Please note the above document was generated using voice recognition software. It may contain grammatical, syntax or spelling errors. Any formal questions or concerns about the content, text or information contained within the body of this dictation should be directly addressed to the provider for clarification Total Time Total Time Spent Total Time Spent (In Minutes): 35 Total Time Includes: Examination of the Patient, Discharge Planning, Medication Reconciliation, Communication With Other Providers and Other Discharge Plan Discharge Items Patient Disposition: Home - Self-Care Reason For Visit: HYPOKALEMIA, SBO Discharge Diagnosis: Small bowel obstuction Activity: Resume your previous activity Non-emergency contact: Primary Care Provider Call non-emergency contact if: you have any medication questions and your symptoms worsen Follow-up/Referrals: Paulie Santoyo MD [Primary Care Provider] - Diet: Low Fiber Addtl Attending Provider Instructions: You were admitted to the hospital due to small bowel obstruction. Please follow a low fiber diet. An appointment will be set up with your primary care doctor for sometime next week. Pending Studies at Discharge: No Stand-Alone Forms: [email or web address], Smoking Cessation Medications and DC Order Prescriptions: Continued tramadol 50 mg tablet 50 - 100 mg PO Q6 PRN (Reason: pain) Qty: 40 0RF Rx Instructions: Take as needed for pain ondansetron 4 mg tablet,disintegrating 4 mg PO Q8 PRN (Reason: nausea) Qty: 20 1RF Rx Instructions: Take as needed for nausea sennosides [Senokot] 8.6 mg tablet 8.6 mg PO BID 14 Days Qty: 28 0RF Rx Instructions: Take two times a day to prevent/treat constipation acetaminophen [Tylenol Extra Strength] 500 mg tablet 1,000 mg PO TID 30 Days Qty: 180 0RF Rx Instructions: Take 3 times per day to lessen pain. Calcium 600 + D(3) 600 mg calcium- 200 unit Capsule 2 cap PO QAM Flintstones Complete Tablet,Chewable 1 tab PO QAM famotidine [Pepcid] 20 mg Tablet 20 mg PO AMHS amino acids Powder 1 ea PO DAILY Rx Instructions: 1 scoop daily methocarbamol 750 mg tablet 750 mg PO BID PRN (Reason: Back Pain) Eliquis 5 mg tablet 5 mg PO AMHS Discharge Orders: Discharge Order (Routine); Ordered 01/04/23 Ordered By: Cortez Morillo/Other Patient Handouts: Low-Fiber Diet Admission Data Admit Date/Time: 12/27/22 23:10 Attending Provider: Cortez Mcginnis Admit Provider: Jassi Evans Primary Care Provider: Paulie Santoyo Other Providers: Larry Staton; Jassi Evans; [facility]; Fabien Weber Other Interventions: Discharge Summary Assessment (RN) Last Done: 01/04/23 12:08
== END 2023-01-04 13:26 | disposition home health service (06) | DRG 389 ==
LOC: ED 20:20 → EDINP 23:10 → SUATTDRO 23:10 → 2N 12-28 00:49

== ENCOUNTER 2023-08-31 06:40 | Observation (INO) ==
--- NOTE | 2023-08-31 07:09 | Emergency Department Note ---
History of Present Illness General Chief complaint: Abdominal Pain Stated complaint: ABDOMINAL PAIN, NAUSEA Time Seen by Provider: 08/31/23 06:57 History of Present Illness Maximum Pain Intensity: 8 This is a 53-year-old female that presents to the emergency department via private vehicle with complaints of "abdominal pain, nausea". Patient states that this past Thursday she ate lunch which was a tree which and then began with some discomfort. She notes normally she experiences epigastric pain however yesterday did eat some rice and chicken and continues now with what she describes as right lower quadrant abdominal pain. She does note a history of bowel obstruction but this feels different. She is able to pass gas and has had bowel movements Thursday, Thursday and this morning without issue. Patient notes that she drinks and tea this morning around 4 AM. Noting persistence of right lower quadrant pain she presented here. She has a history of total hysterectomy but does still have appendix and gallbladder. She notes some nausea/queasiness with the abdominal pain. She notes it is worse with palpation of the right lower quadrant and certain movements. She denies any associated fevers. No chest pain or shortness of breath. No dysuria or urinary symptoms. Home Medications Medication Instructions Recorded Confirmed Type calcium carbonate 600 mg-vitamin 2 cap PO QAM 10/12/18 08/31/23 History D3 5 mcg (200 unit) capsule (Calcium 600 + D(3)) famotidine 20 mg tablet (Pepcid) 20 mg PO AMHS reflux 10/12/18 08/31/23 History pediatric multivitamin no.76 1 tab PO QAM 10/12/18 08/31/23 History (Flintstones Complete chewable tablet) acetaminophen 500 mg tablet 1,000 mg (2 x 500 mg) PO TID pain 12/21/22 08/31/23 Rx (Tylenol Extra Strength) 30 days #180 tabs ondansetron 4 mg disintegrating 4 mg PO Q8 PRN nausea #20 tabs 12/21/22 08/31/23 Rx tablet methocarbamol 750 mg tablet 750 mg PO BID PRN Back Pain 12/27/22 08/31/23 History methylprednisolone 4 mg tablets in 4 mg PO UD #1 packet 03/12/23 08/31/23 Rx a dose pack amoxicillin 500 mg tablet 2,000 mg (4 x 500 mg) PO ONCE #4 04/23/23 08/31/23 Rx tabs Allergies Allergy/AdvReac Type Severity Reaction Status Date / Time nickel Allergy Mild Skin Verified 08/31/23 09:36 redness oxycodone AdvReac Unknown N/V Verified 08/31/23 09:36 Past Med/Surg History Problem List (Updated 08/31/23 @ 12:04 by Charli Whipple PA-C) Acute appendicitis (Acute) Abdominal pain (Acute) SBO (small bowel obstruction) (Acute) SBO (small bowel obstruction) Status post left knee replacement Contusion of left knee DVT (deep venous thrombosis) Stress fracture Pes anserinus tendonitis of left lower extremity Arthritis of carpometacarpal (CMC) joint of right thumb Right knee DJD Encounter for Routine Gynecological Examination Needle stick injury of finger of right hand (Acute) Medical History Hypokalemia Encounter for pre-operative examination Hx of irritable bowel syndrome History of COVID-19 03/2022- cough, chest congestion, fatigue > resolved Hx of phlebitis LLE, felt r/t Covid, "resolved"- Xarelto x 6 weeks DVT (deep venous thrombosis) 07/09/22 ([facility]), Right knee felt r/t related to estradiol or Covid infection per pt > recent scan "still shows is present" per pt Left knee DJD Degenerative disc disease SI joint dysfunction Osteoarthritis GERD (gastroesophageal reflux disease) Anemia Hx Temporomandibular joint disorder Left side, rare locking History of asthma Exercise induced, no inhaler Surgical History History of arthroscopy of left knee 02/2019 [facility] History of arthroplasty of left knee History of arthroscopy of right knee 10/2018 [facility] [place] Nausea and vomiting after administration of anesthetic agent H/O hand surgery Right index finger fracture repair 5th metacarpal fracture repair History of esophagogastroduodenoscopy (EGD) History of colonoscopy H/O total hysterectomy History of laparoscopy Exploratory History of tooth extraction Family History Mother Family history of diabetes mellitus Father Family hx of colon cancer Breast cancer Brother Family hx of colon cancer Denies family history of Ovarian cancer Prostate cancer Myocardial infarction Social History Smoking Status: Never smoker Second Hand Exposure: Yes (father smoked); Do You Dip or Chew Tobacco: No; Hx Alcohol Use: Yes Alcohol type: wine Hx Substance Use: No Preferred Language: Mozambican Communication Ability: Effective Monogram Technician Required: Yes Beliefs That Will Affect Care: None Current Living Situation: Spouse Feels Safe at Home: Yes Assistive Devices: Glasses and Walker Review of Systems A total of 10 systems reviewed and were otherwise negative Physical Exam Vital Signs Vital Signs - 24 hr 08/31/23 06:42 08/31/23 07:06 08/31/23 07:13 Temperature 36.7 C Temperature Source Temporal Artery Scan Pulse Rate 102 H 74 Pulse Rate [Apical] Pulse Rate [Right Finger] 72 Pulse Rhythm [Apical] Pulse Rhythm [Right Finger] Pulse Strength [Apical] Pulse Strength [Right Finger] Respiratory Rate 20 16 20 Respiratory Effort / Characteristics Non-Labored Spontaneous Respiratory Depth Normal Respiratory Pattern Blood Pressure 134/84 Blood Pressure [Right Arm] 141/78 H Blood Pressure Mean 100 Blood Pressure Mean [Right Arm] 99 Blood Pressure Position [Right Arm] Pulse Oximetry 98 97 99 Oxygen Delivery Method Room Air Room Air Room Air Oxygen Flow Rate Sepsis Recent Fever Within 48 Hours No Sepsis New/Unexplained Change in Mental Status No Sepsis Action Taken by Nursing No Action Required 08/31/23 07:17 08/31/23 09:22 08/31/23 09:27 Temperature Temperature Source Pulse Rate 73 73 Pulse Rate [Apical] Pulse Rate [Right Finger] 73 Pulse Rhythm [Apical] Pulse Rhythm [Right Finger] Regular Pulse Strength [Apical] Pulse Strength [Right Finger] Normal Respiratory Rate 20 20 Respiratory Effort / Characteristics Non-Labored Respiratory Depth Normal Respiratory Pattern Blood Pressure 133/77 Blood Pressure [Right Arm] 133/77 Blood Pressure Mean Blood Pressure Mean [Right Arm] 95 Blood Pressure Position [Right Arm] Lying Pulse Oximetry 97 97 Oxygen Delivery Method Room Air Room Air Oxygen Flow Rate Sepsis Recent Fever Within 48 Hours Sepsis New/Unexplained Change in Mental Status Sepsis Action Taken by Nursing 08/31/23 09:40 08/31/23 11:15 08/31/23 11:25 Temperature 36.8 C 36.2 C L Temperature Source Oral Temporal Artery Scan Pulse Rate Pulse Rate [Apical] 71 72 Pulse Rate [Right Finger] 70 Pulse Rhythm [Apical] Regular Regular Pulse Rhythm [Right Finger] Regular Pulse Strength [Apical] Normal Normal Pulse Strength [Right Finger] Normal Respiratory Rate 18 24 19 Respiratory Effort / Characteristics Non-Labored Spontaneous Non-Labored Spontaneous Non-Labored Spontaneous Respiratory Depth Normal Normal Normal Respiratory Pattern Regular Regular Regular Blood Pressure Blood Pressure [Right Arm] 115/76 140/81 116/64 Blood Pressure Mean Blood Pressure Mean [Right Arm] 89 100 81 Blood Pressure Position [Right Arm] Semi-fowlers Semi-fowlers Semi-fowlers Pulse Oximetry 99 97 97 Oxygen Delivery Method Room Air Oxymask Oxymask Oxygen Flow Rate 6 3 Sepsis Recent Fever Within 48 Hours Sepsis New/Unexplained Change in Mental Status Sepsis Action Taken by Nursing 08/31/23 11:35 08/31/23 11:45 08/31/23 12:00 Temperature 36.6 C Temperature Source Oral Pulse Rate Pulse Rate [Apical] 66 63 65 Pulse Rate [Right Finger] Pulse Rhythm [Apical] Regular Regular Regular Pulse Rhythm [Right Finger] Pulse Strength [Apical] Normal Normal Normal Pulse Strength [Right Finger] Respiratory Rate 19 18 17 Respiratory Effort / Characteristics Non-Labored Spontaneous Non-Labored Spontaneous Non-Labored Spontaneous Respiratory Depth Normal Normal Normal Respiratory Pattern Regular Regular Regular Blood Pressure Blood Pressure [Right Arm] 108/61 112/71 111/60 Blood Pressure Mean Blood Pressure Mean [Right Arm] 76 84 77 Blood Pressure Position [Right Arm] Semi-fowlers Semi-fowlers Semi-fowlers Pulse Oximetry 97 95 96 Oxygen Delivery Method Room Air Room Air Room Air Oxygen Flow Rate Sepsis Recent Fever Within 48 Hours Sepsis New/Unexplained Change in Mental Status Sepsis Action Taken by Nursing VITAL SIGNS - Vital signs and nursing notes were reviewed. Mildly tachycardic at 102, otherwise stable. GENERAL -53-year-old female appearing her stated age who is in no acute distress. Communicates well with provider and answers questions appropriately. SKIN - Without rashes. No meningeal or petechial rash. HEAD - NC/AT. EYES - Sclera anicteric. NOSE - No epistaxis or purulent drainage noted. MOUTH/OROPHARYNX - Without perioral cyanosis. NECK - Neck with FROM. No nuchal rigidity. LUNGS - CTA CARDIAC - RRR ABDOMEN - Abdominal contour normal without pulsations or visible masses. BS normoactive all four quadrants. There is right lower quadrant abdominal tenderness to palpation. No palpable masses, hepatosplenomegaly, or ascites noted. EXTREMITIES - No clubbing or peripheral cyanosis. +5/5 strength noted in UE/LE bilaterally. NEUROLOGIC - Cranial nerves II through XII grossly intact. PSYCH -alert, oriented and pleasant on exam Course Administered Medications Lactated Ringer's (Lr) 1,000 mls @ 15 mls/hr IV .Q24H MARCOS Stop: 09/30/23 09:44 Last Infusion: 08/31/23 10:18 Dose: Infused Documented By: Admin: 08/31/23 09:46 Dose: 15 mls/hr Documented By: HD Discontinued Medications Bupivacaine HCl/Epinephrine Bitart (Bupivacaine/Epinephrine 0.5% Mpf 1:200,000 30 Ml Vial) Confirm Administered Dose 30 ml .ROUTE .STK-MED ONE Stop: 08/31/23 10:04 Last Admin: 08/31/23 10:58 Dose: 30 ml Documented By: NICOLETTE Piperacillin Sod/Tazobactam Sod (Zosyn) 4.5 gm in 100 mls @ 200 mls/hr IV ONE ONE Stop: 08/31/23 10:14 Last Admin: 08/31/23 10:21 Dose: 200 mls/hr Documented By: TOBY Ioversol (Optiray 320 100ml) 94 ml IV ONCE ONE Stop: 08/31/23 08:20 Last Admin: 08/31/23 08:19 Dose: 94 ml Documented By: JIN Medical Decision Making Laboratory Data 08/31/23 07:10 08/31/23 07:10 Lab Results 08/31/23 Range/Units 07:10 WBC 11.95 H (4.8-10.8) K/ul RBC 4.89 (4.20-5.40) M/uL Hgb 14.2 (12.0-16.0) g/dl Hct 42.9 (37.0-47.0) % MCV 87.7 (80.0-100.0) fL MCH 29.0 (25.0-34.0) pg MCHC 33.1 (32.0-36.0) g/dL RDW Std Deviation 40.6 (36.4-46.3) fL RDW Coeff of Yenni 12.6 (11.5-14.5) % Plt Count 267 (130-400) K/uL MPV 9.1 L (9.4-12.4) fL Immature Gran % (Auto) 0.4 % Neut % (Auto) 80.1 % Lymph % (Auto) 10.5 % Patrick % (Auto) 8.5 % Eos % (Auto) 0.2 % Baso % (Auto) 0.3 % Neut # (Auto) 9.59 H (1.40-6.50) K/uL Lymph # (Auto) 1.25 (1.20-3.40) K/uL Patrick # (Auto) 1.01 H (0.11-0.59) K/uL Eos # (Auto) 0.02 (0.00-0.50) K/uL Baso # (Auto) 0.03 (0.00-0.20) K/uL Immature Gran # (Auto) 0.05 (0.01-0.20) K/uL Sodium 140 (136-145) mmol/L Potassium 3.6 (3.5-5.1) mmol/L Chloride 102 (98-107) mmol/L Carbon Dioxide 29 (21-32) mmol/L Anion Gap 9 (3-11) BUN 14 (6-23) mg/dl Creatinine 0.86 (0.6-1.2) mg/dl Est Cr Clr Drug Dosing 79.3 ml/min Est GFR ( Amer) 88.1 ml/min Est GFR (Non-Af Amer) 76.1 ml/min BUN/Creatinine Ratio 16.3 (10-20) Glucose 102 H (70-99(Fasting)) mg/dl Calcium 9.7 (8.6-10.3) mg/dl Total Bilirubin 0.6 (0.2-1.0) mg/dl AST 15 (13-39) U/L ALT 15 (7-52) U/L Alkaline Phosphatase 93 (34-104) U/L Total Protein 7.6 (6.0-8.3) gm/dl Albumin 4.6 (3.4-5.0) gm/dl Globulin 3.0 (2.5-4.0) gm/dl Albumin/Globulin Ratio 1.5 (0.9-2) Lipase 27 (11-82) U/L Urine Color Yellow Urine Appearance Clear (Clear) Urine pH 8.0 H (4.5-7.5) Ur Specific [place] 1.015 (1.000-1.030) Urine Protein Negative (Negative) Urine Glucose (UA) Negative (Negative) Urine Ketones Negative (Negative) Urine Blood Negative (Negative) Urine Nitrite Negative (Negative) Urine Bilirubin Negative (Negative) Urine Urobilinogen Negative (Negative) Ur Leukocyte Esterase Negative (Negative) Imaging Data Radiologist's Impression: Abdomen/Pelvis CT 08/31/23 07:05 CT OF THE ABDOMEN AND PELVIS WITH CONTRAST CLINICAL HISTORY: Right lower quadrant abdominal pain. COMPARISON STUDY: CT of the abdomen and pelvis December 27, 2022. KUB January 02, 2023. TECHNIQUE: Following IV administration of 94 mL of Optiray, axial images of the abdomen and pelvis were obtained from the lung bases to the proximal femurs. Images were reviewed in the axial, sagittal, and coronal planes. IV contrast was administered without complication. Automated exposure control was utilized for the study. A dose lowering technique was utilized adhering to the principles of ALARA. CT DOSE: 701.02 mGy.cm FINDINGS: Lung bases are unremarkable. No pneumatosis, free air or portal venous gas is present. A few subcentimeter hypodense hepatic lesions favor cysts. The spleen, adrenal glands, kidneys and pancreas are unremarkable. There is no hydronephrosis. There is no evidence for a bowel obstruction. The appendix is mildly dilated, measuring 1.1 cm in caliber. Several appendicoliths are noted, including an appendicolith within the base. There is mild periappendiceal infiltration and a small amount of fluid. There is a small amount of fluid within the pelvis. There is no free air. No rim-enhancing fluid collection is suggest abscess. Pelvic calcifications represent phleboliths. IMPRESSION: Findings consistent with acute appendicitis. No free air or abscess. ACT 112: Negative or not required by law. Electronically signed by: Lazaro Joyce M.D. 08/31/2023 8:38 AM MDM Narrative Patient was seen and evaluated as above in room B02. Review was performed of triage nursing notes and vital signs. I did review pertinent previous visits and patient history. After obtaining a thorough history and physical examination the above work up was performed. Patient presents to us today for evaluation of right lower quadrant abdominal pain. She does have reproducible right lower quadrant tenderness on examination. No fever. Options of care were discussed with the patient. IV access was established. Labs were drawn. She was offered analgesia and respectfully declined. The patient does have a history of bowel obstruction. Surgical history of the abdomen significant for that of total hysterectomy. She does note that the appendix and gallbladder still present. With the tenderness in the right lower quadrant, we will proceed at this time with a CT scan of the abdomen pelvis with IV contrast. There is no leukocytosis or concerning anemia no emergent metabolic disturbance. Mild hyperglycemia 102. Urinalysis does not suggest infection. CT scan of the abdomen and pelvis concerning for acute appendicitis. I did speak with the general surgery service. Patient will be taken to the operative suite for further evaluation and management. Please refer to further documentation regarding her stay. Antibiotics will be ordered by the surgical service preoperatively Urinalysis reveals no evidence of infection. GCS: 15 In the evaluation and treatment of this patient the following differential diagnoses were entertained: Diverticulitis, UTI, appendicitis, peritonitis, pyelonephritis, kidney stone, among others Impression & Plan Acute appendicitis, Abdominal pain Discharge Plan Visit Data Chief Complaint: Abdominal Pain Stated Complaint: ABDOMINAL PAIN, NAUSEA ED Provider: Jovon Fonseca ED Midlevel Provider: Charli Whipple Discharge Problem: Acute appendicitis, Abdominal pain Patient Disposition: Being Evaluated by Hospitalist Condition: Good Discharge Instructions Interventions: ED Discharge Assessment Last Done: 08/31/23 09:27 Discharge Problem: Abdominal pain Qualifiers: Abdominal location: right lower quadrant Qualified Code(s): R10.31 - Right lower quadrant pain
[2023-08-31 07:32] LABS: Appearance Urine Clear (Clear); Bilirubin Urine Negative (Negative); Blood Urine Negative (Negative); Color Urine Yellow; Glucose Urine UA Negative (Negative); Ketones Urine Negative (Negative); Leukocyte Esterase Urine Negative (Negative); Nitrite Urine Negative (Negative); Protein Urine Negative (Negative); Specific Gravity Urine 1.015 (1.000-1.030); Urobilinogen Urine Negative (Negative)
[2023-08-31 07:48] LABS: Basophils # (auto) 0.03 K/uL (0.00-0.20); Basophils % (auto) 0.3 %; Eosinophils # (auto) 0.02 K/uL (0.00-0.50); Eosinophils % (auto) 0.2 %; Hematocrit (blood only) 42.9 % (37.0-47.0); Hemoglobin 14.2 g/dl (12.0-16.0); Immature Granulocytes # (auto) 0.05 K/uL (0.01-0.20); Immature Granulocytes % (auto) 0.4 %; Lymphocytes # (auto) 1.25 K/uL (1.20-3.40); Lymphocytes % (auto) 10.5 %; Mean Corpuscular Hgb Conc 33.1 g/dL (32.0-36.0); Mean Corpuscular Volume 87.7 fL (80.0-100.0); Mean Platelet Volume 9.1 fL (9.4-12.4); Monocytes # (auto) 1.01 K/uL (0.11-0.59); Monocytes % (auto) 8.5 %; Neutrophils # (auto) 9.59 K/uL (1.40-6.50); Neutrophils % (auto) 80.1 %; Platelet Count 267 K/uL (130-400); RDW Coefficient of Variation 12.6 % (11.5-14.5); RDW Standard Deviation 40.6 fL (36.4-46.3); Red Blood Count 4.89 M/uL (4.20-5.40); White Blood Count 11.95 K/ul (4.8-10.8)
[2023-08-31 08:01] LABS: Albumin Globulin Ratio 1.5 (0.9-2); Albumin Level 4.6 gm/dl (3.4-5.0); BUN Creatinine Ratio 16.3 (10-20); Bilirubin,Total 0.6 mg/dl (0.2-1.0); Calcium 9.7 mg/dl (8.6-10.3); Creatinine Clr Calc Pharmacy 79.3 ml/min; Est GFR (African American) 88.1 ml/min; Est GFR (Non-African American) 76.1 ml/min; Potassium 3.6 mmol/L (3.5-5.1); Total Protein 7.6 gm/dl (6.0-8.3)
[2023-08-31] MEDS: OPTIRAY 320 100ml IV ONE (08:19)
--- NOTE | 2023-08-31 08:39 | CT Scan Report ---
CT OF THE ABDOMEN AND PELVIS WITH CONTRAST CLINICAL HISTORY: Right lower quadrant abdominal pain. COMPARISON STUDY: CT of the abdomen and pelvis December 27, 2022. KUB January 02, 2023. TECHNIQUE: Following IV administration of 94 mL of Optiray, axial images of the abdomen and pelvis we re obtained from the lung bases to the proximal femurs. Images were reviewed in the axial, sagittal, and coronal planes. IV contrast was administered without complication. Automated exposure control wa s utilized for the study. A dose lowering technique was utilized adhering to the principles of ALARA . CT DOSE: 701.02 mGy.cm FINDINGS: Lung bases are unremarkable. No pneumatosis, free air or portal venous gas is present. A fe w subcentimeter hypodense hepatic lesions favor cysts. The spleen, adrenal glands, kidneys and pancre as are unremarkable. There is no hydronephrosis. There is no evidence for a bowel obstruction. The ap pendix is mildly dilated, measuring 1.1 cm in caliber. Several appendicoliths are noted, including a n appendicolith within the base. There is mild periappendiceal infiltration and a small amount of flu id. There is a small amount of fluid within the pelvis. There is no free air. No rim-enhancing fluid collection is suggest abscess. Pelvic calcifications represent phleboliths. IMPRESSION: Findings consistent with acute appendicitis. No free air or abscess. ACT 112: Negative or not required by law. Electronically signed by: Lazaro Joyce M.D. 08/31/2023 8:38 AM
[2023-08-31] MEDS ORDERED: PIPERACILLIN/TAZOBACTAM 4.5 GM in DEXTROSE 5% MINI-B 100 ML IV ONE (09:33)
[2023-08-31] MEDS: LACTATED RINGER'S 1,000 ML IV SCH (09:46)
--- NOTE | 2023-08-31 09:48 | History & Physical Report ---
Date of Service August 31, 2023 Assessment & Plan (1) Acute appendicitis: Plan: 53-year-old woman with acute appendicitis. Discussed the risks and benefits of laparoscopic appendectomy with her. All questions were answered and she is agreeable to proceed. Consent has been obtained. Will take her to the operating room at the earliest convenience. She has been given a dose of Zosyn. She is on IV fluids. History of Present Illness Primary Care Provider: Paulie Santoyo MD 53-year-old woman presents with 2-day history of worsening right lower quadrant pain. It began in the periumbilical region and radiated to the right lower quadrant. No fevers or chills. Some nausea. She has had a prior hysterectomy and bowel obstruction following a knee Replacement. She was on Eliquis but has not taken it in over 1 month. Allergies Allergy/AdvReac Type Severity Reaction Status Date / Time nickel Allergy Mild Skin Verified 08/31/23 09:36 redness oxycodone AdvReac Unknown N/V Verified 08/31/23 09:36 Home Medications Medication Instructions Recorded Confirmed Type calcium carbonate 600 mg-vitamin 2 cap PO QAM 10/12/18 08/31/23 History D3 5 mcg (200 unit) capsule (Calcium 600 + D(3)) famotidine 20 mg tablet (Pepcid) 20 mg PO AMHS reflux 10/12/18 08/31/23 History pediatric multivitamin no.76 1 tab PO QAM 10/12/18 08/31/23 History (Flintstones Complete chewable tablet) acetaminophen 500 mg tablet 1,000 mg (2 x 500 mg) PO TID pain 12/21/22 08/31/23 Rx (Tylenol Extra Strength) 30 days #180 tabs ondansetron 4 mg disintegrating 4 mg PO Q8 PRN nausea #20 tabs 12/21/22 08/31/23 Rx tablet methocarbamol 750 mg tablet 750 mg PO BID PRN Back Pain 12/27/22 08/31/23 History methylprednisolone 4 mg tablets in 4 mg PO UD #1 packet 03/12/23 08/31/23 Rx a dose pack amoxicillin 500 mg tablet 2,000 mg (4 x 500 mg) PO ONCE #4 04/23/23 08/31/23 Rx tabs Past Med/Surg History Problem List (Updated 08/31/23 @ 09:49 by Curry Carranza MD) Acute appendicitis Abdominal pain (Acute) SBO (small bowel obstruction) (Acute) SBO (small bowel obstruction) Status post left knee replacement Contusion of left knee DVT (deep venous thrombosis) Stress fracture Pes anserinus tendonitis of left lower extremity Arthritis of carpometacarpal (CMC) joint of right thumb Right knee DJD Encounter for Routine Gynecological Examination Needle stick injury of finger of right hand (Acute) Medical History Hypokalemia Encounter for pre-operative examination Hx of irritable bowel syndrome History of COVID-19 03/2022- cough, chest congestion, fatigue > resolved Hx of phlebitis LLE, felt r/t Covid, "resolved"- Xarelto x 6 weeks DVT (deep venous thrombosis) 07/09/22 ([facility]), Right knee felt r/t related to estradiol or Covid infection per pt > recent scan "still shows is present" per pt Left knee DJD Degenerative disc disease SI joint dysfunction Osteoarthritis GERD (gastroesophageal reflux disease) Anemia Hx Temporomandibular joint disorder Left side, rare locking History of asthma Exercise induced, no inhaler Surgical History History of arthroscopy of left knee [place] [facility] [place] of arthroplasty of left knee History of arthroscopy of right knee 10/2018 [facility] [place] Nausea and vomiting after administration of anesthetic agent H/O hand surgery Right index finger fracture repair 5th metacarpal fracture repair History of esophagogastroduodenoscopy (EGD) History of colonoscopy H/O total hysterectomy History of laparoscopy Exploratory History of tooth extraction Family History Mother Family history of diabetes mellitus Father Family hx of colon cancer Breast cancer Brother Family hx of colon cancer Denies family history of Ovarian cancer Prostate cancer Myocardial infarction Social History Smoking Status: Never smoker Second Hand Exposure: Yes (father smoked); Do You Dip or Chew Tobacco: No; Hx Alcohol Use: Yes Alcohol type: wine Hx Substance Use: No Preferred Language: Kinyarwanda Communication Ability: Effective 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 Beliefs That Will Affect Care: None Current Living Situation: Spouse Feels Safe at Home: Yes Assistive Devices: Glasses and Walker Review of Systems Review of Systems: All systems reviewed & are unremarkable except as noted in HPI & below Physical Exam Constitutional: WD/WN, vitals as above Eyes: PERRL, conjunctivae normal, anicteric sclerae Neck: trachea midline, no thyromegaly Respiratory: normal respiratory effort, lungs clear to auscultation Cardiovascular: RRR, no murmur, no edema Gastrointestinal (Abdomen): Inspection/Auscultation: abdomen normal to inspection; abdomen not distended Percussion/Palpation: + abdomen tender ( RLQ) and abdomen soft; no guarding and abdomen not rigid Skin: no rashes, warm and dry Psychiatric: A+Ox3, euthymic affect Results & Data Results & Data Vital Signs (Past 12 Hours) Vital Signs Temp Pulse Pulse Resp BP BP Pulse Ox 08/31/23 09:40 36.8 C 70 18 115/76 99 08/31/23 09:27 73 20 133/77 97 08/31/23 09:22 73 20 133/77 97 08/31/23 07:17 73 08/31/23 07:13 72 20 141/78 H 99 08/31/23 07:06 74 16 97 08/31/23 06:42 36.7 C 102 H 20 134/84 98 O2 Del Method 08/31/23 09:40 Room Air 08/31/23 09:27 Room Air 08/31/23 09:22 Room Air 08/31/23 07:17 08/31/23 07:13 Room Air 08/31/23 07:06 Room Air 08/31/23 06:42 Room Air Laboratory Results 08/31/23 Range/Units 07:10 WBC 11.95 H (4.8-10.8) K/ul RBC 4.89 (4.20-5.40) M/uL Hgb 14.2 (12.0-16.0) g/dl Hct 42.9 (37.0-47.0) % MCV 87.7 (80.0-100.0) fL MCH 29.0 (25.0-34.0) pg MCHC 33.1 (32.0-36.0) g/dL RDW Std Deviation 40.6 (36.4-46.3) fL RDW Coeff of Yenni 12.6 (11.5-14.5) % Plt Count 267 (130-400) K/uL MPV 9.1 L (9.4-12.4) fL Immature Gran % (Auto) 0.4 % Neut % (Auto) 80.1 % Lymph % (Auto) 10.5 % [place] % (Auto) 8.5 % Eos % (Auto) 0.2 % Baso % (Auto) 0.3 % Neut # (Auto) 9.59 H (1.40-6.50) K/uL Lymph # (Auto) 1.25 (1.20-3.40) K/uL [place] # (Auto) 1.01 H (0.11-0.59) K/uL Eos # (Auto) 0.02 (0.00-0.50) K/uL Baso # (Auto) 0.03 (0.00-0.20) K/uL Immature Gran # (Auto) 0.05 (0.01-0.20) K/uL Sodium 140 (136-145) mmol/L Potassium 3.6 (3.5-5.1) mmol/L Chloride 102 (98-107) mmol/L Carbon Dioxide 29 (21-32) mmol/L Anion Gap 9 (3-11) BUN 14 (6-23) mg/dl Creatinine 0.86 (0.6-1.2) mg/dl Est Cr Clr Drug Dosing 79.3 ml/min Est GFR ( Amer) 88.1 ml/min Est GFR (Non-Af Amer) 76.1 ml/min BUN/Creatinine Ratio 16.3 (10-20) Glucose 102 H (70-99(Fasting)) mg/dl Calcium 9.7 (8.6-10.3) mg/dl Total Bilirubin 0.6 (0.2-1.0) mg/dl AST 15 (13-39) U/L ALT 15 (7-52) U/L Alkaline Phosphatase 93 (34-104) U/L Total Protein 7.6 (6.0-8.3) gm/dl Albumin 4.6 (3.4-5.0) gm/dl Globulin 3.0 (2.5-4.0) gm/dl Albumin/Globulin Ratio 1.5 (0.9-2) Lipase 27 (11-82) U/L Urine Color Yellow Urine Appearance Clear (Clear) Urine pH 8.0 H (4.5-7.5) Ur Specific [place] 1.015 (1.000-1.030) Urine Protein Negative (Negative) Urine Glucose (UA) Negative (Negative) Urine Ketones Negative (Negative) Urine Blood Negative (Negative) Urine Nitrite Negative (Negative) Urine Bilirubin Negative (Negative) Urine Urobilinogen Negative (Negative) Ur Leukocyte Esterase Negative (Negative) Diagnostic Findings CT OF THE ABDOMEN AND PELVIS WITH CONTRAST CLINICAL HISTORY: Right lower quadrant abdominal pain. COMPARISON STUDY: CT of the abdomen and pelvis December 27, 2022. KUB January 02, 2023. TECHNIQUE: Following IV administration of 94 mL of Optiray, axial images of the abdomen and pelvis were obtained from the lung bases to the proximal femurs. Images were reviewed in the axial, sagittal, and coronal planes. IV contrast was administered without complication. Automated exposure control was utilized for the study. A dose lowering technique was utilized adhering to the principles of ALARA. CT DOSE: 701.02 mGy.cm FINDINGS: Lung bases are unremarkable. No pneumatosis, free air or portal venous gas is present. A few subcentimeter hypodense hepatic lesions favor cysts. The spleen, adrenal glands, kidneys and pancreas are unremarkable. There is no hydronephrosis. There is no evidence for a bowel obstruction. The appendix is mildly dilated, measuring 1.1 cm in caliber. Several appendicoliths are noted, including an appendicolith within the base. There is mild periappendiceal infiltration and a small amount of fluid. There is a small amount of fluid within the pelvis. There is no free air. No rim-enhancing fluid collection is suggest abscess. Pelvic calcifications represent phleboliths. IMPRESSION: Findings consistent with acute appendicitis. No free air or abscess. ACT 112: Negative or not required by law. Electronically signed by: Lazaro Joyce M.D. 08/31/2023 8:38 AM (1) Acute appendicitis Acute appendicitis type: with localized peritonitis Appendicitis gangrene presence: without gangrene Appendicitis perforation presence: without perforation Appendicitis abscess presence: without abscess Qualified Code(s): K35.30 - Acute appendicitis with localized peritonitis, without perforation or gangrene
[2023-08-31] MEDS ORDERED: DEXAMETHASONE SOD INJ 4 MG/ML VIAL ONE (09:58)
[2023-08-31] MEDS ORDERED: PROPOFOL IV EMULSION 10 MG/ML 20 ML VIAL IV ONE (09:58)
[2023-08-31] MEDS ORDERED: fentaNYL citrate PF 100 MCG/2 ML VIAL ONE (09:58)
[2023-08-31] MEDS ORDERED: MIDAZOLAM HCL 1 MG/ML 2ML VIAL ONE (09:58)
[2023-08-31] MEDS ORDERED: LIDOCAINE 2% 2 ML VIAL/AMP(20MG/ML) INFIL ONE (09:58)
[2023-08-31] MEDS ORDERED: ONDANSETRON INJ 2 MG/ML 2 ML VIAL ONE (09:58)
[2023-08-31] MEDS ORDERED: ACETAMINOPHEN 1000 MG/100 ML IV IV ONE (10:10)
--- NOTE | 2023-08-31 10:10 | Anesthesiology Consultation ---
Date of Service August 31, 2023 Assessment & Plan Chart Review Chart Review: Acceptable Risk for Surgery Consults Requested none ASA ASA2 Proposed Anesthesia Anesthesia Type: General Risk / Benefits Reviewed With: PT / POA / Parent / Guardian, Accepts Plan and Informed Consent Obtained History Surgery Operation Date: 08/31/23 09:50 Proposed Procedures p Laparoscopic Appendectomy - Curry Carranza MD Height/Weight Height: 7 ft Weight: 68 kg Allergies Allergy/AdvReac Type Severity Reaction Status Date / Time nickel Allergy Mild Skin Verified 08/31/23 09:36 redness oxycodone AdvReac Unknown N/V Verified 08/31/23 09:36 Medications Home Medications Medication Instructions Recorded Confirmed Last Taken calcium carbonate 600 mg-vitamin 2 cap PO QAM 10/12/18 08/31/23 08/30/23 06:00 D3 5 mcg (200 unit) capsule (Calcium 600 + D(3)) famotidine 20 mg tablet (Pepcid) 20 mg PO AMHS reflux 10/12/18 08/31/23 08/30/23 16:30 pediatric multivitamin no.76 1 tab PO QAM 10/12/18 08/31/23 08/30/23 08:00 (Flintstones Complete chewable tablet) acetaminophen 500 mg tablet 1,000 mg (2 x 500 mg) PO TID pain 12/21/22 08/31/23 08/30/23 06:00 (Tylenol Extra Strength) 30 days #180 tabs ondansetron 4 mg disintegrating 4 mg PO Q8 PRN nausea #20 tabs 12/21/22 08/31/23 08/30/23 19:30 tablet 1/2 tab methocarbamol 750 mg tablet 750 mg PO BID PRN Back Pain 12/27/22 08/31/23 08/30/23 06:00 methylprednisolone 4 mg tablets in 4 mg PO UD #1 packet 03/12/23 08/31/23 Unknown a dose pack amoxicillin 500 mg tablet 2,000 mg (4 x 500 mg) PO ONCE #4 04/23/23 08/31/23 08/25/23 tabs Active Medications Generic Name Dose Route Start Last Admin Trade Name Freq PRN Reason Stop Dose Admin Lactated Ringer's 1,000 mls @ 15 mls/hr 08/31/23 09:45 08/31/23 10:18 Lr IV 09/30/23 09:44 Infused .Q24H MARCOS Infusion NPO Date Last Intake of Fluids: 08/31/23 Time Last Intake of Fluids: 04:00 Last Intake of Fluids Comment: Tea with milk Date Last Intake of Solids: 08/30/23 Time Last Intake of Solids: 17:00 Past Medical History Medical History Hypokalemia Encounter for pre-operative examination Hx of irritable bowel syndrome History of COVID-19 03/2022- cough, chest congestion, fatigue > resolved Hx of phlebitis LLE, felt r/t Covid, "resolved"- Xarelto x 6 weeks DVT (deep venous thrombosis) 07/09/22 ([facility] Right knee felt r/t related to estradiol or Covid infection per pt > recent scan "still shows is present" per pt Left knee DJD Degenerative disc disease SI joint dysfunction Osteoarthritis GERD (gastroesophageal reflux disease) Anemia Hx Temporomandibular joint disorder Left side, rare locking History of asthma Exercise induced, no inhaler Exercise / Class Metabolic Activity II 4-5 Yardwork/Stairs/Walk up hill Past Family History Family History Mother Family history of diabetes mellitus Father Family hx of colon cancer Breast cancer Brother Family hx of colon cancer Denies family history of Ovarian cancer Prostate cancer Myocardial infarction Past Surgical History Surgical History [place] of [place] [facility] [place] of [place] of left knee History of arthroscopy of right knee [place] [facility] [place]ausea and vomiting after administration of anesthetic agent H/O hand surgery Right index finger fracture repair 5th metacarpal fracture repair History of esophagogastroduodenoscopy (EGD) History of colonoscopy H/O total hysterectomy History of laparoscopy Exploratory History of tooth extraction Past Anesthesia History No Hx of Anesthesia Complications History of PONV No Hx of PONV and No Hx of Motion Sickness Social History Smoking Status: Never smoker Do You Dip or Chew Tobacco: No Hx Alcohol Use: Yes Alcohol type: wine alcohol intake frequency: holidays/special occasions only Hx Substance Use: No substance use type: does not use Physical Exam Vital Signs Last Vital Signs Temp 36.8 C 08/31/23 09:40 Pulse 70 08/31/23 09:40 Resp 18 08/31/23 09:40 BP 115/76 08/31/23 09:40 Pulse Ox 99 08/31/23 09:40 O2 Del Method Room Air 08/31/23 09:40 Constitutional no acute distress ENMT Thyromental Distance: > or= 3.5 Finger Breadths Mallampati Class: II Neck normal visual inspection Respiratory normal respiratory effort; no respiratory distress Auscultation: lungs clear to auscultation bilaterally Cardiovascular Rate/Rhythm: regular rate and regular rhythm Heart Sounds: no murmur Psychiatric Orientation: alert and oriented x 3 Testing Laboratory Results 08/31/23 07:10 08/31/23 07:10 Urine Color Yellow 08/31/23 07:10 Urine Appearance Clear (Clear) 08/31/23 07:10 Urine pH 8.0 (4.5-7.5) H 08/31/23 07:10 Ur Specific [place] 1.015 (1.000-1.030) 08/31/23 07:10 Urine Protein Negative (Negative) 08/31/23 07:10 Urine Glucose (UA) Negative (Negative) 08/31/23 07:10 Urine Ketones Negative (Negative) 08/31/23 07:10 Urine Nitrite Negative (Negative) 08/31/23 07:10 Ur Leukocyte Esterase Negative (Negative) 08/31/23 07:10 Electrocardiogram Findings: + NSR @
[2023-08-31] MEDS ORDERED: ePHEDrine sulfate 50 MG/ML AMP IV PRN (10:11)
[2023-08-31] MEDS ORDERED: ATROPINE SULFATE 0.1 MG/ML 10ML SYR IV PRN (10:11)
[2023-08-31] MEDS ORDERED: HYDROmorphone INJ 2 MG/ML SYR/VIAL IV PRN (10:11)
[2023-08-31] MEDS ORDERED: HYDROmorphone INJ 1 MG/ML SYRINGE IV PRN (10:11)
[2023-08-31] MEDS ORDERED: ONDANSETRON INJ 2 MG/ML 2 ML VIAL IV PRN ×2 (10:11→12:28)
[2023-08-31] MEDS: PIPERACILLIN/TAZOBACTAM 4.5 GM/100 ML BAG IV ONE (10:21)
[2023-08-31] MEDS ORDERED: KETOROLAC 30 MG/ML VIAL ONE (10:56)
[2023-08-31] MEDS ORDERED: SUGAMMADEX SODIUM 200 MG/2 ML VIAL IV ONE (10:57)
[2023-08-31] MEDS ORDERED: ROCURONIUM BROMIDE 10 MG/ML 5 ML VIAL IV ONE (10:57)
[2023-08-31] MEDS: BUPIVACAINE/EPINEPHRINE 0.5% MPF 1:200,000 30 ML VIAL ONE (10:58)
--- NOTE | 2023-08-31 11:01 | Post Operative Brief Note ---
Immediate Post Op Note Date of Surgery August 31, 2023 Pre & Post Diagnosis Operation Date: 08/31/23 09:50 Pre-Op Diagnosis: Acute appendicitis Post-Op Diagnosis: Acute appendicitis I identified the patient and participated in the time-out.: Yes Procedure Operation Date: 08/31/23 09:50 Actual Procedures p Laparoscopic Appendectomy(Not Applicable) - Curry Carranza MD Surgeon Curry Carranza MD Customer Service Associate MANUEL Valenzuela assisted with tissue retraction, camera op, closure Estimated Blood Loss 5 Findings Consistent with Post-Op Diagnosis
--- NOTE | 2023-08-31 11:02 | Operative Report ---
Post Operative Report Pre & Post Diagnosis Operation Date: 08/31/23 09:50 Pre-Op Diagnosis: Acute appendicitis Post-Op Diagnosis: Acute appendicitis I identified the patient and participated in the time-out.: Yes Procedure Operation Date: 08/31/23 09:50 Actual Procedures p Laparoscopic Appendectomy(Not Applicable) - Curry Carranza MD Surgeon Curry Carranza MD Self Propelled Hot Mix Roller Operator MANUEL Valenzuela assisted with tissue retraction, camera op, closure Estimated Blood Loss 5 Findings Consistent with Post-Op Diagnosis acute appendicitis without perforation Specimens appendix Drains none Anesthesia Type General Complications none Description of Procedure the patient was taken to the operating room, and placed supine on the operating table. A timeout was performed, perioperative antibiotics were administered, SCD boots were placed. After adequate anesthesia and analgesia was obtained, the abdomen was prepped and draped in the normal sterile fashion. A 1 cm incision was made in the supraumbilical region and carried down to the level of the fascia. A trach hook was used to grasp the fascia and elevated and a varies needle was used to enter the abdominal cavity. The abdomen was insufflated to a pressure of 15 mmHg, and a 5 mm trocar was placed in this location. A 5 mm 30 degree laparoscope was placed into the abdominal cavity, and the abdomen was surveyed. The patient was placed in Trendelenburg and slightly to the left. One 5 mm trocar was placed in the right upper quadrant, and one 12 mm trocar was placed in the left lower quadrant under direct visualization. The right colon was identified and traced down to the cecum. The appendix was identified and elevated anteriorly and medially. A window was created at the base of the appendix with a [place] dissector. The Endo MANISH stapler was used to transect the appendix at its base through noninflamed tissue, and subsequently the mesoappendix. The appendix was placed in an Endo Catch bag, and removed via the left lower quadrant port site. Attention was turned to hemostasis, which was excellent. The abdomen was copiously irrigated and suctioned free, and again hemostasis was found to be excellent. All trochars removed under direct visualization. The abdomen was desufflated. The fascia in the 12 mm port site was closed with a 0 Vicryl suture. The skin was closed with a running 4-0 Monocryl subcuticular stitch. Dermabond was applied. The patient tolerated the procedure without complication, and was transferred in stable condition to the PACU. All instrument, needle, and sponge counts were correct at the end of the case. My teachers' assistant was necessary throughout the procedure for tissue retraction, possible camera operation, and closure of the wounds. I understand that section 1842(b)(7)(D) of the Social Security act generally prohibits Medicare physician fee schedule payment for the services of assistants at surgery in teaching hospitals when qualified residents are available to furni sh such services. I certify that the services for which payment is claimed were medically necessary and that no qualified resident was available to perform the services. I further understand that these services are subject to postpayment review by the Medicare carrier. I attest to the content of the Intraoperative Record and any orders documented therein. Any exceptions are noted below.
--- NOTE | 2023-08-31 12:00 | Anesthesiology Progress Note ---
Date of Service August 31, 2023 Anesthesia Post Procedure Vital Signs Vital Signs: Temp Pulse Pulse Pulse Resp BP BP 08/31/23 11:45 36.6 C 63 18 112/71 08/31/23 11:35 66 19 108/61 08/31/23 11:25 72 19 116/64 08/31/23 11:15 36.2 C L 71 24 140/81 08/31/23 09:40 36.8 C 70 18 115/76 08/31/23 09:27 73 20 133/77 08/31/23 09:22 73 20 133/77 08/31/23 07:17 73 08/31/23 07:13 72 20 141/78 H 08/31/23 07:06 74 16 08/31/23 06:42 36.7 C 102 H 20 134/84 Pulse Ox O2 Del Method O2 Flow Rate 08/31/23 11:45 95 Room Air 08/31/23 11:35 97 Room Air 08/31/23 11:25 97 Oxymask 3 08/31/23 11:15 97 Oxymask 6 08/31/23 09:40 99 Room Air 08/31/23 09:27 97 Room Air 08/31/23 09:22 97 Room Air 08/31/23 07:17 08/31/23 07:13 99 Room Air 08/31/23 07:06 97 Room Air 08/31/23 06:42 98 Room Air Pain Intensity Right Abdomen: Pain Intensity: 7 Abdomen: Pain Intensity: 2 Transfer of Care Handoff Completed per policy Notes Mental Status: alert / awake / arousable and participated in evaluation Nausea / Vomiting: adequately controlled Pain: adequately controlled Airway Patency, RR, SpO2: stable & adequate BP & HR: stable & adequate Hydration State: stable & adequate Anesthetic Complications: no major complications apparent and Pt Satisfied with anesthetic care
[2023-08-31] MEDS ORDERED: PROMETHAZINE HCL 12.5 MG in SODIUM CHLORIDE 0.9% 50 ML IV PRN (12:28)
[2023-08-31] MEDS ORDERED: diphenhydrAMINE Capsule 25 MG CAP PO PRN (12:28)
[2023-08-31] MEDS ORDERED: KETOROLAC 30 MG/ML VIAL IV PRN (12:28)
[2023-08-31] MEDS ORDERED: traMADol HCL 50 MG TABLET PO PRN (12:28)
[2023-08-31] MEDS: ACETAMINOPHEN 325 MG TAB PO PRN (16:06)
--- NOTE | 2023-09-01 08:26 | Discharge Summary ---
Date of Service September 01, 2023 Admission HPI Per Admitting Provider 53-year-old woman presents with 2-day history of worsening right lower quadrant pain. It began in the periumbilical region and radiated to the right lower quadrant. No fevers or chills. Some nausea. She has had a prior hysterectomy and bowel obstruction following a knee Replacement. She was on Eliquis but has not taken it in over 1 month. Principal Diagnosis acute appendicitis Discharge Exam Constitutional WD/WN, vitals as above cooperative and comfortable; no acute distress and not ill appearing Respiratory normal respiratory effort, lungs clear to auscultation Cardiovascular RRR, no murmur, no edema Gastrointestinal (Abdomen) Inspection/Auscultation: abdomen normal to inspection and + abdominal surgical incision (c/d/i with dermabond); abdomen not distended Percussion/Palpation: + abdomen tender (mild at incision sites) and abdomen soft; no guarding, abdomen not rigid and abdomen not firm Skin no rashes, warm and dry Psychiatric A+Ox3, euthymic affect Discharge Data Allergies Allergy/AdvReac Type Severity Reaction Status Date / Time nickel Allergy Mild Skin Verified 08/31/23 09:36 redness oxycodone AdvReac Unknown N/V Verified 08/31/23 09:36 Procedures Performed Operation Date: 08/31/23 09:50 Actual Procedures p Laparoscopic Appendectomy(Not Applicable) - Curry Carranza MD Ordered Studies 08/31/23 07:05 CT abd pelvis IV con only Stat Hospital Course (1) Acute appendicitis: Patient was taken operating room for laparoscopic appendectomy on 08/31/[address] Carranza. Patient found to have acute appendicitis without perforation or abscess. Patient tolerated procedure without difficulty and transferred to [facility]/surgical floor. Diet advanced as tolerated, activity a tolerated, pain management as needed. POD # 1 avss, postop pain minimal, tolerating advancing diet, ambulating and urinating without difficulty. Patient was discharged home on POD # 1 in stable condition. Total Time Total Time Spent Total Time Spent (In Minutes): 30 minutes Total Time Includes: Examination of the Patient, Discharge Planning and Medication Reconciliation Discharge Plan Discharge Items Patient Disposition: Home - Self-Care Reason For Visit: postop acute appendicitis Discharge Diagnosis: acute appendicitis Condition on Discharge: Good Activity: Per Instructions section Non-emergency contact: Primary Care Provider and Surgeon Call non-emergency contact if: you have any medication questions, your pain is not controlled, your pain is worsening, you have a fever, your temperature is above 101, your wound has increased redness, your wound has increased drainage and your wound pain has increased Follow-up/Referrals: Radha Valenzuela PA-C [Physician Care Director] - 09/08/23 8:00 am Paulie Santoyo MD [Primary Care Provider] - Diet: Regular Addtl Attending Provider Instructions: Post-Surgical ~Discharge Instructions Activity Recommendations: - lifting limitation: (20 pounds for 2 weeks), - exercise/sex/sports limit: (nonstrenuous for 2 weeks), - driving or machine use limit: (none for 1 week or until pain free), - Shower/bathe limit: (may shower , no submerging incisions underwater for 10-14 days) Diet: - Resume previous diet SPECIAL CARE INSTRUCTIONS: - May shower. Let water run over area and pat dry. - Leave surgical glue on incisions, this will fall off on its own. - Call the surgeon's office with any questions or concerns - - (ex. temperature higher than 101 degrees F, excessive bleeding or pain). MEDICATIONS: - Resume previous medications unless instructed otherwise by your surgeon. - May alternate extra strength Tylenol and Ibuprofen as needed for pain -650 mg Tylenol every 6 hours as needed - Ibuprofen 600 mg every 6 hours as needed (take with food) FOLLOW UP VISIT: - If not already scheduled, please call the office to schedule a one week follow-up appointment. Office number Pending Studies at Discharge: Yes (appendix pathology, will be reviewed at postop visit) Stand[facility]Alone [facility]: [facility], Work/School Release, Smoking Cessation Medications and DC Order Prescriptions: Continued ondansetron 4 mg tablet,disintegrating 4 mg PO Q8 PRN (Reason: nausea) Qty: 20 1RF Rx Instructions: Take as needed for nausea acetaminophen [Tylenol Extra Strength] 500 mg tablet 1,000 mg PO TID 30 Days Qty: 180 0RF Rx Instructions: Take 3 times per day to lessen pain. methylprednisolone 4 mg tablets,dose pack 4 mg PO UD Qty: 1 0RF Rx Instructions: Use as directed amoxicillin 500 mg tablet 2,000 mg PO ONCE Qty: 4 3RF Rx Instructions: 4 tabs 1 hour prior to procedure Calcium 600 + D(3) 600 mg calcium- 200 unit Capsule 2 cap PO QAM Flintstones Complete Tablet,Chewable 1 tab PO QAM famotidine [Pepcid] 20 mg Tablet 20 mg PO [facility]HS methocarbamol 750 mg tablet 750 mg PO BID PRN (Reason: Back Pain) Discharge Orders: Discharge Order (Routine); Ordered 09/01/23 Ordered By: Radha Valenzuela Admission Data Admit Date/Time: 08/31/23 11:05 Attending Provider: Curry Carranza Admit Provider: Curry Carranza Primary Care Provider: Paulie Santoyo
[2023-09-01] MEDS: ENOXAPARIN INJ 30 MG/0.3 ML SYR SQ SCH (09:20)
== END 2023-09-01 10:55 | disposition home or self-care (01) ==
LOC: ED 06:40 → OR 09:28 → 3W 09:28